=== PATIENT | female | born 1975 | race Caucasian/White ===

== ENCOUNTER → 2019-08-21 | Outpatient (REF) | payer BC ==
[~2019-08-21] MED LIST: ALLE180T33 PO; AMBI10TA OR; DICL75TA PO; IMIT50TA PO; KLON1TAB OR; LASI40TA9 PO; LEXA1TAB OR; MULTIVIT OR; NABU750T OR; NORT10CA2 OR; PROZ40CA PO; SOMA350T OR; TOPI100T OR; VICO5TAB OR; VITA100054 PO; VITA100L PO; [UNRECOGNIZED DRUG - OTHER] OR
== END ==
LOC: M WHC 13:39
PROVIDERS: ATTEND Nurse Practitioner Family
DX: Z12.4 Encounter for screening for malignant neoplasm of cervix (principal); R87.612 Low grade squamous intraepithelial lesion on cytologic smear of cervix (LGSIL)
CPT/HCPCS: 87624; G0123

== ENCOUNTER → 2019-08-25 | Outpatient (REF) | payer BC ==
[2019-08-25 18:12] LABS: ALBUMIN 3.6 GM/DL (3.2-5.2); ALT/SGPT 37 U/L (12-78); BILIRUBIN,TOTAL 0.3 MG/DL (0.2-1.0); BLOOD UREA NITROGEN 9 MG/DL (7-18); CALCIUM LEVEL 8.8 MG/DL (8.5-10.1); CARBON DIOXIDE LEVEL 29 MEQ/L (21-32); CHLORIDE LEVEL 104 MEQ/L (98-107); CHOLESTEROL LEVEL 211 MG/DL (<200); CREATININE FOR GFR 0.55 MG/DL (0.55-1.30); FREE T4 1.18 NG/DL (0.76-1.46); GLOMERULAR FILTRATION RATE > 60.0 (>58); GLUCOSE, FASTING 91 MG/DL (70-100); HDL CHOLESTEROL 89 MG/DL (>40); LDL CHOLESTEROL 101 MG/DL (<100); NON-HDL-C 122 MG/DL; POTASSIUM SERUM 3.7 MEQ/L (3.5-5.1); SODIUM LEVEL 139 MEQ/L (136-145); THYROID STIMULATING HORMONE 0.703 uIU/ML (0.358-3.740); TOTAL PROTEIN 7.4 GM/DL (6.4-8.2); TRIGLYCERIDES LEVEL 104 MG/DL (<150)
[2019-08-25 18:34] LABS: BASO # 0.1 10^3/uL (0.0-0.2); BASO % 0.9 % (0.0-1.0); EOS # 0.1 10^3/uL (0.0-0.5); EOS % 1.4 % (0.0-3.0); HEMATOCRIT 40.6 % (36.0-47.0); HEMOGLOBIN 12.8 g/dl (12.0-15.5); LYMPH # 2.1 10^3/uL (1.5-5.0); MEAN CORPUSCULAR HEMOGLOBIN 28.4 pg (27.0-33.0); MEAN CORPUSCULAR HGB CONC 31.5 g/dl (32.0-36.5); MEAN CORPUSCULAR VOLUME 90.2 fl (80.0-96.0); MONO # 0.6 10^3/uL (0.0-0.8); MONO % 6.4 % (0.0-5.0); NEUTROPHILS # 5.8 10^3/uL (1.5-8.5); PLATELET COUNT, AUTOMATED 386 10^3/uL (150-450); WHITE BLOOD COUNT 8.6 10^3/uL (4.0-10.0)
[2019-08-25 20:29] LABS: HEMOGLOBIN A1c 4.6 %
[2019-08-26 11:56] LABS: PTH INTACT 109.8 PG/ML (18.5-88.0)
[2019-08-26 12:09] LABS: VITAMIN B12 LEVEL 1019 PG/ML (247-911)
== END ==
LOC: M SFHCPLAZ 15:07
PROVIDERS: ATTEND Family Medicine
DX: E55.9 Vitamin D deficiency, unspecified (principal); M50.30 Other cervical disc degeneration, unspecified cervical region; D50.9 Iron deficiency anemia, unspecified; E53.8 Deficiency of other specified B group vitamins; E66.9 Obesity, unspecified; D86.9 Sarcoidosis, unspecified

== ENCOUNTER → 2019-09-07 | Outpatient (CLI) | payer BC ==
[~2019-09-07] MED LIST changes: +ISOVUE-370 76% 100ML VIAL (Q9967) As Ordered ONE
--- NOTE | 2019-09-07 17:02 | REP ---
CT abdomen and pelvis with IV but without oral contrast: History: Splenic artery aneurysm. Comparison CT study January 10, 2016 and March 25, 2015. CT contrast dose: 100 mL of intravenous Isovue [address] findings: Preliminary digital heater furnace radiograph shows clips in right upper quadrant. Bowel gas pattern is normal. The lung bases are essentially clear. Pleural angles are sharp. The gallbladder is surgically absent. The liver and the spleen are normal in size and homogeneous in texture. There is a small accessory splenule. There is a stable 1.5 cm splenic artery aneurysm near the hilus of the spleen. This is located superior to the splenule. It is felt to be unchanged from March 25, 2015. The two other branch aneurysms are less well seen but appear to be unchanged from the comparison CT angiography from March 25, 2015. The splenic vasculature is otherwise unremarkable. No pancreatic abnormality is seen. No adrenal lesion is observed on either side. No retroperitoneal mass or adenopathy is seen. Small and large intestinal bowel loops are normal in the abdomen and pelvis. A normal appendix is seen in the right lower quadrant. There is a simple appearing cystic area in the left adnexa, 6.5 x 5.2 x 6.1 cm in diameter. Small and large bowel loops are unremarkable in the abdomen and pelvis. No abdominal wall defect is seen. Impression: Post cholecystectomy. Stable 1.5 cm splenic artery aneurysms with the two previously noted smaller aneurysms appearing stable but less well seen. There is a 6 cm cystic lesion in the left ovary. Comparison pelvic sonography may be useful. Otherwise negative. Electronically Signed by Juice Pérez MD 09/07/2019 06:20 P
== END ==
LOC: M RAD 12:45
PROVIDERS: ATTEND Family Medicine
DX: I72.8 Aneurysm of other specified arteries (principal)
CPT/HCPCS: 74177; Q9967

== ENCOUNTER → 2019-09-10 | Outpatient (CLI) | payer BC ==
[~2019-09-10] MED LIST changes: -ISOVUE-370 76% 100ML VIAL (Q9967) As Ordered ONE
--- NOTE | 2019-09-10 11:48 | REP ---
PELVIC ULTRASOUND: Real-time sonographic evaluation of pelvis performed utilizing transabdominal and endovaginal technique. Bladder measures 8.7 x 7.5 x 2.0 cm. The uterus measures 8.1 x 4.2 x 5.1 cm. Endometrial thickness is 7 mm. There is no endometrial fluid collection. Right ovary measures 4.4 x 2.6 x 3.2 cm. Hypoechoic structure in the right ovary may represent a complex hemorrhagic dominant follicle or small cyst, 3.4 x 1.9 x 2.3 cm. Left ovary measures 4.5 x 2.3 x 3.9 cm. There is a left ovarian cyst with a thin internal septation measuring 6.1 x 6.1 x 4.2 cm. No torsion is seen of either ovary with duplex Doppler evaluation. No free fluid is seen. IMPRESSION: Hypoechoic structure right ovary may represent a hemorrhagic cyst or dominant follicle 3.4 x 1.9 x 2.3 cm. Anechoic cyst left ovary with a thin septation measures 6.1 x 6.1 x 4.2 cm. Recommend followup ultrasound in 2 months. Electronically Signed by Jerad Arreaga MD 09/10/2019 02:43 P
== END ==
LOC: M RAD 09:04
PROVIDERS: ATTEND Family Medicine
DX: N83.202 Unspecified ovarian cyst, left side (principal)

== ENCOUNTER → 2019-09-11 | Outpatient (CLI) | payer BC ==
--- NOTE | 2019-09-15 15:27 | SLEEPHOME ---
DATE OF STUDY: 09/11/2019 ORDERED BY: Dr. Reynolds Diagnostic home sleep testing was performed due to concern for the obstructive sleep apnea syndrome. For testing a nocturnal T3 respiratory monitoring device was used. Continuous record was made of pulse, oxygen saturation, airflow, chest and abdominal strain and body position. 9 hours and 59 minutes of data were reviewed. There were 6 hours and 30 minutes marked as time in bed. During the interval marked time in bed, there were 42 respiratory events identified of 10 seconds in duration or greater for a respiratory event index of 6.5. The events were primarily obstructive. Baseline pulse rate 70. Pulse rate ranged 59-87. Baseline saturation 92%. Saturations fell to 86%. Testing was performed in both the supine and nonsupine positions. IMPRESSION: Abnormal home sleep testing with repetitive respiratory events and oxygen desaturations to 86% with a respiratory event index of 6.5 is consistent with the obstructive sleep apnea syndrome. RECOMMENDATIONS: The patient should be encouraged to undergo formal sleep evaluation.
== END ==
LOC: M SLEEP HO 09-07 09:57
PROVIDERS: ATTEND Family Medicine
DX: G47.33 Obstructive sleep apnea (adult) (pediatric) (principal)

== ENCOUNTER → 2019-09-21 | Outpatient (REF) | payer BC | LOC: M SFHCWAGY 17:09 | PROVIDERS: ATTEND Nurse Practitioner Women's Health | DX: R87.612 Low grade squamous intraepithelial lesion on cytologic smear of cervix (LGSIL) (principal) ==

== ENCOUNTER → 2020-01-22 | Outpatient (CLI) | payer BC ==
--- NOTE | 2020-01-23 14:29 | REP ---
Followup ovarian cyst. Prior exam, 09/10/2019, showed an ovarian cyst on the right, which was septated measuring 6 cm, and a small suspected hemorrhagic cyst in the right ovary measuring between 3 and 4 cm. Transvesical and transvaginal imaging was obtained. Uterus measures 7.7 x 4.3 x 5.1 cm. The parenchymal echo pattern is unchanged and again seen to be within normal limits. The endometrial echocomplex is again seen to be within normal limits measuring 7 mm in thickness. Right ovary measures 4 x 3.3 x 2.9 cm. Within the right ovary, there is an anechoic structure which measures 3 cm. This exhibits posterior wall enhancement and increased through transmission and is without papillary projections or internal septations. Left ovary measures 3.6 x 1.4 x 2.8 cm. There is a normal follicle in the left ovary. There is no free fluid. IMPRESSION: 1. Resolution of the left ovarian cyst. 2. Small right ovarian cyst.
== END ==
LOC: M WHC 14:44
PROVIDERS: ATTEND Family Medicine
DX: N83.201 Unspecified ovarian cyst, right side (principal)

== ENCOUNTER → 2020-04-13 | Outpatient (CLI) | payer BC ==
[2020-04-13 13:01] LABS: ALBUMIN 2.9 GM/DL (3.2-5.2); ALT/SGPT 29 U/L (12-78); BILIRUBIN,TOTAL 0.2 MG/DL (0.2-1.0); BLOOD UREA NITROGEN 14 MG/DL (7-18); CALCIUM LEVEL 8.8 MG/DL (8.5-10.1); CARBON DIOXIDE LEVEL 25 MEQ/L (21-32); CHLORIDE LEVEL 112 MEQ/L (98-107); CREATININE FOR GFR 0.62 MG/DL (0.55-1.30); GLOMERULAR FILTRATION RATE > 60.0 (>58); GLUCOSE, FASTING 87 MG/DL (70-100); POTASSIUM SERUM 3.8 MEQ/L (3.5-5.1); SODIUM LEVEL 143 MEQ/L (136-145); TOTAL PROTEIN 6.3 GM/DL (6.4-8.2)
[2020-04-13 13:09] LABS: TOTAL 25(OH) VITAMIN D 68.9 NG/ML (30.0-100.0)
[2020-04-13 13:10] LABS: PTH INTACT 67.8 PG/ML (18.5-88.0)
[2020-04-13 13:16] LABS: HEMOGLOBIN A1c 4.7 %
== END ==
LOC: M WUC 09:34
PROVIDERS: ATTEND Family Medicine
DX: R73.01 Impaired fasting glucose (principal); E55.9 Vitamin D deficiency, unspecified; M50.30 Other cervical disc degeneration, unspecified cervical region

== ENCOUNTER → 2020-06-21 | Outpatient (CLI) | payer SELFPAY | LOC: M LABSMTC 08:19 | PROVIDERS: ATTEND Pediatrics | DX: Z11.59 Encounter for screening for other viral diseases (principal) ==

== ENCOUNTER → 2020-06-21 | Outpatient (CLI) | payer SELFPAY | LOC: M LABSMTC 09:45 | PROVIDERS: ATTEND Pediatrics | DX: Z11.59 Encounter for screening for other viral diseases (principal) ==

== ENCOUNTER → 2020-06-28 | Outpatient (CLI) | payer BC ==
--- NOTE | 2020-06-28 10:27 | REPMRS ---
Patient History No known family history of cancer. pt denied . 30 lb intentional weight loss. Digital Woman Screen Mammo: June 28, 2020 - Exam #: [id number] Bilateral CC and MLO view(s) were taken. Technologist: RT Riaz Prior study comparison: January 09, 2017, bilateral digital mammo screening bilat, performed at [facility]. June 08, 2015, bilateral digital mammo screening bilat, performed at [facility]. April 02, 2014, bilateral digital mammo screening bilat, performed at [facility]. FINDINGS: The breast tissue is almost entirely fat. The Volpara volumetric breast density category is: A. There has been no change in the appearance of the mammogram from the prior studies. There is no interval development of dominant mass, architectural distortion, or grouped microcalcification typical of malignancy. 3-D tomosynthesis shows no additional findings. Assessment: BI-RADS/ACR category 1 mammogram. Negative Mammogram. Recommendation Routine screening mammogram of both breasts in 1 year (for women over age 40). This patient's [facility] Lifetime Breast Cancer RIsk is estimated at 12.6 %. This mammogram was interpreted with the aid of an FDA-approved computer-aided dectection system. Electronically Signed By: Ruben Pérez MD 06/28/20 [id number]
== END ==
LOC: M WHC 09:22
PROVIDERS: ATTEND Family Medicine
DX: Z12.31 Encounter for screening mammogram for malignant neoplasm of breast (principal)

== ENCOUNTER → 2020-08-01 | Outpatient (CLI) | payer BC ==
[2020-08-01 12:24] LABS: ALBUMIN 3.2 GM/DL (3.2-5.2); ALT/SGPT 39 U/L (12-78); BILIRUBIN,TOTAL 0.4 MG/DL (0.2-1.0); BLOOD UREA NITROGEN 8 MG/DL (7-18); CALCIUM LEVEL 8.7 MG/DL (8.5-10.1); CARBON DIOXIDE LEVEL 24 MEQ/L (21-32); CHLORIDE LEVEL 107 MEQ/L (98-107); GLOMERULAR FILTRATION RATE > 60.0 (>58); GLUCOSE, FASTING 81 MG/DL (70-100); NT-PRO BNP 102 PG/ML (<125); POTASSIUM SERUM 3.5 MEQ/L (3.5-5.1); SODIUM LEVEL 138 MEQ/L (136-145); TOTAL 25(OH) VITAMIN D 82.3 NG/ML (30.0-100.0); TOTAL PROTEIN 6.8 GM/DL (6.4-8.2)
[2020-08-01 13:49] LABS: HEMOGLOBIN A1c 4.9 %
== END ==
LOC: M LAB 10:26
PROVIDERS: ATTEND Family Medicine
DX: R73.01 Impaired fasting glucose (principal)

== ENCOUNTER → 2020-08-04 | Outpatient (REF) | payer SELFPAY | LOC: M LABSMTC 09:50 → EDSTATUS 11:25 → M LABSMTC 14:22 | PROVIDERS: ATTEND Pediatrics | DX: Z20.822 Contact with and (suspected) exposure to COVID-19 (principal) ==

== ENCOUNTER → 2020-08-12 | Outpatient (CLI) | payer BC ==
[~2020-08-12] MED LIST changes: +ISOVUE-370 76% 100ML VIAL As Ordered ONE
--- NOTE | 2020-08-13 05:11 | REP ---
INDICATION: SPIENIC ARTERY ANEURYSM COMPARISON: None TECHNIQUE: Axial contrast-enhanced images from the lung bases through the aortic bifurcation to iliac arteries using angiographic technique. 100 cc Isovue 370 intravenous contrast material administered without complication. Coronal and sagittal reformations obtained along with multiplanar MIP reformations and volume rendered CT aortic angiogram created at the workstation. This CT examination was performed using the following dose reduction techniques: Automated exposure control, adjustment of mA and/or kv according to the patient's size, and use of iterative reconstruction technique. FINDINGS: Angiographic evaluation demonstrates normal appearance to the abdominal aorta, celiac axis, superior mesenteric artery, bilateral solitary renal arteries, inferior mesenteric artery and bifurcation to common iliac arteries. There is no evidence for aortic aneurysm or dissection. Of note, the distal splenic artery is tortuous and again demonstrates a stable 1.5 cm splenic artery aneurysm approaching the splenic hilum. The smaller splenic artery aneurysms reported on prior studies are not definitively identified. Lung bases are clear. Visualized heart and pericardium normal. Liver, spleen, pancreas, bilateral adrenal glands and kidneys are normal. Evidence for prior cholecystectomy noted. The visualized portions of the small and large bowel are unremarkable. No ascites. No free air. No adenopathy. No focal inflammatory stranding. Musculoskeletal structures are intact and without acute osseous abnormality. IMPRESSION: 1. Stable 1.5 cm splenic artery aneurysm. 2. Otherwise normal CT aortogram. 3. No acute abdominopelvic pathology appreciated. <Electronically signed by Micheal Resendez > 08/13/20 [id number]
== END ==
LOC: M RAD 13:43
PROVIDERS: ATTEND Family Medicine
DX: I72.8 Aneurysm of other specified arteries (principal)
CPT/HCPCS: 74175; Q9967

== ENCOUNTER 2020-09-13 13:40 | Emergency (ER) | payer BC ==
[~2020-09-13] VITALS: Ht 177.8 cm; Wt 122.2 kg
[~2020-09-13 13:40] MED LIST changes: -ISOVUE-370 76% 100ML VIAL As Ordered ONE
[2020-09-13] MEDS ORDERED: ONDA4TAB6 (13:53)
[2020-09-13] MEDS ORDERED: OXYC1TAB15 (13:53)
[2020-09-13] MEDS ORDERED: TOPI50TA9 (13:53)
[2020-09-13] MEDS ORDERED: PANT40TA29 (13:53)
[2020-09-13] MEDS ORDERED: VITA50005 (13:53)
[2020-09-13] MEDS ORDERED: ZOLP5TAB (13:54)
[2020-09-13] MEDS ORDERED: QUET50TA3 (13:54)
[2020-09-13] MEDS ORDERED: FURO40TA2 (13:54)
[2020-09-13] MEDS ORDERED: FLUO40CA (13:54)
[2020-09-13] MEDS ORDERED: RIZA10TA2 (13:54)
[2020-09-13] MEDS ORDERED: MORPHINE 4 MG/ML 1ML VIAL/SYRINGE (J2270) IV ONE (14:05)
[2020-09-13] MEDS ORDERED: ONDANSETRON 4MG/2ML VIAL IV ONE (14:05)
[2020-09-13 14:32] LABS: BASO % 0.4 % (0.0-1.0); EOS # 0.1 10^3/uL (0.0-0.5); EOS % 0.6 % (0.0-3.0); HEMATOCRIT 33.4 % (36.0-47.0); HEMOGLOBIN 10.7 g/dl (12.0-15.5); LYMPH # 1.6 10^3/uL (1.5-5.0); LYMPH % 16.4 % (24.0-44.0); MEAN CORPUSCULAR HEMOGLOBIN 28.8 pg (27.0-33.0); MEAN CORPUSCULAR VOLUME 89.8 fl (80.0-96.0); MONO # 0.5 10^3/uL (0.0-0.8); MONO % 4.8 % (2.0-8.0); NEUTROPHILS # 7.7 10^3/uL (1.5-8.5); NEUTROPHILS % 77.3 % (36.0-66.0); PLATELET COUNT, AUTOMATED 315 10^3/uL (150-450); RED BLOOD COUNT 3.72 10^6/uL (4.00-5.40)
[2020-09-13] MEDS: GASTROGRAFIN SOLUTION 30ML PO SCH ×2 (14:43→15:18)
[2020-09-13 15:02] LABS: ALT/SGPT 28 U/L (12-78); BILIRUBIN,DIRECT 0.2 MG/DL (0.0-0.2); BILIRUBIN,TOTAL 0.4 MG/DL (0.2-1.0); BLOOD UREA NITROGEN 14 MG/DL (7-18); CALCIUM LEVEL 8.5 MG/DL (8.5-10.1); CARBON DIOXIDE LEVEL 27 MEQ/L (21-32); CHLORIDE LEVEL 109 MEQ/L (98-107); CREATININE FOR GFR 0.58 MG/DL (0.55-1.30); GLOMERULAR FILTRATION RATE > 60.0 (>58); GLUCOSE, FASTING 80 MG/DL (70-100); LIPASE 41 U/L (73-393); POTASSIUM SERUM 3.6 MEQ/L (3.5-5.1); SODIUM LEVEL 139 MEQ/L (136-145); TOTAL PROTEIN 6.5 GM/DL (6.4-8.2)
[2020-09-13 15:05] LABS: HCG, SERUM QUALITATIVE NEGATIVE (NEGATIVE)
[2020-09-13] MEDS ORDERED: ISOVUE-370 76% 100ML VIAL As Ordered ONE (16:23)
--- NOTE | 2020-09-13 16:51 | REP ---
INDICATION: LLQ pain. COMPARISON: None TECHNIQUE: Axial contrast-enhanced images from the lung bases to the pubic symphysis using oral and 100 cc Isovue 370 intravenous contrast material. . This CT examination was performed using the following dose reduction techniques: Automated exposure control, adjustment of mA and/or kv according to the patient's size, and the use of iterative reconstruction technique. FINDINGS: Lung bases are clear. Visualized heart and pericardium normal. Liver, spleen, pancreas, bilateral adrenal glands and kidneys are normal. Evidence for prior cholecystectomy noted. Stable incidental chronic calcified splenic artery aneurysm again identified and unchanged. The enteric system including stomach, small, and large bowel appears normal. No evidence for obstruction or acute inflammatory process. Normal terminal ileum and appendix are identified in the right lower quadrant. Pelvis demonstrates normal bladder and age-appropriate uterus with presumed physiologic cystic changes to the ovaries. No ascites. No free air. No intraperitoneal or retroperitoneal adenopathy. Abdominal aorta and vasculature appear normal. Musculoskeletal structures are intact and without acute osseous abnormality. IMPRESSION: No acute abdominopelvic pathology appreciated. As above. <Electronically signed by Micheal Resendez > 09/13/20 [id number]
[2020-09-13 17:35] VITALS: BP 119/71
== END 2020-09-13 17:53 | disposition home or self-care (01) ==
LOC: M ED 13:40
DX: R10.30 Lower abdominal pain, unspecified (principal); I10 Essential (primary) hypertension; K58.9 Irritable bowel syndrome, unspecified; K21.9 Gastro-esophageal reflux disease without esophagitis; J45.909 Unspecified asthma, uncomplicated; E66.9 Obesity, unspecified; M47.9 Spondylosis, unspecified; G56.00 Carpal tunnel syndrome, unspecified upper limb; I72.8 Aneurysm of other specified arteries; R73.01 Impaired fasting glucose; F33.9 Major depressive disorder, recurrent, unspecified; F41.9 Anxiety disorder, unspecified; F42.9 Obsessive-compulsive disorder, unspecified; Z87.891 Personal history of nicotine dependence; Z88.1 Allergy status to other antibiotic agents; Z88.8 Allergy status to other drugs, medicaments and biological substances; Z91.048 Other nonmedicinal substance allergy status; Z79.899 Other long term (current) drug therapy
CPT/HCPCS: 36415; 74177; 80048; 80076; 81001; 83690; 84703; 85025; 87086; 96374; 96375; 99284; J2270; J2405; Q9963; Q9967

== ENCOUNTER → 2020-10-27 | Outpatient (REF) | payer BC ==
[~2020-10-27] MED LIST changes: +FLUO40CA; +FURO40TA2; +ONDA4TAB6; +OXYC1TAB15; +PANT40TA29; +QUET50TA3; +RIZA10TA2; +TOPI50TA9; +VITA50005; +ZOLP5TAB
[2020-10-27 17:05] LABS: CHLAMYDIA DNA AMPLIFICATION NEGATIVE (NEGATIVE); GC DNA AMPLIFICATION NEGATIVE (NEGATIVE)
== END ==
LOC: M SFHCWAGY 14:59
PROVIDERS: ATTEND Specialist
DX: N89.8 Other specified noninflammatory disorders of vagina (principal); R87.610 Atypical squamous cells of undetermined significance on cytologic smear of cervix (ASC-US)
CPT/HCPCS: 87491; 87591; 87624; G0123

== ENCOUNTER → 2021-01-03 | Outpatient (REF) | payer BC ==
[~2021-01-03] MED LIST changes: +ERGO500029; -OXYC1TAB15; +OXYC7.5T3; -VITA50005
[2021-01-03 13:37] LABS: BASO # 0.1 10^3/uL (0.0-0.2); BASO % 0.8 % (0.0-1.0); EOS # 0.1 10^3/uL (0.0-0.5); EOS % 1.3 % (0.0-3.0); HEMATOCRIT 35.1 % (36.0-47.0); HEMOGLOBIN 11.4 g/dl (12.0-15.5); LYMPH # 1.9 10^3/uL (1.5-5.0); LYMPH % 23.4 % (24.0-44.0); MEAN CORPUSCULAR HEMOGLOBIN 28.8 pg (27.0-33.0); MEAN CORPUSCULAR HGB CONC 32.5 g/dl (32.0-36.5); MEAN CORPUSCULAR VOLUME 88.6 fl (80.0-96.0); MONO # 0.4 10^3/uL (0.0-0.8); MONO % 5.1 % (2.0-8.0); NEUTROPHILS # 5.5 10^3/uL (1.5-8.5); NEUTROPHILS % 69.1 % (36.0-66.0); PLATELET COUNT, AUTOMATED 273 10^3/uL (150-450); RED BLOOD COUNT 3.96 10^6/uL (4.00-5.40); WHITE BLOOD COUNT 7.9 10^3/uL (4.0-10.0)
[2021-01-03 14:10] LABS: ALBUMIN 3.5 GM/DL (3.2-5.2); ALT/SGPT 34 U/L (12-78); BILIRUBIN,TOTAL 0.4 MG/DL (0.2-1.0); BLOOD UREA NITROGEN 8 MG/DL (7-18); C REACTIVE PROTEIN QUANTITATIV 2.09 MG/DL (0.00-0.30); CALCIUM LEVEL 9.1 MG/DL (8.5-10.1); CARBON DIOXIDE LEVEL 21 MEQ/L (21-32); CHLORIDE LEVEL 111 MEQ/L (98-107); CHOLESTEROL LEVEL 219 MG/DL (<200); CHOLESTEROL RISK RATIO 2.959 (<5); CREATININE FOR GFR 0.48 MG/DL (0.55-1.30); FERRITIN 66 NG/ML (8-252); GLOMERULAR FILTRATION RATE > 60.0 (>58); GLUCOSE, FASTING 94 MG/DL (70-100); HDL CHOLESTEROL 74 MG/DL (>40); LDL CHOLESTEROL 121 MG/DL (<100); NON-HDL-C 145 MG/DL; POTASSIUM SERUM 3.8 MEQ/L (3.5-5.1); SODIUM LEVEL 140 MEQ/L (136-145); TOTAL PROTEIN 6.7 GM/DL (6.4-8.2); TRIGLYCERIDES LEVEL 118 MG/DL (<150)
[2021-01-03 14:11] LABS: H PYLORI QUALITATIVE IgG NEGATIVE (NEGATIVE)
[2021-01-03 14:14] LABS: VITAMIN B12 LEVEL 701 PG/ML (247-911)
== END ==
LOC: M LAB REF 12:35
PROVIDERS: ATTEND Family Medicine
DX: D50.9 Iron deficiency anemia, unspecified (principal); E78.2 Mixed hyperlipidemia; E53.8 Deficiency of other specified B group vitamins; M50.30 Other cervical disc degeneration, unspecified cervical region
CPT/HCPCS: 80053; 80061; 80307; 82607; 82728; 85025; 86140; 86677; G0480

== ENCOUNTER → 2021-01-18 | Outpatient (REF) | payer BC | LOC: M SFHCWAGY 10:01 | PROVIDERS: ATTEND Specialist | DX: R87.612 Low grade squamous intraepithelial lesion on cytologic smear of cervix (LGSIL) (principal) ==

== ENCOUNTER → 2021-04-18 | Outpatient (REF) ==
[~2021-04-18] MED LIST changes: -QUET50TA3; +QUET50TA4
== END ==
LOC: M EMP 11:02
PROVIDERS: ATTEND Family Medicine
DX: Z20.828 Contact with and (suspected) exposure to other viral communicable diseases (principal); Z11.52 Encounter for screening for COVID-19

== ENCOUNTER → 2021-04-26 | Outpatient (REF) ==
[2021-04-26 14:06] LABS: RSV AMPLIFICATION NEGATIVE (NEGATIVE)
== END ==
LOC: M EMP 11:40
PROVIDERS: ATTEND Family Medicine
DX: Z20.822 Contact with and (suspected) exposure to COVID-19 (principal)

== ENCOUNTER 2021-04-30 03:09 | Emergency (ER) | payer BC ==
[~2021-04-30] VITALS: Ht 175.3 cm; Wt 116.3 kg
--- OUTSIDE RECORDS SUMMARY | 2021-04-30 03:19 | CCD ---
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
--- OUTSIDE RECORDS SUMMARY | 2021-04-30 03:19 | CCD ---
Author Author [facility] Organization [facility] Address Unknown Phone Unavailable Care Team Providers Care Art Specialist Name Role Phone Magdaleno Reynolds Unavailable PROBLEMS Type Condition ICD9-CM Code GVV08-KC Code Onset Dates Condition S tatus W/U Status Risk SNOMED Code Notes Problem Cervical dysplasia N87.9 Active confirmed 7 4183640 Problem Splenic artery aneurysm I72.8 Active confirmed 96160245 Problem Common migraine G43.009 Active confirmed 560 61606 Problem Fe deficiency anemia D50.9 Active confirmed 29752926 Problem DJD (degenerative joint disease), cervical M50.30 Active confirmed 08988129 Problem CHRIS (obstructive sleep apnea) G47.33 Active confirm ed 01061455 Problem Irritable bowel syndrome with diarrhea K58.0 A ctive confirmed 659522000 Problem Sarcoidosis D86.9 Active confirmed 06665512 Problem CTS (carpal tunnel syndrome) G56.00 Active confirme d 38806524 Problem Allergic rhinitis J30.9 Active confirmed 61 862027 Problem Insomnia G47.00 Active confirmed 390587991 Problem Generalized anxiety disorder F41.1 Active confirme d 85297089 Problem Obesity E66.9 Active confirmed 711650423 Problem Gastroesophageal reflux disease, esophagitis pre sence not specified K21.9 Active confirmed 232973555 Problem ADD (attention deficit disorder) F90.0 Active conf irmed 103677528 Problem Tinnitus of right ear H93.11 Active confirmed 53693005 Problem Mild persistent asthma without complication J45.30 Active confirmed 602735220 Problem Ovarian cyst N83.209 Active confirmed 163350 01 Problem Peripheral edema R60.9 Active confirmed 271 706577 Problem Vitamin D deficiency E55.9 Active confirmed 64264439 Problem Venous insufficiency of both lower extremities I87 .2 Active confirmed 754409134 Problem Vitamin B12 deficiency E53.8 Active confirmed 540999240 Problem Breast cancer screening Z12.39 Active confirmed 123133165 Problem IFG (impaired fasting glucose) R73.01 Active confir med 712192695 Problem Mixed hyperlipidemia E78.2 Active confirmed 214844189 Problem Post-traumatic stress disorder, unspecified F43.10 Active confirmed 29649652 Problem Major depressive disorder, recurrent, moderate F33 .1 Active confirmed 245293106 ALLERGIES Allergen (clinical drug ingredient) Drug/Non Drug Allergy do cumented on EMR Reaction Allergy Type Onset Date Status bandaids excoriation Non Drug Allergy Active cetirizine Cetirizine HCl([facility] Code:[address]-39) Hives Drug All ergy Active citalopram Celexa(ND Code:[address]-55) severe drowsiness Drug Tommy rgy Active clindamycin Clindamycin HCl([facility] Code:[address]-35) Vomiting Drug A llergy Active povidone-iodine Betadine(ND Code:[address]-95) Rash Drug Tommy rgy Active ENCOUNTERS from 1975 to 2021-02-11 Encounter Location Date Provider Diagnosis [address] [phone] [place] [address] Jan, Magdaleno Reynolds Venous insufficiency of both lower extremities I87.2 IMMUNIZATIONS Vaccine Route Administration Date Status Influenza Pharmacy Given Unknown Mar 24, 2020 Adminis tered Influenza Pharmacy Given IM Intramuscular May 26, 2019 Admini stered Influenza 6mo & up Fluzone Unknown Apr 14, 2015 Admin istered Influenza 6mo & up Fluzone IM Intramuscular Aug 05, 2012 Admi nistered SOCIAL HISTORY Tobacco Use: Social History Observation Description Date Details (start date - stop date) Former Smoker Sex Assigned At : Social History Observation Description Sex Assigned At Unknown Education: Question Answer Notes Level of Education: College Language: Question Answer Notes Languages spoken: Mosotho Cheondoism: Question Answer Notes Cheondoism 33 None Alcohol Screening: Question Answer Notes Did you have a drink containing alcohol in the past year? No Points 0 Interpretation Negative BMI Care Goal Follow-Up Question Answer Notes Above Normal BMI Follow-Up Giving encouragement to exercise Tobacco Use: Question Answer Notes Are you a: former smoker smoked 2 PPD for 15 years REASON FOR REFERRAL No Information VITAL SIGNS No information MEDICATIONS Medication SIG (Take, Route, Frequency, Duration) Notes Start Da te End Date Status QUEtiapine Fumarate 50 MG 1 tab Orally at bedtime for 30 day(s) Active Diclofenac Sodium 75 MG 1 tablet Orally twice a day for 90 day(s) Active Tums Ultra 1000 1000 MG 1 tablet Orally at bedtime for 90 day(s) Active Soma 350 MG 1 tablet as needed Orally twice a day MDD: 2 for 30 Days Active FLUoxetine HCl 40 MG 2 capsules Orally every morning for 90 day(s) Active Nikki Allergy 180 MG TAKE ONE TABLET BY MOUTH EVERY DAY Active Xopenex HFA 45 MCG/ACT 1 puff as needed Inhalation every 4 hrs for 30 Days Active Lotronex 0.5 MG 1 tablet Orally Daily for 30 day(s) November Active Clobetasol Propionate 0.05 % 1 application to affected area Externally arms Twice a day for 90 day(s) Active Pantoprazole Sodium 40 MG 1 tablet Orally every morning for 90 day(s) Active Cyanocobalamin 500 MCG 1 tablet Orally Once a day for 90 day(s) Active Ergocalciferol 1.25 MG (18340 UT) 1 capsule Orally every 7 days for 90 day(s) Active clonazePAM 1 MG 1 tablet Orally bid, CODE A for 30 Days Active Hibiclens 4 % as directed Externally Daily for 90 day(s) Active Osteo Bi-Flex Adv Joint Shield - as directed Orally Active Hair Skin and Nails Formula - as directed Orally Active Rizatriptan Benzoate 10 MG 1 tablet Orally qd prn migr november repeat x 1 in 2H for 30 Days Active Mupirocin 2 % 1 application Externally Three times a day Active Percocet 7.5-325 MG 1 tablet as needed Orally TID prn, MDD 3 for 30 Days Jan, Active Lasix 40 mg 1 tablet Orally daily prn BLE swelling Active Topiramate 50 MG 1.5 tablet orally bid for 90 day(s) Active Ondansetron HCl 4 MG 1 tablet Orally Once a day for 90 day(s) Jun, Active Ambien 5 MG 1 tablet at bedtime Orally at bedtime MDD:1 for 30 day(s) Active Vitamin C 500 MG as directed Orally Active Carpal Tunnel Wrist Stabilizer _ as directed _ _ for 99 months Active Sudafed 30 MG 2 tablets as needed Orally every 6 hrs Active Benadryl Allergy 25 MG 1 tablet at bedtime as neede d Orally Once a day for 30 day(s) Active Nystatin 385946 UNIT/GM 1 application Externally to groin area Twice a day for 90 day(s) Dec, Active COMPRESSION STOCKINGS 20-30 mmHg as directed _ B belwo knee for 30 Days November, Active PROCEDURES No Information RESULTS No Results REASON FOR VISIT Compression socks MEDICAL (GENERAL) HISTORY Type Description Date Medical History cervical/thoracic spondylosi s-C3-7 HNP s compression-06/21/14 MRI Medical History lumbar spondylosis-10/19/09 normal LS MRI Medical History hypertension-03/2014 normal T TE, 03/2014 EST low risk-6 minutes, 30 seconds on Roldan-Sanchez Medical History mild left and very mild righ t carpal tunnel syndrome/mild left ulnar neuropathy cubui-KIF-Bllux Medical History chronic MDD/AUDI/OCD/insomnia Medical History obesity, morbid Medical History impaired fasting glucose Medical History history of nicotine addictio n-smoked 1 07/16 x 14 years, quit 02/2010 Medical History asthma, mild intermittent Medical History NEQG-ryz-fgqyxmc gastritis, non-bleeding erosive gastropathy, -GEJ/-H pylori-11/27/18 EGD-Dr. Parks, [place], [place] Medical History palpitations-03/2014 Holter-s ymptoms correlated to ST to 100 bpm, HR 51-126 bpm Medical History CHRIS-01/2013 NPSG c RDI 10-09/11/19 [facility] JOURDAN 7, SaO2 to 86% Medical History R trochanteric bursitis-04/2013 R hip xr ay c mild DJD Medical History s/p LEEP 11/2013-Dr. Jerry cardenas mild squam ous dysplasia Medical History splenic artery aneurysm-1.7 cm by 09/2014 CT A/P Medical History sarcoidosis-10/2005 granuloma tous inflammation by biopsy of peritracheal and mediastinal LN-[facility] Medical History IBS, mixed type-02/12/14 hyper plastic p, WNL random colon bx- R//moderate colonic spasm, WNL random colonic bx-colon-Dr. Parks [place], [place]-11/27/18 Medical History 2 tiny T2WHI 1 in each frontal lobe by MRI/ MRA brain Medical History thoracic sgiosdjscnf-U2-8 sm all HNP, T10-L1 bulges s compression by 03/29/12 MRI Surgical History colposcopy, 2006-miguel angel 1---2011 no dysplas ia 2013 MIGUEL ANGEL 1 on ECC 2005,2006,2011 Surgical History cryo Surgical History bronch. scope x 2 Surgical History hysterosalpingography x [address] Dr.Dacos becerra 2008, 2009 Surgical History LEEP, FVAVJ-Awtvhnb-Btshmn 04/2015, 12/01 14 Surgical History lap otis--pathology cw acal culous chronic rptsiwhnvqeoz-[facility] 04/29/19 Surgical History Colposcopy 09/21/2019 Hospitalization History No Hospitalization history informati on Goals Section No Information Health Concerns No Information MEDICAL EQUIPMENT No Information MENTAL STATUS No Information FUNCTIONAL STATUS No Information ASSESSMENTS Encounter Date Diagnosis Assessment Notes Treatment Notes Treatm ent Clinical Notes Jan, Venous insufficiency of both lower extremities ( ICD-10 - I87.2) PLAN OF TREATMENT Medication Medication Name Sig Start Date Stop Date Nystatin 342484 UNIT/GM 1 application Externally to groin area Twice a day for 90 day(s) Dec, COMPRESSION STOCKINGS 20-30 mmHg as directed _ B belwo knee for 30 Days November, Percocet 7.5-325 MG 1 tablet as needed Orally TID prn, MDD 3 for 30 Days Jan, clonazePAM 1 MG 1 tablet Orally bid, CODE A for 30 Days Clobetasol Propionate 0.05 % 1 application to affected area Externally arms Twice a day for 90 day(s) Xopenex HFA 45 MCG/ACT 1 puff as needed Inhalation every 4 hrs f or 30 Days Next Appt Details Provider Name:Magdaleno Reynolds, 2021-06-15 0 3:00:00 PM, [address] [facility], , [place], [address], Insurance Providers Payer Name Payer Address Payer Phone Insured Name Patient Relati onship to Insured Coverage Start Date Coverage End Date BCBS OF [facility] [id number] [employer] [facility] [id number] [place] self
--- OUTSIDE RECORDS SUMMARY | 2021-04-30 03:19 | CCD ---
Author Author [facility] Organization [facility] Address Unknown Phone Unavailable Care Team Providers Care Rn Hematology Name Role Phone Magdaleno Reynolds Unavailable PROBLEMS Type Condition ICD9-CM Code IQH00-BC Code Onset Dates Condition S tatus W/U Status Risk SNOMED Code Notes Problem Cervical dysplasia N87.9 Active confirmed 7 0286701 Problem Splenic artery aneurysm I72.8 Active confirmed 62947441 Problem Common migraine G43.009 Active confirmed 560 15381 Problem Fe deficiency anemia D50.9 Active confirmed 37383792 Problem DJD (degenerative joint disease), cervical M50.30 Active confirmed 43276373 Problem CHRIS (obstructive sleep apnea) G47.33 Active confirm ed 69247049 Problem Irritable bowel syndrome with diarrhea K58.0 A ctive confirmed 866098024 Problem Sarcoidosis D86.9 Active confirmed 21678059 Problem CTS (carpal tunnel syndrome) G56.00 Active confirme d 95009740 Problem Allergic rhinitis J30.9 Active confirmed 61 331037 Problem Insomnia G47.00 Active confirmed 123717624 Problem Generalized anxiety disorder F41.1 Active confirme d 49773818 Problem Obesity E66.9 Active confirmed 363499604 Problem Gastroesophageal reflux disease, esophagitis pre sence not specified K21.9 Active confirmed 941808666 Problem ADD (attention deficit disorder) F90.0 Active conf irmed 410195418 Problem Tinnitus of right ear H93.11 Active confirmed 88124718 Problem Mild persistent asthma without complication J45.30 Active confirmed 240756292 Problem Ovarian cyst N83.209 Active confirmed 388027 01 Problem Peripheral edema R60.9 Active confirmed 271 739175 Problem Vitamin D deficiency E55.9 Active confirmed 25176063 Problem Venous insufficiency of both lower extremities I87 .2 Active confirmed 157646260 Problem Vitamin B12 deficiency E53.8 Active confirmed 557397767 Problem Breast cancer screening Z12.39 Active confirmed 550901204 Problem IFG (impaired fasting glucose) R73.01 Active confir med 473444166 Problem Mixed hyperlipidemia E78.2 Active confirmed 866547774 Problem Post-traumatic stress disorder, unspecified F43.10 Active confirmed 23871952 Problem Major depressive disorder, recurrent, moderate F33 .1 Active confirmed 289466496 ALLERGIES Allergen (clinical drug ingredient) Drug/Non Drug Allergy do cumented on EMR Reaction Allergy Type Onset Date Status bandaids excoriation Non Drug Allergy Active cetirizine Cetirizine HCl([facility] Code:[address]-11) Hives Drug All ergy Active citalopram Celexa(ND Code:[address]-26) severe drowsiness Drug Tommy rgy Active clindamycin Clindamycin HCl(ND Code:[address]-58) Vomiting Drug A llergy Active povidone-iodine Betadine(ND Code:[address]-90) Rash Drug Tommy rgy Active ENCOUNTERS from 1974 to 2021-01-30 Encounter Location Date Provider Diagnosis [address] [phone] [place] [address] Jan, Magdaleno Reynolds IMMUNIZATIONS Vaccine Route Administration Date Status Influenza [...] College Language: Question Answer Notes Languages spoken: Polish Jehovah'S Witness: Question Answer Notes Jehovah'S Witness 32 None Alcohol Screening: Question Answer Notes [...] Notes Start Da te End Date Status Pantoprazole Sodium 40 MG 1 tablet Orally every morning for 90 day(s) Active Lotronex 0.5 MG 1 tablet Orally Daily for 30 day(s) November Active FLUoxetine HCl 40 MG 2 capsules Orally every morning for 90 day(s) Active Diclofenac Sodium 75 MG 1 tablet Orally twice a day for 90 day(s) Active clonazePAM 1 MG 1 tablet Orally bid, CODE A for 30 Days Active COMPRESSION STOCKINGS 20-30 mmHg as directed _ B belwo knee for 30 Days November, Active Lasix 40 mg 1 tablet Orally daily prn BLE swelling Active Nikki Allergy 180 MG TAKE ONE TABLET BY MOUTH EVERY DAY Active Ergocalciferol 1.25 MG (88036 UT) 1 capsule Orally every 7 days for 90 day(s) Active Rizatriptan Benzoate 10 MG 1 tablet Orally qd prn migr november repeat x 1 in 2H for 30 Days Active Cyanocobalamin 500 MCG 1 tablet Orally Once a day for 90 day(s) Active Nystatin 068355 UNIT/GM 1 application Externally to groin area Twice a day for 90 day(s) Dec, Active Ambien 5 MG 1 tablet at bedtime Orally at bedtime MDD:1 for 30 day(s) Active Hair Skin and Nails Formula - as directed Orally Active Mupirocin 2 % 1 application Externally Three times a day Active QUEtiapine Fumarate 50 MG 1 tab Orally at bedtime for 30 day(s) Active Topiramate 50 MG 1.5 tablet orally bid for 90 day(s) Active Hibiclens 4 % as directed Externally Daily for 90 day(s) Active Tums Ultra 1000 1000 MG 1 tablet Orally at bedtime for 90 day(s) Active Percocet 7.5-325 MG 1 tablet as needed Orally TID prn, MDD 3 for 30 Days Dec, Active Soma 350 MG 1 tablet as needed Orally twice a day MDD: 2 for 30 Days Active Vitamin C 500 MG as directed Orally Active Xopenex HFA 45 MCG/ACT 1 puff as needed Inhalation every 4 hrs for 30 Days Active Clobetasol Propionate 0.05 % 1 application to affected area Externally arms Twice a day for 90 day(s) Active Ondansetron HCl 4 MG 1 tablet Orally Once a day for 90 day(s) Jun, Active Carpal Tunnel Wrist Stabilizer _ as directed _ _ for 99 months Active Osteo Bi-Flex Adv Joint Shield - as directed Orally Active Benadryl Allergy 25 MG 1 tablet at bedtime as neede d Orally Once a day for 30 day(s) Active Sudafed 30 MG 2 tablets as needed Orally every 6 hrs Active PROCEDURES No Information RESULTS No Results REASON FOR VISIT New Refill Request MEDICAL (GENERAL) HISTORY Type Description Date Medical History cervical/thoracic spondylosi s-C3-7 HNP s compression-06/21/14 MRI Medical History lumbar spondylosis-10/19/09 normal LS MRI Medical History hypertension-03/2014 normal T TE, 03/2014 EST low risk-6 minutes, 30 seconds on Roldan-Sanchez Medical History mild left and very mild righ t carpal tunnel syndrome/mild left ulnar neuropathy veomp-UVJ-Rmqpy Medical History chronic MDD/AUDI/OCD/insomnia Medical History obesity, morbid Medical History impaired fasting glucose Medical History history of nicotine addictio n-smoked 1 07/16 x 14 years, quit 02/2010 Medical History asthma, mild intermittent Medical History CESC-bun-frinhmt gastritis, non-bleeding erosive gastropathy, -GEJ/-H pylori-11/27/18 EGD[place], [place] Medical History palpitations-03/2014 Holter-s ymptoms correlated [...] colonic spasm, WNL random colonic bx-colon-Dr. Parks [place], [place]-11/27/18 Medical History 2 tiny T2WHI 1 in each frontal lobe by 5 /20/15 MRI/ MRA brain Medical History thoracic mfpyqpqsdlg-V0-4 sm all HNP, T10-L1 bulges s compression by 03/29/12 MRI Surgical History colposcopy, 2006-miguel angel 1---2011 no dysplas ia 2013 MIGUEL ANGEL 1 on ECC 2004,2006,2011 Surgical History cryo Surgical History bronch. scope x 2 Surgical History hysterosalpingography x 2 Dr.Dacos becerra 2008, 2009 Surgical History LEEP, ALULH-Zcozliy-Zsngdp 04/2015, 12/01 14 Surgical History lap otis--pathology cw acal culous chronic zikhxmxfmzuqr-XFQ-[place], [place] 04/29/19 Surgical History Colposcopy 09/21/2019 Hospitalization History No Hospitalization history informati on Goals Section No Information Health Concerns No Information MEDICAL EQUIPMENT No Information MENTAL STATUS No Information FUNCTIONAL STATUS No Information ASSESSMENTS No Information PLAN OF TREATMENT Medication Medication Name Sig Start Date Stop Date Nystatin 565843 UNIT/GM 1 application Externally to groin area Twice a day for 90 day(s) Dec, Xopenex HFA 45 MCG/ACT 1 puff as needed Inhalation every 4 hrs f or 30 Days Insurance Providers Payer Name Payer Address Payer Phone Insured Name Patient Relati onship to Insured Coverage Start Date Coverage End Date [employer] [place] [id number] [employer] [facility] [id number] UZA[place] MARTINO self
--- OUTSIDE RECORDS SUMMARY | 2021-04-30 03:19 | CCD ---
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 Name Role Phone Magdaleno Reynolds Unavailable PROBLEMS Type Condition ICD9-CM Code LTU13-OM Code Onset Dates Condition S tatus W/U Status Risk SNOMED Code Notes Problem Cervical dysplasia N87.9 Active confirmed 7 9600765 Problem Splenic artery aneurysm I72.8 Active confirmed 18406676 Problem Common migraine G43.009 Active confirmed 560 04022 Problem Fe deficiency anemia D50.9 Active confirmed 20160462 Problem DJD (degenerative joint disease), cervical M50.30 Active confirmed 20659849 Problem CHRIS (obstructive sleep apnea) G47.33 Active confirm ed 70958702 Problem Irritable bowel syndrome with diarrhea K58.0 A ctive confirmed 449540037 Problem Sarcoidosis D86.9 Active confirmed 32494007 Problem CTS (carpal tunnel syndrome) G56.00 Active confirme d 23690707 Problem Allergic rhinitis J30.9 Active confirmed 61 970881 Problem Insomnia G47.00 Active confirmed 063335237 Problem Generalized anxiety disorder F41.1 Active confirme d 39604425 Problem Obesity E66.9 Active confirmed 553549637 Problem Gastroesophageal reflux disease, esophagitis pre sence not specified K21.9 Active confirmed 923931815 Problem ADD (attention deficit disorder) F90.0 Active conf irmed 934806235 Problem Tinnitus of right ear H93.11 Active confirmed 69030552 Problem Mild persistent asthma without complication J45.30 Active confirmed 487225030 Problem Ovarian cyst N83.209 Active confirmed 885546 01 Problem Peripheral edema R60.9 Active confirmed 271 300538 Problem Vitamin D deficiency E55.9 Active confirmed 48422194 Problem Venous insufficiency of both lower extremities I87 .2 Active confirmed 140326261 Problem Vitamin B12 deficiency E53.8 Active confirmed 125162301 Problem Breast cancer screening Z12.39 Active confirmed 286084644 Problem IFG (impaired fasting glucose) R73.01 Active confir med 753572690 Problem Mixed hyperlipidemia E78.2 Active confirmed 323866964 Problem Post-traumatic stress disorder, unspecified F43.10 Active confirmed 45955275 Problem Major depressive disorder, recurrent, moderate F33 .1 Active confirmed 960458551 ALLERGIES Allergen (clinical drug ingredient) Drug/Non Drug Allergy do cumented on EMR Reaction Allergy Type Onset Date Status bandaids excoriation Non Drug Allergy Active cetirizine Cetirizine HCl(ND Code:[address]-38) Hives Drug All ergy Active citalopram Celexa(ND Code:[address]-49) severe drowsiness Drug Tommy rgy Active clindamycin Clindamycin HCl(ND Code:[address]-71) Vomiting Drug A llergy Active povidone-iodine Betadine(ND Code:[address]-36) Rash Drug Tommy rgy Active ENCOUNTERS from 1974 to 2021-02-01 Encounter Location Date Provider Diagnosis [address] [phone] [place] [address] Jan, Magdaleno Reynolds Common migraine G43.009 ; OS A (obstructive sleep apnea) G47.33 ; Ovarian cyst N83.209 ; Major depressive disorder, recurrent, moderate F33.1 ; DJD (degenerative joint disease), cervical M50.30 ; IFG (impaired fasting glucose) R73.01 ; Mixed hyperlipidemia E78.2 ; Cervical dysplasia N87.9 ; Irritable bowel syndrome with diarrhea K58.0 ; Gastroesophageal reflux disease, esophagitis presence not specified K21.9 ; Tinnitus of right ear H93.11 ; Mild persistent asthma without complication J45.30 ; Insomnia G47.00 ; Sarcoidosis D86.9 ; Generalized anxiety disorder F41.1 ; ADD (attention deficit disorder) F90.0 ; CTS (carpal tunnel syndrome) G56.00 ; Vitamin D deficiency E55.9 ; Fe deficiency anemia D50.9 ; Splenic artery aneurysm I72.8 ; Vitamin B12 deficiency E53.8 ; Breast cancer screening Z12.39 ; Obesity E66.9 and Allergic rhinitis J30.9 IMMUNIZATIONS Vaccine Route Administration Date Status Influenza [...] College Language: Question Answer Notes Languages spoken: Dominican Hoahaoism: Question Answer Notes Hoahaoism 33 None Alcohol Screening: Question Answer Notes Did you have a drink containing alcohol in the past year? No Points 0 Interpretation Negative BMI Care Goal Follow-Up Question Answer Notes Above Normal BMI Follow-Up Giving encouragement to exercise Tobacco Use: Question Answer Notes Are you a: former smoker smoked 2 PPD for 15 years REASON FOR REFERRAL No Information VITAL SIGNS Weight 283.2 lbs Jan, Height 68 in Jan, BMI 43.06 kg/m2 Jan, Heart Rate 112 /min Jan, Respiratory Rate 18 /min Jan, Temperature 96.8 degrees Fahrenheit Jan, Oximetry 98% Jan, Blood pressure systolic 122 mm Hg Jan, Blood pressure diastolic 82 mm Hg Jan, MEDICATIONS Medication SIG (Take, Route, Frequency, Duration) [...] MOUTH EVERY DAY Active Ergocalciferol 1.25 MG (11238 UT) 1 capsule Orally every 7 days for 90 day(s) Active Rizatriptan Benzoate 10 MG 1 tablet Orally qd prn migr hanna, november repeat x 1 in 2H for 30 Days Active Cyanocobalamin 500 MCG 1 tablet Orally Once a day for 90 day(s) Active Nystatin 601726 UNIT/GM 1 application Externally to groin area [...] 6 hrs Active PROCEDURES No Information RESULTS Component Value Reference Range [facility] Julien Screening Bilateral (Ultrasoun d if Indicated) (3D Mammo) Reviewed date:01/31/2021 17:41:17 Interpretation: Performing Lab:Replaced By [facility] [place], [place] [address] PLZ PELVIC NON OB COMPLETE Reviewed date:01/31/2021 17:41:24 Interpretation: Performing Lab:Replaced By [facility] [place], [place] [address] REASON FOR VISIT 3 month follow up MEDICAL (GENERAL) HISTORY Type Description Date Medical History cervical/thoracic spondylosi s-C3-7 HNP s compression-06/21/14 MRI Medical History lumbar spondylosis-10/19/09 normal LS MRI Medical History hypertension-03/2014 normal T TE, 03/2014 EST low risk-6 minutes, 30 seconds on Roldan-Sanchez Medical History mild left and very mild righ t carpal tunnel syndrome/mild left ulnar neuropathy lcjnn-XLD-Kvlal Medical History chronic MDD/AUDI/OCD/insomnia Medical History obesity, morbid Medical History impaired fasting glucose Medical History history of nicotine addictio n-smoked 1 07/16 x 14 years, quit 02/2010 Medical History asthma, mild intermittent Medical History HWGP-jtc-ggbsdep gastritis, non-bleeding erosive gastropathy, -GEJ/-H pylori-11/27/18 [place] Medical History palpitations-03/2014 Holter-s ymptoms correlated [...] colonic spasm, WNL random colonic bx-colon-Dr. Parks [place], [place]-11/27/18 Medical History 2 tiny T2WHI 1 in each frontal lobe by MRI/ MRA brain Medical History thoracic jhokrsezkpl-Q2-4 sm all HNP, T10-L1 bulges s compression by 03/29/12 MRI Surgical History colposcopy, 2006-britton 1---2012 no dysplas ia 2013 BRITTON 1 on ECC 2004,2006,2011 Surgical History cryo Surgical History bronch. scope x 2 Surgical History hysterosalpingography x [address] Dr.Dacos becerra 2008, 2009 Surgical History LEEP, MCIWO-Jjyjfhr-Ixugza 04/2015, 12/01 14 Surgical History lap otis--pathology cw acal culous chronic tyvqhiqscfrxh-[place], [place] 04/29/19 Surgical History Colposcopy 09/21/2019 Hospitalization History No Hospitalization history informati on Goals Section No Information Health Concerns No Information MEDICAL EQUIPMENT No Information MENTAL STATUS No Information FUNCTIONAL STATUS No Information ASSESSMENTS Encounter Date Diagnosis Assessment Notes Treatment Notes Treatm ent Clinical Notes Jan, Common migraine (ICD-10 - G43.009) on topir 75 BID for px, riza 10 abortive 01/14/20 given increased severity/frequency (currently classic migraine for 3D s benefit c shaunna 100 TDD); increased topir 50 BID to 75 BID and shaunna 50 to riza 10 MDD 20 Jan, CHRIS (obstructive sleep apnea) (ICD-10 - G47.33) Encouraged compliance APAP 11/11/[address] Rico who ordered APAP 08/25/19 repeat HST cw mild CHRIS as per ; therefore, referred to PA for NPSG 2018 HST in [place] dx c CHRIS, but could not tolerate nasal mask; therefore, returned Jan, Ovarian cyst (ICD-10 - N83.209) 11/09/19 repeat US scheduled , but px CX; therefore, 01/14/20 RS 09/10/19 incidental detection fo R 34// hypoechoic, L 61/61/42 anechoic c thin septation by pelvic US Jan, Major depressive disorder, recurrent, moderate ( ICD-10 - F33.1) on fluox 80, clon 1 BID follows with ABRAM Montes Contingency: aripip (traz 100 QHS helped c sleep but caused daytime sedation) 10/30/19 given increased generalized anxiety (COVID, neighbors keeping px up every night); increased clonaz 0.5 Qd back to previous 1 BID and planned writing letter to [employer] to address noise which is greatly impacting pxs metnal and physical health an referred to Amrik Saez to attempt CBT for anxiety reduction 08/25/19 changed fluvox 100 qAM to traz 100 QHS given sleep onset i, increased generalized anxiety (but c daytime sedation/metal fogginess) 02/2019 luvoxamine 100 was added to fluox 80 given easy irritability/decreased mood (c improved mood, but "no filter" to emotions, increased anxiety) 06/08/14 added Abilify 5 qAM, but only took 1D because improved mood c quitting [facility] day later 03/05/2014 increased Prozac 40 to 80 2 increased anxiety/fatigue but c increased irritability and mild improvement of fatigue, but has helped with mood Celexa caused fatigue, Lexapro 20 not beneficial, Paxil caused overstimulation, Zoloft 200 no benefit, Effexor made patient angry Jan, DJD (degenerative joint disease), cervical (ICD- 10 - M50.30) Stable on diclo 75 BID, caris 350 BID, oxy/APAP 7.5/325 MDD 3 catuion on chronic NSAID given 11/27/18 EGD c erosive gastropathy 08/25/19 appropriate + SDS for oxy diclofenac Na=Voltaren (MDD 150) 07/2015 HC 7.5/325 TID changed OXY 7.5/325 TID and PT Innovative (CANI PT caused "more" pain) 10/27/14 Dr. Joiner recommended PT 3x qW in [place] (patient unable to get to) and offered repeat trigger/facet injection and recommended Pain Psychologist 09/[address] Pat Joiner for 2 opinion 08/30/14 visit c Rosita White only offered repeat trigger injection and did not schedule f/u 06/08/14 since RTW 03/2014 recurrent occipital daily headache p ~45 minutes work, therefore repeated cervical MRI and then referred to Lana t/c facet vs epidural injections 02/22/14 s/p trigger point injections B paracervical/thoracic/trapezius c lidocaine/ketorolac with ~5D improved symptoms but increased pain day p 08/2014 - H pylori Jan, IFG (impaired fasting glucose) (ICD-10 - R73.01) Continue ADA diet 08/25/19 A1C 4.6, BUT JEANETTE-IR 2.4 (91, 11) Jan, Mixed hyperlipidemia (ICD-10 - E78.2) Continue dietary treatment 08/25/19 101/89/104 08/25/19 TSH/FT4 0.7/1.2 Jan, Cervical dysplasia (ICD-10 - N87.9) follows with W/W 09/23/19 -colpo; but scheduled for 11/21/19 LEEP c Jerry; but, now prefers 08/21/19 LGSIL/+HPV s/p LEEP 11/2013-Dr. Jerry cardenas mild squamous dysplasia Jan, Irritable bowel syndrome with diarrhea (ICD-10 - K58.0) Stable on chronic MDD regimen c dicyclo 20 TID prn moderate colonic spasm, WNL random colonic bx-colon-Dr. Parks [place], [place]-11/27/18 Jan, Gastroesophageal reflux dise ase, esophagitis presence not specified (ICD-10 - K21.9) Stable on panto 40 qAM non-erosive gastritis, non-bleeding erosive gastropathy, -GEJ/-H pylori-11/27/18 [place] Jan, Tinnitus of right ear (ICD-10 - H93.11) 08/25/19 new onset OD t c subjective decreased hearing; therefore, audiogram Jan, Mild persistent asthma without complication (ICD -10 - J45.30) Stable on BE 100, Xopenex prn 08/2018 started emperically in [place]-no meth challenge Jan, Insomnia (ICD-10 - G47.00) Stable on chronic zol 5 qhs since 11/2012-using ~2x qW and regimen as per chronic MDD Jan, Sarcoidosis (ICD-10 - D86.9) Stable on regimen as per asthma 08/25/19 STEVE level 43 Jan, Generalized anxiety disorder (ICD-10 - F41.1) rx as per MDD Stable on rare ~q2W lorazepam Jan, ADD (attention deficit disorder) (ICD-10 - F90.0 ) rx as per MDDD 03/2016 started bupropion XL 150 qAM, advised to c/b if any palpitations or SS symptoms Contingency: atomoxifine 02/2014 Concerta 18 qAM caused palpitations Jan, CTS (carpal tunnel syndrome) (ICD-10 - G56.00) Stable on CTS prn 12/2015 given 3M progressive L sx; started L CTS qhs c improvement Jan, Vitamin D deficiency (ICD-10 - E55.9) Patient with 2 serving dietary calcium daily 08/25/19 67, 8.8, 110; therefore, + Tums 1000 QHS to D2 50 K q7D 08/2015 baseline BMD 0.6/0.6/2.1-recheck 08/2019Jan, Fe deficiency anemia (ICD-10 - D50.9) favor 2 menses-intermittently heavy 08/25/19 12.8, 90 r34/1.8 s supplement 11/2015 11.8, 10%, 49 baseline hgb 12s Jan, Splenic artery aneurysm (ICD-10 - I72.8) Patient remains asx 09/07/19 CT AP: stable 15 VICK near splenic hilum and stable 2 smaller branch a Contingency: endovascular coiling if >20 mm-mean growth 0.2 mm/Y 12/2015 CT AP stable VICK at 15 mm 05/12/15 established c Andre who felt she did not meet criteria c f/u in 6M 03/2015 repeat CTA A now c 3 VICK: 15, 10, 5 mm, therefore referred to Andre t/c coiling 09/2014 CT A/P-17 mm-incidentally detected 03/2015 - MRA brain Jan, Vitamin B12 deficiency (ICD-10 - E53.8) hgb as per Fe 08/25/19 B12 1019 on 500 Jan, Breast cancer screening (ICD-10 - Z12.39) 05/2015 B C1 mammogram 08/2019, 10/2019 gave order to repeat mammo Jan, Obesity (ICD-10 - E66.9) Encouraged weight loss Jan, Allergic rhinitis (ICD-10 - J30.9) Stable on fenofex 180 PLAN OF TREATMENT Medication Medication Name Sig Start Date Stop Date Nystatin 384011 UNIT/GM 1 application Externally to groin area Twice a day for 90 day(s) Dec, Xopenex HFA 45 MCG/ACT 1 puff as needed Inhalation every 4 hrs f or 30 Days Treatment Notes Assessment Notes Clinical Notes Sarcoidosis Stable on regimen as per asthma08/25/19 STEVE level 43 Common migraine on topir 75 BID for px, riza 10 abortive01/14/20 given increased severity/frequency (currently classic migraine for 3D s benefit c shaunna 100 TDD); increased topir 50 BID to 75 BID and shaunna 50 to riza 10 MDD 20 Insomnia Stable on chronic zo l 5 qhs since 11/2012-using ~2x qW and regimen as per chronic MDD Allergic rhinitis Stable on fenofex 18 0 CHRIS (obstructive sleep apnea) Encouraged compliance APAP11/11/[address] Rico who ordered APAP08/25/19 repeat HST cw mild CHRIS as per ; therefore, referred to PA for [id number] HST in [place] dx c CHRIS, but could not tolerate nasal mask; therefore, returned ADD (attention deficit disorder) rx as p er MDDD03/2016 started bupropion XL 150 qAM, advised to c/b if any palpitations or SS symptomsContingency: atomoxifine02/2014 Concerta 18 qAM caused palpitations Ovarian cyst 11/09/19 repeat US sc heduled , but px CX; therefore, 01/14/20 RS09/10/19 incidental detection fo R hypoechoic, L 61/61/42 anechoic c thin septation by pelvic US Generalized anxiety disorder rx as per DDStable on rare ~q2W lorazepam Major depressive disorder, recurrent, moderate on fluox 80, clon 1 BIDfollows with Amrik Saez, LSWContingency: aripip (traz 100 QHS helped c sleep but caused daytime sedation)10/30/19 given increased generalized anxiety (COVID, neighbors keeping px up every night); increased clonaz 0.5 Qd back to previous 1 BID and planned writing letter to [facility] landlord to address noise which is greatly impacting [facility] metnal and physical health an referred to Amrik Saez to attempt CBT for anxiety reduction08/25/19 changed fluvox 100 qAM to traz 100 QHS given sleep onset i, increased generalized anxiety (but c daytime sedation/metal fogginess)02/2019 luvoxamine 100 was added to fluox 80 given easy irritability/decreased mood (c improved mood, but "no filter" to emotions, increased anxiety)06/08/14 added Abilify 5 qAM, but only took 1D because improved mood c quitting [facility] day later03/05/2014 increased Prozac 40 to 80 2 increased anxiety/fatigue but c increased irritability and mild improvement of fatigue, but has helped with moodCelexa caused fatigue, Lexapro 20 not beneficial, Paxil caused overstimulation, Zoloft 200 no benefit, Effexor made patient angry Vitamin D deficiency Patient with 2 serv ing dietary calcium daily08/25/19 67, 8.8, 110; therefore, + Tums 1000 QHS to D2 50 K q7 baseline BMD 0.6/0.6/2.1-recheck 08/2019 DJD (degenerative joint disease), cervical Stable on diclo 75 BID, caris 350 BID, oxy/APAP 7.5/325 MDD 3catuion on chronic NSAID given 11/27/18 EGD c erosive gastropath08/25/19 appropriate + SDS for oxydiclofenac Na=Voltaren (MDD 150)07/2015 HC 7.5/325 TID changed OXY 7.5/325 TID and PT [facility] (CANI PT caused "more" pain)10/27/14 Dr. Joiner recommended PT 3x qW in [place] (patient unable to get to) and offered repeat trigger/facet injection and recommended Pain Psychologist09/[address] Pat Joiner for 2 opinion08/30/14 visit c Rosita White only offered repeat trigger injection and did not schedule f/u108/08/13 since RTW 03/2014 recurrent occipital daily headache p ~45 minutes work, therefore repeated cervical MRI and then referred to Lana t/c facet vs epidural injections02/22/14 s/p trigger point injections B paracervical/ thoracic/trapezius c lidocaine/ketorolac with ~5D improved symptoms but increased pain day - H pylori CTS (carpal tunnel syndrome) Stable on C TS prn12/2015 given 3M progressive L sx; started L CTS qhs c improvement IFG (impaired fasting glucose) Continue ADA diet08/25/19 A1C 4.6, BUT JEANETTE-IR 2.4 (91, 11) Splenic artery aneurysm Patient remains as09/07/19 CT AP: stable 15 VICK near splenic hilum and stable 2 smaller branch aContingency: endovascular coiling if >20 mm-mean growth 0.2 mm/Y12/2015 CT AP stable VICK at 15 mm05/12/15 established ronald Powell who felt she did not meet criteria c f/u in repeat CTA A now c 3 VICK: 15, 10, 5 mm, therefore referred to Andre t/c coiling09/2014 CT A/P-17 mm-incidentally detected03/2015 - MRA brain Mixed hyperlipidemia Continue dietary tr eatment08/25/19 101/ TSH/FT4 0.7/1.2 Fe deficiency anemia favor 2 menses-inte rmittently heavy08/25/19 12.8, 90 r34/1.8 s supplement11/2015 11.8, 10%, 49baseline hgb 12s Vitamin B12 deficiency hgb as per Fe2 B12 1019 on 500 Mild persistent asthma without complication Stable on BE 100, Xopenex pr started emperically in [place]-no meth challenge Obesity Encouraged weight lo ss Tinnitus of right ear 08/25/19 new onset OD t c subjective decreased hearing; therefore, audiogram Breast cancer screening 05/2015 B C1 [place] mogram08/2019, 10/2019 gave order to repeat mammo Cervical dysplasia follows with W/W09/22 -colpo; but scheduled for 11/21/19 LEEP ronald Edwards; but, now prefers 08/21/19 LGSIL/+HPVs/p LEEP 11/2013-Dr. Jerry cardenas mild squamous dysplasia Irritable bowel syndrome with diarrhea S table on chronic MDD regimen c dicyclo 20 TID prnmoderate colonic spasm, WNL random colonic bx-colon-Dr. Parks [place], [place]-11/27/18 Gastroesophageal reflux disease, esophagitis presence not sp ecified Stable on panto 40 qAMnon-erosive gastritis, non-bleeding erosive gastropathy, -GEJ/-H pylori-11/27/18 EGD-Dr. Parks [place], [place] Next Appt Details 30 minutes 4M-BRITTANY REYNOLDS NOW Reason: Insurance Providers Payer Name Payer Address Payer Phone Insured Name Patient Relati onship to Insured Coverage Start Date Coverage End Date BCBS OF [facility] [phone] [employer] [facility] [id number] [place] self
--- OUTSIDE RECORDS SUMMARY | 2021-04-30 03:19 | CCD ---
Author Author [facility] Organization [facility] Address Unknown Phone Unavailable Care Team Providers Care Negative Turner Apprentice Name Role Phone Magdaleno Reynolds Unavailable PROBLEMS Type Condition ICD9-CM Code MWS85-TY Code Onset Dates Condition S tatus W/U Status Risk SNOMED Code Notes Problem Cervical dysplasia N87.9 Active confirmed 7 1669856 Problem Splenic artery aneurysm I72.8 Active confirmed 27693936 Problem Common migraine G43.009 Active confirmed 560 05249 Problem Fe deficiency anemia D50.9 Active confirmed 79784747 Problem DJD (degenerative joint disease), cervical M50.30 Active confirmed 12094390 Problem CHRIS (obstructive sleep apnea) G47.33 Active confirm ed 69045126 Problem Irritable bowel syndrome with diarrhea K58.0 A ctive confirmed 252524019 Problem Sarcoidosis D86.9 Active confirmed 61656404 Problem CTS (carpal tunnel syndrome) G56.00 Active confirme d 49442608 Problem Allergic rhinitis J30.9 Active confirmed 61 246652 Problem Insomnia G47.00 Active confirmed 578071705 Problem Generalized anxiety disorder F41.1 Active confirme d 65448057 Problem Obesity E66.9 Active confirmed 604514960 Problem Gastroesophageal reflux disease, esophagitis pre sence not specified K21.9 Active confirmed 233895615 Problem ADD (attention deficit disorder) F90.0 Active conf irmed 006374932 Problem Tinnitus of right ear H93.11 Active confirmed 08206893 Problem Mild persistent asthma without complication J45.30 Active confirmed 670051047 Problem Ovarian cyst N83.209 Active confirmed 102843 01 Problem Peripheral edema R60.9 Active confirmed 271 153224 Problem Vitamin D deficiency E55.9 Active confirmed 63618320 Problem Venous insufficiency of both lower extremities I87 .2 Active confirmed 988253960 Problem Vitamin B12 deficiency E53.8 Active confirmed 703677010 Problem Breast cancer screening Z12.39 Active confirmed 428239856 Problem IFG (impaired fasting glucose) R73.01 Active confir med 204928151 Problem Mixed hyperlipidemia E78.2 Active confirmed 129679405 Problem Post-traumatic stress disorder, unspecified F43.10 Active confirmed 57997490 Problem Major depressive disorder, recurrent, moderate F33 .1 Active confirmed 694425408 ALLERGIES Allergen (clinical drug ingredient) Drug/Non Drug Allergy do cumented on EMR Reaction Allergy Type Onset Date Status bandaids excoriation Non Drug Allergy Active cetirizine Cetirizine HCl([facility] Code:[address]-36) Hives Drug All ergy Active citalopram Celexa(ND Code:[address]-29) severe drowsiness Drug Tommy rgy Active clindamycin Clindamycin HCl([facility] Code:[address]-04) Vomiting Drug A llergy Active povidone-iodine Betadine(ND Code:[address]-70) Rash Drug Tommy rgy Active ENCOUNTERS from 1974 to 2021-04-28 Encounter Location Date Provider Diagnosis [address] [phone] [place] [address] Apr, Magdaleno Reynolds IMMUNIZATIONS Vaccine Route Administration Date [...] College Language: Question Answer Notes Languages spoken: British Sabianist: Question Answer Notes Sabianist 33 None Alcohol Screening: Question Answer Notes [...] Notes Start Da te End Date Status Hair Skin and Nails Formula - as directed Orally Active Diclofenac Sodium 75 MG 1 tablet Orally twice a day for 90 day(s) Active Ambien 5 MG 1 tablet at bedtime Orally at bedtime MDD:1 for 30 day(s) Feb, Active Topiramate 50 MG 1.5 tablet orally bid for 90 day(s) Active QUEtiapine Fumarate 50 MG 1 tab Orally at bedtime for 30 day(s) Active Nikki Allergy 180 MG TAKE ONE TABLET BY MOUTH EVERY DAY Active Tums Ultra 1000 1000 MG 1 tablet Orally at bedtime for 90 day(s) Active Lotronex 0.5 MG 1 tablet Orally Daily for 30 day(s) November Active Clobetasol Propionate 0.05 % 1 application to affected area Externally arms Twice a day for 90 day(s) Active Xopenex HFA 45 MCG/ACT 1 puff as needed Inhalation every 4 hrs for 30 Days Active Cyanocobalamin 500 MCG 1 tablet Orally Once a day for 90 day(s) Active Ergocalciferol 1.25 MG (42349 UT) 1 capsule Orally every 7 days for 90 day(s) Active Soma 350 MG 1 tablet as needed Orally twice a day MDD: 2 for 30 Days Apr, Active Vitamin C 500 MG as directed Orally Active Carpal Tunnel Wrist Stabilizer _ as directed _ _ for 99 months Active clonazePAM 1 MG 1 tablet Orally bid, CODE A for 30 Days Mar, Active Pantoprazole Sodium 40 MG 1 tablet Orally every morning for 90 day(s) Active Ondansetron HCl 4 MG 1 tablet Orally Once a day for 90 day(s) Jun, Active Hibiclens 4 % as directed Externally Daily for 90 day(s) Active FLUoxetine HCl 40 MG 2 capsules Orally every morning for 90 day(s) Active Lasix 40 mg 1 tablet Orally daily prn BLE swelling Active Osteo Bi-Flex Adv Joint Shield - as directed Orally Active Percocet 7.5-325 MG 1 tablet as needed Orally TID prn, MDD 3 for 30 Days Mar, Active Mupirocin 2 % 1 application Externally Three times a day Active Benadryl Allergy 25 MG 1 tablet at bedtime as neede d Orally Once a day for 30 day(s) Active Nystatin 023194 UNIT/GM 1 application Externally to groin area Twice a day for 90 day(s) Dec, Active Sudafed 30 MG 2 tablets as needed Orally every 6 hrs Active COMPRESSION STOCKINGS 20-30 mmHg as directed _ B belwo knee for 30 Days November, Active Rizatriptan Benzoate 10 MG 1 tablet Orally qd prn migr hanna, november repeat x 1 in 2H for 30 Days Active PROCEDURES No Information RESULTS No Results REASON FOR VISIT congestion, headache MEDICAL (GENERAL) HISTORY Type Description Date Medical History cervical/thoracic spondylosi s-C3-7 HNP s compression-06/21/14 MRI Medical History lumbar spondylosis-10/19/09 normal LS MRI Medical History hypertension-03/2014 normal T TE, 03/2014 EST low risk-6 minutes, 30 seconds on Roldan-Sanchez Medical History mild left and very mild righ t carpal tunnel syndrome/mild left ulnar neuropathy ssxfw-ZVY-Mzpfw Medical History chronic MDD/AUDI/OCD/insomnia Medical History obesity, morbid Medical History impaired fasting glucose Medical History history of nicotine addictio n-smoked 1 07/16 x 14 years, quit 02/2010 Medical History asthma, mild intermittent Medical History DJHX-pfr-rfqrymo gastritis, non-bleeding erosive gastropathy, -GEJ/-H pylori[place]11[place]27[place] Medical History palpitations-03/2014 Holter-s ymptoms correlated [...] colonic spasm, WNL random colonic bx-colon-Dr. Parks [place], [place]-11/27/18 Medical History 2 tiny T2WHI 1 in each frontal lobe by MRI/ MRA brain Medical History thoracic rghwbhymipd-R6-9 sm all HNP, T10-L1 bulges s compression by 03/29/12 MRI Surgical History colposcopy, 2006-miguel angel 1---2011 no dysplas ia 2013 MIGUEL ANGEL 1 on ECC 2004,2006,2011 Surgical History cryo Surgical History bronch. scope x 2 Surgical History hysterosalpingography x [address] Dr[address]Dacos becerra 2008, 2009 Surgical History LEEP, CUKCA-Zgfigad-Ostaux 04/2015, 12/01 14 Surgical History lap otis--pathology cw acal culous chronic tvofvhuvasarr-[place], [place] 04/29/19 Surgical History Colposcopy 09/21/2019 Hospitalization History No Hospitalization history informati on Goals Section No Information Health Concerns No Information MEDICAL EQUIPMENT No Information MENTAL STATUS No Information FUNCTIONAL STATUS No Information ASSESSMENTS No Information PLAN OF TREATMENT Medication Medication Name Sig Start Date Stop Date COMPRESSION STOCKINGS 20-30 mmHg as directed _ B belwo knee for 30 Days November, Rizatriptan Benzoate 10 MG 1 tablet Orally qd prn migr november repeat x 1 in 2H for 30 Days Soma 350 MG 1 tablet as needed Orally twice a day MD D: 2 for 30 Days Apr, Nystatin 179227 UNIT/GM 1 application Externally to groin area Twice a day for 90 day(s) Dec, Clobetasol Propionate 0.05 % 1 application to affected area Externally arms Twice a day for 90 day(s) Percocet 7.5-325 MG 1 tablet as needed Orally TID prn, MDD 3 for 30 Days Mar, clonazePAM 1 MG 1 tablet Orally bid, CODE A for 30 Days Mar, Xopenex HFA 45 MCG/ACT 1 puff as needed Inhalation every 4 hrs f or 30 Days Ambien 5 MG 1 tablet at bedtime Orally at bedtime MD D:1 for 30 day(s) Feb, Next Appt Details Provider Name:Magdaleno Reynolds, 2021-06-15 0 3:00:00 PM, [address] [facility], , [place], [address], Insurance Providers Payer Name Payer Address Payer Phone Insured Name Patient Relati onship to Insured Coverage Start Date Coverage End Date [facility] OF [place] [facility] [id number] ORDAZ [facility] [address] UZAIR MARTINO self
--- OUTSIDE RECORDS SUMMARY | 2021-04-30 03:19 | CCD ---
Author Author [facility] Organization [facility] Address Unknown Phone Unavailable Care Team Providers Care Heating Operators Engineer Name Role Phone Wan Edwards Unavailable PROBLEMS Type Condition ICD9-CM Code CFS97-HQ Code Onset Dates Condition S tatus W/U Status Risk SNOMED Code Notes Problem Cervical dysplasia N87.9 Active confirmed 7 9970254 Problem Splenic artery aneurysm I72.8 Active confirmed 84914920 Problem Common migraine G43.009 Active confirmed 560 75412 Problem Fe deficiency anemia D50.9 Active confirmed 35955197 Problem DJD (degenerative joint disease), cervical M50.30 Active confirmed 11757982 Problem CHRIS (obstructive sleep apnea) G47.33 Active confirm ed 20549552 Problem Irritable bowel syndrome with diarrhea K58.0 A ctive confirmed 333134403 Problem Sarcoidosis D86.9 Active confirmed 77366068 Problem CTS (carpal tunnel syndrome) G56.00 Active confirme d 86625000 Problem Allergic rhinitis J30.9 Active confirmed 61 107932 Problem Insomnia G47.00 Active confirmed 942199278 Problem Generalized anxiety disorder F41.1 Active confirme d 02975795 Problem Obesity E66.9 Active confirmed 489168294 Problem Gastroesophageal reflux disease, esophagitis pre sence not specified K21.9 Active confirmed 479917972 Problem ADD (attention deficit disorder) F90.0 Active conf irmed 473610448 Problem Tinnitus of right ear H93.11 Active confirmed 32611343 Problem Mild persistent asthma without complication J45.30 Active confirmed 044674229 Problem Ovarian cyst N83.209 Active confirmed 805764 01 Problem Peripheral edema R60.9 Active confirmed 271 704083 Problem Vitamin D deficiency E55.9 Active confirmed 20204259 Problem Venous insufficiency of both lower extremities I87 .2 Active confirmed 113294127 Problem Vitamin B12 deficiency E53.8 Active confirmed 952950019 Problem Breast cancer screening Z12.39 Active confirmed 657338560 Problem IFG (impaired fasting glucose) R73.01 Active confir med 912862823 Problem Mixed hyperlipidemia E78.2 Active confirmed 734871839 Problem Post-traumatic stress disorder, unspecified F43.10 Active confirmed 66823395 Problem Major depressive disorder, recurrent, moderate F33 .1 Active confirmed 529083662 ALLERGIES Allergen (clinical drug ingredient) Drug/Non Drug Allergy do cumented on EMR Reaction Allergy Type Onset Date Status bandaids excoriation Non Drug Allergy Active cetirizine Cetirizine HCl([facility] Code:[address]-76) Hives Drug All ergy Active citalopram Celexa(ND Code:[address]-22) severe drowsiness Drug Tommy rgy Active clindamycin Clindamycin HCl([facility] Code:[address]-41) Vomiting Drug A llergy Active povidone-iodine Betadine(ND Code:[address]-21) Rash Drug Tommy rgy Active ENCOUNTERS from 1974 to 2021-02-03 Encounter Location Date Provider Diagnosis [facility] [phone] [place] [address] Jan, Wan Edwards Pap smear abnormalit y of cervix with LGSIL R87.612 IMMUNIZATIONS Vaccine Route Administration Date Status Influenza [...] College Language: Question Answer Notes Languages spoken: Occitan Druze: Question Answer Notes Druze 33 None Alcohol Screening: Question Answer Notes Did you have a drink containing alcohol in the past year? No Points 0 Interpretation Negative BMI Care Goal Follow-Up Question Answer Notes Above Normal BMI Follow-Up Giving encouragement to exercise Tobacco Use: Question Answer Notes Are you a: former smoker smoked 2 PPD for 15 years REASON FOR REFERRAL No Information VITAL SIGNS Weight 268 lbs Jan, Weight-kg 121.56 kg Jan, Height 68 in Jan, BMI 40.74 kg/m2 Jan, Blood pressure systolic 110 mm Hg Jan, Blood pressure diastolic 80 mm Hg Jan, MEDICATIONS Medication SIG (Take, [...] MOUTH EVERY DAY Active Ergocalciferol 1.25 MG (84543 UT) 1 capsule Orally every 7 days for 90 day(s) Active Rizatriptan Benzoate 10 MG 1 tablet Orally qd prn migr november repeat x 1 in 2H for 30 Days Active Cyanocobalamin 500 MCG 1 tablet Orally Once a day for 90 day(s) Active Nystatin 231893 UNIT/GM 1 application Externally to groin area [...] needed Orally every 6 hrs Active PROCEDURES from 1974 to 2021-02-03 Procedure Date Ordered Result Body Site URINE TEST 2021 negative Colposcopy;BX/CURETT OF CERVIX W/SCOPE 2021 N/A RESULTS No Results REASON FOR VISIT Colposcopy MEDICAL (GENERAL) HISTORY Type Description Date Medical History cervical/thoracic spondylosi s-C3-7 HNP s compression-06/21/14 MRI Medical History lumbar spondylosis-10/19/09 normal LS MRI Medical History hypertension-03/2014 normal T TE, 03/2014 EST low risk-6 minutes, 30 seconds on Roldan-Sanchez Medical History mild left and very mild righ t carpal tunnel syndrome/mild left ulnar neuropathy jyaml-NIR-Asxxq Medical History chronic MDD/AUDI/OCD/insomnia Medical History obesity, morbid Medical History impaired fasting glucose Medical History history of nicotine addictio n-smoked 1 1/2 x 14 years, quit 02/2010 Medical History asthma, mild intermittent Medical History JBIZ-qbv-ucfrukt gastritis, non-bleeding erosive gastropathy, -GEJ/-H pylori-11/27/18 EGD-Dr. Parks, [place], [place] Medical History palpitations-03/2014 Holter-s ymptoms correlated to ST to 100 bpm, HR 51-126 bpm Medical History CHRIS-01/2013 NPSG c RDI 10-/09/11/19 HST JOURDAN 7, SaO2 to 86% Medical [...] R//moderate colonic spasm, WNL random colonic [place] Medical History 2 tiny T2WHI 1 in each frontal lobe by MRI/ MRA brain Medical History thoracic bnztccbjovz-M5-8 sm all HNP, T10-L1 bulges s compression by 03/29/12 MRI Surgical History colposcopy, 2006-miguel angel 1---2011 no dysplas ia 2013 MIGUEL ANGEL 1 on ECC 2004,2006,2011 Surgical History cryo Surgical History bronch. scope x 2 Surgical History hysterosalpingography x [address]Dacos becerra 2008, 2009 Surgical History LEEP, BCMQW-Lrambqt-Gbanzn 04/2015, 12/01 14 Surgical History lap otis--pathology cw acal culous chronic rynydwxmdvgts-PBP-[place], [place] 04/29/19 Surgical History Colposcopy 09/21/2019 Hospitalization History No Hospitalization history informati on Goals Section No Information Health Concerns No Information MEDICAL EQUIPMENT No Information MENTAL STATUS No Information FUNCTIONAL STATUS No Information ASSESSMENTS Encounter Date Diagnosis Assessment Notes Treatment Notes Treatm ent Clinical Notes Jan, Pap smear abnormality of cervix with LGSIL (ICD- 10 - R87.612) PLAN OF TREATMENT Medication Medication Name Sig Start Date Stop Date Nystatin 466607 UNIT/GM 1 application Externally to groin area Twice a day for 90 day(s) Dec, Xopenex HFA 45 MCG/ACT 1 puff as needed Inhalation every 4 hrs f or 30 Days Insurance Providers Payer Name Payer Address Payer Phone Insured Name Patient Relati onship to Insured Coverage Start Date Coverage End Date [employer] OF [place] [phone] [id number] [address] QXL [employer] [facility] [id number] UZAIR MARTINO self
--- OUTSIDE RECORDS SUMMARY | 2021-04-30 03:19 | CCD ---
Author Author [facility] Organization [facility] Address Unknown Phone Unavailable Care Team Providers Care Evp Operations Name Role Phone Magdaleno Reynolds Unavailable PROBLEMS Type Condition ICD9-CM Code RAY49-BC Code Onset Dates Condition S tatus W/U Status Risk SNOMED Code Notes Problem Cervical dysplasia N87.9 Active confirmed 7 9732603 Problem Splenic artery aneurysm I72.8 Active confirmed 32431271 Problem Common migraine G43.009 Active confirmed 560 41106 Problem Fe deficiency anemia D50.9 Active confirmed 84249858 Problem DJD (degenerative joint disease), cervical M50.30 Active confirmed 33206319 Problem CHRIS (obstructive sleep apnea) G47.33 Active confirm ed 95475133 Problem Irritable bowel syndrome with diarrhea K58.0 A ctive confirmed 534188453 Problem Sarcoidosis D86.9 Active confirmed 91529510 Problem CTS (carpal tunnel syndrome) G56.00 Active confirme d 50647578 Problem Allergic rhinitis J30.9 Active confirmed 61 099818 Problem Insomnia G47.00 Active confirmed 555337934 Problem Generalized anxiety disorder F41.1 Active confirme d 27916769 Problem Obesity E66.9 Active confirmed 938588930 Problem Gastroesophageal reflux disease, esophagitis pre sence not specified K21.9 Active confirmed 933191080 Problem ADD (attention deficit disorder) F90.0 Active conf irmed 020614479 Problem Tinnitus of right ear H93.11 Active confirmed 17586871 Problem Mild persistent asthma without complication J45.30 Active confirmed 689032250 Problem Ovarian cyst N83.209 Active confirmed 745577 01 Problem Peripheral edema R60.9 Active confirmed 271 323448 Problem Vitamin D deficiency E55.9 Active confirmed 97019110 Problem Venous insufficiency of both lower extremities I87 .2 Active confirmed 343611808 Problem Vitamin B12 deficiency E53.8 Active confirmed 024428361 Problem Breast cancer screening Z12.39 Active confirmed 628428043 Problem IFG (impaired fasting glucose) R73.01 Active confir med 600245351 Problem Mixed hyperlipidemia E78.2 Active confirmed 903073990 Problem Post-traumatic stress disorder, unspecified F43.10 Active confirmed 44097165 Problem Major depressive disorder, recurrent, moderate F33 .1 Active confirmed 400131679 ALLERGIES Allergen (clinical drug ingredient) Drug/Non Drug Allergy do cumented on EMR Reaction Allergy Type Onset Date Status bandaids excoriation Non Drug Allergy Active cetirizine Cetirizine HCl([facility] Code:[address]-50) Hives Drug All ergy Active citalopram Celexa(ND Code:[address]-83) severe drowsiness Drug Tommy rgy Active clindamycin Clindamycin HCl(ND Code:[address]-85) Vomiting Drug A llergy Active povidone-iodine Betadine(ND Code:[address]-53) Rash Drug Tommy rgy Active ENCOUNTERS from 1974 to 2021-03-09 Encounter Location Date Provider Diagnosis [address] [phone] [place] [address] Feb, Magdaleno Rodolfo Insomnia G47.00 ; DJD (degen erative joint disease), cervical M50.30 and Major depressive disorder, recurrent, moderate F33.1 IMMUNIZATIONS Vaccine Route Administration Date Status Influenza [...] College Language: Question Answer Notes Languages spoken: Romansh Mandaen: Question Answer Notes Mandaen 33 None Alcohol Screening: Question Answer Notes [...] for 90 day(s) Active Ergocalciferol 1.25 MG (38983 UT) 1 capsule Orally every 7 days for 90 day(s) Active clonazePAM 1 MG 1 tablet Orally bid, CODE A for 30 Days Feb, Active Hibiclens 4 % as directed Externally Daily for 90 day(s) Active Osteo Bi-Flex Adv Joint Shield - as directed Orally Active Percocet 7.5-325 MG 1 tablet as needed Orally TID prn, MDD 3 for 30 Days Feb, Active Rizatriptan Benzoate 10 MG 1 tablet Orally qd prn migr , november repeat x 1 in 2H for 30 Days Active Mupirocin 2 % 1 application Externally Three times a day Active Ambien 5 MG 1 tablet at bedtime Orally at bedtime MDD:1 for 30 day(s) Feb, Active Lasix 40 mg 1 tablet Orally daily prn BLE swelling Active Topiramate 50 MG 1.5 tablet orally bid for 90 day(s) Active Ondansetron HCl 4 MG 1 tablet Orally Once a day for 90 day(s) Jun, Active Hair Skin and Nails Formula - as directed Orally Active Vitamin C 500 MG as directed Orally Active Carpal Tunnel Wrist Stabilizer _ as directed _ _ for 99 months Active Sudafed 30 MG 2 tablets as needed Orally every 6 hrs Active Benadryl Allergy 25 MG 1 tablet at bedtime as neede d Orally Once a day for 30 day(s) Active Nystatin 472630 UNIT/GM 1 application Externally to groin area [...] t carpal tunnel syndrome/mild left ulnar neuropathy uuodu-RYZ-Kjnen Medical History chronic MDD/AUDI/OCD/insomnia Medical History obesity, morbid Medical History impaired fasting glucose Medical History history of nicotine addictio n-smoked 1 07/16 x 14 years, quit 02/2010 Medical History asthma, mild intermittent Medical History KSVG-lrw-fkhmvss gastritis, non-bleeding erosive gastropathy, -GEJ/-H pylori-11/27/18 EGD-Dr. Parks, [place], [place] Medical History palpitations-03/2014 Holter-s ymptoms correlated [...] colonic spasm, WNL random colonic bx-colon[place]. [place]11[place]27[place] Medical History 2 tiny T2WHI 1 in each frontal lobe by MRI/ MRA brain Medical History thoracic huuiuzxwuwq-E4-9 sm all HNP, T10-L1 bulges s compression by 03/29/12 MRI Surgical History colposcopy, 2006-miguel angel 1---2011 no dysplas ia 2013 MIGUEL ANGEL 1 on ECC 2004,2006,2011 Surgical History cryo Surgical History bronch. scope x 2 Surgical History hysterosalpingography x [address] Dr[address]Dacos becerra 2008, 2009 Surgical History LEEP, RCGBF-Iilpyxf-Sctpea 04/2015, 12/01 14 Surgical History lap otis--pathology cw acal culous chronic xscdmikykybah-YEM-Pbilxxdegn, [place] 04/29/19 Surgical History Colposcopy 09/21/2019 Hospitalization History No Hospitalization history informati on Goals Section No Information Health Concerns No Information MEDICAL EQUIPMENT No Information MENTAL STATUS No Information FUNCTIONAL STATUS No Information ASSESSMENTS Encounter Date Diagnosis Assessment Notes Treatment Notes Treatm ent Clinical Notes Feb, Insomnia (ICD-10 - G47.00) Feb, DJD (degenerative joint disease), cervical (ICD- 10 - M50.30) Feb, Major depressive disorder, recurrent, moderate ( ICD-10 - F33.1) PLAN OF TREATMENT Medication Medication Name Sig Start Date Stop Date Nystatin 304506 UNIT/GM 1 application Externally to groin area Twice a day for 90 day(s) Dec, COMPRESSION STOCKINGS 20-30 mmHg as directed _ B belwo knee for 30 Days November, Ambien 5 MG 1 tablet at bedtime Orally at bedtime D:1 for 30 day(s) Feb, clonazePAM 1 MG 1 tablet Orally bid, CODE A for 30 Days Feb, Xopenex HFA 45 MCG/ACT 1 puff as needed Inhalation every 4 hrs f or 30 Days Percocet 7.5-325 MG 1 tablet as needed Orally TID prn, MDD 3 for 30 Days Feb, Clobetasol Propionate 0.05 % 1 application to affected area Externally arms Twice a day for 90 day(s) Next Appt Details Provider Name:Magdaleno Reynolds, 2021-06-15 0 3:00:00 PM, [address] [facility], , [place], [address], Insurance Providers Payer Name Payer Address Payer Phone Insured Name Patient Relati onship to Insured Coverage Start Date Coverage End Date BCBS OF [facility] [phone] 12 [address] [facility] [id number] UZAIR MARTINO self
--- OUTSIDE RECORDS SUMMARY | 2021-04-30 03:19 | CCD ---
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 Role Phone Magdaleno Reynolds Unavailable PROBLEMS Type Condition ICD9-CM Code [id number] Code Onset Dates Condition S tatus W/U Status Risk SNOMED Code Notes Problem Cervical dysplasia N87.9 Active confirmed 7 0940560 Problem Splenic artery aneurysm I72.8 Active confirmed 19739356 Problem Common migraine G43.009 Active confirmed 560 92382 Problem Fe deficiency anemia D50.9 Active confirmed 56328623 Problem DJD (degenerative joint disease), cervical M50.30 Active confirmed 89210313 Problem CHRIS (obstructive sleep apnea) G47.33 Active confirm ed 03978107 Problem Irritable bowel syndrome with diarrhea K58.0 A ctive confirmed 816697462 Problem Sarcoidosis D86.9 Active confirmed 51674535 Problem CTS (carpal tunnel syndrome) G56.00 Active confirme d 57294692 Problem Allergic rhinitis J30.9 Active confirmed 61 687401 Problem Insomnia G47.00 Active confirmed 753454163 Problem Generalized anxiety disorder F41.1 Active confirme d 08317664 Problem Obesity E66.9 Active confirmed 467121969 Problem Gastroesophageal reflux disease, esophagitis pre sence not specified K21.9 Active confirmed 563441376 Problem ADD (attention deficit disorder) F90.0 Active conf irmed 936331500 Problem Tinnitus of right ear H93.11 Active confirmed 66433337 Problem Mild persistent asthma without complication J45.30 Active confirmed 586753630 Problem Ovarian cyst N83.209 Active confirmed 744399 01 Problem Peripheral edema R60.9 Active confirmed 271 491165 Problem Vitamin D deficiency E55.9 Active confirmed 60081534 Problem Venous insufficiency of both lower extremities I87 .2 Active confirmed 315417209 Problem Vitamin B12 deficiency E53.8 Active confirmed 559565101 Problem Breast cancer screening Z12.39 Active confirmed 938585701 Problem IFG (impaired fasting glucose) R73.01 Active confir med 428098390 Problem Mixed hyperlipidemia E78.2 Active confirmed 137084499 Problem Post-traumatic stress disorder, unspecified F43.10 Active confirmed 40096683 Problem Major depressive disorder, recurrent, moderate F33 .1 Active confirmed 020838981 ALLERGIES Allergen (clinical drug ingredient) Drug/Non Drug Allergy do cumented on EMR Reaction Allergy Type Onset Date Status bandaids excoriation Non Drug Allergy Active cetirizine Cetirizine HCl([facility] Code:[address]-63) Hives Drug All ergy Active citalopram Celexa(ND Code:[address]-48) severe drowsiness Drug Tommy rgy Active clindamycin Clindamycin HCl([facility] Code:[address]-34) Vomiting Drug A llergy Active povidone-iodine Betadine(ND Code:[address]-06) Rash Drug Tommy rgy Active ENCOUNTERS from 1974 to 2021-04-28 Encounter Location Date Provider Diagnosis [address] [phone] [place] [address] Apr, Magdaleno ORTIZ (degenerative joint dise ase), cervical M50.30 IMMUNIZATIONS Vaccine Route Administration Date Status Influenza [...] College Language: Question Answer Notes Languages spoken: German Taoism: Question Answer Notes Taoism 33 None Alcohol Screening: Question Answer Notes [...] for 90 day(s) Active Ergocalciferol 1.25 MG (68786 UT) 1 capsule Orally every 7 days [...] a day for 30 day(s) Active Nystatin 829115 UNIT/GM 1 application Externally to groin area Twice a day for 90 day(s) Dec, Active Sudafed 30 MG 2 tablets as needed Orally every 6 hrs Active COMPRESSION STOCKINGS 20-30 mmHg as directed _ B belwo knee for 30 Days November, Active Rizatriptan Benzoate 10 MG 1 tablet Orally qd prn migr hannanovember repeat x 1 in 2H for 30 [...] t carpal tunnel syndrome/mild left ulnar neuropathy hnpft-SOO-Rdtqf Medical History chronic MDD/AUDI/OCD/insomnia Medical History obesity, morbid Medical History impaired fasting glucose Medical History history of nicotine addictio n-smoked 07/16 x 14 years, quit 02/2010 Medical History asthma, mild intermittent Medical History ODQW-crr-cditimb gastritis, non-bleeding erosive gastropathy, -GEJ/-H pylori-11/27/18 EGD-Dr. Parks, [place], [place] Medical History palpitations-03/2014 Holter-s ymptoms correlated [...] colonic spasm, WNL random colonic bx-colon-Dr. Charly [place], [place]-11/27/18 Medical History 2 tiny T2WHI 1 in each frontal lobe by MRI/ MRA brain Medical History thoracic sslirzsrdtf-R7-7 sm all HNP, T10-L1 bulges s compression by 03/29/12 MRI Surgical History colposcopy, 2006-miguel angel 1---2011 no dysplas ia 2013 MIGUEL ANGEL 1 on ECC 2004,2006,2011 Surgical History cryo Surgical History bronch. scope x 2 Surgical History hysterosalpingography x 2 Dr.Dacos becerra 2008, 2009 Surgical History LEEP, JNZPX-Pgqxixr-Dirrep 04/2015, 12/01 13 Surgical History lap otis--pathology cw acal culous chronic zsgbtlnhbvkzv-HNX-[place]xqdmhwgrc, [place] 04/29/19 Surgical History Colposcopy 09/21/2019 Hospitalization History No Hospitalization history informati on Goals Section No Information Health Concerns No Information MEDICAL EQUIPMENT No Information MENTAL STATUS No Information FUNCTIONAL STATUS No Information ASSESSMENTS Encounter Date Diagnosis Assessment Notes Treatment Notes Treatm ent Clinical Notes Apr, DJD (degenerative joint disease), cervical (ICD- 10 - M50.30) PLAN OF TREATMENT Medication Medication Name Sig Start Date Stop Date COMPRESSION STOCKINGS 20-30 mmHg as directed _ B belwo knee for 30 Days November, Rizatriptan Benzoate 10 MG 1 tablet Orally qd prn migr november repeat x 1 in 2H for 30 Days Soma 350 MG 1 tablet as needed Orally twice a day MD D: 2 for 30 Days Apr, Nystatin 608445 UNIT/GM 1 application Externally to groin area [...] at bedtime D:1 for 30 day(s) Feb, Next Appt Details Provider Name:Magdaleno Reynolds, 2021-06-15 0 3:00:00 PM, [address] [facility], , [place], [address], Insurance Providers Payer Name Payer Address Payer Phone Insured Name Patient Relati onship to Insured Coverage Start Date Coverage End Date BCBS OF [facility] [phone] [facility] [id number] UZAIR MARTINO self
--- OUTSIDE RECORDS SUMMARY | 2021-04-30 03:19 | CCD ---
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 Name Role Phone Magdaleno Reynolds Unavailable PROBLEMS Type Condition ICD9-CM Code GJW28-QU Code Onset Dates Condition S tatus W/U Status Risk SNOMED Code Notes Problem Cervical dysplasia N87.9 Active confirmed 7 8194156 Problem Splenic artery aneurysm I72.8 Active confirmed 61260021 Problem Common migraine G43.009 Active confirmed 560 39697 Problem Fe deficiency anemia D50.9 Active confirmed 04912917 Problem DJD (degenerative joint disease), cervical M50.30 Active confirmed 00192780 Problem CHRIS (obstructive sleep apnea) G47.33 Active confirm ed 71961838 Problem Irritable bowel syndrome with diarrhea K58.0 A ctive confirmed 763632438 Problem Sarcoidosis D86.9 Active confirmed 01136574 Problem CTS (carpal tunnel syndrome) G56.00 Active confirme d 31257089 Problem Allergic rhinitis J30.9 Active confirmed 61 805382 Problem Insomnia G47.00 Active confirmed 648048479 Problem Generalized anxiety disorder F41.1 Active confirme d 73877959 Problem Obesity E66.9 Active confirmed 762593170 Problem Gastroesophageal reflux disease, esophagitis pre sence not specified K21.9 Active confirmed 892581449 Problem ADD (attention deficit disorder) F90.0 Active conf irmed 534137644 Problem Tinnitus of right ear H93.11 Active confirmed 88352372 Problem Mild persistent asthma without complication J45.30 Active confirmed 900752298 Problem Ovarian cyst N83.209 Active confirmed 018026 01 Problem Peripheral edema R60.9 Active confirmed 271 151356 Problem Vitamin D deficiency E55.9 Active confirmed 26872096 Problem Venous insufficiency of both lower extremities I87 .2 Active confirmed 920065763 Problem Vitamin B12 deficiency E53.8 Active confirmed 614085445 Problem Breast cancer screening Z12.39 Active confirmed 279725784 Problem IFG (impaired fasting glucose) R73.01 Active confir med 706543457 Problem Mixed hyperlipidemia E78.2 Active confirmed 863131001 Problem Post-traumatic stress disorder, unspecified F43.10 Active confirmed 93462926 Problem Major depressive disorder, recurrent, moderate F33 .1 Active confirmed 767651146 ALLERGIES Allergen (clinical drug ingredient) Drug/Non Drug Allergy do cumented on EMR Reaction Allergy Type Onset Date Status bandaids excoriation Non Drug Allergy Active cetirizine Cetirizine HCl([facility] Code:[address]-81) Hives Drug All ergy Active citalopram Celexa(ND Code:[address]-90) severe drowsiness Drug Tommy rgy Active clindamycin Clindamycin HCl([facility] Code:[address]-31) Vomiting Drug A llergy Active povidone-iodine Betadine(ND Code:[address]-68) Rash Drug Tommy rgy Active ENCOUNTERS from 1974 to 2021-04-11 Encounter Location Date Provider Diagnosis [address] [phone] [place] [address] Mar, Magdaleno Reynolds Major depressive disorder, r ecurrent, moderate F33.1 and DJD (degenerative joint disease), cervical M50.30 IMMUNIZATIONS Vaccine Route Administration Date [...] College Language: Question Answer Notes Languages spoken: Sinhala Yarsanism: Question Answer Notes Yarsanism 33 None Alcohol Screening: Question Answer Notes [...] for 90 day(s) Active Ergocalciferol 1.25 MG (44726 UT) 1 capsule Orally every 7 days for 90 day(s) Active clonazePAM 1 MG 1 tablet Orally bid, CODE A for 30 Days Mar, Active Hibiclens 4 % as directed Externally Daily for 90 day(s) Active Osteo Bi-Flex Adv Joint Shield - as directed Orally Active Ambien 5 MG 1 tablet at bedtime Orally at bedtime MDD:1 for 30 day(s) Feb, Active Rizatriptan Benzoate 10 MG 1 tablet Orally qd prn migr november repeat x 1 in 2H for 30 Days Active Mupirocin 2 % 1 application Externally Three times a day Active Percocet 7.5-325 MG 1 tablet as needed Orally TID prn, MDD 3 for 30 Days Mar, Active Lasix 40 mg 1 tablet Orally [...] a day for 30 day(s) Active Nystatin 644347 UNIT/GM 1 application Externally to groin area [...] t carpal tunnel syndrome/mild left ulnar neuropathy goblu-HXK-Zpmnr Medical History chronic MDD/AUDI/OCD/insomnia Medical History obesity, morbid Medical History impaired fasting glucose Medical History history of nicotine addictio n-smoked 1 07/16 x 14 years, quit 02/2010 Medical History asthma, mild intermittent Medical History IHIS-llc-hgvnxsj gastritis, non-bleeding erosive gastropathy, -GEJ/-H pylori-11/27/18 EGD-Dr. Parks, [place], [place] Medical History palpitations-03/2014 Holter-s ymptoms correlated [...] colonic spasm, WNL random colonic bx-colon-Dr. Charly [place], [place]-11/27/18 Medical History 2 tiny T2WHI 1 in each frontal lobe by MRI/ MRA brain Medical History thoracic ndovgrvlcrd-U4-8 sm all HNP, T10-L1 bulges s compression by 03/29/12 MRI Surgical History colposcopy, 2006-miguel angel 1---2011 no dysplas ia 2013 MIGUEL ANGEL 1 on ECC 2004,2006,2011 Surgical History cryo Surgical History bronch. scope x 2 Surgical History hysterosalpingography x [address] Dr[address]Dacos becerra 2008, 2009 Surgical History LEEP, FGSJM-Elnjhrn-Ogbmuk 04/2015, 12/01 13 Surgical History lap otis--pathology cw acal culous chronic gkxrvxpulrzyo-EZZ-Lcaxjzwcmk, [place] 04/29/19 Surgical History Colposcopy 09/21/2019 Hospitalization History No Hospitalization history informati on Goals Section No Information Health Concerns No Information MEDICAL EQUIPMENT No Information MENTAL STATUS No Information FUNCTIONAL STATUS No Information ASSESSMENTS Encounter Date Diagnosis Assessment Notes Treatment Notes Treatm ent Clinical Notes Mar, Major depressive disorder, recurrent, moderate ( ICD-10 - F33.1) Mar, DJD (degenerative joint disease), cervical (ICD- 10 - M50.30) PLAN OF TREATMENT Medication Medication Name Sig Start Date Stop Date Nystatin 695000 UNIT/GM 1 application Externally to groin area [...] at bedtime D:1 for 30 day(s) Feb, Clobetasol Propionate 0.05 % 1 application to affected area Externally arms Twice a day for 90 day(s) Next Appt Details Provider Name:Magdaleno Reynolds, 2021-06-15 0 3:00:00 PM, [address] [facility], , [place], [address], Insurance Providers Payer Name Payer Address Payer Phone Insured Name Patient Relati onship to Insured Coverage Start Date Coverage End Date BCBS OF [employer] [phone] [facility] [address] UZAIR MARTINO self
--- OUTSIDE RECORDS SUMMARY | 2021-04-30 03:20 | CCD ---
Author Author [facility] Organization [facility] Address Unknown Phone Unavailable Care Team Providers Care Crepe Maker Name Role Phone Brandon WOODY NP Unavailable Unavailable LAROCKBrandon NP Unavailable Unavailable LAROCKBrandon NP Unavailable Unavailable LAROCKBrandon NP Unavailable Unavailable LAROCKBranodn NP Unavailable Unavailable LAROCKBrandon NP Unavailable Unavailable LAROCKBrandon NP Unavailable Unavailable LAROCKBrandon NP Unavailable Unavailable LAROCKBrandon NP Unavailable Unavailable LAROCKBrandon NP Unavailable Unavailable LAROCKBrandon NP Unavailable Unavailable LAROCKBrandon NP Unavailable Unavailable SONOCKBrandon NP Unavailable Unavailable SONOCKBrandon NP Unavailable Unavailable SONOCKBrandon NP Unavailable Unavailable SONOCKBrandon NP Unavailable Unavailable SONOCKBrandon NP Unavailable Unavailable SONOCKBrandon NP Unavailable Unavailable LAROCK, J ISAI FUR CUTTING MACHINE OPERATOR Unavailable Unavailable LAROCK, Brandon ALEX FUR CUTTING MACHINE OPERATOR Unavailable Unavailable LAROCK, Brandon ALEX FUR CUTTING MACHINE OPERATOR Unavailable Unavailable LAROCK, Barndon ALEX FUR CUTTING MACHINE OPERATOR Unavailable Unavailable MORIN, Vamsi RIVERA MD Unavailable Unavailable MORIN, Vamsi RIVERA MD Unavailable Unavailable MORIN, Vamsi RIVERA MD Unavailable Unavailable MORIN, Vamsi RIVERA MD Unavailable Unavailable MORIN, Vamsi RIVERA MD Unavailable Unavailable MORIN, Vamsi RIVERA MD Unavailable Unavailable MORIN, Vamsi RIVERA MD Unavailable Unavailable MORIN, Vamsi RIVERA MD Unavailable Unavailable MORIN, Vamsi RIVERA MD Unavailable Unavailable MORIN, Vamsi RIVERA MD Unavailable Unavailable MORIN, Vamsi RIVERA MD Unavailable Unavailable MORIN, Vamsi RIVERA MD Unavailable Unavailable MORIN, Vamsi RIVERA MD Unavailable Unavailable MORIN, Vamsi RIVERA MD Unavailable Unavailable MORIN, Vamsi RIVERA MD Unavailable Unavailable MORIN, Vamsi RIVERA MD Unavailable Unavailable MORIN, Vamsi RIVERA MD Unavailable Unavailable MORIN, Vamsi RIVERA MD Unavailable Unavailable MORIN, Vamsi RIVERA MD Unavailable Unavailable MORIN, Vamsi RIVERA MD Unavailable Unavailable MORIN, Vamsi RIVERA MD Unavailable Unavailable MORIN, Vamsi RIVERA MD Unavailable Unavailable MORIN, Vamsi RIVERA MD Unavailable Unavailable MORIN, Vamsi RIVERA MD Unavailable Unavailable MORIN, Vamsi RIVERA MD Unavailable Unavailable MORIN, Vamsi RIVERA MD Unavailable Unavailable MORIN, Vamsi RIVERA MD Unavailable Unavailable MORIN, Vamsi RIVERA MD Unavailable Unavailable MORIN, Vamsi RIVERA MD Unavailable Unavailable MORIN, Vamsi RIVERA MD Unavailable Unavailable MORIN, Vamsi RIVERA MD Unavailable Unavailable MORIN, Vamsi RIVERA MD Unavailable Unavailable MORIN, Vamsi RIVERA MD Unavailable Unavailable MORIN, Vamsi RIVERA MD Unavailable Unavailable MORIN, Vamsi RIVERA MD Unavailable Unavailable MORIN, Vamsi RIVERA MD Unavailable Unavailable MORIN, Vamsi RIVERA MD Unavailable Unavailable MORIN, Vamsi RIVERA MD Unavailable Unavailable MORIN, Vamsi RIVERA MD Unavailable Unavailable MORIN, Vamsi RIVERA MD Unavailable Unavailable MORIN, Vamsi RIVERA MD Unavailable Unavailable MORIN, Vamsi RIVERA MD Unavailable Unavailable MORIN, Vamsi RIVERA MD Unavailable Unavailable MORIN, Vamsi RIVERA MD Unavailable Unavailable MORIN, Vamsi RIVERA MD Unavailable Unavailable MORIN, Vamsi RIVERA MD Unavailable Unavailable MORIN, Vamsi RIVERA MD Unavailable Unavailable MORIN, Vamsi RIVERA MD Unavailable Unavailable MORIN, Vamsi RIVERA MD Unavailable Unavailable MORIN, Vamsi RIVERA MD Unavailable Unavailable MORIN, Vamsi RIVERA MD Unavailable Unavailable MORIN, Vamsi RIVERA MD Unavailable Unavailable MORIN, Vamsi RIVERA MD Unavailable Unavailable MORIN, Vamsi RIVERA MD Unavailable Unavailable MORIN, Vamsi RIVERA MD Unavailable Unavailable MORIN, Vamsi RIVERA MD Unavailable Unavailable MORIN, Vamsi RIVERA MD Unavailable Unavailable MORIN, Vamsi RIVERA MD Unavailable Unavailable MORIN, Vamsi RIVERA MD Unavailable Unavailable MORIN, Vamsi RIVERA MD Unavailable Unavailable MORNI, Vamsi RIVERA MD Unavailable Unavailable MORIN, Vamsi RIVERA MD Unavailable Unavailable MORIN, Vamsi RIVERA MD Unavailable Unavailable MORIN, Vamsi RIVERA MD Unavailable Unavailable MORIN, Vamsi RIVERA MD Unavailable Unavailable MORIN, Vamsi RIVERA MD Unavailable Unavailable MORIN, Vamsi RIVERA MD Unavailable Unavailable MORIN, Vamsi RIVERA MD Unavailable Unavailable MORIN, Vamsi RIVERA MD Unavailable Unavailable MORIN, Vamsi RIVERA MD Unavailable Unavailable MORIN, Vamsi RIVERA MD Unavailable Unavailable MORIN, Vamsi RIVERA MD Unavailable Unavailable MORIN, Vamsi RIVERA MD Unavailable Unavailable MORIN, Vamsi RIVERA MD Unavailable Unavailable MORIN, Vamsi RIVERA MD Unavailable Unavailable MORIN, Vamsi RIVERA MD Unavailable Unavailable MORIN, Vamsi RIVERA MD Unavailable Unavailable MORIN, Vamsi RIVERA MD Unavailable Unavailable MORIN, Vamsi RIVERA MD Unavailable Unavailable MORIN, Vamsi RIVERA MD Unavailable Unavailable MORIN, Vamsi RIVERA MD Unavailable Unavailable MORIN, Vamsi RIVERA MD Unavailable Unavailable MORIN, Vamsi RIVERA MD Unavailable Unavailable MORIN, Vamsi RIVERA MD Unavailable Unavailable MORIN, Vamsi RIVERA MD Unavailable Unavailable MORIN, Vamsi RIVERA MD Unavailable Unavailable MORIN, Vamsi RIVERA MD Unavailable Unavailable MORIN, Vamsi RIVERA MD Unavailable Unavailable MORIN, Vamsi RIVERA MD Unavailable Unavailable MORIN, Vamsi RIVERA MD Unavailable Unavailable MORIN, Vamsi RIVERA MD Unavailable Unavailable MORIN, Vamsi RIVERA MD Unavailable Unavailable MORIN, Vamsi RIVERA MD Unavailable Unavailable MORIN, Vamsi RIVERA MD Unavailable Unavailable MORIN, Vamsi RIVERA MD Unavailable Unavailable MORIN, Vamsi RIVERA MD Unavailable Unavailable MORIN, Vamsi RIVERA MD Unavailable Unavailable MORIN, Vamsi RIVERA MD Unavailable Unavailable MORIN, Vamsi RIVERA MD Unavailable Unavailable MORIN, Vamsi RIVERA MD Unavailable Unavailable MORIN, Vamsi RIVERA MD Unavailable Unavailable MORIN, Vamsi RIVERA MD Unavailable Unavailable MORIN, Vamsi RIVERA MD Unavailable Unavailable MORIN, Vamsi RIVERA MD Unavailable Unavailable MORIN, Vamsi RIVERA MD Unavailable Unavailable MORIN, Vamsi RIVERA MD Unavailable Unavailable MORIN, Vamsi RIVERA MD Unavailable Unavailable MORIN, Vamsi RIVERA MD Unavailable Unavailable MORIN, Vamsi RIVERA MD Unavailable Unavailable MORIN, Vamsi RIVERA MD Unavailable Unavailable MORIN, Vamsi RIVERA MD Unavailable Unavailable MORIN, Vamsi RIVERA MD Unavailable Unavailable MORIN, Vamsi RIVERA MD Unavailable Unavailable MORIN, Vamsi RIVERA MD Unavailable Unavailable MORIN, Vamsi RIVERA MD Unavailable Unavailable MORIN, Vamsi RIVERA MD Unavailable Unavailable Scozzari, K Shara PA Unavailable Unavailable Scozzari, K Shara PA Unavailable Unavailable Scozzari, K Shara PA Unavailable Unavailable Scozzari, K Shara PA Unavailable Unavailable Scozzari, K Shara PA Unavailable Unavailable Scozzari, K Shara PA Unavailable Unavailable Scozzari, K Shara PA Unavailable Unavailable Scozzari, K Shara PA Unavailable Unavailable Scozzari, K Shara PA Unavailable Unavailable Scozzari, K Shara PA Unavailable Unavailable Scozzari, K Shara PA Unavailable Unavailable Scozzari, K Shara PA Unavailable Unavailable Scozzari, K Shara PA Unavailable Unavailable Scozzari, K Shara PA Unavailable Unavailable Scozzari, K Shara PA Unavailable Unavailable Scozzari, K Shara PA Unavailable Unavailable Scozzari, K Shara PA Unavailable Unavailable Scozzari, K Shara PA Unavailable Unavailable Scozzari, K Shara PA Unavailable Unavailable Scozzari, K Shara PA Unavailable Unavailable Scozzari, K Shara PA Unavailable Unavailable Scozzari, K Shara PA Unavailable Unavailable Scozzari, K Shara PA Unavailable Unavailable Scozzari, K Shara PA Unavailable Unavailable Scozzari, K Shara PA Unavailable Unavailable Scozzari, K Shara PA Unavailable Unavailable Scozzari, K Shara PA Unavailable Unavailable Scozzari, K Shaar PA Unavailable Unavailable Scozzari, K Shara PA Unavailable Unavailable Scozzari, K Shara PA Unavailable Unavailable Scozzari, K Shara PA Unavailable Unavailable Scozzari, K Shara PA Unavailable Unavailable Scozzari, K Shara PA Unavailable Unavailable Scozzari, K Shara PA Unavailable Unavailable Scozzari, K Shara PA Unavailable Unavailable Scozzari, K Shara PA Unavailable Unavailable Scozzari, K Shara PA Unavailable Unavailable Scozzari, K Shara PA Unavailable Unavailable Scozzari, K Shara PA Unavailable Unavailable Scozzari, K Shara PA Unavailable Unavailable Scozzari, K Shara PA Unavailable Unavailable Scozzari, K Shara PA Unavailable Unavailable Scozzari, K Shara PA Unavailable Unavailable Scozzari, K Shara PA Unavailable Unavailable Scozzari, K Shara PA Unavailable Unavailable Scozzari, K Shara PA Unavailable Unavailable Scozzari, K Shara PA Unavailable Unavailable Michelle Osborn MD Unavailable Unavailable Michelle Osborn MD Unavailable Unavailable Michelle Osborn MD Unavailable Unavailable Michelle Osborn MD Unavailable Unavailable Michelle Osborn MD Unavailable Unavailable Michelle Osborn MD Unavailable Unavailable Michelle Osborn MD Unavailable Unavailable Michelle Osborn MD Unavailable Unavailable Michelle Osborn MD Unavailable Unavailable Michelle Osborn MD Unavailable Unavailable Michelle Osborn MD Unavailable Unavailable Michelle Osborn MD Unavailable Unavailable Michelle Osborn MD Unavailable Unavailable Michelle Osborn MD Unavailable Unavailable Michelle Osborn MD Unavailable Unavailable Michelle Osborn MD Unavailable Unavailable Michelle Osborn MD Unavailable Unavailable Michelle Osborn MD Unavailable Unavailable Michelle Osborn MD Unavailable Unavailable Michelle Osborn MD Unavailable Unavailable Michelle Osborn MD Unavailable Unavailable Michelle Osborn MD Unavailable Unavailable Michelle Osborn MD Unavailable Unavailable Michelle Osborn MD Unavailable Unavailable Michelle Osborn MD Unavailable Unavailable Myesha Reynolds MD Unavailable Unavailable Myesha Reynolds MD Unavailable Unavailable Myesha Reynolds MD Unavailable Unavailable Myesha Reynolds MD Unavailable Unavailable Myesha Reynolds MD Unavailable Unavailable RodolfoMyesha granados MD Unavailable Unavailable RodolfoMyesha granados MD Unavailable Unavailable RodolfoMyesha granados MD Unavailable Unavailable Myesha Reynolds MD Unavailable Unavailable RodolfoMyesha granados MD Unavailable Unavailable RodolfoMyesha granados MD Unavailable Unavailable RodolfoMyesha granados MD Unavailable Unavailable RodolfoMyesha granados MD Unavailable Unavailable RodolfoMyesha granados MD Unavailable Unavailable RodolfoMyesha granados MD Unavailable Unavailable RodolfoMyesha granados MD Unavailable Unavailable RodolfoMyesha granados MD Unavailable Unavailable RodolfoMyesha granados MD Unavailable Unavailable RodolfoMyesha granados MD Unavailable Unavailable RodolfoMyesha granados MD Unavailable Unavailable RodolfoMyesha granados MD Unavailable Unavailable RodolfoMyesha granados MD Unavailable Unavailable RodolfoMyesha granados MD Unavailable Unavailable RodolfoMyesha granados MD Unavailable Unavailable RodolfoMyesha granados MD Unavailable Unavailable RodolfoMyesha granados MD Unavailable Unavailable RodolfoMyesha granados MD Unavailable Unavailable RodolfoMyesha granados MD Unavailable Unavailable RodolfoMyesha granados MD Unavailable Unavailable RodolfoMyesha granados MD Unavailable Unavailable RodolfoMyesha granados MD Unavailable Unavailable RodolfoMyesha granados MD Unavailable Unavailable Myesha Reynolds MD Unavailable Unavailable RodolfoMyesha granados MD Unavailable Unavailable RodolfoMyesha granados MD Unavailable Unavailable RodolfoMyesha granados MD Unavailable Unavailable RodolfoMyesha granados MD Unavailable Unavailable RodolfoMyesha granados MD Unavailable Unavailable RodolfoMyesha granados MD Unavailable Unavailable RodolfoMyesha granados MD Unavailable Unavailable RodolfoMyesha granados MD Unavailable Unavailable RodolfoMyesha granados MD Unavailable Unavailable RodolfoMyesha granados MD Unavailable Unavailable Rodolfo, E Magdaleno MD Unavailable Unavailable Rodolfo, E Magdaleno MD Unavailable Unavailable Rodolfo, E Magdaleno MD Unavailable Unavailable Rodolfo, E Magdaleno MD Unavailable Unavailable Rodolfo, E Magdaleno MD Unavailable Unavailable Rodolfo, E Magdaleno MD Unavailable Unavailable Rodolfo, E Magdaleno MD Unavailable Unavailable Rodolfo, E Magdaleno MD Unavailable Unavailable Rodolfo, E Magdaleno MD Unavailable Unavailable Rodolfo, E Magdaleno MD Unavailable Unavailable Rodolfo, E Magdaleno MD Unavailable Unavailable Rodolfo, E Magdaleno MD Unavailable Unavailable Rodolfo, E Magdaleno MD Unavailable Unavailable Rodolfo, E Magdaleno MD Unavailable Unavailable Rodolfo, E Magdaleno MD Unavailable Unavailable Rodolfo, E Magdaleno MD Unavailable Unavailable Re-disclosure Warning The records that you are about to access may contain information from federally-assisted alcohol or drug abuse programs. If such information is present, then the following federally mandated warning applies: This information has been disclosed to you from records protected by federal confidentiality rules (42 CFR part 2). The federal rules prohibit you from making any further disclosure of this information unless further disclosure is expressly permitted by the written consent of the person to whom it pertains or as otherwise permitted by 42 CFR part 2. A general authorization for the release of medical or other information is NOT sufficient for this purpose. The Federal rules restrict any use of the information to criminally investigate or prosecute any alcohol or drug abuse patient.The records that you are about to access may contain highly sensitive health information, the redisclosure of which is protected by Article 27-F of the [facility] Public Health law. If you continue you may have access to information: Regarding HIV / AIDS; Provided by facilities licensed or operated by the [facility] Office of Mental Health; or Provided by the [facility] Office for People With Developmental Disabilities. If such information is present, then the following [facility] mandated warning applies: This information has been disclosed to you from confidential records which are protected by state law. State law prohibits you from making any further disclosure of this information without the specific written consent of the person to whom it pertains, or as otherwise permitted by law. Any unauthorized further disclosure in violation of state law may result in a fine or longterm sentence or both. A general authorization for the release of medical or other information is NOT sufficient authorization for further disc losure. Family History Family Member Name Family Member Gender Family Member Status Date o f Status Description Data Source(s) Unknown Male Diagnosis 11/12/2016 12:00:00 AM EDT [facility] ([facility]) Encounters Encounter Providers Location Date Indications Data Source(s ) Unknown [address] [facility] [address] 04/28/2021 12:00:00 AM EDT [facility]CW1 ([facility]) Unknown [address] [facility] [place] [address] 04/28/2021 12:00:00 AM EDT [facility]CW1 ([facility]) Unknown [address] [facility] [address] 04/10/2021 12:00:00 AM EDT eCW1 ([facility]) Unknown [address] [facility] Y [address] 03/07/2021 12:00:00 AM EDT eCW1 ([facility]) Unknown [address] [facility] Y [address] 02/09/2021 12:00:00 AM EDT eCW1 ([facility]) Unknown [address] [facility] [place] [address] 02/09/2021 12:00:00 AM EDT eCW1 ([facility]) Unknown [address] [facility] Y [address] 01/28/2021 12:00:00 AM EDT eCW1 ([facility]) Unknown [address] [facility] Y [address] 01/27/2021 12:00:00 AM EDT eCW1 ([facility]) (WC PROC) [facility] Procedure [address] [place] [address] 2021 12:00:00 AM EDT [facility]1 ([facility]) Unknown [address] [facility] Y [address] 01/17/2021 12:00:00 AM EDT eCW1 ([facility]) Unknown [address] [facility] Y [address] 01/10/2021 12:00:00 AM EDT eCW1 ([facility]) Outpatient Attender: Shara Bustos: Magdaleno Lehman 12/28/2020 10:02:11 AM EDT [facility] Unknown [address] [facility] [address] 12/21/2020 12:00:00 AM EDT [facility]CW1 ([facility]) Recurring Patient Attender: NICOLE Toro: Magdaleno coley MD 12/19/2020 03:30:21 PM EDT [facility] [address] [facility] Y [address] 12/09/2020 12:00:00 AM EDT eCW1 ([facility]) Unknown [address] [facility] Y [address] 12/02/2020 12:00:00 AM EDT eCW1 ([facility]) Outpatient [address] [facility], [place] [address] 12/02/2020 12:00:00 AM EDT eCW1 ([facility]) Unknown [address] [facility] Y [address] 11/23/2020 12:00:00 AM EDT eCW1 ([facility]) Unknown [address] [facility] [place] [address] 11/22/2020 12:00:00 AM EDT eCW1 ([facility]) Unknown [address] [facility] [place] [address] 11/18/2020 12:00:00 AM EDT eCW1 ([facility]) Outpatient Attender: Key Osborn MD 0 11/08/2020 04:52:01 PM EDT - 11/08/2020 06:03:55 PM EDT [facility] ([facility]) Unknown [address] [facility], [place] [address] 11/03/2020 12:00:00 AM EDT [facility]CW[facility] Unknown [address] [facility] [place] [address] 11/03/2020 12:00:00 AM EDT eCW1 ([facility]) Outpatient [address] [facility] [address] 10/27/2020 12:00:00 AM EDT eCW1 ([facility]) Unknown [address] [facility] [address] 10/21/2020 12:00:00 AM EDT eCW1 ([facility]) Unknown [address] [facility] [place] [address] 10/20/2020 12:00:00 AM EDT eCW1 ([facility]) Unknown [address] [facility] [address] 10/20/2020 12:00:00 AM EDT eCW1 ([facility]) Unknown [address] [facility] [address] 10/20/2020 12:00:00 AM EDT eCW1 ([facility]) Unknown [address] [facility] [address] 09/21/2020 12:00:00 AM EST eCW1 ([facility]) Unknown [address] [facility] [address] 09/16/2020 12:00:00 AM EST eCW1 ([facility]) [facility] [address] [place] [address] 09/16/2020 12:00:00 AM EST eCW1 ([facility]) Unknown [address] [facility] [address] 09/14/2020 12:00:00 AM EST eCW1 ([facility]) Unknown [address] [facility] [place] [address] 08/23/2020 12:00:00 AM EST eCW1 ([facility]) Unknown [address] [facility] [place] [address] 08/19/2020 12:00:00 AM EST eCW1 ([facility]) Outpatient Attender: ISAI WOODY NP 10/2020 07:08:14 PM EST - 08/18/2020 07:54:21 PM EST [facility] ([facility] ) Unknown [address] [facility] [address] 08/18/2020 12:00:00 AM EST eCW1 ([facility]) Unknown [address] [facility] [place] [address] 08/18/2020 12:00:00 AM EST eCW1 ([facility]) Unknown [address] [facility] [place] [address] 08/11/2020 12:00:00 AM EST eCW1 ([facility]) Outpatient [address] [facility] [place] [address] 07/27/2020 12:00:00 AM EST eCW1 ([facility]) Unknown [address] [facility] [place] [address] 07/19/2020 12:00:00 AM EST eCW1 ([facility]) Unknown [address] [facility] [place] [address] 07/18/2020 12:00:00 AM EST eCW1 ([facility]) Unknown [address] [facility] [place] [address] 07/18/2020 12:00:00 AM EST eCW1 ([facility]) Unknown [address] [facility] [place] [address] 07/18/2020 12:00:00 AM EST eCW1 ([facility]) Unknown [address] [facility] [place] [address] 07/17/2020 12:00:00 AM EST eCW1 ([facility]) Unknown [address] [facility] [place] [address] 07/12/2020 12:00:00 AM EST eCW1 ([facility]) Outpatient Attender: Shara Bustos: Magdaleno Lehman 07/11/2020 08:58:48 AM EST [facility] Unknown [address] [facility] [place] [address] 07/11/2020 12:00:00 AM EST [facility]CW1 ([facility]) Unknown [address] [facility] Y [address] 07/11/2020 12:00:00 AM EST eCW1 ([facility]) Unknown [address] [facility] Y [address] 07/11/2020 12:00:00 AM EST [facility] Unknown [address] [facility] Y [address] 07/11/2020 12:00:00 AM EST [facility]CW1 [facility]) Recurring Patient Attender: NICOLE ABARCAeferrer: Magdaleno coley MD 07/05/2020 03:12:03 PM EST [facility] [address] [facility] Y [address] 06/27/2020 12:00:00 AM EST eCW1 ([facility]) Unknown [address] [facility], [place] [address] 06/27/2020 12:00:00 AM EST eCW1 ([facility]) Unknown [address] [facility] Y [address] 06/19/2020 12:00:00 AM EST eCW1 ([facility]) Recurring Patient Attender: NICOLE Allenerrer: Magdaleno coley MD 06/15/2020 08:42:08 AM EST [facility] [address] [facility] Y [address] 06/14/2020 12:00:00 AM EST eCW1 ([facility]) Unknown [address] [facility] [place] [address] 06/14/2020 12:00:00 AM EST [facility]CW1 ([facility]) Unknown [address] [facility] [place] [address] 06/04/2020 12:00:00 AM EST eCW1 ([facility]) Unknown [address] [facility] [place] [address] 05/24/2020 12:00:00 AM EST eCW1 ([facility]) Unknown [address] [facility] [place] [address] 05/11/2020 12:00:00 AM EDT eCW1 ([facility]) Unknown [address] [facility] [place] [address] 05/11/2020 12:00:00 AM EDT eCW1 ([facility]) Unknown [address] [facility] [place] [address] 05/10/2020 12:00:00 AM EDT eCW1 ([facility]) Unknown [address] [facility] [place] [address] 05/06/2020 12:00:00 AM EDT eCW1 ([facility]) Unknown [address] [facility] [place] [address] 05/06/2020 12:00:00 AM EDT eCW1 ([facility]) Unknown [address] [facility] [place] [address] 05/03/2020 12:00:00 AM EDT eCW1 ([facility]) Unknown [address] [facility] [place] [address] 05/02/2020 12:00:00 AM EDT eCW1 ([facility]) Unknown [address] [facility] [place] [address] 05/02/2020 12:00:00 AM EDT eCW1 ([facility]) Unknown [address] [facility] [place] [address] 04/05/2020 12:00:00 AM EDT eCW1 ([facility]) Unknown [address] [facility] [place] [address] 04/05/2020 12:00:00 AM EDT eCW1 ([facility]) Unknown [address] [facility] [place] [address] 04/05/2020 12:00:00 AM EDT eCW1 ([facility]) Unknown [address] [facility] [place] [address] 04/05/2020 12:00:00 AM EDT eCW1 ([facility]) Unknown [address] [facility] [place] [address] 04/05/2020 12:00:00 AM EDT eCW1 ([facility]) Immunizations Vaccine Date Status Description Data Source(s) COVID-19 VACCINE Pfizer 08/08/2020 12:00:00 AM EST completed [facility] Vaccine Series Complete: YESThis Data wa s Submitted to [facility]. COVID-19 VACCINE Pfizer 07/18/2020 12:00:00 AM EST completed [facility] Vaccine Series Complete: NOThis Data was Submitted to [facility]. IIV3. This is one of two codes replacing CVX 15, which is being retired. 03/24/2020 02:40:00 PM EDT completed eCW1 ([facility]) IIV3. This is one of two codes replacing CVX 15, which is being retired. 03/24/2020 02:40:00 PM EDT completed eCW1 ([facility]) IIV3. This is one of two codes replacing CVX 15, which is being retired. 03/24/2020 02:40:00 PM EDT completed eCW1 ([facility]) IIV3. This is one of two codes replacing CVX 15, which is being retired. 03/24/2020 02:40:00 PM EDT completed eCW1 ([facility]) IIV3. This is one of two codes replacing CVX 15, which is being retired. 03/24/2020 02:40:00 PM EDT completed eCW1 ([facility]) IIV3. This is one of two codes replacing CVX 15, which is being retired. 03/24/2020 02:40:00 PM EDT completed eCW1 ([facility]) IIV3. This is one of two codes replacing CVX 15, which is being retired. 03/24/2020 02:40:00 PM EDT completed eCW1 ([facility]) IIV3. This is one of two codes replacing CVX 15, which is being retired. 03/24/2020 02:40:00 PM EDT completed eCW1 ([facility]) IIV3. This is one of two codes replacing CVX 15, which is being retired. 03/24/2020 02:40:00 PM EDT completed eCW1 ([facility]) IIV3. This is one of two codes replacing CVX 15, which is being retired. 03/24/2020 02:40:00 PM EDT completed eCW1 ([facility]) IIV3. This is one of two codes replacing CVX 15, which is being retired. 03/24/2020 02:40:00 PM EDT completed eCW1 ([facility]) IIV3. This is one of two codes replacing CVX 15, which is being retired. 03/24/2020 02:40:00 PM EDT completed eCW1 ([facility]) IIV3. This is one of two codes replacing CVX 15, which is being retired. 03/24/2020 02:40:00 PM EDT completed eCW1 ([facility]) IIV3. This is one of two codes replacing CVX 15, which is being retired. 03/24/2020 02:40:00 PM EDT completed eCW1 ([facility]) IIV3. This is one of two codes replacing CVX 15, which is being retired. 03/24/2020 02:40:00 PM EDT completed eCW1 ([facility]) IIV3. This is one of two codes replacing CVX 15, which is being retired. 03/24/2020 02:40:00 PM EDT completed eCW1 ([facility]) IIV3. This is one of two codes replacing CVX 15, which is being retired. 03/24/2020 02:40:00 PM EDT completed eCW1 ([facility]) IIV3. This is one of two codes replacing CVX 15, which is being retired. 03/24/2020 02:40:00 PM EDT completed eCW1 ([facility]) IIV3. This is one of two codes replacing CVX 15, which is being retired. 03/24/2020 02:40:00 PM EDT completed eCW1 ([facility]) IIV3. This is one of two codes replacing CVX 15, which is being retired. 03/24/2020 02:40:00 PM EDT completed eCW1 ([facility]) IIV3. This is one of two codes replacing CVX 15, which is being retired. 03/24/2020 02:40:00 PM EDT completed eCW1 ([facility]) IIV3. This is one of two codes replacing CVX 15, which is being retired. 03/24/2020 02:40:00 PM EDT completed eCW1 ([facility]) IIV3. This is one of two codes replacing CVX 15, which is being retired. 03/24/2020 02:40:00 PM EDT completed eCW1 ([facility]) IIV3. This is one of two codes replacing CVX 15, which is being retired. 03/24/2020 02:40:00 PM EDT completed eCW1 ([facility]) IIV3. This is one of two codes replacing CVX 15, which is being retired. 03/24/2020 02:40:00 PM EDT completed eCW1 ([facility]) IIV3. This is one of two codes replacing CVX 15, which is being retired. 03/24/2020 02:40:00 PM EDT completed eCW1 ([facility]) IIV3. This is one of two codes replacing CVX 15, which is being retired. 03/24/2020 02:40:00 PM EDT completed eCW1 ([facility]) IIV3. This is one of two codes replacing CVX 15, which is being retired. 03/24/2020 02:40:00 PM EDT completed eCW1 ([facility]) IIV3. This is one of two codes replacing CVX 15, which is being retired. 03/24/2020 02:40:00 PM EDT completed eCW1 ([facility]) IIV3. This is one of two codes replacing CVX 15, which is being retired. 03/24/2020 02:40:00 PM EDT completed eCW1 ([facility]) IIV3. This is one of two codes replacing CVX 15, which is being retired. 03/24/2020 02:40:00 PM EDT completed eCW1 ([facility]) IIV3. This is one of two codes replacing CVX 15, which is being retired. 03/24/2020 02:40:00 PM EDT completed eCW1 ([facility]) IIV3. This is one of two codes replacing CVX 15, which is being retired. 03/24/2020 02:40:00 PM EDT completed eCW1 ([facility]) IIV3. This is one of two codes replacing CVX 15, which is being retired. 03/24/2020 02:40:00 PM EDT completed eCW1 ([facility]) IIV3. This is one of two codes replacing CVX 15, which is being retired. 03/24/2020 02:40:00 PM EDT completed eCW1 ([facility]) IIV3. This is one of two codes replacing CVX 15, which is being retired. 03/24/2020 02:40:00 PM EDT completed eCW1 ([facility]) IIV3. This is one of two codes replacing CVX 15, which is being retired. 03/24/2020 02:40:00 PM EDT completed eCW1 ([facility]) IIV3. This is one of two codes replacing CVX 15, which is being retired. 03/24/2020 02:40:00 PM EDT completed eCW1 ([facility]) IIV3. This is one of two codes replacing CVX 15, which is being retired. 03/24/2020 02:40:00 PM EDT completed eCW1 ([facility]) IIV3. This is one of two codes replacing CVX 15, which is being retired. 03/24/2020 02:40:00 PM EDT completed eCW1 ([facility]) IIV3. This is one of two codes replacing CVX 15, which is being retired. 03/24/2020 02:40:00 PM EDT completed eCW1 ([facility]) IIV3. This is one of two codes replacing CVX 15, which is being retired. 03/24/2020 02:40:00 PM EDT completed eCW1 ([facility]) IIV3. This is one of two codes replacing CVX 15, which is being retired. 03/24/2020 02:40:00 PM EDT completed eCW1 ([facility]) IIV3. This is one of two codes replacing CVX 15, which is being retired. 03/24/2020 02:40:00 PM EDT completed eCW1 ([facility]) IIV3. This is one of two codes replacing CVX 15, which is being retired. 03/24/2020 02:40:00 PM EDT completed eCW1 ([facility]) IIV3. This is one of two codes replacing CVX 15, which is being retired. 03/24/2020 02:40:00 PM EDT completed eCW1 ([facility]) IIV3. This is one of two codes replacing CVX 15, which is being retired. 03/24/2020 02:40:00 PM EDT completed eCW1 ([facility]) IIV3. This is one of two codes replacing CVX 15, which is being retired. 03/24/2020 02:40:00 PM EDT completed eCW1 ([facility]) IIV3. This is one of two codes replacing CVX 15, which is being retired. 03/24/2020 02:40:00 PM EDT completed eCW1 ([facility]) IIV3. This is one of two codes replacing CVX 15, which is being retired. 03/24/2020 02:40:00 PM EDT completed eCW1 ([facility]) IIV3. This is one of two codes replacing CVX 15, which is being retired. 03/24/2020 02:40:00 PM EDT completed eCW1 ([facility]) IIV3. This is one of two codes replacing CVX 15, which is being retired. 03/24/2020 02:40:00 PM EDT completed eCW1 ([facility]) IIV3. This is one of two codes replacing CVX 15, which is being retired. 03/24/2020 02:40:00 PM EDT completed eCW1 ([facility]) IIV3. This is one of two codes replacing CVX 15, which is being retired. 03/24/2020 02:40:00 PM EDT completed eCW1 ([facility]) IIV3. This is one of two codes replacing CVX 15, which is being retired. 03/24/2020 02:40:00 PM EDT completed eCW1 ([facility]) IIV3. This is one of two codes replacing CVX 15, which is being retired. 03/24/2020 02:40:00 PM EDT completed eCW1 ([facility]) Medications Medication Brand Name Start Date Product Form Dose Route Admi nistrative Instructions Pharmacy Instructions Status Indications Reaction Description Data Source(s) Carisoprodol 350 MG Oral Tablet [Soma] Soma 350 MG Soma 350 MG 04/28/2021 12:00:00 AM EDT 1.0 {tablet_as_needed} active Soma 350 MG eCW1 ([facility]) Carisoprodol 350 MG Oral Tablet [Soma] Soma 350 MG Soma 350 MG 04/28/2021 12:00:00 AM EDT 1.0 {tablet_as_needed} active Soma 350 MG eCW1 ([facility]) 1 mg 04/14/2021 12:00:00 AM EDT tablet 60 TAKE ONE TABLET BY MOUTH TWICE A DAY MAXIMUM DAILY DOSE = 2 TABLETS TAKE ONE TABLET BY MOUTH TWICE A DAY MAX IMUM DAILY DOSE = 2 TABLETS SOLD: 04/14/2021 [facility] 10 mg 04/14/2021 12:00:00 AM EDT tablet 15 TAKE ONE TABLET BY MOUTH EVERY DAY NEEDED FOR MIGRAINE MAY REPEAT ONCE IN 2 HOURS TAKE ONE TABLET BY MOUTH EVERY DAY NEEDED FOR MIGRAINE MAY REPEAT ONCE IN 2 HOURS SOLD: 04/14/2021 [facility] Acetaminophen 325 MG / Oxycodone Hydroch loride 7.5 MG Oral Tablet [Percocet] Percocet 7.5-325 MG Percocet 7.5-325 MG 04/11/2021 12:00:00 AM EDT 1.0 {tablet_as_needed} active Percocet 7.5- 325 MG eCW1 ([facility]) Acetaminophen 325 MG / Oxycodone Hydroch loride 7.5 MG Oral Tablet [Percocet] Percocet 7.5-325 MG Percocet 7.5-325 MG 04/11/2021 12:00:00 AM EDT 1.0 {tablet_as_needed} active Percocet 7.5- 325 MG eCW1 ([facility]) Clonazepam 1 MG Oral Tablet clonazePAM 1 MG clonazePAM 1 MG 04/11/2021 12:00:00 AM EDT 1.0 {tablet} active clonazePAM 1 MG eCW1 ([facility]) Clonazepam 1 MG Oral Tablet clonazePAM 1 MG clonazePAM 1 MG 04/11/2021 12:00:00 AM EDT 1.0 {tablet} active clonazePAM 1 MG eCW1 ([facility]) Acetaminophen 325 MG / Oxycodone Hydroch loride 7.5 MG Oral Tablet [Percocet] Percocet 7.5-325 MG Percocet 7.5-325 MG 04/11/2021 12:00:00 AM EDT 1.0 {tablet_as_needed} active Percocet 7.5- 325 MG eCW1 ([facility]) Clonazepam 1 MG Oral Tablet clonazePAM 1 MG clonazePAM 1 MG 04/11/2021 12:00:00 AM EDT 1.0 {tablet} active clonazePAM 1 MG eCW1 ([facility]) 7.5-325 mg 04/11/2021 12:00:00 AM EDT tablet 90 TAKE ONE TABLET BY MOUTH THREE TIMES A DAY NEEDED FOR PAIN MAXIMUM DAILY DOSE = 3 TABLETS TAKE ONE TABLET BY MOUTH THREE TIMES A DAY NEEDED FOR PAIN MAXIMUM DAILY DOSE = 3 TABLETS SOLD: 04/11/2021 [facility] 1 mg 03/13/2021 12:00:00 AM EDT tablet 60 TAKE ONE TABLET BY MOUTH TWICE A DAY MAXIMUM DAILY DOSE = 2 TAKE ONE TABLET BY MOUTH TWICE A DAY MAX IMUM DAILY DOSE = 2 SOLD: 03/17/2021 [facility] 7.5-325 mg 03/11/2021 12:00:00 AM EDT tablet 90 TAKE ONE TABLET BY MOUTH THREE TIMES A DAY NEEDED MAXIMUM DAILY DOSE = 3 TABLETS TAKE ONE TABLET BY MOUTH THREE TIMES A DAY NEEDED MAXIMUM DAILY DOSE = 3 TABLETS SOLD: 03/11/2021 [facility] 5 mg 03/10/2021 12:00:00 AM EDT tablet 30 TAKE ONE TABLET BY MOUTH AT BEDTIME MAXIMUM DAILY DOSE = 1 TAKE ONE TABLET BY MOUTH AT BEDTIME MAXI MUM DAILY DOSE = 1 SOLD: 03/11/2021 [facility] Zolpidem tartrate 5 MG Oral Tablet [Ambien] Ambien 5 MG Ambi en 5 MG 03/09/2021 12:00:00 AM EDT 1.0 {tablet_at_bedtime} active Ambien 5 MG eCW1 ([facility]) Zolpidem tartrate 5 MG Oral Tablet [Ambien] Ambien 5 MG Ambi en 5 MG 03/09/2021 12:00:00 AM EDT 1.0 {tablet_at_bedtime} active Ambien 5 MG eCW1 ([facility]) Zolpidem tartrate 5 MG Oral Tablet [Ambien] Ambien 5 MG Ambi en 5 MG 03/09/2021 12:00:00 AM EDT 1.0 {tablet_at_bedtime} active Ambien 5 MG eCW1 ([facility]) Acetaminophen 325 MG / Oxycodone Hydroch loride 7.5 MG Oral Tablet [Percocet] Percocet 7.5-325 MG Percocet 7.5-325 MG 03/09/2021 12:00:00 AM EDT 1.0 {tablet_as_needed} active Percocet 7.5- 325 MG eCW1 ([facility]) Clonazepam 1 MG Oral Tablet clonazePAM 1 MG clonazePAM 1 MG 03/09/2021 12:00:00 AM EDT 1.0 {tablet} active clonazePAM 1 MG eCW1 ([facility]) Zolpidem tartrate 5 MG Oral Tablet [Ambien] Ambien 5 MG Ambi en 5 MG 03/09/2021 12:00:00 AM EDT 1.0 {tablet_at_bedtime} active Ambien 5 MG eCW1 ([facility]) 100,000 unit/gram 02/21/2021 12:00:00 AM EDT powder 90 USE 1 APPLICATION TWO TIMES A DAY EXTERNALLY TO GROIN AREA USE 1 APPLICATION TWO TIMES A DAY EXTERNALLY TO GROIN AREA SOLD: 02/22/2021 [facility] 1 mg 02/11/2021 12:00:00 AM EDT tablet 60 TAKE ONE TABLET BY MOUTH TWICE A DAY MAXIMUM DAILY DOSE = 2 TAKE ONE TABLET BY MOUTH TWICE A DAY MAX IMUM DAILY DOSE = 2 SOLD: 02/13/2021 [facility] Acetaminophen 325 MG / Oxycodone Hydroch loride 7.5 MG Oral Tablet [Percocet] Percocet 7.5-325 MG Percocet 7.5-325 MG 02/09/2021 12:00:00 AM EDT 1.0 {tablet_as_needed} active Percocet 7.5- 325 MG eCW1 ([facility]) Clobetasol Propionate 0.5 MG/ML Topical Cream 0.05 % CLOBETA MERCEDES PROPIONATE 02/09/2021 12:00:00 AM EDT cream 180 USE 1 APPLICATION TO AFFECTED AREA TWO TIMES A DAY EXTERNALLY TO ARMS USE 1 APPLICATION TO AFFECTED AREA TWO T IMES A DAY EXTERNALLY TO ARMS SOLD: 02/10/2021 [facility] Acetaminophen 325 MG / Oxycodone Hydroch loride 7.5 MG Oral Tablet [Percocet] Percocet 7.5-325 MG Percocet 7.5-325 MG 02/09/2021 12:00:00 AM EDT 1.0 {tablet_as_needed} active eCW1 ([facility]) 7.5-325 mg 02/09/2021 12:00:00 AM EDT tablet 90 TAKE ONE TABLET BY MOUTH THREE TIMES A DAY NEEDED MAXIMUM DAILY DOSE = 3 TAKE ONE TABLET BY MOUTH THREE TIMES A DAY NEEDED MAXIMUM DAILY DOSE = 3 SOLD: 02/10/2021 [facility] Nystatin 100 UNT/MG Topical Powder 100,000 unit/gram [facility] N 01/30/2021 12:00:00 AM EDT powder 45 APPLY TO GROIN AREA TWICE A DAY APPLY TO GROIN AREA TWICE A DAY SOLD: 02/10/2021 [facility] 1 mg 01/11/2021 12:00:00 AM EDT tablet 60 TAKE ONE TABLET BY MOUTH TWICE A DAY MAXIMUM DAILY DOSE = 2 TAKE ONE TABLET BY MOUTH TWICE A DAY MAX IMUM DAILY DOSE = 2 SOLD: 01/14/2021 [facility] Acetaminophen 325 MG / Oxycodone Hydroch loride 7.5 MG Oral Tablet [Percocet] Percocet 7.5-325 MG Percocet 7.5-325 MG 01/10/2021 12:00:00 AM EDT 1.0 {tablet_as_needed} active Percocet 7.5- 325 MG eCW1 ([facility]) Acetaminophen 325 MG / Oxycodone Hydroch loride 7.5 MG Oral Tablet [Percocet] Percocet 7.5-325 MG Percocet 7.5-325 MG 01/10/2021 12:00:00 AM EDT 1.0 {tablet_as_needed} active Percocet 7.5- 325 MG eCW1 ([facility]) Acetaminophen 325 MG / Oxycodone Hydroch loride 7.5 MG Oral Tablet [Percocet] Percocet 7.5-325 MG Percocet 7.5-325 MG 01/10/2021 12:00:00 AM EDT 1.0 {tablet_as_needed} active Percocet 7.5- 325 MG eCW1 ([facility]) Acetaminophen 325 MG / Oxycodone Hydroch loride 7.5 MG Oral Tablet [Percocet] Percocet 7.5-325 MG Percocet 7.5-325 MG 01/10/2021 12:00:00 AM EDT 1.0 {tablet_as_needed} active Percocet 7.5- 325 MG eCW1 ([facility]) Acetaminophen 325 MG / Oxycodone Hydroch loride 7.5 MG Oral Tablet [Percocet] Percocet 7.5-325 MG Percocet 7.5-325 MG 01/10/2021 12:00:00 AM EDT 1.0 {tablet_as_needed} active Percocet 7.5- 325 MG eCW1 ([facility]) 7.5-325 mg 01/10/2021 12:00:00 AM EDT tablet 90 TAKE ONE TABLET BY MOUTH THREE TIMES A DAY NEEDED MAXIMUM DAILY DOSE = 3 TAKE ONE TABLET BY MOUTH THREE TIMES A DAY NEEDED MAXIMUM DAILY DOSE = 3 SOLD: 01/10/2021 [facility] Acetaminophen 325 MG / Oxycodone Hydroch loride 7.5 MG Oral Tablet [Percocet] Percocet 7.5-325 MG Percocet 7.5-325 MG 01/10/2021 12:00:00 AM EDT 1.0 {tablet_as_needed} active Percocet 7.5- 325 MG eCW1 ([facility]) 350 mg 12/22/2020 12:00:00 AM EDT tablet 60 TAKE ONE TABLET BY MOUTH TWICE A DAY NEEDED MAXIMUM DAILY DOSE = 2 TAKE ONE TABLET BY MOUTH TWICE A DAY NEEDED MAXIMUM DAILY DOSE = 2 SOLD: 12/22/2020 [facility] 350 mg 12/22/2020 12:00:00 AM EDT tablet 60 TAKE ONE TABLET BY MOUTH TWICE A DAY NEEDED MAXIMUM DAILY DOSE = 2 TAKE ONE TABLET BY MOUTH TWICE A DAY NEEDED MAXIMUM DAILY DOSE = 2 SOLD: 01/22/2021 [facility] 350 mg 12/22/2020 12:00:00 AM EDT tablet 60 TAKE ONE TABLET BY MOUTH TWICE A DAY NEEDED MAXIMUM DAILY DOSE = 2 TAKE ONE TABLET BY MOUTH TWICE A DAY NEEDED MAXIMUM DAILY DOSE = 2 SOLD: 02/22/2021 [facility] 350 mg 12/22/2020 12:00:00 AM EDT tablet 60 TAKE ONE TABLET BY MOUTH TWICE A DAY NEEDED MAXIMUM DAILY DOSE = 2 TAKE ONE TABLET BY MOUTH TWICE A DAY NEEDED MAXIMUM DAILY DOSE = 2 SOLD: 03/28/2021 [facility] 1,250 mcg (50,000 unit) 12/16/2020 12:00:00 AM EDT capsule 12 TAKE 1 CAPSULE BY MOUTH ONCE A WEEK TAKE 1 CAPSULE BY MOUTH ONCE A WEEK SOLD: 12/16/2020 [facility] pantoprazole 40 MG Delayed Release Oral Tablet PANTOPRAZOLE SODIUM 12/14/2020 12:00:00 AM EDT tablet,delayed release (DR/EC) 90 T CHARMAINE ONE TABLET BY MOUTH EVERY MORNING TAKE ONE TABLET BY MOUTH EVERY MORNING SOLD: 12/16/2020 [facility] 40 mg 12/14/2020 12:00:00 AM EDT capsule 180 TAKE TWO CAPSULES BY MOUTH EVERY MORNING TAKE TWO CAPSULES BY MOUTH EVERY MORNING SOLD: 12/16/2020 [facility] Acetaminophen 325 MG / Oxycodone Hydroch loride 7.5 MG Oral Tablet [Percocet] Percocet 7.5-325 MG Percocet 7.5-325 MG 12/13/2020 12:00:00 AM EDT 1.0 {tablet_as_needed} active Percocet 7.5- 325 MG eCW1 ([facility]) 7.5-325 mg 12/13/2020 12:00:00 AM EDT tablet 90 TAKE ONE TABLET BY MOUTH THREE TIMES A DAY NEEDED MAXIMUM DAILY DOSE = 3 TABLETS TAKE ONE TABLET BY MOUTH THREE TIMES A DAY NEEDED MAXIMUM DAILY DOSE = 3 TABLETS SOLD: 12/13/2020 [facility] Acetaminophen 325 MG / Oxycodone Hydroch loride 7.5 MG Oral Tablet [Percocet] Percocet 7.5-325 MG Percocet 7.5-325 MG 12/13/2020 12:00:00 AM EDT 1.0 {tablet_as_needed} active Percocet 7.5- 325 MG eCW1 ([facility]) 0.5 mg 12/10/2020 12:00:00 AM EDT tablet 30 TAKE ONE TABLET BY MOUTH EVERY DAY TAKE ONE TABLET BY MOUTH EVERY DAY SOLD: 12/13/2020 [facility] 0.5 mg 12/10/2020 12:00:00 AM EDT tablet 30 TAKE ONE TABLET BY MOUTH EVERY DAY TAKE ONE TABLET BY MOUTH EVERY DAY SOLD: 01/16/2021 [facility] alosetron 0.5 MG Oral Tablet [Lotronex] Lotronex 0.5 MG Lotr onex 0.5 MG 12/05/2020 12:00:00 AM EDT 1.0 {tablet} active Lotronex 0.5 MG eCW1 ([facility]) alosetron 0.5 MG Oral Tablet [Lotronex] Lotronex 0.5 MG Lotr onex 0.5 MG 12/05/2020 12:00:00 AM EDT 1.0 {tablet} active Lotronex 0.5 MG eCW1 ([facility]) alosetron 0.5 MG Oral Tablet [Lotronex] Lotronex 0.5 MG Lotr onex 0.5 MG 12/05/2020 12:00:00 AM EDT 1.0 {tablet} active Lotronex 0.5 MG eCW1 ([facility]) alosetron 0.5 MG Oral Tablet [Lotronex] Lotronex 0.5 MG Lotr onex 0.5 MG 12/05/2020 12:00:00 AM EDT 1.0 {tablet} active Lotronex 0.5 MG eCW1 ([facility]) alosetron 0.5 MG Oral Tablet [Lotronex] Lotronex 0.5 MG Lotr onex 0.5 MG 12/05/2020 12:00:00 AM EDT 1.0 {tablet} active Lotronex 0.5 MG eCW1 ([facility]) alosetron 0.5 MG Oral Tablet [Lotronex] Lotronex 0.5 MG Lotr onex 0.5 MG 12/05/2020 12:00:00 AM EDT 1.0 {tablet} active Lotronex 0.5 MG eCW1 ([facility]) alosetron 0.5 MG Oral Tablet [Lotronex] Lotronex 0.5 MG Lotr onex 0.5 MG 12/05/2020 12:00:00 AM EDT 1.0 {tablet} active Lotronex 0.5 MG eCW1 ([facility]) alosetron 0.5 MG Oral Tablet [Lotronex] Lotronex 0.5 MG Lotr onex 0.5 MG 12/05/2020 12:00:00 AM EDT 1.0 {tablet} active Lotronex 0.5 MG eCW1 ([facility]) alosetron 0.5 MG Oral Tablet [Lotronex] Lotronex 0.5 MG Lotr onex 0.5 MG 12/05/2020 12:00:00 AM EDT 1.0 {tablet} active Lotronex 0.5 MG eCW1 ([facility]) alosetron 0.5 MG Oral Tablet [Lotronex] Lotronex 0.5 MG Lotr onex 0.5 MG 12/05/2020 12:00:00 AM EDT 1.0 {tablet} active Lotronex 0.5 MG eCW1 ([facility]) alosetron 0.5 MG Oral Tablet [Lotronex] Lotronex 0.5 MG Lotr onex 0.5 MG 12/05/2020 12:00:00 AM EDT 1.0 {tablet} active Lotronex 0.5 MG eCW1 ([facility]) alosetron 0.5 MG Oral Tablet [Lotronex] Lotronex 0.5 MG Lotr onex 0.5 MG 12/05/2020 12:00:00 AM EDT 1.0 {tablet} active eCW1 ([facility]) alosetron 0.5 MG Oral Tablet [Lotronex] Lotronex 0.5 MG Lotr onex 0.5 MG 12/05/2020 12:00:00 AM EDT 1.0 {tablet} active eCW1 ([facility]) alosetron 0.5 MG Oral Tablet [Lotronex] Lotronex 0.5 MG Lotr onex 0.5 MG 12/05/2020 12:00:00 AM EDT 1.0 {tablet} active Lotronex 0.5 MG eCW1 ([facility]) alosetron 0.5 MG Oral Tablet [Lotronex] Lotronex 0.5 MG Lotr onex 0.5 MG 12/05/2020 12:00:00 AM EDT 1.0 {tablet} active Lotronex 0.5 MG eCW1 ([facility]) alosetron 0.5 MG Oral Tablet [Lotronex] Lotronex 0.5 MG Lotr onex 0.5 MG 12/05/2020 12:00:00 AM EDT 1.0 {tablet} active Lotronex 0.5 MG eCW1 ([facility]) 10 mg 12/03/2020 12:00:00 AM EDT tablet 15 TAKE ONE TABLET BY MOUTH EVERY DAY NEEDED FOR MIGRAINES. MAY REPEAT FOR ONE DOSE IN TWO HOURS TAKE ONE TABLET BY MOUTH EVERY DAY NEEDED FOR MIGRAINES. MAY REPEAT FOR ONE DOSE IN TWO HOURS SOLD: 12/06/2020 [facility] 10 mg 12/03/2020 12:00:00 AM EDT tablet 15 TAKE ONE TABLET BY MOUTH EVERY DAY NEEDED FOR MIGRAINES. MAY REPEAT FOR ONE DOSE IN TWO HOURS TAKE ONE TABLET BY MOUTH EVERY DAY NEEDED FOR MIGRAINES. MAY REPEAT FOR ONE DOSE IN TWO HOURS SOLD: 02/22/2021 [facility] 0.125 mg 12/03/2020 12:00:00 AM EDT tablet 300 TAKE 1-2 TABLETS BY MOUTH EVERY 4 HOURS NEEDED FOR DIARRHEA MAXIMUM DAILY DOSE = 12 TAKE 1-2 TABLETS BY MOUTH EVERY 4 HOURS NEEDED FOR DIARRHEA MAXIMUM DAILY DOSE = 12 SOLD: 12/06/2020 [facility] 50 mg 12/03/2020 12:00:00 AM EDT tablet 270 TAKE 1 AND 1/2 TABLET BY MOUTH TWICE A DAY TAKE 1 AND 1/2 TABLET BY MOUTH TWICE A DAY SOLD: 12/06/2020 [facility] COMPRESSION STOCKINGS 20-30 mmHg UNK 12/02/2020 12:00:00 AM EDT active COMPRESSION STOCKINGS 20-30 mmHg eCW1 ([facility]) COMPRESSION STOCKINGS 20-30 mmHg UNK 12/02/2020 12:00:00 AM EDT active COMPRESSION STOCKINGS 20-30 mmHg eCW1 ([facility]) COMPRESSION STOCKINGS 20-30 mmHg UNK 12/02/2020 12:00:00 AM EDT active COMPRESSION STOCKINGS 20-30 mmHg eCW1 ([facility]) COMPRESSION STOCKINGS 20-30 mmHg UNK 12/02/2020 12:00:00 AM EDT active COMPRESSION STOCKINGS 20-30 mmHg eCW1 ([facility]) COMPRESSION STOCKINGS 20-30 mmHg UNK 12/02/2020 12:00:00 AM EDT active eCW1 ([facility]) COMPRESSION STOCKINGS 20-30 mmHg UNK 12/02/2020 12:00:00 AM EDT active COMPRESSION STOCKINGS 20-30 mmHg eCW1 ([facility]) COMPRESSION STOCKINGS 20-30 mmHg UNK 12/02/2020 12:00:00 AM EDT active COMPRESSION STOCKINGS 20-30 mmHg eCW1 ([facility]) COMPRESSION STOCKINGS 20-30 mmHg UNK 12/02/2020 12:00:00 AM EDT active COMPRESSION STOCKINGS 20-30 mmHg eCW1 ([facility]) COMPRESSION STOCKINGS 20-30 mmHg UNK 12/02/2020 12:00:00 AM EDT active COMPRESSION STOCKINGS 20-30 mmHg eCW1 ([facility]) COMPRESSION STOCKINGS 20-30 mmHg UNK 12/02/2020 12:00:00 AM EDT active COMPRESSION STOCKINGS 20-30 mmHg eCW1 ([facility]) COMPRESSION STOCKINGS 20-30 mmHg UNK 12/02/2020 12:00:00 AM EDT active COMPRESSION STOCKINGS 20-30 mmHg eCW1 ([facility]) COMPRESSION STOCKINGS 20-30 mmHg UNK 12/02/2020 12:00:00 AM EDT active eCW1 ([facility]) COMPRESSION STOCKINGS 20-30 mmHg UNK 12/02/2020 12:00:00 AM EDT active COMPRESSION STOCKINGS 20-30 mmHg eCW1 ([facility]) COMPRESSION STOCKINGS 20-30 mmHg UNK 12/02/2020 12:00:00 AM EDT active COMPRESSION STOCKINGS 20-30 mmHg eCW1 ([facility]) COMPRESSION STOCKINGS 20-30 mmHg UNK 12/02/2020 12:00:00 AM EDT active COMPRESSION STOCKINGS 20-30 mmHg eCW1 ([facility]) COMPRESSION STOCKINGS 20-30 mmHg UNK 12/02/2020 12:00:00 AM EDT active COMPRESSION STOCKINGS 20-30 mmHg eCW1 ([facility]) 1 mg 11/23/2020 12:00:00 AM EDT tablet 60 TAKE ONE TABLET BY MOUTH TWICE A DAY MAXIMUM DAILY DOSE = 2 TAKE ONE TABLET BY MOUTH TWICE A DAY MAX IMUM DAILY DOSE = 2 SOLD: 11/24/2020 [facility] 350 mg 11/23/2020 12:00:00 AM EDT tablet 60 TAKE ONE TABLET BY MOUTH TWICE A DAY NEEDED MAXIMUM DAILY DOSE = 2 TAKE ONE TABLET BY MOUTH TWICE A DAY NEEDED MAXIMUM DAILY DOSE = 2 SOLD: 11/24/2020 [facility] 45 mcg/actuation 11/23/2020 12:00:00 AM EDT HFA aerosol inha ler 15 INHALE ONE PUFF BY MOUTH EVERY 4 HOURS NEEDED INHALE ONE PUFF BY MOUTH EVERY 4 HOURS NEEDED SOLD: 11/24/2020 [facility] 7.5-325 mg 11/22/2020 12:00:00 AM EDT tablet 45 TAKE ONE TABLET BY MOUTH THREE TIMES A DAY NEEDED MAXIMUM DAILY DOSE = 3 TAKE ONE TABLET BY MOUTH THREE TIMES A DAY NEEDED MAXIMUM DAILY DOSE = 3 SOLD: 11/22/2020 [facility] Acetaminophen 325 MG / Oxycodone Hydroch loride 7.5 MG Oral Tablet [Percocet] Percocet 7.5-325 MG Percocet 7.5-325 MG 11/22/2020 12:00:00 AM EDT 1.0 {tablet_as_needed} active Percocet 7.5- 325 MG eCW1 ([facility]) Acetaminophen 325 MG / Oxycodone Hydroch loride 7.5 MG Oral Tablet [Percocet] Percocet 7.5-325 MG Percocet 7.5-325 MG 11/22/2020 12:00:00 AM EDT 1.0 {tablet_as_needed} active Percocet 7.5- 325 MG eCW1 ([facility]) Acetaminophen 325 MG / Oxycodone Hydroch loride 7.5 MG Oral Tablet [Percocet] Percocet 7.5-325 MG Percocet 7.5-325 MG 11/22/2020 12:00:00 AM EDT 1.0 {tablet_as_needed} active Percocet 7.5- 325 MG eCW1 ([facility]) quetiapine 50 MG Oral Tablet QUETIAPINE FUMARATE 11/05/2020 12:0 0:00 AM EDT tablet 90 TAKE ONE TABLET BY MOUTH AT BEDT ROSITA TAKE ONE TABLET BY MOUTH AT BEDTIME SOLD: 11/06/2020 [facility] quetiapine 50 MG Oral Tablet QUETIAPINE FUMARATE 11/05/2020 12:0 0:00 AM EDT tablet 90 TAKE ONE TABLET BY MOUTH AT BEDT ROSITA TAKE ONE TABLET BY MOUTH AT BEDTIME SOLD: 01/16/2021 [facility] Metronidazole 500 MG Oral Tablet Metronidazole 500 MG 2020 12:00:00 AM EDT 1.0 {tablet} active Metronidazo le 500 MG eCW1 ([facility]) Metronidazole 500 MG Oral Tablet Metronidazole 500 MG 2020 12:00:00 AM EDT 1.0 {tablet} active Metronidazo le 500 MG eCW1 ([facility]) Metronidazole 500 MG Oral Tablet Metronidazole 500 MG 2020 12:00:00 AM EDT 1.0 {tablet} active Metronidazo le 500 MG eCW1 ([facility]) Metronidazole 500 MG Oral Tablet Metronidazole 500 MG 2020 12:00:00 AM EDT 1.0 {tablet} active Metronidazo le 500 MG eCW1 ([facility]) Metronidazole 500 MG Oral Tablet Metronidazole 500 MG 2020 12:00:00 AM EDT 1.0 {tablet} active Metronidazo le 500 MG eCW1 ([facility]) Metronidazole 500 MG Oral Tablet Metronidazole 500 MG 2020 12:00:00 AM EDT 1.0 {tablet} active Metronidazo le 500 MG eCW1 ([facility]) 1 mg 10/21/2020 12:00:00 AM EDT tablet 60 TAKE ONE TABLET BY MOUTH TWICE A DAY MAXIMUM DAILY DOSE = TWO TABLETS TAKE ONE TABLET BY MOUTH TWICE A DAY MAXIMUM DAILY DOSE = TWO TABLETS SOLD: 10/22/2020 [facility] 5 mg 10/21/2020 12:00:00 AM EDT tablet 30 TAKE ONE TABLET BY MOUTH AT BEDTIME MAXIMUM DAILY DOSE = ONE TABLET TAKE ONE TABLET BY MOUTH AT BEDTIME MAXIMUM DAILY DOSE = ONE TABLET SOLD: 10/22/2020 [facility] Acetaminophen 325 MG / Oxycodone Hydroch loride 7.5 MG Oral Tablet [Percocet] Percocet 7.5-325 MG Percocet 7.5-325 MG 10/21/2020 12:00:00 AM EDT 1.0 {tablet_as_needed} active Percocet 7.5- 325 MG eCW1 ([facility]) Acetaminophen 325 MG / Oxycodone Hydroch loride 7.5 MG Oral Tablet [Percocet] Percocet 7.5-325 MG Percocet 7.5-325 MG 10/21/2020 12:00:00 AM EDT 1.0 {tablet_as_needed} active Percocet 7.5- 325 MG eCW1 ([facility]) 350 mg 10/21/2020 12:00:00 AM EDT tablet 60 TAKE ONE TABLET BY MOUTH TWICE A DAY MAXIMUM DAILY DOSE = TWO TABLETS TAKE ONE TABLET BY MOUTH TWICE A DAY MAXIMUM DAILY DOSE = TWO TABLETS SOLD: 10/22/2020 [facility] 5 mg 10/21/2020 12:00:00 AM EDT tablet 30 TAKE ONE TABLET BY MOUTH AT BEDTIME MAXIMUM DAILY DOSE = ONE TABLET TAKE ONE TABLET BY MOUTH AT BEDTIME MAXIMUM DAILY DOSE = ONE TABLET SOLD: 01/16/2021 [facility] Acetaminophen 325 MG / Oxycodone Hydroch loride 7.5 MG Oral Tablet [Percocet] Percocet 7.5-325 MG Percocet 7.5-325 MG 10/21/2020 12:00:00 AM EDT 1.0 {tablet_as_needed} active Percocet 7.5- 325 MG eCW1 ([facility]) Acetaminophen 325 MG / Oxycodone Hydroch loride 7.5 MG Oral Tablet [Percocet] Percocet 7.5-325 MG Percocet 7.5-325 MG 10/21/2020 12:00:00 AM EDT 1.0 {tablet_as_needed} active Percocet 7.5- 325 MG eCW1 ([facility]) Acetaminophen 325 MG / Oxycodone Hydroch loride 7.5 MG Oral Tablet [Percocet] Percocet 7.5-325 MG Percocet 7.5-325 MG 10/21/2020 12:00:00 AM EDT 1.0 {tablet_as_needed} active Percocet 7.5- 325 MG eCW1 ([facility]) 7.5-325 mg 10/21/2020 12:00:00 AM EDT tablet 90 TAKE ONE TABLET BY MOUTH THREE TIMES A DAY NEEDED MAXIMUM DAILY DOSE = THREE TABLETS TAKE ONE TABLET BY MOUTH THREE TIMES A DAY NEEDED MAXIMUM DAILY DOSE = THREE TABLETS SOLD: 10/22/2020 [facility] Acetaminophen 325 MG / Oxycodone Hydroch loride 7.5 MG Oral Tablet [Percocet] Percocet 7.5-325 MG Percocet 7.5-325 MG 10/21/2020 12:00:00 AM EDT 1.0 {tablet_as_needed} active Percocet 7.5- 325 MG eCW1 ([facility]) Acetaminophen 325 MG / Oxycodone Hydroch loride 7.5 MG Oral Tablet [Percocet] Percocet 7.5-325 MG Percocet 7.5-325 MG 10/21/2020 12:00:00 AM EDT 1.0 {tablet_as_needed} active Percocet 7.5- 325 MG eCW1 ([facility]) Acetaminophen 325 MG / Oxycodone Hydroch loride 7.5 MG Oral Tablet [Percocet] Percocet 7.5-325 MG Percocet 7.5-325 MG 09/22/2020 12:00:00 AM EST 1.0 {tablet_as_needed} active Percocet 7.5- 325 MG eCW1 ([facility]) 7.5-325 mg 09/22/2020 12:00:00 AM EST tablet 90 TAKE ONE TABLET BY MOUTH THREE TIMES A DAY NEEDED MAXIMUM DAILY DOSE = THREE TABLETS TAKE ONE TABLET BY MOUTH THREE TIMES A DAY NEEDED MAXIMUM DAILY DOSE = THREE TABLETS SOLD: 09/22/2020 [facility] 350 mg 09/20/2020 12:00:00 AM EST tablet 60 TAKE ONE TABLET BY MOUTH TWO TIMES A DAY NEEDED. MAX DAILY DOSE= TWO TABLETS TAKE ONE TABLET BY MOUTH TWO TIMES A DAY NEEDED. MAX DAILY DOSE= TWO TABLETS SOLD: 09/20/2020 [facility] 5 mg 09/20/2020 12:00:00 AM EST tablet 30 TAKE ONE TABLET BY MOUTH AT BEDTIME. MAX DAILY DOSE= ONE TABLET TAKE ONE TABLET BY MOUTH AT BEDTIME. MAX DAILY DOSE= ONE TABLET SOLD: 09/20/2020 [facility] 40 mg 09/20/2020 12:00:00 AM EST tablet 30 TAKE ONE TABLET BY MOUTH EVERY DAY NEEDED FOR SWELLING TAKE ONE TABLET BY MOUTH EVERY DAY NE EDED FOR SWELLING SOLD: 09/20/2020 [facility] 45 mcg/actuation 09/20/2020 12:00:00 AM EST HFA aerosol inha ler 15 INHALE ONE PUFF BY MOUTH EVERY FOUR HOURS NEEDED INHALE ONE PUFF BY MOUTH EVERY FOUR HOURS NEEDED SOLD: 09/20/2020 [facility] 1 mg 09/20/2020 12:00:00 AM EST tablet 60 TAKE ONE TABLET BY MOUTH TWICE A DAY MAXIMUM DAILY DOSE = 2 TABLETS TAKE ONE TABLET BY MOUTH TWICE A DAY MAX IMUM DAILY DOSE = 2 TABLETS SOLD: 09/20/2020 [facility] 1 mg 08/19/2020 12:00:00 AM EST tablet 60 TAKE ONE TABLET BY MOUTH TWICE A DAY MAXIMUM DAILY DOSE = 2 TABLETS TAKE ONE TABLET BY MOUTH TWICE A DAY MAX IMUM DAILY DOSE = 2 TABLETS SOLD: 08/21/2020 [facility] 2 % 08/19/2020 12:00:00 AM EST ointment 22 APPLY TO AFFECTED AREA(S) THREE TIMES A DAY FOR 5 DAYS APPLY TO AFFECTED AREA(S) THREE TIMES A DAY FOR 5 DAYS SOLD: 08/21/2020 [facility] 5 mg 08/19/2020 12:00:00 AM EST tablet 30 TAKE ONE TABLET BY MOUTH AT BEDTIME MAXIMUM DAILY DOSE = 1 TABLET TAKE ONE TABLET BY MOUTH AT BEDTIME MAXIMUM DAILY DOSE = 1 TABLET SOLD: 08/21/2020 [facility] 350 mg 08/19/2020 12:00:00 AM EST tablet 60 TAKE ONE TABLET BY MOUTH TWICE A DAY NEEDED MAXIMUM DAILY DOSE = 2 TABLETS TAKE ONE TABLET BY MOUTH TWICE A DAY NEEDED MAXIMUM DAILY DOSE = 2 TABLETS SOLD: 08/21/2020 [facility] Acetaminophen 325 MG / Oxycodone Hydroch loride 7.5 MG Oral Tablet [Percocet] Percocet 7.5-325 MG Percocet 7.5-325 MG 08/18/2020 12:00:00 AM EST 1.0 {tablet_as_needed} active Percocet 7.5- 325 MG eCW1 ([facility]) Acetaminophen 325 MG / Oxycodone Hydroch loride 7.5 MG Oral Tablet [Percocet] Percocet 7.5-325 MG Percocet 7.5-325 MG 08/18/2020 12:00:00 AM EST 1.0 {tablet_as_needed} active Percocet 7.5- 325 MG eCW1 ([facility]) Acetaminophen 325 MG / Oxycodone Hydroch loride 7.5 MG Oral Tablet [Percocet] Percocet 7.5-325 MG Percocet 7.5-325 MG 08/18/2020 12:00:00 AM EST 1.0 {tablet_as_needed} active Percocet 7.5- 325 MG eCW1 ([facility]) Acetaminophen 325 MG / Oxycodone Hydroch loride 7.5 MG Oral Tablet [Percocet] Percocet 7.5-325 MG Percocet 7.5-325 MG 08/18/2020 12:00:00 AM EST 1.0 {tablet_as_needed} active Percocet 7.5- 325 MG eCW1 ([facility]) Acetaminophen 325 MG / Oxycodone Hydroch loride 7.5 MG Oral Tablet [Percocet] Percocet 7.5-325 MG Percocet 7.5-325 MG 08/18/2020 12:00:00 AM EST 1.0 {tablet_as_needed} active Percocet 7.5- 325 MG eCW1 ([facility]) 7.5-325 mg 08/18/2020 12:00:00 AM EST tablet 90 TAKE ONE TABLET BY MOUTH THREE TIMES A DAY NEEDED MAXIMUM DAILY DOSE = 3 TABLETS TAKE ONE TABLET BY MOUTH THREE TIMES A DAY NEEDED MAXIMUM DAILY DOSE = 3 TABLETS SOLD: 08/18/2020 [facility] Acetaminophen 325 MG / Oxycodone Hydroch loride 7.5 MG Oral Tablet [Percocet] Percocet 7.5-325 MG Percocet 7.5-325 MG 08/18/2020 12:00:00 AM EST 1.0 {tablet_as_needed} active Percocet 7.5- 325 MG eCW1 ([facility]) Acetaminophen 325 MG / Oxycodone Hydroch loride 7.5 MG Oral Tablet [Percocet] Percocet 7.5-325 MG Percocet 7.5-325 MG 08/18/2020 12:00:00 AM EST 1.0 {tablet_as_needed} active Percocet 7.5- 325 MG eCW1 ([facility]) 4 mg 08/17/2020 12:00:00 AM EST tablet,disintegrating 9 0 DISSOLVE ONE TABLET ON TONGUE EVERY DAY DISSOLVE ONE TABLET ON TONGUE EVERY DAY SOLD: 08/18/2020 [facility] pantoprazole 40 MG Delayed Release Oral Tablet PANTOPRAZOLE SODIUM 08/13/2020 12:00:00 AM EST tablet,delayed release (DR/EC) 30 T CHARMAINE ONE TABLET BY MOUTH EVERY MORNING TAKE ONE TABLET BY MOUTH EVERY MORNING SOLD: 11/22/2020 [facility] 40 mg 08/13/2020 12:00:00 AM EST capsule 180 TAKE TWO CAPSULES BY MOUTH EVERY MORNING TAKE TWO CAPSULES BY MOUTH EVERY MORNING SOLD: 08/14/2020 [facility] pantoprazole 40 MG Delayed Release Oral Tablet PANTOPRAZOLE SODIUM 08/13/2020 12:00:00 AM EST tablet,delayed release (DR/EC) 90 T CHARMAINE ONE TABLET BY MOUTH EVERY MORNING TAKE ONE TABLET BY MOUTH EVERY MORNING SOLD: 08/14/2020 [facility] 40 mg 08/13/2020 12:00:00 AM EST capsule 60 TAKE TWO CAPSULES BY MOUTH EVERY MORNING TAKE TWO CAPSULES BY MOUTH EVERY MORNING SOLD: 11/22/2020 [facility] 10 mg 08/13/2020 12:00:00 AM EST tablet 15 TAKE ONE TABLET BY MOUTH EVERY DAY NEEDED FOR MIGRAINE MAY REPEAT FOR 1 DOSE IN 2 HOURS TAKE ONE TABLET BY MOUTH EVERY DAY NEEDED FOR MIGRAINE MAY REPEAT FOR 1 DOSE IN 2 HOURS SOLD: 08/14/2020 [facility] Diclofenac Sodium 75 MG Delayed Release Oral Tablet DICLOFEN AC SODIUM 08/13/2020 12:00:00 AM EST tablet,delayed release (DR/EC) 180 TAKE ONE TABLET BY MOUTH TWICE A DAY TAKE ONE TABLET BY MOUTH TWICE A DAY SOLD: 08/14/2020 [facility] quetiapine 50 MG Oral Tablet Quetiapine Fumarate 50 MG Quetiapine Fumarate 50 MG 07/27/2020 12:00:00 AM EST active Quetiapine Fumarate 50 MG eCW1 ([facility]) Hyoscyamine Sulfate 0.125 MG Oral Tablet Hyoscyamine Sulfate 0.125 MG 07/27/2020 12:00:00 AM EST active Hyoscya mine Sulfate 0.125 MG eCW1 ([facility]) quetiapine 50 MG Oral Tablet Quetiapine Fumarate 50 MG Quetiapine Fumarate 50 MG 07/27/2020 12:00:00 AM EST active Quetiapine Fumarate 50 MG eCW1 ([facility]) quetiapine 50 MG Oral Tablet Quetiapine Fumarate 50 MG Quetiapine Fumarate 50 MG 07/27/2020 12:00:00 AM EST active Quetiapine Fumarate 50 MG eCW1 ([facility]) Hyoscyamine Sulfate 0.125 MG Oral Tablet Hyoscyamine Sulfate 0.125 MG 07/27/2020 12:00:00 AM EST active Hyoscya mine Sulfate 0.125 MG eCW1 ([facility]) quetiapine 50 MG Oral Tablet Quetiapine Fumarate 50 MG Quetiapine Fumarate 50 MG 07/27/2020 12:00:00 AM EST active Quetiapine Fumarate 50 MG eCW1 ([facility]) 1,250 mcg (50,000 unit) 07/27/2020 12:00:00 AM EST capsule 12 TAKE ONE CAPSULE BY MOUTH EVERY 7 DAYS TAKE ONE CAPSULE BY MOUTH EVERY 7 DAYS SOLD: 07/27/2020 [facility] quetiapine 50 MG Oral Tablet Quetiapine Fumarate 50 MG Quetiapine Fumarate 50 MG 07/27/2020 12:00:00 AM EST active Quetiapine Fumarate 50 MG eCW1 ([facility]) Hyoscyamine Sulfate 0.125 MG Oral Tablet Hyoscyamine Sulfate 0.125 MG 07/27/2020 12:00:00 AM EST active Hyoscya mine Sulfate 0.125 MG eCW1 ([facility]) quetiapine 50 MG Oral Tablet Quetiapine Fumarate 50 MG Quetiapine Fumarate 50 MG 07/27/2020 12:00:00 AM EST active Quetiapine Fumarate 50 MG eCW1 ([facility]) Hyoscyamine Sulfate 0.125 MG Oral Tablet Hyoscyamine Sulfate 0.125 MG 07/27/2020 12:00:00 AM EST active Hyoscya mine Sulfate 0.125 MG eCW1 ([facility]) quetiapine 50 MG Oral Tablet Quetiapine Fumarate 50 MG Quetiapine Fumarate 50 MG 07/27/2020 12:00:00 AM EST active Quetiapine Fumarate 50 MG eCW1 ([facility]) quetiapine 50 MG Oral Tablet QUETIAPINE FUMARATE 07/27/2020 12:0 0:00 AM EST tablet 30 TAKE ONE TABLET BY MOUTH AT BEDT ROSITA TAKE ONE TABLET BY MOUTH AT BEDTIME SOLD: 07/27/2020 [facility] 50 mg 07/27/2020 12:00:00 AM EST tablet 270 TAKE 1 & 1/2 TABLET BY MOUTH TWO TIMES A DAY TAKE 1 & 1/2 TABLET BY MOUTH TWO TIMES A DAY SOLD: 08/18/2020 [facility] Hyoscyamine Sulfate 0.125 MG Oral Tablet Hyoscyamine Sulfate 0.125 MG 07/27/2020 12:00:00 AM EST active Hyoscya mine Sulfate 0.125 MG eCW1 ([facility]) quetiapine 50 MG Oral Tablet Quetiapine Fumarate 50 MG Quetiapine Fumarate 50 MG 07/27/2020 12:00:00 AM EST active Quetiapine Fumarate 50 MG eCW1 ([facility]) quetiapine 50 MG Oral Tablet Quetiapine Fumarate 50 MG Quetiapine Fumarate 50 MG 07/27/2020 12:00:00 AM EST active Quetiapine Fumarate 50 MG eCW1 ([facility]) Hyoscyamine Sulfate 0.125 MG Oral Tablet Hyoscyamine Sulfate 0.125 MG 07/27/2020 12:00:00 AM EST active Hyoscya mine Sulfate 0.125 MG eCW1 ([facility]) Hyoscyamine Sulfate 0.125 MG Oral Tablet Hyoscyamine Sulfate 0.125 MG 07/27/2020 12:00:00 AM EST active Hyoscya mine Sulfate 0.125 MG eCW1 ([facility]) quetiapine 50 MG Oral Tablet Quetiapine Fumarate 50 MG Quetiapine Fumarate 50 MG 07/27/2020 12:00:00 AM EST active Quetiapine Fumarate 50 MG eCW1 ([facility]) quetiapine 50 MG Oral Tablet Quetiapine Fumarate 50 MG Quetiapine Fumarate 50 MG 07/27/2020 12:00:00 AM EST active Quetiapine Fumarate 50 MG eCW1 ([facility]) quetiapine 50 MG Oral Tablet Quetiapine Fumarate 50 MG Quetiapine Fumarate 50 MG 07/27/2020 12:00:00 AM EST active Quetiapine Fumarate 50 MG eCW1 ([facility]) 0.125 mg 07/27/2020 12:00:00 AM EST tablet 290 TAKE 1-2 TABLETS BY MOUTH NEEDED EVERY 4 HOURS NEEDED FOR DIARRHEA MAXIMUM DAILY DOSE = 12 TABLETS TAKE 1-2 TABLETS BY MOUTH NEEDED EVERY 4 HOURS NEEDED FOR DIARRHEA MAXIMUM DAILY DOSE = 12 TABLETS SOLD: 08/14/2020 [facility] quetiapine 50 MG Oral Tablet Quetiapine Fumarate 50 MG Quetiapine Fumarate 50 MG 07/27/2020 12:00:00 AM EST active Quetiapine Fumarate 50 MG eCW1 ([facility]) quetiapine 50 MG Oral Tablet Quetiapine Fumarate 50 MG Quetiapine Fumarate 50 MG 07/27/2020 12:00:00 AM EST active Quetiapine Fumarate 50 MG eCW1 ([facility]) Hyoscyamine Sulfate 0.125 MG Oral Tablet Hyoscyamine Sulfate 0.125 MG 07/27/2020 12:00:00 AM EST active Hyoscya mine Sulfate 0.125 MG eCW1 ([facility]) quetiapine 50 MG Oral Tablet QUETIAPINE FUMARATE 07/27/2020 12:0 0:00 AM EST tablet 30 TAKE ONE TABLET BY MOUTH AT BEDT ROSITA TAKE ONE TABLET BY MOUTH AT BEDTIME SOLD: 08/28/2020 [facility] Hyoscyamine Sulfate 0.125 MG Oral Tablet Hyoscyamine Sulfate 0.125 MG 07/27/2020 12:00:00 AM EST active Hyoscya mine Sulfate 0.125 MG eCW1 ([facility]) Hyoscyamine Sulfate 0.125 MG Oral Tablet Hyoscyamine Sulfate 0.125 MG 07/27/2020 12:00:00 AM EST active Hyoscya mine Sulfate 0.125 MG eCW1 ([facility]) quetiapine 50 MG Oral Tablet Quetiapine Fumarate 50 MG Quetiapine Fumarate 50 MG 07/27/2020 12:00:00 AM EST active Quetiapine Fumarate 50 MG eCW1 ([facility]) Hyoscyamine Sulfate 0.125 MG Oral Tablet Hyoscyamine Sulfate 0.125 MG 07/27/2020 12:00:00 AM EST active Hyoscya mine Sulfate 0.125 MG eCW1 ([facility]) Hyoscyamine Sulfate 0.125 MG Oral Tablet Hyoscyamine Sulfate 0.125 MG 07/27/2020 12:00:00 AM EST active Hyoscya mine Sulfate 0.125 MG eCW1 ([facility]) quetiapine 50 MG Oral Tablet Quetiapine Fumarate 50 MG Quetiapine Fumarate 50 MG 07/27/2020 12:00:00 AM EST active Quetiapine Fumarate 50 MG eCW1 ([facility]) quetiapine 50 MG Oral Tablet Quetiapine Fumarate 50 MG Quetiapine Fumarate 50 MG 07/27/2020 12:00:00 AM EST active Quetiapine Fumarate 50 MG eCW1 ([facility]) Hyoscyamine Sulfate 0.125 MG Oral Tablet Hyoscyamine Sulfate 0.125 MG 07/27/2020 12:00:00 AM EST active Hyoscya mine Sulfate 0.125 MG eCW1 ([facility]) Hyoscyamine Sulfate 0.125 MG Oral Tablet Hyoscyamine Sulfate 0.125 MG 07/27/2020 12:00:00 AM EST active Hyoscya mine Sulfate 0.125 MG eCW1 ([facility]) quetiapine 50 MG Oral Tablet Quetiapine Fumarate 50 MG Quetiapine Fumarate 50 MG 07/27/2020 12:00:00 AM EST active Quetiapine Fumarate 50 MG eCW1 ([facility]) Hyoscyamine Sulfate 0.125 MG Oral Tablet Hyoscyamine Sulfate 0.125 MG 07/27/2020 12:00:00 AM EST active Hyoscya mine Sulfate 0.125 MG eCW1 ([facility]) quetiapine 50 MG Oral Tablet Quetiapine Fumarate 50 MG Quetiapine Fumarate 50 MG 07/27/2020 12:00:00 AM EST active Quetiapine Fumarate 50 MG eCW1 ([facility]) Hyoscyamine Sulfate 0.125 MG Oral Tablet Hyoscyamine Sulfate 0.125 MG 07/27/2020 12:00:00 AM EST active Hyoscya mine Sulfate 0.125 MG eCW1 ([facility]) quetiapine 50 MG Oral Tablet Quetiapine Fumarate 50 MG Quetiapine Fumarate 50 MG 07/27/2020 12:00:00 AM EST active Quetiapine Fumarate 50 MG eCW1 ([facility]) quetiapine 50 MG Oral Tablet Quetiapine Fumarate 50 MG Quetiapine Fumarate 50 MG 07/27/2020 12:00:00 AM EST active Quetiapine Fumarate 50 MG eCW1 ([facility]) Hyoscyamine Sulfate 0.125 MG Oral Tablet Hyoscyamine Sulfate 0.125 MG 07/27/2020 12:00:00 AM EST active Hyoscya mine Sulfate 0.125 MG eCW1 ([facility]) Hyoscyamine Sulfate 0.125 MG Oral Tablet Hyoscyamine Sulfate 0.125 MG 07/27/2020 12:00:00 AM EST active Hyoscya mine Sulfate 0.125 MG eCW1 ([facility]) Hyoscyamine Sulfate 0.125 MG Oral Tablet Hyoscyamine Sulfate 0.125 MG 07/27/2020 12:00:00 AM EST active Hyoscya mine Sulfate 0.125 MG eCW1 ([facility]) Hyoscyamine Sulfate 0.125 MG Oral Tablet Hyoscyamine Sulfate 0.125 MG 07/27/2020 12:00:00 AM EST active Hyoscya mine Sulfate 0.125 MG eCW1 ([facility]) Hyoscyamine Sulfate 0.125 MG Oral Tablet Hyoscyamine Sulfate 0.125 MG 07/27/2020 12:00:00 AM EST active Hyoscya mine Sulfate 0.125 MG eCW1 ([facility]) 40 mg 07/22/2020 12:00:00 AM EST tablet 30 TAKE ONE TABLET BY MOUTH EVERY DAY NEEDED TAKE ONE TABLET BY MOUTH EVERY DAY NEEDED SOLD: 07/22/2020 [facility] 40 mg 07/22/2020 12:00:00 AM EST capsule 60 TAKE TWO CAPSULES BY MOUTH EVERY MORNING TAKE TWO CAPSULES BY MOUTH EVERY MORNING SOLD: 07/22/2020 [facility] Diclofenac Sodium 75 MG Delayed Release Oral Tablet DICLOFEN AC SODIUM 07/22/2020 12:00:00 AM EST tablet,delayed release (DR/EC) 60 TAKE ONE TABLET BY MOUTH TWICE A DAY TAKE ONE TABLET BY MOUTH TWICE A DAY SOLD: 07/22/2020 [facility] pantoprazole 40 MG Delayed Release Oral Tablet PANTOPRAZOLE SODIUM 07/22/2020 12:00:00 AM EST tablet,delayed release (DR/EC) 30 T CHARMAINE ONE TABLET BY MOUTH EVERY MORNING TAKE ONE TABLET BY MOUTH EVERY MORNING SOLD: 07/22/2020 [facility] 10 mg 07/22/2020 12:00:00 AM EST tablet 15 TAKE ONE TABLET BY MOUTH EVERY DAY NEEDED FOR MIGRAINE, MAY REPEAT FOR ONE DOSE IN 2 HOURS TAKE ONE TABLET BY MOUTH EVERY DAY NEEDED FOR MIGRAINE, MAY REPEAT FOR ONE DOSE IN 2 HOURS SOLD: 07/22/2020 [facility] 7.5-325 mg 07/18/2020 12:00:00 AM EST tablet 90 TAKE ONE TABLET BY MOUTH THREE TIMES A DAY NEEDED MAXIMUM DAILY DOSE = 3 TABLETS TAKE ONE TABLET BY MOUTH THREE TIMES A DAY NEEDED MAXIMUM DAILY DOSE = 3 TABLETS SOLD: 07/22/2020 [facility] 1 mg 07/18/2020 12:00:00 AM EST tablet 60 TAKE ONE TABLET BY MOUTH TWICE A DAY MAXIMUM DAILY DOSE = 2 TABLETS TAKE ONE TABLET BY MOUTH TWICE A DAY MAX IMUM DAILY DOSE = 2 TABLETS SOLD: 07/22/2020 [facility] 350 mg 07/18/2020 12:00:00 AM EST tablet 60 TAKE ONE TABLET BY MOUTH TWICE A DAY MAXIMUM DAILY DOSE = 2 TABLETS TAKE ONE TABLET BY MOUTH TWICE A DAY MAX IMUM DAILY DOSE = 2 TABLETS SOLD: 07/22/2020 [facility] 7.5-325 mg 06/22/2020 12:00:00 AM EST tablet 90 TAKE ONE TABLET BY MOUTH THREE TIMES A DAY NEEDED MAXIMUM DAILY DOSE = 3 TABLETS TAKE ONE TABLET BY MOUTH THREE TIMES A DAY NEEDED MAXIMUM DAILY DOSE = 3 TABLETS SOLD: 06/28/2020 [facility] Acetaminophen 325 MG / Oxycodone Hydroch loride 7.5 MG Oral Tablet [Percocet] Percocet 7.5-325 MG Percocet 7.5-325 MG 06/20/2020 12:00:00 AM EST 1.0 {tablet_as_needed} active Percocet 7.5- 325 MG eCW1 ([facility]) Acetaminophen 325 MG / Oxycodone Hydroch loride 7.5 MG Oral Tablet [Percocet] Percocet 7.5-325 MG Percocet 7.5-325 MG 06/20/2020 12:00:00 AM EST 1.0 {tablet_as_needed} active Percocet 7.5- 325 MG eCW1 ([facility]) Acetaminophen 325 MG / Oxycodone Hydroch loride 7.5 MG Oral Tablet [Percocet] Percocet 7.5-325 MG Percocet 7.5-325 MG 06/20/2020 12:00:00 AM EST 1.0 {tablet_as_needed} active Percocet 7.5- 325 MG eCW1 ([facility]) Acetaminophen 325 MG / Oxycodone Hydroch loride 7.5 MG Oral Tablet [Percocet] Percocet 7.5-325 MG Percocet 7.5-325 MG 06/20/2020 12:00:00 AM EST 1.0 {tablet_as_needed} active Percocet 7.5- 325 MG eCW1 ([facility]) Acetaminophen 325 MG / Oxycodone Hydroch loride 7.5 MG Oral Tablet [Percocet] Percocet 7.5-325 MG Percocet 7.5-325 MG 06/20/2020 12:00:00 AM EST 1.0 {tablet_as_needed} active Percocet 7.5- 325 MG eCW1 ([facility]) Acetaminophen 325 MG / Oxycodone Hydroch loride 7.5 MG Oral Tablet [Percocet] Percocet 7.5-325 MG Percocet 7.5-325 MG 06/20/2020 12:00:00 AM EST 1.0 {tablet_as_needed} active Percocet 7.5- 325 MG eCW1 ([facility]) Acetaminophen 325 MG / Oxycodone Hydroch loride 7.5 MG Oral Tablet [Percocet] Percocet 7.5-325 MG Percocet 7.5-325 MG 06/20/2020 12:00:00 AM EST 1.0 {tablet_as_needed} active Percocet 7.5- 325 MG eCW1 ([facility]) Acetaminophen 325 MG / Oxycodone Hydroch loride 7.5 MG Oral Tablet [Percocet] Percocet 7.5-325 MG Percocet 7.5-325 MG 06/20/2020 12:00:00 AM EST 1.0 {tablet_as_needed} active Percocet 7.5- 325 MG eCW1 ([facility]) Acetaminophen 325 MG / Oxycodone Hydroch loride 7.5 MG Oral Tablet [Percocet] Percocet 7.5-325 MG Percocet 7.5-325 MG 06/20/2020 12:00:00 AM EST 1.0 {tablet_as_needed} active Percocet 7.5- 325 MG eCW1 ([facility]) Acetaminophen 325 MG / Oxycodone Hydroch loride 7.5 MG Oral Tablet [Percocet] Percocet 7.5-325 MG Percocet 7.5-325 MG 06/20/2020 12:00:00 AM EST 1.0 {tablet_as_needed} active Percocet 7.5- 325 MG eCW1 ([facility]) Acetaminophen 325 MG / Oxycodone Hydroch loride 7.5 MG Oral Tablet [Percocet] Percocet 7.5-325 MG Percocet 7.5-325 MG 06/20/2020 12:00:00 AM EST 1.0 {tablet_as_needed} active Percocet 7.5- 325 MG eCW1 ([facility]) 350 mg 06/20/2020 12:00:00 AM EST tablet 60 TAKE ONE TABLET BY MOUTH TWICE A DAY MAXIMUM DAILY DOSE = 2 TABLETS TAKE ONE TABLET BY MOUTH TWICE A DAY MAX IMUM DAILY DOSE = 2 TABLETS SOLD: 06/20/2020 [facility] Acetaminophen 325 MG / Oxycodone Hydroch loride 7.5 MG Oral Tablet [Percocet] Percocet 7.5-325 MG Percocet 7.5-325 MG 06/20/2020 12:00:00 AM EST 1.0 {tablet_as_needed} active Percocet 7.5- 325 MG eCW1 ([facility]) Acetaminophen 325 MG / Oxycodone Hydroch loride 7.5 MG Oral Tablet [Percocet] Percocet 7.5-325 MG Percocet 7.5-325 MG 06/20/2020 12:00:00 AM EST 1.0 {tablet_as_needed} active Percocet 7.5- 325 MG eCW1 ([facility]) Ondansetron HCl 4 MG UNK 06/17/2020 12:00:00 AM EST 1.0 {tablet } active Ondansetron HCl 4 MG eCW1 ([facility]) Ondansetron HCl 4 MG UNK 06/17/2020 12:00:00 AM EST 1.0 {tablet } active Ondansetron HCl 4 MG eCW1 ([facility]) Ondansetron HCl 4 MG UNK 06/17/2020 12:00:00 AM EST 1.0 {tablet } active Ondansetron HCl 4 MG eCW1 ([facility]) Ondansetron HCl 4 MG UNK 06/17/2020 12:00:00 AM EST 1.0 {tablet } active Ondansetron HCl 4 MG eCW1 ([facility]) Ondansetron HCl 4 MG UNK 06/17/2020 12:00:00 AM EST 1.0 {tablet } active Ondansetron HCl 4 MG eCW1 ([facility]) Ondansetron HCl 4 MG UNK 06/17/2020 12:00:00 AM EST 1.0 {tablet } active Ondansetron HCl 4 MG eCW1 ([facility]) Ondansetron HCl 4 MG UNK 06/17/2020 12:00:00 AM EST 1.0 {tablet } active Ondansetron HCl 4 MG eCW1 ([facility]) Ondansetron HCl 4 MG UNK 06/17/2020 12:00:00 AM EST 1.0 {tablet } active Ondansetron HCl 4 MG eCW1 ([facility]) Ondansetron HCl 4 MG UNK 06/17/2020 12:00:00 AM EST 1.0 {tablet } active eCW1 ([facility]) Ondansetron HCl 4 MG UNK 06/17/2020 12:00:00 AM EST 1.0 {tablet } active Ondansetron HCl 4 MG eCW1 ([facility]) Ondansetron HCl 4 MG UNK 06/17/2020 12:00:00 AM EST 1.0 {tablet } active Ondansetron HCl 4 MG eCW1 ([facility]) Ondansetron HCl 4 MG UNK 06/17/2020 12:00:00 AM EST 1.0 {tablet } active Ondansetron HCl 4 MG eCW1 ([facility]) Ondansetron HCl 4 MG UNK 06/17/2020 12:00:00 AM EST 1.0 {tablet } active Ondansetron HCl 4 MG eCW1 ([facility]) Ondansetron HCl 4 MG UNK 06/17/2020 12:00:00 AM EST 1.0 {tablet } active Ondansetron HCl 4 MG eCW1 ([facility]) Ondansetron HCl 4 MG UNK 06/17/2020 12:00:00 AM EST 1.0 {tablet } active Ondansetron HCl 4 MG eCW1 ([facility]) Ondansetron HCl 4 MG UNK 06/17/2020 12:00:00 AM EST 1.0 {tablet } active Ondansetron HCl 4 MG eCW1 ([facility]) Ondansetron HCl 4 MG UNK 06/17/2020 12:00:00 AM EST 1.0 {tablet } active Ondansetron HCl 4 MG eCW1 ([facility]) Ondansetron HCl 4 MG UNK 06/17/2020 12:00:00 AM EST 1.0 {tablet } active Ondansetron HCl 4 MG eCW1 ([facility]) Ondansetron HCl 4 MG UNK 06/17/2020 12:00:00 AM EST 1.0 {tablet } active Ondansetron HCl 4 MG eCW1 ([facility]) Ondansetron HCl 4 MG UNK 06/17/2020 12:00:00 AM EST 1.0 {tablet } active Ondansetron HCl 4 MG eCW1 ([facility]) Ondansetron HCl 4 MG UNK 06/17/2020 12:00:00 AM EST 1.0 {tablet } active Ondansetron HCl 4 MG eCW1 ([facility]) 1 mg 06/17/2020 12:00:00 AM EST tablet 60 TAKE ONE TABLET BY MOUTH TWICE A DAY MAXIMUM DAILY DOSE = TWO TABLETS TAKE ONE TABLET BY MOUTH TWICE A DAY MAXIMUM DAILY DOSE = TWO TABLETS SOLD: 06/17/2020 [facility] Ondansetron HCl 4 MG UNK 06/17/2020 12:00:00 AM EST 1.0 {tablet } active Ondansetron HCl 4 MG eCW1 ([facility]) Ondansetron HCl 4 MG UNK 06/17/2020 12:00:00 AM EST 1.0 {tablet } active Ondansetron HCl 4 MG eCW1 ([facility]) Ondansetron HCl 4 MG UNK 06/17/2020 12:00:00 AM EST 1.0 {tablet } active Ondansetron HCl 4 MG eCW1 ([facility]) Ondansetron HCl 4 MG UNK 06/17/2020 12:00:00 AM EST 1.0 {tablet } active Ondansetron HCl 4 MG eCW1 ([facility]) Ondansetron HCl 4 MG UNK 06/17/2020 12:00:00 AM EST 1.0 {tablet } active Ondansetron HCl 4 MG eCW1 ([facility]) Ondansetron HCl 4 MG UNK 06/17/2020 12:00:00 AM EST 1.0 {tablet } active Ondansetron HCl 4 MG eCW1 ([facility]) Ondansetron HCl 4 MG UNK 06/17/2020 12:00:00 AM EST 1.0 {tablet } active Ondansetron HCl 4 MG eCW1 ([facility]) Ondansetron HCl 4 MG UNK 06/17/2020 12:00:00 AM EST 1.0 {tablet } active Ondansetron HCl 4 MG eCW1 ([facility]) Ondansetron HCl 4 MG UNK 06/17/2020 12:00:00 AM EST 1.0 {tablet } active Ondansetron HCl 4 MG eCW1 ([facility]) Ondansetron HCl 4 MG UNK 06/17/2020 12:00:00 AM EST 1.0 {tablet } active Ondansetron HCl 4 MG eCW1 ([facility]) Ondansetron HCl 4 MG UNK 06/17/2020 12:00:00 AM EST 1.0 {tablet } active Ondansetron HCl 4 MG eCW1 ([facility]) Ondansetron HCl 4 MG UNK 06/17/2020 12:00:00 AM EST 1.0 {tablet } active Ondansetron HCl 4 MG eCW1 ([facility]) Ondansetron HCl 4 MG UNK 06/17/2020 12:00:00 AM EST 1.0 {tablet } active Ondansetron HCl 4 MG eCW1 ([facility]) Ondansetron HCl 4 MG UNK 06/17/2020 12:00:00 AM EST 1.0 {tablet } active Ondansetron HCl 4 MG eCW1 ([facility]) Ondansetron HCl 4 MG UNK 06/17/2020 12:00:00 AM EST 1.0 {tablet } active Ondansetron HCl 4 MG eCW1 ([facility]) Ondansetron HCl 4 MG UNK 06/17/2020 12:00:00 AM EST 1.0 {tablet } active Ondansetron HCl 4 MG eCW1 ([facility]) Ondansetron HCl 4 MG UNK 06/17/2020 12:00:00 AM EST 1.0 {tablet } active Ondansetron HCl 4 MG eCW1 ([facility]) Ondansetron HCl 4 MG UNK 06/17/2020 12:00:00 AM EST 1.0 {tablet } active Ondansetron HCl 4 MG eCW1 ([facility]) Ondansetron HCl 4 MG UNK 06/17/2020 12:00:00 AM EST 1.0 {tablet } active Ondansetron HCl 4 MG eCW1 ([facility]) Ondansetron HCl 4 MG UNK 06/17/2020 12:00:00 AM EST 1.0 {tablet } active Ondansetron HCl 4 MG eCW1 ([facility]) Ondansetron HCl 4 MG UNK 06/17/2020 12:00:00 AM EST 1.0 {tablet } active Ondansetron HCl 4 MG eCW1 ([facility]) Ondansetron HCl 4 MG UNK 06/17/2020 12:00:00 AM EST 1.0 {tablet } active Ondansetron HCl 4 MG eCW1 ([facility]) Ondansetron HCl 4 MG UNK 06/17/2020 12:00:00 AM EST 1.0 {tablet } active eCW1 ([facility]) Ondansetron HCl 4 MG UNK 06/17/2020 12:00:00 AM EST 1.0 {tablet } active Ondansetron HCl 4 MG eCW1 ([facility]) Ondansetron HCl 4 MG UNK 06/17/2020 12:00:00 AM EST 1.0 {tablet } active Ondansetron HCl 4 MG eCW1 ([facility]) Ondansetron HCl 4 MG UNK 06/17/2020 12:00:00 AM EST 1.0 {tablet } active Ondansetron HCl 4 MG eCW1 ([facility]) Ondansetron HCl 4 MG UNK 06/17/2020 12:00:00 AM EST 1.0 {tablet } active Ondansetron HCl 4 MG eCW1 ([facility]) Ondansetron HCl 4 MG UNK 06/17/2020 12:00:00 AM EST 1.0 {tablet } active Ondansetron HCl 4 MG eCW1 ([facility]) Ondansetron HCl 4 MG UNK 06/17/2020 12:00:00 AM EST 1.0 {tablet } active Ondansetron HCl 4 MG eCW1 ([facility]) Ondansetron HCl 4 MG UNK 06/17/2020 12:00:00 AM EST 1.0 {tablet } active Ondansetron HCl 4 MG eCW1 ([facility]) Ondansetron HCl 4 MG UNK 06/17/2020 12:00:00 AM EST 1.0 {tablet } active Ondansetron HCl 4 MG eCW1 ([facility]) Acetaminophen 325 MG / Oxycodone Hydroch loride 7.5 MG Oral Tablet [Percocet] Percocet 7.5-325 MG Percocet 7.5-325 MG 05/24/2020 12:00:00 AM EST 1.0 {tablet_as_needed} active Percocet 7.5- 325 MG eCW1 ([facility]) Acetaminophen 325 MG / Oxycodone Hydroch loride 7.5 MG Oral Tablet [Percocet] Percocet 7.5-325 MG Percocet 7.5-325 MG 05/24/2020 12:00:00 AM EST 1.0 {tablet_as_needed} active Percocet 7.5- 325 MG eCW1 ([facility]) Acetaminophen 325 MG / Oxycodone Hydroch loride 7.5 MG Oral Tablet [Percocet] Percocet 7.5-325 MG Percocet 7.5-325 MG 05/24/2020 12:00:00 AM EST 1.0 {tablet_as_needed} active Percocet 7.5- 325 MG eCW1 ([facility]) Acetaminophen 325 MG / Oxycodone Hydroch loride 7.5 MG Oral Tablet [Percocet] Percocet 7.5-325 MG Percocet 7.5-325 MG 05/24/2020 12:00:00 AM EST 1.0 {tablet_as_needed} active Percocet 7.5- 325 MG eCW1 ([facility]) 350 mg 05/20/2020 12:00:00 AM EST tablet 60 TAKE ONE TABLET BY MOUTH TWICE A DAY NEEDED MAXIMUM DAILY DOSE = 2 TABLETS TAKE ONE TABLET BY MOUTH TWICE A DAY NEEDED MAXIMUM DAILY DOSE = 2 TABLETS SOLD: 05/20/2020 [facility] 1 mg 05/12/2020 12:00:00 AM EDT tablet 60 TAKE ONE TABLET BY MOUTH TWICE A DAY MAXIMUM DAILY DOSE = 2 TABLETS TAKE ONE TABLET BY MOUTH TWICE A DAY MAX IMUM DAILY DOSE = 2 TABLETS SOLD: 05/12/2020 [facility] 7.5-325 mg 05/12/2020 12:00:00 AM EDT tablet 21 TAKE ONE TABLET BY MOUTH THREE TIMES A DAY NEEDED MAXIMUM DAILY DOSE = 3 TABLETS TAKE ONE TABLET BY MOUTH THREE TIMES A DAY NEEDED MAXIMUM DAILY DOSE = 3 TABLETS SOLD: 05/12/2020 [facility] Acetaminophen 325 MG / Oxycodone Hydroch loride 7.5 MG Oral Tablet [Percocet] Percocet 7.5-325 MG Percocet 7.5-325 MG 05/10/2020 12:00:00 AM EDT 1.0 {tablet_as_needed} active Percocet 7.5- 325 MG eCW1 ([facility]) Acetaminophen 325 MG / Oxycodone Hydroch loride 7.5 MG Oral Tablet [Percocet] Percocet 7.5-325 MG Percocet 7.5-325 MG 05/10/2020 12:00:00 AM EDT 1.0 {tablet_as_needed} active Percocet 7.5- 325 MG eCW1 ([facility]) Acetaminophen 325 MG / Oxycodone Hydroch loride 7.5 MG Oral Tablet [Percocet] Percocet 7.5-325 MG Percocet 7.5-325 MG 05/10/2020 12:00:00 AM EDT 1.0 {tablet_as_needed} active Percocet 7.5- 325 MG eCW1 ([facility]) Acetaminophen 325 MG / Oxycodone Hydroch loride 7.5 MG Oral Tablet [Percocet] Percocet 7.5-325 MG Percocet 7.5-325 MG 05/10/2020 12:00:00 AM EDT 1.0 {tablet_as_needed} active Percocet 7.5- 325 MG eCW1 ([facility]) 100,000 unit/gram 05/06/2020 12:00:00 AM EDT powder 60 APPLY TO AFFECTED AREA(S) IN GROIN AREA TWO TIMES A DAY APPLY TO AFFECTED AREA(S) IN GROIN AREA TWO TIMES A DAY SOLD: 05/09/2020 [facility] 5 mg 04/06/2020 12:00:00 AM EDT tablet 30 TAKE ONE TABLET BY MOUTH AT BEDTIME MAXIMUM DAILY DOSE = 1 TABLET TAKE ONE TABLET BY MOUTH AT BEDTIME MAXIMUM DAILY DOSE = 1 TABLET SOLD: 07/22/2020 [facility] 5 mg 04/06/2020 12:00:00 AM EDT tablet 30 TAKE ONE TABLET BY MOUTH AT BEDTIME MAXIMUM DAILY DOSE = 1 TABLET TAKE ONE TABLET BY MOUTH AT BEDTIME MAXIMUM DAILY DOSE = 1 TABLET SOLD: 04/06/2020 [facility] 1 mg 04/06/2020 12:00:00 AM EDT tablet 30 TAKE ONE TABLET BY MOUTH EVERY DAY MAXIMUM DAILY DOSE = 1 TABLET TAKE ONE TABLET BY MOUTH EVERY DAY MAXIM UM DAILY DOSE = 1 TABLET SOLD: 04/06/2020 [facility] 5 mg 04/06/2020 12:00:00 AM EDT tablet 30 TAKE ONE TABLET BY MOUTH AT BEDTIME MAXIMUM DAILY DOSE = 1 TABLET TAKE ONE TABLET BY MOUTH AT BEDTIME MAXIMUM DAILY DOSE = 1 TABLET SOLD: 06/14/2020 [facility] 7.5-325 mg 04/06/2020 12:00:00 AM EDT tablet 90 TAKE ONE TABLET BY MOUTH THREE TIMES A DAY MAXIMUM DAILY DOSE = 3 TABLETS TAKE ONE TABLET BY MOUTH THREE TIMES A DAY MAXIMUM DAILY DOSE = 3 TABLETS SOLD: 04/06/2020 [facility] 5 mg 04/06/2020 12:00:00 AM EDT tablet 30 TAKE ONE TABLET BY MOUTH AT BEDTIME MAXIMUM DAILY DOSE = 1 TABLET TAKE ONE TABLET BY MOUTH AT BEDTIME MAXIMUM DAILY DOSE = 1 TABLET SOLD: 05/10/2020 [facility] 50 mg 03/12/2020 12:00:00 AM EDT tablet 270 TAKE ONE AND ONE-HALF TABLETS BY MOUTH TWICE A DAY TAKE ONE AND ONE-HALF TABLETS BY MOUTH TWICE A DAY [facility] 7.5-325 mg 03/04/2020 12:00:00 AM EDT tablet 90 TAKE ONE TABLET BY MOUTH THREE TIMES A DAY NEEDED FOR PAIN MAXIMUM DAILY DOSE = 3 TAKE ONE TABLET BY MOUTH THREE TIMES A DAY NEEDED FOR PAIN MAXIMUM DAILY DOSE = 3 SOLD: 03/04/2020 [facility] 1 mg 03/04/2020 12:00:00 AM EDT tablet 60 TAKE ONE TABLET BY MOUTH TWICE A DAY NEEDED MAXIMUM DAILY DOSE = 2 TAKE ONE TABLET BY MOUTH TWICE A DAY NEEDED MAXIMUM DAILY DOSE = 2 SOLD: 03/04/2020 [facility] 2 % 03/04/2020 12:00:00 AM EDT ointment 22 APPLY DIRECTED TO ABRASIONS THREE TIMES A DAY APPLY DIRECTED TO ABRASIONS THREE TIMES A DAY SOLD: 03/04/2020 [facility] 10 mg 01/14/2020 12:00:00 AM EDT tablet 15 ONE TABLET BY MOUTH ONCE DAILY NEEDED FOR MIGRAINE, MAY REPEAT FOR ONE DOSE IN 2 HOUR IF NEEDED ONE TABLET BY MOUTH ONCE DAILY NEEDED FOR MIGRAINE, MAY REPEAT FOR ONE DOSE IN 2 HOUR IF NEEDED SOLD: 03/12/2020 [facility] 350 mg 12/31/2019 12:00:00 AM EDT tablet 60 TAKE ONE TABLET BY MOUTH TWICE A DAY NEEDED MAXIMUM DAILY DOSE = 2 TAKE ONE TABLET BY MOUTH TWICE A DAY NEEDED MAXIMUM DAILY DOSE = 2 SOLD: 03/24/2020 [facility] 350 mg 12/31/2019 12:00:00 AM EDT tablet 60 TAKE ONE TABLET BY MOUTH TWICE A DAY NEEDED MAXIMUM DAILY DOSE = 2 TAKE ONE TABLET BY MOUTH TWICE A DAY NEEDED MAXIMUM DAILY DOSE = 2 SOLD: 04/21/2020 [facility] Insurance Providers Payer name Policy type / Coverage type Policy ID Covered libertarian ID Covered libertarian's relationship to [place] Policy [place] Plan Information [facility] Commercial [id number] Self [id number] BLUE CROSS O [id number] S [id number] [facility] H [id number] Self [id number] [place]/806 [id number] SP [id number] [place]/806 [id number] SP [id number] [place] 306/806 [id number] SP [id number] [place]/806 [id number] SP [id number] [place] Commercial [id number] Self [id number] [place] [id number] Self [id number] [place] [id number] Self [id number] [place] [id number] Self [id number] [place] [id number] Self [id number] [place] [id number] Self [id number] Blue Cross Blue Shield P [id number] SELF [id number] Blue Cross Blue Shield P [id number] SELF [id number] [place] BCBS [id number] [place] VYS [id number] Blue Cross Blue Shield P [id number] SELF [id number] Blue Cross Blue Shield P [id number] SELF [id number] Medicaid Medicaid [id number] Self [id number] [place] Blue Cross and Blue Shield - [place] Blue Cross/B lue Shield [id number] Self [id number] [place] Of [place] Commercial [id number] Self [employer] BCBS B [id number] S VYS [id number] BS/W/Id#Prefix/W ALL #'S Medigap Part B [id number] Self BS/W/Id#Prefix/W ALL #'S Commercial [id number] Self [facility] PHY [id number] SP [id number] MVP HE[employer] CARE P [id number] S [id number] PMA INSURANCE [id number] SP [id number] OTHER WORKERS COMPENSATI P [id number] S [id number] P UNAVAILABLE UNAVAILA BLE OTHER WORKERS COMPENSATION [id number] SP [id number] [facility] PHY [id number] SP [id number] [facility] PHY [id number] SP [id number] [place] 306/806 [id number] SP [id number] [place]BS [place] PPO 302/307 [id number] SP [id number] [employer] BCBS B [id number] S VYS [id number] SELF PAY ONLY [id number] SP [id number] [place] 306/806 [id number] SP [id number] [employer] BCBS B [id number] S [id number] [id number] [place] 306/806 [id number] SP [id number] [place] PPO 302/307 [id number] SP [id number] SELF PAY ONLY [id number] SP [id number] [employer] [id number] self [id number] [employer] [id number] Self [id number] [facility] [id number] Self [id number] BCBS [employer] U/[place] Commercial [id number] Self [id number] BCBS [place] Commercial [id number] Self [id number] CD PHP PI PI CD PHP [id number] Marci [id number] [employer] BCBS B [id number] S VYS [id number] BCBS/[place] Medigap Part B [id number] Self BCBS/[place] Commercial [id number] Self BCBS [place] PPO 302/307 [id number] SP [id number] Problems, Conditions, and Diagnoses Code Display Name Description Problem Type Effective Dates Data Source(s) I87.2 [id number] Venous insufficiency of both lower extrem ities Problem 12/02/2020 12:00:00 AM EDT eCW1 ([facility]) R60.9 [id number] Peripheral edema Problem 07/27/2020 12:00:00 AM EST eCW1 ([facility]) Surgeries/Procedures Procedure Description Date Indications Data Source(s) COLPOSCOPY CERVIX BX CERVIX&ENDOCRV CURTG 2021 1 2:00:00 AM EDT eCW1 ([facility]) URINE TEST 2021 12:00:00 AM EDT eCW1 ([facility]) Results ID Date Data Source [id number] 04/18/2021 11:02:00 AM EDT [facility] Name Value Range Interpretation Code Description Data Iris rce(s) Supporting Document(s) SARS coronavirus 2 RNA [Presence] in Res piratory specimen by DEZ with probe detection NEGATIVE [facility] This lab was ordered by [facility] a nd reported by [facility]. ID Date Data Source [id number] 12/28/2020 10:02:11 AM EDT [facility], PCName: Gloria AshrafchuyDOAbhijit: 1975Provider: Omar Spicer: 12/26/2020 Reason For VisitGloria Guerra is here today for her rose. knees. Gloria had her second Covid vaccine on 08/2020. Gloria Guerra is an established patient here for follow up. ([employer]). Patient is working at this time at regular duty. History of Present IllnessPatient follows up today for both knees, she has known chronic degenerative changes. I gave her cortisone injections into the knees back in June which gave her about 3 to 4 months relief. No new injuries that she can recall. She states that her left knee is worse than her right. She gets Percocet from an outside provider. Results/DataXRays [facility] taken [facility] were reviewed today. Side: Bilateral Site: Knee Views: 3 Views, Standing AP, Lateral and Merchant's Findings: Medial degenerative change of a mild degree. Moderate patellofemoral arthritis on the left and severe on the right. AssessmentPatient with bilateral knee primary osteoarthritis PlanPatient continues to get good relief from the cortisone injections. I injected both knees today which he tolerated well. Postinjection instructions were discussed. She is aware that she can have these every 3 months as needed. She also wants me to set her up with one of our spine docs as she has had chronic issues with her lumbar spine. She is to see somebody up in the [place] area but has not seen anybody recently. Work / School NoteThe percentage of temporary impairment is 0%. The patient is working at this time. This document was dictated and electronically signed using [employer] Speaking software. A reasonable attempt at proof reading has been made to minimize errors. Please call with any questions. Signatures Electronically signed by : Shara Spicer PA-C; Dec 26 2020 8:44AM EST (Author) Electronically signed by : Nicole Morin M.D.; Dec 28 2020 10:02AM EST (Author) Name Value Range Interpretation Code Description Data Iris rce(s) Supporting Document(s) ID Date Data Source [id number] 11/10/2020 12:34:00 PM EDT [facility] Name Value Range Interpretation Code Description Data Iris rce(s) Supporting Document(s) COVID-19 RT-PCR NASAL SWAB Not Detected Not Detected [facility] A not detected (negative) test result fo r this test means that SARS-CoV-2 RNA was not present in the specimen above the limit ofdetection. Laboratory test results should always be considered in thecontext of clinical observations and epidemiological data in making afinal diagnosis and patient management decisions. Results will bereported to government agencies as required.This test has received Emergency Use Authorization (EUA). We will continue to follow federal and state requirements for COVID-19 reporting. This test has been authorized only for the detection of RNAfrom SARS-CoV-2 virus and diagnosis of SARS-CoV-2 virus infection, notfor any other viruses or pathogens. This test is only authorized for the duration of the declaration that circumstances exist justifying the authorization of the emergency use of in vitro diagnostic tests for detection of SARS-CoV-2 virus and/or diagnosis of SARS-CoV-2 virusinfection under section 564(b)(1) of the Act, 21 U.S.C. section 360bbb-3(b)(1), unless the authorization is terminated or revoked sooner. We will continue to follow federal and state requirements for both notification of results and any confirmatory testing that is required by another agency. This test was developed and its performance characteristics determined by [facility] and verified at [facility]. It has not been cleared or approved by the U.S. Food and Drug Administration for diagnostic use. This test has been authorized by FDA under an EUA for use by authorized laboratories. Results should be used in conjunction with clinical findings, and should not form the sole basis for a diagnosis or treatment decision. Methods: SARS-CoV-2 Multiplex RT-PCR Assay ID Date Data Source [id number] 11/08/2020 05:15:00 PM EDT [facility] Name Value Range Interpretation Code Description Data Iris rce(s) Supporting Document(s) SARS-CoV-2 (COVID-19) N gene [Presence] in Respiratory specimen by DEZ with probe detection NEGATIVE [facility] This lab was ordered by [facility] and reported by [facility]. ID Date Data Source CHLAMYDIA & GC DNA AMPLIFICAT 10/27/2020 12:00:00 AM EDT eCW 1 ([facility]) Name Value Range Interpretation Code Description Data Iris rce(s) Supporting Document(s) Chlamydia trachomatis rRNA [Presence] in Unspecified specimen by Probe and target amplification method NEGATIVE NEGATIVE CHLAMYDIA DNA AMPLIFICATION eCW1 ([facility]) ID Date Data Source [id number] 08/18/2020 12:00:00 AM EST [facility] Name Value Range Interpretation Code Description Data Iris rce(s) Supporting Document(s) Carestart Rapid COVID Antigen Test Positive [facility] This lab was reported by [facility]. ID Date Data Source CT Scan : Angiogram 08/11/2020 12:00:00 AM EST eCW1 ([facility]) Name Value Range Interpretation Code Description Data Iris rce(s) Supporting Document(s) CT Scan : Angiogram eCW1 ([facility]) ID Date Data Source [id number] 08/04/2020 11:45:00 AM EST [facility] Name Value Range Interpretation Code Description Data Iris rce(s) Supporting Document(s) SARS coronavirus 2 RNA Not Detected [facility] This lab was ordered by [facility] and reported by [facility]. ID Date Data Source DRUG EVAL SCREEN BLOOD 7 DRUGS 08/01/2020 12:00:00 AM EST eC W1 ([facility]) Name Value Range Interpretation Code Description Data Iris rce(s) Supporting Document(s) Negative Cutoff:50 AMPHETAMINES SCREEN, BLOO D eCW1 ([facility]) Negative Cutoff:0.1 BARBITURATES SCREEN, BLOO D eCW1 ([facility]) Negative Cutoff:20 BENZODIAZEPINES SCREEN, B LOOD eCW1 ([facility]) Negative Cutoff:5 CANNABINOID SCREEN, BLOOD eCW1 ([facility]) Negative Cutoff:25 COCAINE + METAB. SCREEN, BLOOD eCW1 ([facility]) Negative Cutoff:8 PHENCYCLIDINE SCREEN, BLO OD eCW1 ([facility]) Negative Cutoff:5 OPIATES SCREEN, BLOOD eCW 1 ([facility]) ID Date Data Source NT-PRO BNP 08/01/2020 12:00:00 AM EST eCW1 ([facility]) Name Value Range Interpretation Code Description Data Iris rce(s) Supporting Document(s) 102 <125 NT-PRO BNP eCW1 ([facility]) ID Date Data Source Comprehensive Metabolic Profile (CMP) 08/01/2020 12:00:00 AM EST eCW1 ([facility]) Name Value Range Interpretation Code Description Data Iris rce(s) Supporting Document(s) 8 7-18 BLOOD UREA NITROGEN eCW1 ([facility]) 81 70-100 GLUCOSE, FASTING eCW1 ([facility]) 0.60 0.55-1.30 CREATININE FOR GFR eCW1 ([facility]) > 60.0 >58 GLOMERULAR FILTRATION RATE eCW 1 ([facility]) 138 136-145 SODIUM LEVEL eCW1 ([facility]) 3.5 3.5-5.1 POTASSIUM SERUM eCW1 ([facility]) 24 21-32 CARBON DIOXIDE LEVEL eCW1 ([facility]) 107 98-107 CHLORIDE LEVEL eCW1 ([facility]) 8.7 8.5-10.1 CALCIUM LEVEL eCW1 ([facility]) 19 7-37 AST/SGOT eCW1 ([facility]) 39 12-78 ALT/SGPT eCW1 ([facility]) 97 45-117 ALKALINE PHOSPHATASE eCW1 ([facility]) 0.4 0.2-1.0 BILIRUBIN,TOTAL eCW1 ([facility]) 6.8 6.4-8.2 TOTAL PROTEIN eCW1 ([facility]) 3.2 3.2-5.2 ALBUMIN eCW1 ([facility]) 0.9 1.2-2.2 ALBUMIN/GLOBULIN RATIO eCW1 ([facility]) ID Date Data Source [id number] 08/01/2020 12:00:00 AM EST eCW1 ([facility]) Name Value Range Interpretation Code Description Data Iris rce(s) Supporting Document(s) Hemoglobin A1c/Hemoglobin.total in Blood 4.9 HEMOGLOBIN A1c eCW1 ([facility]) ID Date Data Source PTH INTACT 08/01/2020 12:00:00 AM EST eCW1 ([facility]) Name Value Range Interpretation Code Description Data Iris rce(s) Supporting Document(s) 73.0 18.5-88.0 PTH INTACT eCW1 ([facility]) ID Date Data Source VITAMIN D 25-HYDROXY 08/01/2020 12:00:00 AM EST eCW1 ([facility]) Name Value Range Interpretation Code Description Data Iris rce(s) Supporting Document(s) 82.3 30.0-100.0 TOTAL 25(OH) VITAMIN D eC W1 ([facility]) ID Date Data Source INSULIN LEVEL 08/01/2020 12:00:00 AM EST eCW1 ([facility]) Name Value Range Interpretation Code Description Data Iris rce(s) Supporting Document(s) 5.4 2.6-24.9 INSULIN LEVEL eCW1 ([facility]) ID Date Data Source [id number] 07/11/2020 08:58:48 AM EST [facility], PCName: Gloria AshrafchuyDOB: 1975Provider: Omar Spicer: 07/05/2020 Reason For VisitGloria Guerra is here today for Bilateral Knees. 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 History of Present IllnessPatient follows up today for both knees. I gave her a cortisone injection back in the summertime which helped her up until a month or so ago. She states that her pain is progressively getting worse. She is having left knee pain but is not as severe as her right knee. Has been sometime since we injected that knee. No new injuries that she can recall. She is on Percocet for her neck. She has pain when she does a lot of sitting to standing. Results/DataXRays were ordered, obtained and interpreted today in the office. Indication: pain/dysfunction. Side: Left Site: Knee Views: 3 Views, Standing AP, Lateral and Merchant's Findings: Medial degenerative change of a mild degree. Findings: Lateral degenerative change of a mild degree. Findings: patello- femoral degenerative change of a moderate degree. XRays were ordered, obtained and interpreted today in the office. Indication: pain/dysfunction. Side: Right Site: Knee Views: 3 Views, Standing AP, Lateral and Merchant's Findings: Lateral degenerative change of a mild degree. Findings: patello-femoral degenerative change of a severe degree. Assessment Primary localized osteoarthritis of both knees (715.16) (M17.0) Patient with bilateral knee primary osteoarthritis Plan X-Ray I Knee - 3 views (XRays were ordered, obtained and interpreted today in theoffice. Indication: pain/dysfunction.); Status:Complete; Done: [id number] Perform:SOS14 (General); Due:[id number]; Last Updated By:Lisbeth Camacho; 07/05/2020 3:25:18 PM;Ordered; For:Primary localized osteoarthritis of both knees; Ordered By:Shara Spicer;Weight Bearing Status : Weight bearingLaterality: : Bilateral Patient is looking for cortisone injections into both knees which I gave her today she tolerated well. Postinjection instructions were discussed. She is hoping to keep these going for as long as possible. She really does not want to proceed with a knee replacement at this time. She is advised she can have these every 3 months as needed. She will let me know if she wants the injections repeated. Or if the injections are not helpful. Work / School NoteThe percentage of temporary impairment is 0%. The patient is working at this time. This document was dictated and electronically signed using Sponto software. A reasonable attempt at proof reading has been made to minimize errors. Please call with any questions. Signatures Electronically signed by : Shara Spicer PA-C; Jul 05 2020 3:55PM EST (Author) Electronically signed by : Nicole Morin M.D.; Jul 11 2020 8:58AM EST (Author) Name Value Range Interpretation Code Description Data Iris rce(s) Supporting Document(s) ID Date Data Source [id number] 06/21/2020 09:00:00 AM EST [facility] Name Value Range Interpretation Code Description Data Iris rce(s) Supporting Document(s) SARS coronavirus 2 RNA [facility] This lab was ordered by [facility] and reported by [facility]. ID Date Data Source [id number] 05/21/2020 12:00:00 AM EST [facility] Name Value Range Interpretation Code Description Data Iris rce(s) Supporting Document(s) SARS-CoV2 Rapid Antigen [facility] and reported by [facility]. ID Date Data Source [id number] 05/06/2020 12:00:00 AM EDT [facility] Name Value Range Interpretation Code Description Data Iris rce(s) Supporting Document(s) SARS coronavirus 2 RNA [Presence] in Res piratory specimen by DEZ with probe detection [facility] This lab was ordered by [facility] and reported by [facility] [facility]. Procedure Social History Code Duration Value Status Description Data Source(s ) Smoking 12/15/2020 12:00:00 AM EDT Former Smoker completed Former Smoker eCW1 ([facility]) Smoking 12/15/2020 12:00:00 AM EDT Former Smoker completed Former Smoker eCW1 ([facility]) Smoking 12/15/2020 12:00:00 AM EDT Former Smoker completed Former Smoker eCW1 ([facility]) Smoking 12/15/2020 12:00:00 AM EDT Former Smoker completed Former Smoker eCW1 ([facility]) Smoking 12/15/2020 12:00:00 AM EDT Former Smoker completed Former Smoker eCW1 ([facility]) Smoking 12/15/2020 12:00:00 AM EDT Former Smoker completed Former Smoker eCW1 ([facility]) Smoking 12/15/2020 12:00:00 AM EDT Former Smoker completed Former Smoker eCW1 ([facility]) Smoking 12/15/2020 12:00:00 AM EDT Former Smoker completed Former Smoker eCW1 ([facility]) Smoking 12/15/2020 12:00:00 AM EDT Former Smoker completed Former Smoker eCW1 ([facility]) Smoking 12/15/2020 12:00:00 AM EDT Former Smoker completed Former Smoker eCW1 ([facility]) Smoking 12/15/2020 12:00:00 AM EDT Former Smoker completed Former Smoker eCW1 ([facility]) Smoking 12/15/2020 12:00:00 AM EDT Former Smoker completed Former Smoker eCW1 ([facility]) Smoking 12/15/2020 12:00:00 AM EDT Former Smoker completed Former Smoker eCW1 ([facility]) Smoking 12/02/2020 12:00:00 AM EDT Former Smoker completed Former Smoker eCW1 ([facility]) Smoking 12/02/2020 12:00:00 AM EDT Former Smoker completed Former Smoker eCW1 ([facility]) Smoking 12/02/2020 12:00:00 AM EDT Former Smoker completed Former Smoker eCW1 ([facility]) Smoking 10/27/2020 12:00:00 AM EDT Former Smoker completed Former Smoker eCW1 ([facility]) Smoking 10/27/2020 12:00:00 AM EDT Former Smoker completed Former Smoker eCW1 ([facility]) Smoking 10/27/2020 12:00:00 AM EDT Former Smoker completed Former Smoker eCW1 ([facility]) Smoking 10/27/2020 12:00:00 AM EDT Former Smoker completed Former Smoker eCW1 ([facility]) Smoking 10/27/2020 12:00:00 AM EDT Former Smoker completed Former Smoker eCW1 ([facility]) Smoking 10/27/2020 12:00:00 AM EDT Former Smoker completed Former Smoker eCW1 ([facility]) Smoking 10/21/2020 12:00:00 AM EDT Former Smoker completed Former Smoker eCW1 ([facility]) Smoking 10/21/2020 12:00:00 AM EDT Former Smoker completed Former Smoker eCW1 ([facility]) Smoking 10/21/2020 12:00:00 AM EDT Former Smoker completed Former Smoker eCW1 ([facility]) Smoking 10/21/2020 12:00:00 AM EDT Former Smoker completed Former Smoker eCW1 ([facility]) Smoking 09/16/2020 12:00:00 AM EST Former Smoker completed Former Smoker eCW1 ([facility]) Smoking 09/16/2020 12:00:00 AM EST Former Smoker completed Former Smoker eCW1 ([facility]) Smoking 09/16/2020 12:00:00 AM EST Former Smoker completed Former Smoker eCW1 ([facility]) Smoking 07/27/2020 12:00:00 AM EST Former Smoker completed Former Smoker eCW1 ([facility]) Smoking 07/27/2020 12:00:00 AM EST Former Smoker completed Former Smoker eCW1 ([facility]) Smoking 07/27/2020 12:00:00 AM EST Former Smoker completed Former Smoker eCW1 ([facility]) Smoking 07/27/2020 12:00:00 AM EST Former Smoker completed Former Smoker eCW1 ([facility]) Smoking 07/27/2020 12:00:00 AM EST Former Smoker completed Former Smoker eCW1 ([facility]) Smoking 07/27/2020 12:00:00 AM EST Former Smoker completed Former Smoker eCW1 ([facility]) Smoking 07/27/2020 12:00:00 AM EST Former Smoker completed Former Smoker eCW1 ([facility]) Smoking 07/27/2020 12:00:00 AM EST Former Smoker completed Former Smoker eCW1 ([facility]) Vital Signs ID Date Data Source UNK Name Value Range Interpretation Code Description Data Source(s) Body weight 268 [lb_av] 268 [lb_av] eCW1 ([facility]) Body weight 121.56 kg 121.56 kg W1 ([facility]) Body height 68 [in_i] 68 [in_i] W1 ([facility]) Body mass index (BMI) [Ratio] 40.74 kg/m2 40.74 kg/m2 W1 ([facility]) Systolic blood pressure 110 mm[Hg] 110 mm[Hg] e CW1 ([facility]) Diastolic blood pressure 80 mm[Hg] 80 mm[Hg] eCW1 ([facility]) Body weight 269.4 [lb_av] 269.4 [lb_av] [facility] Body temperature 97.6 [degF] 97.6 [degF] W1 ( [facility]) Systolic blood pressure 120 mm[Hg] 120 mm[Hg] e CW1 ([facility]) Diastolic blood pressure 78 mm[Hg] 78 mm[Hg] eCW1 ([facility]) Body height 68 [in_i] 68 [in_i] eCW1 ([facility]) Body mass index (BMI) [Ratio] 40.96 kg/m2 40.96 kg/m2 eCW1 ([facility]) Heart rate 96 /min 96 /min eCW1 ([facility]) Respiratory rate 20 /min 20 /min eCW1 ([facility]) Body weight 266.2 [lb_av] 266.2 [lb_av] [facility] Body height 68 [in_i] 68 [in_i] eCW1 ([facility]) Body mass index (BMI) [Ratio] 40.47 kg/m2 40.47 kg/m2 eCW1 ([facility]) Systolic blood pressure 118 mm[Hg] 118 mm[Hg] e CW1 ([facility]) Diastolic blood pressure 72 mm[Hg] 72 mm[Hg] eCW1 ([facility]) Body weight 266.2 [lb_av] 266.2 [lb_av] [facility] Body height 68 [in_i] 68 [in_i] eCW1 ([facility]) Body mass index (BMI) [Ratio] 40.47 kg/m2 40.47 kg/m2 W1 ([facility]) Heart rate 102 /min 102 /min eCW1 ([facility]) Respiratory rate 18 /min 18 /min eCW1 ([facility]) Body temperature 97 [degF] 97 [degF] eCW1 ([facility]) Systolic blood pressure 116 mm[Hg] 116 mm[Hg] e CW1 ([facility]) Diastolic blood pressure 74 mm[Hg] 74 mm[Hg] eCW1 ([facility]) Body weight 266.2 [lb_av] 266.2 [lb_av] [facility]CW[facility] Body height 68 [in_i] 68 [in_i] eCW1 ([facility]) Body mass index (BMI) [Ratio] 40.47 kg/m2 40.47 kg/m2 eCW1 ([facility]) Heart rate 102 /min 102 /min eCW1 ([facility]) Respiratory rate 18 /min 18 /min eCW1 ([facility]) Body temperature 97 [degF] 97 [degF] eCW1 ([facility]) Systolic blood pressure 116 mm[Hg] 116 mm[Hg] e CW1 ([facility]) Diastolic blood pressure 74 mm[Hg] 74 mm[Hg] eCW1 ([facility]) Body weight 266.2 [lb_av] 266.2 [lb_av] [facility] Body height 68 [in_i] 68 [in_i] eCW1 ([facility]) Body mass index (BMI) [Ratio] 40.47 kg/m2 40.47 kg/m2 eCW1 ([facility]) Heart rate 102 /min 102 /min eCW1 ([facility]) Respiratory rate 18 /min 18 /min eCW1 ([facility]) Body temperature 97 [degF] 97 [degF] eCW1 ([facility]) Systolic blood pressure 116 mm[Hg] 116 mm[Hg] e CW1 ([facility]) Diastolic blood pressure 74 mm[Hg] 74 mm[Hg] eCW1 ([facility]) Patient Treatment Plan of Care Planned Activity Planned Date Details Description Data Source (s) Carisoprodol 350 MG Oral Tablet [Soma] 04/28/2021 12:00:00 AM EDT eCW1 ([facility]) Carisoprodol 350 MG Oral Tablet [Soma] 04/28/2021 12:00:00 AM EDT eCW1 ([facility]) Acetaminophen 325 MG / Oxycodone Hydrochloride 7.5 MG Oral Tablet [Percocet] 04/11/2021 12:00:00 AM EDT eCW1 ([facility]) Clonazepam 1 MG Oral Tablet 04/11/2021 12:00:00 AM EDT eCW1 ([facility]) Acetaminophen 325 MG / Oxycodone Hydrochloride 7.5 MG Oral Tablet [Percocet] 04/11/2021 12:00:00 AM EDT eCW1 ([facility]) Clonazepam 1 MG Oral Tablet 04/11/2021 12:00:00 AM EDT eCW1 ([facility]) Acetaminophen 325 MG / Oxycodone Hydrochloride 7.5 MG Oral Tablet [Percocet] 04/11/2021 12:00:00 AM EDT eCW1 ([facility]) Clonazepam 1 MG Oral Tablet 04/11/2021 12:00:00 AM EDT eCW1 ([facility]) Zolpidem tartrate 5 MG Oral Tablet [Ambien] 03/09/2021 12:00:00 AM EDT eCW1 ([facility]) Zolpidem tartrate 5 MG Oral Tablet [Ambien] 03/09/2021 12:00:00 AM EDT eCW1 ([facility]) Zolpidem tartrate 5 MG Oral Tablet [Ambien] 03/09/2021 12:00:00 AM EDT eCW1 ([facility]) Zolpidem tartrate 5 MG Oral Tablet [Ambien] 03/09/2021 12:00:00 AM EDT eCW1 ([facility]) Acetaminophen 325 MG / Oxycodone Hydrochloride 7.5 MG Oral Tablet [Percocet] 03/09/2021 12:00:00 AM EDT eCW1 ([facility]) Clonazepam 1 MG Oral Tablet 03/09/2021 12:00:00 AM EDT eCW1 ([facility]) Acetaminophen 325 MG / Oxycodone Hydrochloride 7.5 MG Oral Tablet [Percocet] 02/09/2021 12:00:00 AM EDT eCW1 ([facility]) Acetaminophen 325 MG / Oxycodone Hydrochloride 7.5 MG Oral Tablet [Percocet] 02/09/2021 12:00:00 AM EDT eCW1 ([facility]) Acetaminophen 325 MG / Oxycodone Hydrochloride 7.5 MG Oral Tablet [Percocet] 01/10/2021 12:00:00 AM EDT eCW1 ([facility]) Acetaminophen 325 MG / Oxycodone Hydrochloride 7.5 MG Oral Tablet [Percocet] 12/13/2020 12:00:00 AM EDT eCW1 ([facility]) Acetaminophen 325 MG / Oxycodone Hydrochloride 7.5 MG Oral Tablet [Percocet] 12/13/2020 12:00:00 AM EDT eCW1 ([facility]) alosetron 0.5 MG Oral Tablet [Lotronex] 12/05/2020 12:00:00 AM EDT eCW1 ([facility]) alosetron 0.5 MG Oral Tablet [Lotronex] 12/05/2020 12:00:00 AM EDT eCW1 ([facility]) alosetron 0.5 MG Oral Tablet [Lotronex] 12/05/2020 12:00:00 AM EDT eCW1 ([facility]) alosetron 0.5 MG Oral Tablet [Lotronex] 12/05/2020 12:00:00 AM EDT eCW1 ([facility]) alosetron 0.5 MG Oral Tablet [Lotronex] 12/05/2020 12:00:00 AM EDT eCW1 ([facility]) COMPRESSION STOCKINGS 20-30 mmHg 12/02/2020 12:00:00 AM EDT eCW1 ([facility]) COMPRESSION STOCKINGS 20-30 mmHg 12/02/2020 12:00:00 AM EDT eCW1 ([facility]) COMPRESSION STOCKINGS 20-30 mmHg 12/02/2020 12:00:00 AM EDT eCW1 ([facility]) COMPRESSION STOCKINGS 20-30 mmHg 12/02/2020 12:00:00 AM EDT eCW1 ([facility]) COMPRESSION STOCKINGS 20-30 mmHg 12/02/2020 12:00:00 AM EDT eCW1 ([facility]) COMPRESSION STOCKINGS 20-30 mmHg 12/02/2020 12:00:00 AM EDT eCW1 ([facility]) COMPRESSION STOCKINGS 20-30 mmHg 12/02/2020 12:00:00 AM EDT eCW1 ([facility]) COMPRESSION STOCKINGS 20-30 mmHg 12/02/2020 12:00:00 AM EDT eCW1 ([facility]) COMPRESSION STOCKINGS 20-30 mmHg 12/02/2020 12:00:00 AM EDT eCW1 ([facility]) COMPRESSION STOCKINGS 20-30 mmHg 12/02/2020 12:00:00 AM EDT eCW1 ([facility]) Acetaminophen 325 MG / Oxycodone Hydrochloride 7.5 MG Oral Tablet [Percocet] 11/22/2020 12:00:00 AM EDT eCW1 ([facility]) Acetaminophen 325 MG / Oxycodone Hydrochloride 7.5 MG Oral Tablet [Percocet] 11/22/2020 12:00:00 AM EDT eCW1 ([facility]) Acetaminophen 325 MG / Oxycodone Hydrochloride 7.5 MG Oral Tablet [Percocet] 11/22/2020 12:00:00 AM EDT eCW1 ([facility]) Metronidazole 500 MG Oral Tablet 10/27/2020 12:00:00 AM EDT eCW1 ([facility]) Metronidazole 500 MG Oral Tablet 10/27/2020 12:00:00 AM EDT eCW1 ([facility]) Metronidazole 500 MG Oral Tablet 10/27/2020 12:00:00 AM EDT eCW1 ([facility]) Acetaminophen 325 MG / Oxycodone Hydrochloride 7.5 MG Oral Tablet [Percocet] 10/21/2020 12:00:00 AM EDT eCW1 ([facility]) Acetaminophen 325 MG / Oxycodone Hydrochloride 7.5 MG Oral Tablet [Percocet] 10/21/2020 12:00:00 AM EDT eCW1 ([facility]) Acetaminophen 325 MG / Oxycodone Hydrochloride 7.5 MG Oral Tablet [Percocet] 10/21/2020 12:00:00 AM EDT eCW1 ([facility]) Acetaminophen 325 MG / Oxycodone Hydrochloride 7.5 MG Oral Tablet [Percocet] 10/21/2020 12:00:00 AM EDT eCW1 ([facility]) Acetaminophen 325 MG / Oxycodone Hydrochloride 7.5 MG Oral Tablet [Percocet] 09/22/2020 12:00:00 AM EST eCW1 ([facility]) Acetaminophen 325 MG / Oxycodone Hydrochloride 7.5 MG Oral Tablet [Percocet] 08/18/2020 12:00:00 AM EST eCW1 ([facility]) Acetaminophen 325 MG / Oxycodone Hydrochloride 7.5 MG Oral Tablet [Percocet] 08/18/2020 12:00:00 AM EST eCW1 ([facility]) Acetaminophen 325 MG / Oxycodone Hydrochloride 7.5 MG Oral Tablet [Percocet] 08/18/2020 12:00:00 AM EST eCW1 ([facility]) Acetaminophen 325 MG / Oxycodone Hydrochloride 7.5 MG Oral Tablet [Percocet] 08/18/2020 12:00:00 AM EST eCW1 ([facility]) Acetaminophen 325 MG / Oxycodone Hydrochloride 7.5 MG Oral Tablet [Percocet] 08/18/2020 12:00:00 AM EST eCW1 ([facility]) Acetaminophen 325 MG / Oxycodone Hydrochloride 7.5 MG Oral Tablet [Percocet] 08/18/2020 12:00:00 AM EST eCW1 ([facility]) quetiapine 50 MG Oral Tablet 07/27/2020 12:00:00 AM EST eCW1 ([facility]) Hyoscyamine Sulfate 0.125 MG Oral Tablet 07/27/2020 12:00:00 AM EST eCW1 ([facility]) quetiapine 50 MG Oral Tablet 07/27/2020 12:00:00 AM EST eCW1 ([facility]) Hyoscyamine Sulfate 0.125 MG Oral Tablet 07/27/2020 12:00:00 AM EST eCW1 ([facility]) quetiapine 50 MG Oral Tablet 07/27/2020 12:00:00 AM EST eCW1 ([facility]) Hyoscyamine Sulfate 0.125 MG Oral Tablet 07/27/2020 12:00:00 AM EST eCW1 ([facility]) quetiapine 50 MG Oral Tablet 07/27/2020 12:00:00 AM EST eCW1 ([facility]) Hyoscyamine Sulfate 0.125 MG Oral Tablet 07/27/2020 12:00:00 AM EST eCW1 ([facility]) quetiapine 50 MG Oral Tablet 07/27/2020 12:00:00 AM EST eCW1 ([facility]) Hyoscyamine Sulfate 0.125 MG Oral Tablet 07/27/2020 12:00:00 AM EST eCW1 ([facility]) quetiapine 50 MG Oral Tablet 07/27/2020 12:00:00 AM EST eCW1 ([facility]) quetiapine 50 MG Oral Tablet 07/27/2020 12:00:00 AM EST eCW1 ([facility]) quetiapine 50 MG Oral Tablet 07/27/2020 12:00:00 AM EST eCW1 ([facility]) Hyoscyamine Sulfate 0.125 MG Oral Tablet 07/27/2020 12:00:00 AM EST eCW1 ([facility]) quetiapine 50 MG Oral Tablet 07/27/2020 12:00:00 AM EST eCW1 ([facility]) Hyoscyamine Sulfate 0.125 MG Oral Tablet 07/27/2020 12:00:00 AM EST eCW1 ([facility]) quetiapine 50 MG Oral Tablet 07/27/2020 12:00:00 AM EST eCW1 ([facility]) Hyoscyamine Sulfate 0.125 MG Oral Tablet 07/27/2020 12:00:00 AM EST eCW1 ([facility]) quetiapine 50 MG Oral Tablet 07/27/2020 12:00:00 AM EST eCW1 ([facility]) Acetaminophen 325 MG / Oxycodone Hydrochloride 7.5 MG Oral Tablet [Percocet] 06/20/2020 12:00:00 AM EST eCW1 ([facility]) Acetaminophen 325 MG / Oxycodone Hydrochloride 7.5 MG Oral Tablet [Percocet] 06/20/2020 12:00:00 AM EST eCW1 ([facility]) Acetaminophen 325 MG / Oxycodone Hydrochloride 7.5 MG Oral Tablet [Percocet] 06/20/2020 12:00:00 AM EST eCW1 ([facility]) Ondansetron HCl 4 MG 06/17/2020 12:00:00 AM EST eCW1 ([facility]) Ondansetron HCl 4 MG 06/17/2020 12:00:00 AM EST eCW1 ([facility]) Ondansetron HCl 4 MG 06/17/2020 12:00:00 AM EST eCW1 ([facility]) Ondansetron HCl 4 MG 06/17/2020 12:00:00 AM EST eCW1 ([facility]) Ondansetron HCl 4 MG 06/17/2020 12:00:00 AM EST eCW1 ([facility]) Ondansetron HCl 4 MG 06/17/2020 12:00:00 AM EST eCW1 ([facility]) Ondansetron HCl 4 MG 06/17/2020 12:00:00 AM EST eCW1 ([facility]) Ondansetron HCl 4 MG 06/17/2020 12:00:00 AM EST eCW1 ([facility]) Ondansetron HCl 4 MG 06/17/2020 12:00:00 AM EST eCW1 ([facility]) Acetaminophen 325 MG / Oxycodone Hydrochloride 7.5 MG Oral Tablet [Percocet] 05/24/2020 12:00:00 AM EST eCW1 ([facility]) Acetaminophen 325 MG / Oxycodone Hydrochloride 7.5 MG Oral Tablet [Percocet] 05/24/2020 12:00:00 AM EST eCW1 ([facility]) Acetaminophen 325 MG / Oxycodone Hydrochloride 7.5 MG Oral Tablet [Percocet] 05/24/2020 12:00:00 AM EST eCW1 ([facility]) Acetaminophen 325 MG / Oxycodone Hydrochloride 7.5 MG Oral Tablet [Percocet] 05/24/2020 12:00:00 AM EST eCW1 ([facility]) Acetaminophen 325 MG / Oxycodone Hydrochloride 7.5 MG Oral Tablet [Percocet] 05/10/2020 12:00:00 AM EDT eCW1 ([facility]) Acetaminophen 325 MG / Oxycodone Hydrochloride 7.5 MG Oral Tablet [Percocet] 05/10/2020 12:00:00 AM EDT eCW1 ([facility]) Acetaminophen 325 MG / Oxycodone Hydrochloride 7.5 MG Oral Tablet [Percocet] 05/10/2020 12:00:00 AM EDT eCW1 ([facility]) Acetaminophen 325 MG / Oxycodone Hydrochloride 7.5 MG Oral Tablet [Percocet] 05/10/2020 12:00:00 AM EDT eCW1 ([facility])
[2021-04-30] MEDS ORDERED: AUGM875T28 PO (06:48)
[2021-04-30] MEDS ORDERED: MUCI600T31 PO (06:52)
[2021-04-30] MEDS ORDERED: NS 1,000 ML IV ONE (06:55)
[2021-04-30] MEDS ORDERED: KETOROLAC 30 MG/ML 1ML VIAL IV ONE (07:03)
--- OUTSIDE RECORDS SUMMARY | 2021-04-30 07:05 | CCD ---
Author Author [facility] Organization [facility] Address Unknown Phone Unavailable Care Team Providers Care Meteorology Professor Name Role Phone Brandon WOODY NP Unavailable [...] SONOCKBrandon NP Unavailable Unavailable LAROCK, J ISAI CARDIAC RN Unavailable Unavailable LAROCK, Brandon ALEX CARDIAC RN Unavailable Unavailable LAROCK, Brandon ALEX CARDIAC RN Unavailable Unavailable LAROCK, Brandon ALEX CARDIAC RN Unavailable Unavailable MORIN, Vamsi RIVERA MD Unavailable Unavailable MORIN, Vamsi IRVERA MD Unavailable Unavailable MORIN, Vamsi RIVERA MD [...] E Magdaleno MD Unavailable Unavailable Rodolfo, E Amgdaleno MD Unavailable Unavailable Rodolfo, E Magdaleno MD Unavailable Unavailable Rodolfo, E Magdaleno MD Unavailable Unavailable Rodolfo, E Magdaleno MD Unavailable Unavailable Rodolfo, E Magdaleno MD Unavailable Unavailable Rodolfo, E Magdaleno MD Unavailable Unavailable Rodolfo, E Magdaleno MD Unavailable Unavailable Rodolfo, E Magdaleno MD Unavailable Unavailable Rdoolfo, E Magdaleno MD Unavailable Unavailable Rodolfo, E [...] is protected by Article 27-F of the [facility] Public Health law. If you continue you may have access to information: Regarding HIV / AIDS; Provided by facilities licensed or operated by the [facility] Office of Mental Health; or Provided by the [facility] Office for People With Developmental Disabilities. If such information is present, then the following [facility] mandated warning applies: This information has [...] law may result in a fine or care home sentence or both. A general authorization for the release of medical or other information is NOT sufficient authorization for further disc losure. Family History Family Member Name Family Member Gender Family Member Status Date o f Status Description Data Source(s) Unknown Male Diagnosis 11/12/2016 12:00:00 AM EDT [facility] ([facility]) Encounters Encounter Providers Location Date Indications Data Source(s ) [place] [address] [facility] [address] 04/28/2021 12:00:00 AM EDT eCW1 ([facility]) Unknown [address] [facility] [place] [address] 04/28/2021 12:00:00 AM EDT eCW1 ([facility]) [place] [address] [facility] [address] 04/10/2021 12:00:00 AM EDT eCW1 ([facility]) Unknown [address] [facility] [place] [address] 03/07/2021 12:00:00 AM EDT eCW1 ([facility]) Unknown [address] [facility] [place] [address] 02/09/2021 12:00:00 AM EDT eCW1 ([facility]) [place] [address] [facility] [place] [address] 02/09/2021 12:00:00 AM EDT eCW1 ([facility]) Unknown [address] [facility] [place] [address] 01/28/2021 12:00:00 AM EDT eCW1 ([facility]) Unknown [address] [facility] [place] [address] 01/27/2021 12:00:00 AM EDT eCW1 ([facility]) (WC PROC) [facility] Procedure [address] [place] [address] 2021 12:00:00 AM EDT eCW1 ([facility] Unknown [address] [facility] [place] [address] 01/17/2021 12:00:00 AM EDT eCW1 ([facility]) Unknown [address] [facility] [place] [address] 01/10/2021 12:00:00 AM EDT eCW1 ([facility]) Outpatient Attender: Shara Bustos: Magdaleno Lehman 12/28/2020 10:02:11 AM EDT [facility] [place] [address] [facility] [address] 12/21/2020 12:00:00 AM EDT [facility] Recurring Patient Attender: NICOLE Toro: Magdaleno coley MD 12/19/2020 03:30:21 PM EDT [facility] [address] [facility] [place] [address] 12/09/2020 12:00:00 AM EDT [facility]CW1 [facility] [address] [facility] [place] [address] 12/02/2020 12:00:00 AM EDT eCW1 [facility]) Outpatient [address] [facility] [address] 12/02/2020 12:00:00 AM EDT [facility]CW1 [facility] Unknown [address] [facility] [place] [address] 11/23/2020 12:00:00 AM EDT eCW1 [facility]) [facility] [address] [facility] [place] [address] 11/22/2020 12:00:00 AM EDT [facility]CW1 [facility] [place] [address] [facility] [place] [address] 11/18/2020 12:00:00 AM EDT eCW1 [facility]) Outpatient Attender: Key Osborn MD 0 11/08/2020 04:52:01 PM EDT - 11/08/2020 06:03:55 PM EDT [facility] ([facility]) Unknown [address] [facility] [address] 11/03/2020 12:00:00 AM EDT [facility] [address] [facility] [address] 11/03/2020 12:00:00 AM EDT eCW1 ([facility]) Outpatient [address] [facility] [address] 10/27/2020 12:00:00 AM EDT eCW1 ([facility]) Unknown [address] [facility] [address] 10/21/2020 12:00:00 AM EDT eCW1 ([facility]) Unknown [address] [facility] [address] 10/20/2020 12:00:00 AM EDT eCW1 ([facility]) Unknown [address] [facility] [address] 10/20/2020 12:00:00 AM EDT eCW1 ([facility]) Unknown [address] [facility] [address] 10/20/2020 12:00:00 AM EDT eCW1 ([facility]) Unknown [address] [facility] [address] 09/21/2020 12:00:00 AM EST eCW1 ([facility]) Unknown [address] [facility] [address] 09/16/2020 12:00:00 AM EST eCW1 ([facility]) [facility] [address] [place] [address] 09/16/2020 12:00:00 AM EST eCW1 ([facility]) Unknown [address] [facility] [address] 09/14/2020 12:00:00 AM EST eCW1 ([facility]) Unknown [address] [facility] [address] 08/23/2020 12:00:00 AM EST eCW1 ([facility]) Unknown [address] [facility] [address] 08/19/2020 12:00:00 AM EST eCW1 ([facility]) Outpatient Attender: ISAI WOODY NP 10/2020 07:08:14 PM EST - 08/18/2020 07:54:21 PM EST [facility] ([facility] ) Unknown [address] [facility] [address] 08/18/2020 12:00:00 AM EST eCW1 ([facility]) Unknown [address] [facility] [address] 08/18/2020 12:00:00 AM EST eCW1 ([facility]) Unknown [address] [facility] [address] 08/11/2020 12:00:00 AM EST eCW1 ([facility]) Outpatient [address] [facility] [address] 07/27/2020 12:00:00 AM EST eCW1 ([facility]) Unknown [address] [facility] [address] 07/19/2020 12:00:00 AM EST eCW1 ([facility]) Unknown [address] [facility] [address] 07/18/2020 12:00:00 AM EST eCW1 ([facility]) Unknown [address] [facility] [place] [address] 07/18/2020 12:00:00 AM EST eCW1 ([facility]) Unknown [address] [facility] [address] 07/18/2020 12:00:00 AM EST eCW1 ([facility]) Unknown [address] [facility] [place] [address] 07/17/2020 12:00:00 AM EST eCW1 ([facility]) Unknown [address] [facility] [place] [address] 07/12/2020 12:00:00 AM EST eCW1 ([facility]) Outpatient Attender: Shara Bustos: Magdaleno Lehman 07/11/2020 08:58:48 AM EST [facility] Unknown [address] [facility] [address] 07/11/2020 12:00:00 AM EST [facility]CW1 [facility] Unknown [address] [facility] [place] [address] 07/11/2020 12:00:00 AM EST eCW1 [facility]) Unknown [address] [facility] [place] [address] 07/11/2020 12:00:00 AM EST [facility] Unknown [address] [facility] [place] [address] 07/11/2020 12:00:00 AM EST [facility]CW[facility]) Recurring Patient Attender: NICOLE ABARCAeferrer: Magdaleno coley MD 07/05/2020 03:12:03 PM EST [facility] [address] [facility] [place] [address] 06/27/2020 12:00:00 AM EST eCW1 [facility] Unknown [address] [facility] [address] 06/27/2020 12:00:00 AM EST [facility]CW1 [facility] Unknown [address] [facility] [place] [address] 06/19/2020 12:00:00 AM EST eCW1 [facility]) Recurring Patient Attender: NICOLE Allenerrer: Magdaleno coley MD 06/15/2020 08:42:08 AM EST [facility] Unknown [address] [facility] [place] [address] 06/14/2020 12:00:00 AM EST eCW1 [facility] Unknown [address] [facility] [place] [address] 06/14/2020 12:00:00 AM EST [facility]CW1 [facility]) Unknown [address] [facility] [address] 06/04/2020 12:00:00 AM EST eCW1 ([facility]) Unknown [address] [facility] [address] 05/24/2020 12:00:00 AM EST eCW1 ([facility]) Unknown [address] [facility] [address] 05/11/2020 12:00:00 AM EDT eCW1 ([facility]) Unknown [address] [facility] [place] [address] 05/11/2020 12:00:00 AM EDT eCW1 ([facility]) Unknown [address] [facility] [place] [address] 05/10/2020 12:00:00 AM EDT eCW1 ([facility]) Unknown [address] [facility] [address] 05/06/2020 12:00:00 AM EDT eCW1 ([facility]) Unknown [address] [facility] [place] [address] 05/06/2020 12:00:00 AM EDT eCW1 ([facility]) Unknown [address] [facility] [place] [address] 05/03/2020 12:00:00 AM EDT eCW1 ([facility]) Unknown [address] [facility] [address] 05/02/2020 12:00:00 AM EDT eCW1 ([facility]) Unknown [address] [facility] [place] [address] 05/02/2020 12:00:00 AM EDT eCW1 ([facility]) Unknown [address] [facility] [address] 04/05/2020 12:00:00 AM EDT eCW1 ([facility]) Unknown [address] [facility] [place] [address] 04/05/2020 12:00:00 AM EDT eCW1 ([facility]) Unknown [address] [facility] [place] [address] 04/05/2020 12:00:00 AM EDT eCW1 ([facility]) Unknown [address] [facility] [address] 04/05/2020 12:00:00 AM EDT eCW1 ([facility]) Unknown [address] [facility] [address] 04/05/2020 12:00:00 AM EDT eCW1 ([facility]) Immunizations Vaccine Date Status Description Data Source(s) COVID-19 VACCINE Pfizer 08/08/2020 12:00:00 AM EST completed [facility] Vaccine Series Complete: YESThis Data wa s Submitted to [facility] Via [email or web address]. COVID-19 VACCINE Pfizer 07/18/2020 12:00:00 AM EST completed [facility] Vaccine Series Complete: NOThis Data was Submitted to [facility] Via [email or web address]. IIV3. This is one of two codes replacing CVX 15, which is being retired. 03/24/2020 02:40:00 PM EDT completed eCW1 ([facility]) IIV3. This is one of two codes replacing CVX 15, which is being retired. 03/24/2020 02:40:00 PM EDT completed eCW1 ([facility]) IIV3. This is one of two codes replacing CVX 15, which is being retired. 03/24/2020 02:40:00 PM EDT completed eCW1 ([facility]) IIV3. This is one of two codes replacing CVX 15, which is being retired. 03/24/2020 02:40:00 PM EDT completed eCW1 ([facility]) IIV3. This is one of two codes replacing CVX 15, which is being retired. 03/24/2020 02:40:00 PM EDT completed eCW1 ([facility]) IIV3. This is one of two codes replacing CVX 15, which is being retired. 03/24/2020 02:40:00 PM EDT completed eCW1 ([facility]) IIV3. This is one of two codes replacing CVX 15, which is being retired. 03/24/2020 02:40:00 PM EDT completed eCW1 ([facility]) IIV3. This is one of two codes replacing CVX 15, which is being retired. 03/24/2020 02:40:00 PM EDT completed eCW1 ([facility]) IIV3. This is one of two codes replacing CVX 15, which is being retired. 03/24/2020 02:40:00 PM EDT completed eCW1 ([facility]) IIV3. This is one of two codes replacing CVX 15, which is being retired. 03/24/2020 02:40:00 PM EDT completed eCW1 ([facility]) IIV3. This is one of two codes replacing CVX 15, which is being retired. 03/24/2020 02:40:00 PM EDT completed eCW1 ([facility]) IIV3. This is one of two codes replacing CVX 15, which is being retired. 03/24/2020 02:40:00 PM EDT completed eCW1 ([facility]) IIV3. This is one of two codes replacing CVX 15, which is being retired. 03/24/2020 02:40:00 PM EDT completed eCW1 ([facility]) IIV3. This is one of two codes replacing CVX 15, which is being retired. 03/24/2020 02:40:00 PM EDT completed eCW1 ([facility]) IIV3. This is one of two codes replacing CVX 15, which is being retired. 03/24/2020 02:40:00 PM EDT completed eCW1 ([facility]) IIV3. This is one of two codes replacing CVX 15, which is being retired. 03/24/2020 02:40:00 PM EDT completed eCW1 ([facility]) IIV3. This is one of two codes replacing CVX 15, which is being retired. 03/24/2020 02:40:00 PM EDT completed eCW1 ([facility]) IIV3. This is one of two codes replacing CVX 15, which is being retired. 03/24/2020 02:40:00 PM EDT completed eCW1 ([facility]) IIV3. This is one of two codes replacing CVX 15, which is being retired. 03/24/2020 02:40:00 PM EDT completed eCW1 ([facility]) IIV3. This is one of two codes replacing CVX 15, which is being retired. 03/24/2020 02:40:00 PM EDT completed eCW1 ([facility]) IIV3. This is one of two codes replacing CVX 15, which is being retired. 03/24/2020 02:40:00 PM EDT completed eCW1 ([facility]) IIV3. This is one of two codes replacing CVX 15, which is being retired. 03/24/2020 02:40:00 PM EDT completed eCW1 ([facility]) IIV3. This is one of two codes replacing CVX 15, which is being retired. 03/24/2020 02:40:00 PM EDT completed eCW1 ([facility]) IIV3. This is one of two codes replacing CVX 15, which is being retired. 03/24/2020 02:40:00 PM EDT completed eCW1 ([facility]) IIV3. This is one of two codes replacing CVX 15, which is being retired. 03/24/2020 02:40:00 PM EDT completed eCW1 ([facility]) IIV3. This is one of two codes replacing CVX 15, which is being retired. 03/24/2020 02:40:00 PM EDT completed eCW1 ([facility]) IIV3. This is one of two codes replacing CVX 15, which is being retired. 03/24/2020 02:40:00 PM EDT completed eCW1 ([facility]) IIV3. This is one of two codes replacing CVX 15, which is being retired. 03/24/2020 02:40:00 PM EDT completed eCW1 ([facility]) IIV3. This is one of two codes replacing CVX 15, which is being retired. 03/24/2020 02:40:00 PM EDT completed eCW1 ([facility]) IIV3. This is one of two codes replacing CVX 15, which is being retired. 03/24/2020 02:40:00 PM EDT completed eCW1 ([facility]) IIV3. This is one of two codes replacing CVX 15, which is being retired. 03/24/2020 02:40:00 PM EDT completed eCW1 ([facility]) IIV3. This is one of two codes replacing CVX 15, which is being retired. 03/24/2020 02:40:00 PM EDT completed eCW1 ([facility]) IIV3. This is one of two codes replacing CVX 15, which is being retired. 03/24/2020 02:40:00 PM EDT completed eCW1 ([facility]) IIV3. This is one of two codes replacing CVX 15, which is being retired. 03/24/2020 02:40:00 PM EDT completed eCW1 ([facility]) IIV3. This is one of two codes replacing CVX 15, which is being retired. 03/24/2020 02:40:00 PM EDT completed eCW1 ([facility]) IIV3. This is one of two codes replacing CVX 15, which is being retired. 03/24/2020 02:40:00 PM EDT completed eCW1 ([facility]) IIV3. This is one of two codes replacing CVX 15, which is being retired. 03/24/2020 02:40:00 PM EDT completed eCW1 ([facility]) IIV3. This is one of two codes replacing CVX 15, which is being retired. 03/24/2020 02:40:00 PM EDT completed eCW1 ([facility]) IIV3. This is one of two codes replacing CVX 15, which is being retired. 03/24/2020 02:40:00 PM EDT completed eCW1 ([facility]) IIV3. This is one of two codes replacing CVX 15, which is being retired. 03/24/2020 02:40:00 PM EDT completed eCW1 ([facility]) IIV3. This is one of two codes replacing CVX 15, which is being retired. 03/24/2020 02:40:00 PM EDT completed eCW1 ([facility]) IIV3. This is one of two codes replacing CVX 15, which is being retired. 03/24/2020 02:40:00 PM EDT completed eCW1 ([facility]) IIV3. This is one of two codes replacing CVX 15, which is being retired. 03/24/2020 02:40:00 PM EDT completed eCW1 ([facility]) IIV3. This is one of two codes replacing CVX 15, which is being retired. 03/24/2020 02:40:00 PM EDT completed eCW1 ([facility]) IIV3. This is one of two codes replacing CVX 15, which is being retired. 03/24/2020 02:40:00 PM EDT completed eCW1 ([facility]) IIV3. This is one of two codes replacing CVX 15, which is being retired. 03/24/2020 02:40:00 PM EDT completed eCW1 ([facility]) IIV3. This is one of two codes replacing CVX 15, which is being retired. 03/24/2020 02:40:00 PM EDT completed eCW1 ([facility]) IIV3. This is one of two codes replacing CVX 15, which is being retired. 03/24/2020 02:40:00 PM EDT completed eCW1 ([facility]) IIV3. This is one of two codes replacing CVX 15, which is being retired. 03/24/2020 02:40:00 PM EDT completed eCW1 ([facility]) IIV3. This is one of two codes replacing CVX 15, which is being retired. 03/24/2020 02:40:00 PM EDT completed eCW1 ([facility]) IIV3. This is one of two codes replacing CVX 15, which is being retired. 03/24/2020 02:40:00 PM EDT completed eCW1 ([facility]) IIV3. This is one of two codes replacing CVX 15, which is being retired. 03/24/2020 02:40:00 PM EDT completed eCW1 ([facility]) IIV3. This is one of two codes replacing CVX 15, which is being retired. 03/24/2020 02:40:00 PM EDT completed eCW1 ([facility]) IIV3. This is one of two codes replacing CVX 15, which is being retired. 03/24/2020 02:40:00 PM EDT completed eCW1 ([facility]) IIV3. This is one of two codes replacing CVX 15, which is being retired. 03/24/2020 02:40:00 PM EDT completed eCW1 ([facility]) IIV3. This is one of two codes replacing CVX 15, which is being retired. 03/24/2020 02:40:00 PM EDT completed eCW1 ([facility]) Medications Medication Brand Name Start Date Product Form Dose Route Admi nistrative Instructions Pharmacy Instructions Status Indications Reaction Description Data Source(s) Carisoprodol 350 MG Oral Tablet [Soma] Soma 350 MG Soma 350 MG 04/28/2021 12:00:00 AM EDT 1.0 {tablet_as_needed} active Soma 350 MG eCW1 ([facility]) Carisoprodol 350 MG Oral Tablet [Soma] Soma 350 MG Soma 350 MG 04/28/2021 12:00:00 AM EDT 1.0 {tablet_as_needed} active Soma 350 MG eCW1 ([facility]) 1 mg 04/14/2021 12:00:00 AM EDT tablet [...] {tablet_as_needed} active Percocet 7.5- 325 MG eCW1 ([facility]) Acetaminophen 325 MG / Oxycodone Hydroch loride 7.5 MG Oral Tablet [Percocet] Percocet 7.5-325 MG Percocet 7.5-325 MG 04/11/2021 12:00:00 AM EDT 1.0 {tablet_as_needed} active Percocet 7.5- 325 MG eCW1 ([facility]) Clonazepam 1 MG Oral Tablet clonazePAM 1 MG clonazePAM 1 MG 04/11/2021 12:00:00 AM EDT 1.0 {tablet} active clonazePAM 1 MG eCW1 ([facility]) Clonazepam 1 MG Oral Tablet clonazePAM 1 MG clonazePAM 1 MG 04/11/2021 12:00:00 AM EDT 1.0 {tablet} active clonazePAM 1 MG eCW1 ([facility]) Acetaminophen 325 MG / Oxycodone Hydroch loride 7.5 MG Oral Tablet [Percocet] Percocet 7.5-325 MG Percocet 7.5-325 MG 04/11/2021 12:00:00 AM EDT 1.0 {tablet_as_needed} active Percocet 7.5- 325 MG eCW1 ([facility]) Clonazepam 1 MG Oral Tablet clonazePAM 1 MG clonazePAM 1 MG 04/11/2021 12:00:00 AM EDT 1.0 {tablet} active clonazePAM 1 MG eCW1 ([facility]) 7.5-325 mg 04/11/2021 12:00:00 AM EDT tablet [...] 1.0 {tablet_at_bedtime} active Ambien 5 MG eCW1 ([facility]) Zolpidem tartrate 5 MG Oral Tablet [Ambien] Ambien 5 MG Ambi en 5 MG 03/09/2021 12:00:00 AM EDT 1.0 {tablet_at_bedtime} active Ambien 5 MG eCW1 ([facility]) Zolpidem tartrate 5 MG Oral Tablet [Ambien] Ambien 5 MG Ambi en 5 MG 03/09/2021 12:00:00 AM EDT 1.0 {tablet_at_bedtime} active Ambien 5 MG eCW1 ([facility]) Acetaminophen 325 MG / Oxycodone Hydroch loride 7.5 MG Oral Tablet [Percocet] Percocet 7.5-325 MG Percocet 7.5-325 MG 03/09/2021 12:00:00 AM EDT 1.0 {tablet_as_needed} active Percocet 7.5- 325 MG eCW1 ([facility]) Clonazepam 1 MG Oral Tablet clonazePAM 1 MG clonazePAM 1 MG 03/09/2021 12:00:00 AM EDT 1.0 {tablet} active clonazePAM 1 MG eCW1 ([facility]) Zolpidem tartrate 5 MG Oral Tablet [Ambien] Ambien 5 MG Ambi en 5 MG 03/09/2021 12:00:00 AM EDT 1.0 {tablet_at_bedtime} active Ambien 5 MG eCW1 ([facility]) 100,000 unit/gram 02/21/2021 12:00:00 AM EDT powder [...] {tablet_as_needed} active Percocet 7.5- 325 MG eCW1 ([facility]) Clobetasol Propionate 0.5 MG/ML Topical Cream 0.05 [...] 12:00:00 AM EDT 1.0 {tablet_as_needed} active eCW1 ([facility]) 7.5-325 mg 02/09/2021 12:00:00 AM EDT tablet [...] {tablet_as_needed} active Percocet 7.5- 325 MG eCW1 ([facility]) Acetaminophen 325 MG / Oxycodone Hydroch loride 7.5 MG Oral Tablet [Percocet] Percocet 7.5-325 MG Percocet 7.5-325 MG 01/10/2021 12:00:00 AM EDT 1.0 {tablet_as_needed} active Percocet 7.5- 325 MG eCW1 ([facility]) Acetaminophen 325 MG / Oxycodone Hydroch loride 7.5 MG Oral Tablet [Percocet] Percocet 7.5-325 MG Percocet 7.5-325 MG 01/10/2021 12:00:00 AM EDT 1.0 {tablet_as_needed} active Percocet 7.5- 325 MG eCW1 ([facility]) Acetaminophen 325 MG / Oxycodone Hydroch loride 7.5 MG Oral Tablet [Percocet] Percocet 7.5-325 MG Percocet 7.5-325 MG 01/10/2021 12:00:00 AM EDT 1.0 {tablet_as_needed} active Percocet 7.5- 325 MG eCW1 ([facility]) Acetaminophen 325 MG / Oxycodone Hydroch loride 7.5 MG Oral Tablet [Percocet] Percocet 7.5-325 MG Percocet 7.5-325 MG 01/10/2021 12:00:00 AM EDT 1.0 {tablet_as_needed} active Percocet 7.5- 325 MG eCW1 ([facility]) 7.5-325 mg 01/10/2021 12:00:00 AM EDT tablet 90 TAKE ONE TABLET BY MOUTH THREE TIMES A DAY NEEDED MAXIMUM DAILY DOSE = 3 TAKE ONE TABLET BY MOUTH THREE TIMES A DAY NEEDED MAXIMUM DAILY DOSE = 3 SOLD: 01/10/2021 [facility] Acetaminophen 325 MG / Oxycodone Hydroch loride 7.5 MG Oral Tablet [Percocet] Percocet 7.5-325 MG Percocet 7.5-325 MG 01/10/2021 12:00:00 AM EDT 1.0 {tablet_as_needed} active Percocet 7.5- 325 MG eCW1 ([facility]) 350 mg 12/22/2020 12:00:00 AM EDT tablet [...] {tablet_as_needed} active Percocet 7.5- 325 MG eCW1 ([facility]) 7.5-325 mg 12/13/2020 12:00:00 AM EDT tablet [...] {tablet_as_needed} active Percocet 7.5- 325 MG eCW1 ([facility]) 0.5 mg 12/10/2020 12:00:00 AM EDT tablet [...] 1.0 {tablet} active Lotronex 0.5 MG eCW1 ([facility]) alosetron 0.5 MG Oral Tablet [Lotronex] Lotronex 0.5 MG Lotr onex 0.5 MG 12/05/2020 12:00:00 AM EDT 1.0 {tablet} active Lotronex 0.5 MG eCW1 ([facility]) alosetron 0.5 MG Oral Tablet [Lotronex] Lotronex 0.5 MG Lotr onex 0.5 MG 12/05/2020 12:00:00 AM EDT 1.0 {tablet} active Lotronex 0.5 MG eCW1 ([facility]) alosetron 0.5 MG Oral Tablet [Lotronex] Lotronex 0.5 MG Lotr onex 0.5 MG 12/05/2020 12:00:00 AM EDT 1.0 {tablet} active Lotronex 0.5 MG eCW1 ([facility]) alosetron 0.5 MG Oral Tablet [Lotronex] Lotronex 0.5 MG Lotr onex 0.5 MG 12/05/2020 12:00:00 AM EDT 1.0 {tablet} active Lotronex 0.5 MG eCW1 ([facility]) alosetron 0.5 MG Oral Tablet [Lotronex] Lotronex 0.5 MG Lotr onex 0.5 MG 12/05/2020 12:00:00 AM EDT 1.0 {tablet} active Lotronex 0.5 MG eCW1 ([facility]) alosetron 0.5 MG Oral Tablet [Lotronex] Lotronex 0.5 MG Lotr onex 0.5 MG 12/05/2020 12:00:00 AM EDT 1.0 {tablet} active Lotronex 0.5 MG eCW1 ([facility]) alosetron 0.5 MG Oral Tablet [Lotronex] Lotronex 0.5 MG Lotr onex 0.5 MG 12/05/2020 12:00:00 AM EDT 1.0 {tablet} active Lotronex 0.5 MG eCW1 ([facility]) alosetron 0.5 MG Oral Tablet [Lotronex] Lotronex 0.5 MG Lotr onex 0.5 MG 12/05/2020 12:00:00 AM EDT 1.0 {tablet} active Lotronex 0.5 MG eCW1 ([facility]) alosetron 0.5 MG Oral Tablet [Lotronex] Lotronex 0.5 MG Lotr onex 0.5 MG 12/05/2020 12:00:00 AM EDT 1.0 {tablet} active Lotronex 0.5 MG eCW1 ([facility]) alosetron 0.5 MG Oral Tablet [Lotronex] Lotronex 0.5 MG Lotr onex 0.5 MG 12/05/2020 12:00:00 AM EDT 1.0 {tablet} active Lotronex 0.5 MG eCW1 ([facility]) alosetron 0.5 MG Oral Tablet [Lotronex] Lotronex 0.5 MG Lotr onex 0.5 MG 12/05/2020 12:00:00 AM EDT 1.0 {tablet} active eCW1 ([facility]) alosetron 0.5 MG Oral Tablet [Lotronex] Lotronex 0.5 MG Lotr onex 0.5 MG 12/05/2020 12:00:00 AM EDT 1.0 {tablet} active eCW1 ([facility]) alosetron 0.5 MG Oral Tablet [Lotronex] Lotronex 0.5 MG Lotr onex 0.5 MG 12/05/2020 12:00:00 AM EDT 1.0 {tablet} active Lotronex 0.5 MG eCW1 ([facility]) alosetron 0.5 MG Oral Tablet [Lotronex] Lotronex 0.5 MG Lotr onex 0.5 MG 12/05/2020 12:00:00 AM EDT 1.0 {tablet} active Lotronex 0.5 MG eCW1 ([facility]) alosetron 0.5 MG Oral Tablet [Lotronex] Lotronex 0.5 MG Lotr onex 0.5 MG 12/05/2020 12:00:00 AM EDT 1.0 {tablet} active Lotronex 0.5 MG eCW1 ([facility]) 10 mg 12/03/2020 12:00:00 AM EDT tablet [...] EDT active COMPRESSION STOCKINGS 20-30 mmHg eCW1 ([facility]) COMPRESSION STOCKINGS 20-30 mmHg UNK 12/02/2020 12:00:00 AM EDT active COMPRESSION STOCKINGS 20-30 mmHg eCW1 ([facility]) COMPRESSION STOCKINGS 20-30 mmHg UNK 12/02/2020 12:00:00 AM EDT active COMPRESSION STOCKINGS 20-30 mmHg eCW1 ([facility]) COMPRESSION STOCKINGS 20-30 mmHg UNK 12/02/2020 12:00:00 AM EDT active COMPRESSION STOCKINGS 20-30 mmHg eCW1 ([facility]) COMPRESSION STOCKINGS 20-30 mmHg UNK 12/02/2020 12:00:00 AM EDT active eCW1 ([facility]) COMPRESSION STOCKINGS 20-30 mmHg UNK 12/02/2020 12:00:00 AM EDT active COMPRESSION STOCKINGS 20-30 mmHg eCW1 ([facility]) COMPRESSION STOCKINGS 20-30 mmHg UNK 12/02/2020 12:00:00 AM EDT active COMPRESSION STOCKINGS 20-30 mmHg eCW1 ([facility]) COMPRESSION STOCKINGS 20-30 mmHg UNK 12/02/2020 12:00:00 AM EDT active COMPRESSION STOCKINGS 20-30 mmHg eCW1 ([facility]) COMPRESSION STOCKINGS 20-30 mmHg UNK 12/02/2020 12:00:00 AM EDT active COMPRESSION STOCKINGS 20-30 mmHg eCW1 ([facility]) COMPRESSION STOCKINGS 20-30 mmHg UNK 12/02/2020 12:00:00 AM EDT active COMPRESSION STOCKINGS 20-30 mmHg eCW1 ([facility]) COMPRESSION STOCKINGS 20-30 mmHg UNK 12/02/2020 12:00:00 AM EDT active COMPRESSION STOCKINGS 20-30 mmHg eCW1 ([facility]) COMPRESSION STOCKINGS 20-30 mmHg UNK 12/02/2020 12:00:00 AM EDT active eCW1 ([facility]) COMPRESSION STOCKINGS 20-30 mmHg UNK 12/02/2020 12:00:00 AM EDT active COMPRESSION STOCKINGS 20-30 mmHg eCW1 ([facility]) COMPRESSION STOCKINGS 20-30 mmHg UNK 12/02/2020 12:00:00 AM EDT active COMPRESSION STOCKINGS 20-30 mmHg eCW1 ([facility]) COMPRESSION STOCKINGS 20-30 mmHg UNK 12/02/2020 12:00:00 AM EDT active COMPRESSION STOCKINGS 20-30 mmHg eCW1 ([facility]) COMPRESSION STOCKINGS 20-30 mmHg UNK 12/02/2020 12:00:00 AM EDT active COMPRESSION STOCKINGS 20-30 mmHg eCW1 ([facility]) 1 mg 11/23/2020 12:00:00 AM EDT tablet [...] {tablet_as_needed} active Percocet 7.5- 325 MG eCW1 ([facility]) Acetaminophen 325 MG / Oxycodone Hydroch loride 7.5 MG Oral Tablet [Percocet] Percocet 7.5-325 MG Percocet 7.5-325 MG 11/22/2020 12:00:00 AM EDT 1.0 {tablet_as_needed} active Percocet 7.5- 325 MG eCW1 ([facility]) Acetaminophen 325 MG / Oxycodone Hydroch loride 7.5 MG Oral Tablet [Percocet] Percocet 7.5-325 MG Percocet 7.5-325 MG 11/22/2020 12:00:00 AM EDT 1.0 {tablet_as_needed} active Percocet 7.5- 325 MG eCW1 ([facility]) quetiapine 50 MG Oral Tablet QUETIAPINE FUMARATE [...] {tablet} active Metronidazo le 500 MG eCW1 ([facility]) Metronidazole 500 MG Oral Tablet Metronidazole 500 MG 2020 12:00:00 AM EDT 1.0 {tablet} active Metronidazo le 500 MG eCW1 ([facility]) Metronidazole 500 MG Oral Tablet Metronidazole 500 MG 2020 12:00:00 AM EDT 1.0 {tablet} active Metronidazo le 500 MG eCW1 ([facility]) Metronidazole 500 MG Oral Tablet Metronidazole 500 MG 2020 12:00:00 AM EDT 1.0 {tablet} active Metronidazo le 500 MG eCW1 ([facility]) Metronidazole 500 MG Oral Tablet Metronidazole 500 MG 2020 12:00:00 AM EDT 1.0 {tablet} active Metronidazo le 500 MG eCW1 ([facility]) Metronidazole 500 MG Oral Tablet Metronidazole 500 MG 2020 12:00:00 AM EDT 1.0 {tablet} active Metronidazo le 500 MG eCW1 ([facility]) 1 mg 10/21/2020 12:00:00 AM EDT tablet [...] {tablet_as_needed} active Percocet 7.5- 325 MG eCW1 ([facility]) Acetaminophen 325 MG / Oxycodone Hydroch loride 7.5 MG Oral Tablet [Percocet] Percocet 7.5-325 MG Percocet 7.5-325 MG 10/21/2020 12:00:00 AM EDT 1.0 {tablet_as_needed} active Percocet 7.5- 325 MG eCW1 ([facility]) 350 mg 10/21/2020 12:00:00 AM EDT tablet [...] {tablet_as_needed} active Percocet 7.5- 325 MG eCW1 ([facility]) Acetaminophen 325 MG / Oxycodone Hydroch loride 7.5 MG Oral Tablet [Percocet] Percocet 7.5-325 MG Percocet 7.5-325 MG 10/21/2020 12:00:00 AM EDT 1.0 {tablet_as_needed} active Percocet 7.5- 325 MG eCW1 ([facility]) Acetaminophen 325 MG / Oxycodone Hydroch loride 7.5 MG Oral Tablet [Percocet] Percocet 7.5-325 MG Percocet 7.5-325 MG 10/21/2020 12:00:00 AM EDT 1.0 {tablet_as_needed} active Percocet 7.5- 325 MG eCW1 ([facility]) 7.5-325 mg 10/21/2020 12:00:00 AM EDT tablet [...] {tablet_as_needed} active Percocet 7.5- 325 MG eCW1 ([facility]) Acetaminophen 325 MG / Oxycodone Hydroch loride 7.5 MG Oral Tablet [Percocet] Percocet 7.5-325 MG Percocet 7.5-325 MG 10/21/2020 12:00:00 AM EDT 1.0 {tablet_as_needed} active Percocet 7.5- 325 MG eCW1 ([facility]) Acetaminophen 325 MG / Oxycodone Hydroch loride 7.5 MG Oral Tablet [Percocet] Percocet 7.5-325 MG Percocet 7.5-325 MG 09/22/2020 12:00:00 AM EST 1.0 {tablet_as_needed} active Percocet 7.5- 325 MG eCW1 ([facility]) 7.5-325 mg 09/22/2020 12:00:00 AM EST tablet [...] {tablet_as_needed} active Percocet 7.5- 325 MG eCW1 ([facility]) Acetaminophen 325 MG / Oxycodone Hydroch loride 7.5 MG Oral Tablet [Percocet] Percocet 7.5-325 MG Percocet 7.5-325 MG 08/18/2020 12:00:00 AM EST 1.0 {tablet_as_needed} active Percocet 7.5- 325 MG eCW1 ([facility]) Acetaminophen 325 MG / Oxycodone Hydroch loride 7.5 MG Oral Tablet [Percocet] Percocet 7.5-325 MG Percocet 7.5-325 MG 08/18/2020 12:00:00 AM EST 1.0 {tablet_as_needed} active Percocet 7.5- 325 MG eCW1 ([facility]) Acetaminophen 325 MG / Oxycodone Hydroch loride 7.5 MG Oral Tablet [Percocet] Percocet 7.5-325 MG Percocet 7.5-325 MG 08/18/2020 12:00:00 AM EST 1.0 {tablet_as_needed} active Percocet 7.5- 325 MG eCW1 ([facility]) Acetaminophen 325 MG / Oxycodone Hydroch loride 7.5 MG Oral Tablet [Percocet] Percocet 7.5-325 MG Percocet 7.5-325 MG 08/18/2020 12:00:00 AM EST 1.0 {tablet_as_needed} active Percocet 7.5- 325 MG eCW1 ([facility]) 7.5-325 mg 08/18/2020 12:00:00 AM EST tablet [...] {tablet_as_needed} active Percocet 7.5- 325 MG eCW1 ([facility]) Acetaminophen 325 MG / Oxycodone Hydroch loride 7.5 MG Oral Tablet [Percocet] Percocet 7.5-325 MG Percocet 7.5-325 MG 08/18/2020 12:00:00 AM EST 1.0 {tablet_as_needed} active Percocet 7.5- 325 MG eCW1 ([facility]) 4 mg 08/17/2020 12:00:00 AM EST tablet,disintegrating 9 0 DISSOLVE ONE TABLET ON TONGUE EVERY DAY DISSOLVE ONE TABLET ON TONGUE EVERY DAY SOLD: 08/18/2020 [facility] pantoprazole 40 MG Delayed Release Oral Tablet [...] 1 DOSE IN 2 HOURS SOLD: 08/14/2020 [facility] Diclofenac Sodium 75 MG Delayed Release Oral Tablet DICLOFEN AC SODIUM 08/13/2020 12:00:00 AM EST tablet,delayed release (DR/EC) 180 TAKE ONE TABLET BY MOUTH TWICE A DAY TAKE ONE TABLET BY MOUTH TWICE A DAY SOLD: 08/14/2020 [facility] quetiapine 50 MG Oral Tablet Quetiapine Fumarate 50 MG Quetiapine Fumarate 50 MG 07/27/2020 12:00:00 AM EST active Quetiapine Fumarate 50 MG eCW1 ([facility]) Hyoscyamine Sulfate 0.125 MG Oral Tablet Hyoscyamine Sulfate 0.125 MG 07/27/2020 12:00:00 AM EST active Hyoscya mine Sulfate 0.125 MG eCW1 ([facility]) quetiapine 50 MG Oral Tablet Quetiapine Fumarate 50 MG Quetiapine Fumarate 50 MG 07/27/2020 12:00:00 AM EST active Quetiapine Fumarate 50 MG eCW1 ([facility]) quetiapine 50 MG Oral Tablet Quetiapine Fumarate 50 MG Quetiapine Fumarate 50 MG 07/27/2020 12:00:00 AM EST active Quetiapine Fumarate 50 MG eCW1 ([facility]) Hyoscyamine Sulfate 0.125 MG Oral Tablet Hyoscyamine Sulfate 0.125 MG 07/27/2020 12:00:00 AM EST active Hyoscya mine Sulfate 0.125 MG eCW1 ([facility]) quetiapine 50 MG Oral Tablet Quetiapine Fumarate 50 MG Quetiapine Fumarate 50 MG 07/27/2020 12:00:00 AM EST active Quetiapine Fumarate 50 MG eCW1 ([facility]) 1,250 mcg (50,000 unit) 07/27/2020 12:00:00 AM EST capsule 12 TAKE ONE CAPSULE BY MOUTH EVERY 7 DAYS TAKE ONE CAPSULE BY MOUTH EVERY 7 DAYS SOLD: 07/27/2020 [facility] quetiapine 50 MG Oral Tablet Quetiapine Fumarate 50 MG Quetiapine Fumarate 50 MG 07/27/2020 12:00:00 AM EST active Quetiapine Fumarate 50 MG eCW1 ([facility]) Hyoscyamine Sulfate 0.125 MG Oral Tablet Hyoscyamine Sulfate 0.125 MG 07/27/2020 12:00:00 AM EST active Hyoscya mine Sulfate 0.125 MG eCW1 ([facility]) quetiapine 50 MG Oral Tablet Quetiapine Fumarate 50 MG Quetiapine Fumarate 50 MG 07/27/2020 12:00:00 AM EST active Quetiapine Fumarate 50 MG eCW1 ([facility]) Hyoscyamine Sulfate 0.125 MG Oral Tablet Hyoscyamine Sulfate 0.125 MG 07/27/2020 12:00:00 AM EST active Hyoscya mine Sulfate 0.125 MG eCW1 ([facility]) quetiapine 50 MG Oral Tablet Quetiapine Fumarate 50 MG Quetiapine Fumarate 50 MG 07/27/2020 12:00:00 AM EST active Quetiapine Fumarate 50 MG eCW1 ([facility]) quetiapine 50 MG Oral Tablet QUETIAPINE FUMARATE [...] active Hyoscya mine Sulfate 0.125 MG eCW1 ([facility]) quetiapine 50 MG Oral Tablet Quetiapine Fumarate 50 MG Quetiapine Fumarate 50 MG 07/27/2020 12:00:00 AM EST active Quetiapine Fumarate 50 MG eCW1 ([facility]) quetiapine 50 MG Oral Tablet Quetiapine Fumarate 50 MG Quetiapine Fumarate 50 MG 07/27/2020 12:00:00 AM EST active Quetiapine Fumarate 50 MG eCW1 ([facility]) Hyoscyamine Sulfate 0.125 MG Oral Tablet Hyoscyamine Sulfate 0.125 MG 07/27/2020 12:00:00 AM EST active Hyoscya mine Sulfate 0.125 MG eCW1 ([facility]) Hyoscyamine Sulfate 0.125 MG Oral Tablet Hyoscyamine Sulfate 0.125 MG 07/27/2020 12:00:00 AM EST active Hyoscya mine Sulfate 0.125 MG eCW1 ([facility]) quetiapine 50 MG Oral Tablet Quetiapine Fumarate 50 MG Quetiapine Fumarate 50 MG 07/27/2020 12:00:00 AM EST active Quetiapine Fumarate 50 MG eCW1 ([facility]) quetiapine 50 MG Oral Tablet Quetiapine Fumarate 50 MG Quetiapine Fumarate 50 MG 07/27/2020 12:00:00 AM EST active Quetiapine Fumarate 50 MG eCW1 ([facility]) quetiapine 50 MG Oral Tablet Quetiapine Fumarate 50 MG Quetiapine Fumarate 50 MG 07/27/2020 12:00:00 AM EST active Quetiapine Fumarate 50 MG eCW1 ([facility]) 0.125 mg 07/27/2020 12:00:00 AM EST tablet 290 TAKE 1-2 TABLETS BY MOUTH NEEDED EVERY 4 HOURS NEEDED FOR DIARRHEA MAXIMUM DAILY DOSE = 12 TABLETS TAKE 1-2 TABLETS BY MOUTH NEEDED EVERY 4 HOURS NEEDED FOR DIARRHEA MAXIMUM DAILY DOSE = 12 TABLETS SOLD: 08/14/2020 [facility] quetiapine 50 MG Oral Tablet Quetiapine Fumarate 50 MG Quetiapine Fumarate 50 MG 07/27/2020 12:00:00 AM EST active Quetiapine Fumarate 50 MG eCW1 ([facility]) quetiapine 50 MG Oral Tablet Quetiapine Fumarate 50 MG Quetiapine Fumarate 50 MG 07/27/2020 12:00:00 AM EST active Quetiapine Fumarate 50 MG eCW1 ([facility]) Hyoscyamine Sulfate 0.125 MG Oral Tablet Hyoscyamine Sulfate 0.125 MG 07/27/2020 12:00:00 AM EST active Hyoscya mine Sulfate 0.125 MG eCW1 ([facility]) quetiapine 50 MG Oral Tablet QUETIAPINE FUMARATE 07/27/2020 12:0 0:00 AM EST tablet 30 TAKE ONE TABLET BY MOUTH AT BEDT ROSITA TAKE ONE TABLET BY MOUTH AT BEDTIME SOLD: 08/28/2020 [facility] Hyoscyamine Sulfate 0.125 MG Oral Tablet Hyoscyamine Sulfate 0.125 MG 07/27/2020 12:00:00 AM EST active Hyoscya mine Sulfate 0.125 MG eCW1 ([facility]) Hyoscyamine Sulfate 0.125 MG Oral Tablet Hyoscyamine Sulfate 0.125 MG 07/27/2020 12:00:00 AM EST active Hyoscya mine Sulfate 0.125 MG eCW1 ([facility]) quetiapine 50 MG Oral Tablet Quetiapine Fumarate 50 MG Quetiapine Fumarate 50 MG 07/27/2020 12:00:00 AM EST active Quetiapine Fumarate 50 MG eCW1 ([facility]) Hyoscyamine Sulfate 0.125 MG Oral Tablet Hyoscyamine Sulfate 0.125 MG 07/27/2020 12:00:00 AM EST active Hyoscya mine Sulfate 0.125 MG eCW1 ([facility]) Hyoscyamine Sulfate 0.125 MG Oral Tablet Hyoscyamine Sulfate 0.125 MG 07/27/2020 12:00:00 AM EST active Hyoscya mine Sulfate 0.125 MG eCW1 ([facility]) quetiapine 50 MG Oral Tablet Quetiapine Fumarate 50 MG Quetiapine Fumarate 50 MG 07/27/2020 12:00:00 AM EST active Quetiapine Fumarate 50 MG eCW1 ([facility]) quetiapine 50 MG Oral Tablet Quetiapine Fumarate 50 MG Quetiapine Fumarate 50 MG 07/27/2020 12:00:00 AM EST active Quetiapine Fumarate 50 MG eCW1 ([facility]) Hyoscyamine Sulfate 0.125 MG Oral Tablet Hyoscyamine Sulfate 0.125 MG 07/27/2020 12:00:00 AM EST active Hyoscya mine Sulfate 0.125 MG eCW1 ([facility]) Hyoscyamine Sulfate 0.125 MG Oral Tablet Hyoscyamine Sulfate 0.125 MG 07/27/2020 12:00:00 AM EST active Hyoscya mine Sulfate 0.125 MG eCW1 ([facility]) quetiapine 50 MG Oral Tablet Quetiapine Fumarate 50 MG Quetiapine Fumarate 50 MG 07/27/2020 12:00:00 AM EST active Quetiapine Fumarate 50 MG eCW1 ([facility]) Hyoscyamine Sulfate 0.125 MG Oral Tablet Hyoscyamine Sulfate 0.125 MG 07/27/2020 12:00:00 AM EST active Hyoscya mine Sulfate 0.125 MG eCW1 ([facility]) quetiapine 50 MG Oral Tablet Quetiapine Fumarate 50 MG Quetiapine Fumarate 50 MG 07/27/2020 12:00:00 AM EST active Quetiapine Fumarate 50 MG eCW1 ([facility]) Hyoscyamine Sulfate 0.125 MG Oral Tablet Hyoscyamine Sulfate 0.125 MG 07/27/2020 12:00:00 AM EST active Hyoscya mine Sulfate 0.125 MG eCW1 ([facility]) quetiapine 50 MG Oral Tablet Quetiapine Fumarate 50 MG Quetiapine Fumarate 50 MG 07/27/2020 12:00:00 AM EST active Quetiapine Fumarate 50 MG eCW1 ([facility]) quetiapine 50 MG Oral Tablet Quetiapine Fumarate 50 MG Quetiapine Fumarate 50 MG 07/27/2020 12:00:00 AM EST active Quetiapine Fumarate 50 MG eCW1 ([facility]) Hyoscyamine Sulfate 0.125 MG Oral Tablet Hyoscyamine Sulfate 0.125 MG 07/27/2020 12:00:00 AM EST active Hyoscya mine Sulfate 0.125 MG eCW1 ([facility]) Hyoscyamine Sulfate 0.125 MG Oral Tablet Hyoscyamine Sulfate 0.125 MG 07/27/2020 12:00:00 AM EST active Hyoscya mine Sulfate 0.125 MG eCW1 ([facility]) Hyoscyamine Sulfate 0.125 MG Oral Tablet Hyoscyamine Sulfate 0.125 MG 07/27/2020 12:00:00 AM EST active Hyoscya mine Sulfate 0.125 MG eCW1 ([facility]) Hyoscyamine Sulfate 0.125 MG Oral Tablet Hyoscyamine Sulfate 0.125 MG 07/27/2020 12:00:00 AM EST active Hyoscya mine Sulfate 0.125 MG eCW1 ([facility]) Hyoscyamine Sulfate 0.125 MG Oral Tablet Hyoscyamine Sulfate 0.125 MG 07/27/2020 12:00:00 AM EST active Hyoscya mine Sulfate 0.125 MG eCW1 ([facility]) 40 mg 07/22/2020 12:00:00 AM EST tablet [...] MOUTH TWICE A DAY SOLD: 07/22/2020 [facility] pantoprazole 40 MG Delayed Release Oral Tablet [...] {tablet_as_needed} active Percocet 7.5- 325 MG eCW1 ([facility]) Acetaminophen 325 MG / Oxycodone Hydroch loride 7.5 MG Oral Tablet [Percocet] Percocet 7.5-325 MG Percocet 7.5-325 MG 06/20/2020 12:00:00 AM EST 1.0 {tablet_as_needed} active Percocet 7.5- 325 MG eCW1 ([facility]) Acetaminophen 325 MG / Oxycodone Hydroch loride 7.5 MG Oral Tablet [Percocet] Percocet 7.5-325 MG Percocet 7.5-325 MG 06/20/2020 12:00:00 AM EST 1.0 {tablet_as_needed} active Percocet 7.5- 325 MG eCW1 ([facility]) Acetaminophen 325 MG / Oxycodone Hydroch loride 7.5 MG Oral Tablet [Percocet] Percocet 7.5-325 MG Percocet 7.5-325 MG 06/20/2020 12:00:00 AM EST 1.0 {tablet_as_needed} active Percocet 7.5- 325 MG eCW1 ([facility]) Acetaminophen 325 MG / Oxycodone Hydroch loride 7.5 MG Oral Tablet [Percocet] Percocet 7.5-325 MG Percocet 7.5-325 MG 06/20/2020 12:00:00 AM EST 1.0 {tablet_as_needed} active Percocet 7.5- 325 MG eCW1 ([facility]) Acetaminophen 325 MG / Oxycodone Hydroch loride 7.5 MG Oral Tablet [Percocet] Percocet 7.5-325 MG Percocet 7.5-325 MG 06/20/2020 12:00:00 AM EST 1.0 {tablet_as_needed} active Percocet 7.5- 325 MG eCW1 ([facility]) Acetaminophen 325 MG / Oxycodone Hydroch loride 7.5 MG Oral Tablet [Percocet] Percocet 7.5-325 MG Percocet 7.5-325 MG 06/20/2020 12:00:00 AM EST 1.0 {tablet_as_needed} active Percocet 7.5- 325 MG eCW1 ([facility]) Acetaminophen 325 MG / Oxycodone Hydroch loride 7.5 MG Oral Tablet [Percocet] Percocet 7.5-325 MG Percocet 7.5-325 MG 06/20/2020 12:00:00 AM EST 1.0 {tablet_as_needed} active Percocet 7.5- 325 MG eCW1 ([facility]) Acetaminophen 325 MG / Oxycodone Hydroch loride 7.5 MG Oral Tablet [Percocet] Percocet 7.5-325 MG Percocet 7.5-325 MG 06/20/2020 12:00:00 AM EST 1.0 {tablet_as_needed} active Percocet 7.5- 325 MG eCW1 ([facility]) Acetaminophen 325 MG / Oxycodone Hydroch loride 7.5 MG Oral Tablet [Percocet] Percocet 7.5-325 MG Percocet 7.5-325 MG 06/20/2020 12:00:00 AM EST 1.0 {tablet_as_needed} active Percocet 7.5- 325 MG eCW1 ([facility]) Acetaminophen 325 MG / Oxycodone Hydroch loride 7.5 MG Oral Tablet [Percocet] Percocet 7.5-325 MG Percocet 7.5-325 MG 06/20/2020 12:00:00 AM EST 1.0 {tablet_as_needed} active Percocet 7.5- 325 MG eCW1 ([facility]) 350 mg 06/20/2020 12:00:00 AM EST tablet [...] {tablet_as_needed} active Percocet 7.5- 325 MG eCW1 ([facility]) Acetaminophen 325 MG / Oxycodone Hydroch loride 7.5 MG Oral Tablet [Percocet] Percocet 7.5-325 MG Percocet 7.5-325 MG 06/20/2020 12:00:00 AM EST 1.0 {tablet_as_needed} active Percocet 7.5- 325 MG eCW1 ([facility]) Ondansetron HCl 4 MG UNK 06/17/2020 12:00:00 AM EST 1.0 {tablet } active Ondansetron HCl 4 MG eCW1 ([facility]) Ondansetron HCl 4 MG UNK 06/17/2020 12:00:00 AM EST 1.0 {tablet } active Ondansetron HCl 4 MG eCW1 ([facility]) Ondansetron HCl 4 MG UNK 06/17/2020 12:00:00 AM EST 1.0 {tablet } active Ondansetron HCl 4 MG eCW1 ([facility]) Ondansetron HCl 4 MG UNK 06/17/2020 12:00:00 AM EST 1.0 {tablet } active Ondansetron HCl 4 MG eCW1 ([facility]) Ondansetron HCl 4 MG UNK 06/17/2020 12:00:00 AM EST 1.0 {tablet } active Ondansetron HCl 4 MG eCW1 ([facility]) Ondansetron HCl 4 MG UNK 06/17/2020 12:00:00 AM EST 1.0 {tablet } active Ondansetron HCl 4 MG eCW1 ([facility]) Ondansetron HCl 4 MG UNK 06/17/2020 12:00:00 AM EST 1.0 {tablet } active Ondansetron HCl 4 MG eCW1 ([facility]) Ondansetron HCl 4 MG UNK 06/17/2020 12:00:00 AM EST 1.0 {tablet } active Ondansetron HCl 4 MG eCW1 ([facility]) Ondansetron HCl 4 MG UNK 06/17/2020 12:00:00 AM EST 1.0 {tablet } active eCW1 ([facility]) Ondansetron HCl 4 MG UNK 06/17/2020 12:00:00 AM EST 1.0 {tablet } active Ondansetron HCl 4 MG eCW1 ([facility]) Ondansetron HCl 4 MG UNK 06/17/2020 12:00:00 AM EST 1.0 {tablet } active Ondansetron HCl 4 MG eCW1 ([facility]) Ondansetron HCl 4 MG UNK 06/17/2020 12:00:00 AM EST 1.0 {tablet } active Ondansetron HCl 4 MG eCW1 ([facility]) Ondansetron HCl 4 MG UNK 06/17/2020 12:00:00 AM EST 1.0 {tablet } active Ondansetron HCl 4 MG eCW1 ([facility]) Ondansetron HCl 4 MG UNK 06/17/2020 12:00:00 AM EST 1.0 {tablet } active Ondansetron HCl 4 MG eCW1 ([facility]) Ondansetron HCl 4 MG UNK 06/17/2020 12:00:00 AM EST 1.0 {tablet } active Ondansetron HCl 4 MG eCW1 ([facility]) Ondansetron HCl 4 MG UNK 06/17/2020 12:00:00 AM EST 1.0 {tablet } active Ondansetron HCl 4 MG eCW1 ([facility]) Ondansetron HCl 4 MG UNK 06/17/2020 12:00:00 AM EST 1.0 {tablet } active Ondansetron HCl 4 MG eCW1 ([facility]) Ondansetron HCl 4 MG UNK 06/17/2020 12:00:00 AM EST 1.0 {tablet } active Ondansetron HCl 4 MG eCW1 ([facility]) Ondansetron HCl 4 MG UNK 06/17/2020 12:00:00 AM EST 1.0 {tablet } active Ondansetron HCl 4 MG eCW1 ([facility]) Ondansetron HCl 4 MG UNK 06/17/2020 12:00:00 AM EST 1.0 {tablet } active Ondansetron HCl 4 MG eCW1 ([facility]) Ondansetron HCl 4 MG UNK 06/17/2020 12:00:00 AM EST 1.0 {tablet } active Ondansetron HCl 4 MG eCW1 ([facility]) 1 mg 06/17/2020 12:00:00 AM EST tablet 60 TAKE ONE TABLET BY MOUTH TWICE A DAY MAXIMUM DAILY DOSE = TWO TABLETS TAKE ONE TABLET BY MOUTH TWICE A DAY MAXIMUM DAILY DOSE = TWO TABLETS SOLD: 06/17/2020 [facility] Ondansetron HCl 4 MG UNK 06/17/2020 12:00:00 AM EST 1.0 {tablet } active Ondansetron HCl 4 MG eCW1 ([facility]) Ondansetron HCl 4 MG UNK 06/17/2020 12:00:00 AM EST 1.0 {tablet } active Ondansetron HCl 4 MG eCW1 ([facility]) Ondansetron HCl 4 MG UNK 06/17/2020 12:00:00 AM EST 1.0 {tablet } active Ondansetron HCl 4 MG eCW1 ([facility]) Ondansetron HCl 4 MG UNK 06/17/2020 12:00:00 AM EST 1.0 {tablet } active Ondansetron HCl 4 MG eCW1 ([facility]) Ondansetron HCl 4 MG UNK 06/17/2020 12:00:00 AM EST 1.0 {tablet } active Ondansetron HCl 4 MG eCW1 ([facility]) Ondansetron HCl 4 MG UNK 06/17/2020 12:00:00 AM EST 1.0 {tablet } active Ondansetron HCl 4 MG eCW1 ([facility]) Ondansetron HCl 4 MG UNK 06/17/2020 12:00:00 AM EST 1.0 {tablet } active Ondansetron HCl 4 MG eCW1 ([facility]) Ondansetron HCl 4 MG UNK 06/17/2020 12:00:00 AM EST 1.0 {tablet } active Ondansetron HCl 4 MG eCW1 ([facility]) Ondansetron HCl 4 MG UNK 06/17/2020 12:00:00 AM EST 1.0 {tablet } active Ondansetron HCl 4 MG eCW1 ([facility]) Ondansetron HCl 4 MG UNK 06/17/2020 12:00:00 AM EST 1.0 {tablet } active Ondansetron HCl 4 MG eCW1 ([facility]) Ondansetron HCl 4 MG UNK 06/17/2020 12:00:00 AM EST 1.0 {tablet } active Ondansetron HCl 4 MG eCW1 ([facility]) Ondansetron HCl 4 MG UNK 06/17/2020 12:00:00 AM EST 1.0 {tablet } active Ondansetron HCl 4 MG eCW1 ([facility]) Ondansetron HCl 4 MG UNK 06/17/2020 12:00:00 AM EST 1.0 {tablet } active Ondansetron HCl 4 MG eCW1 ([facility]) Ondansetron HCl 4 MG UNK 06/17/2020 12:00:00 AM EST 1.0 {tablet } active Ondansetron HCl 4 MG eCW1 ([facility]) Ondansetron HCl 4 MG UNK 06/17/2020 12:00:00 AM EST 1.0 {tablet } active Ondansetron HCl 4 MG eCW1 ([facility]) Ondansetron HCl 4 MG UNK 06/17/2020 12:00:00 AM EST 1.0 {tablet } active Ondansetron HCl 4 MG eCW1 ([facility]) Ondansetron HCl 4 MG UNK 06/17/2020 12:00:00 AM EST 1.0 {tablet } active Ondansetron HCl 4 MG eCW1 ([facility]) Ondansetron HCl 4 MG UNK 06/17/2020 12:00:00 AM EST 1.0 {tablet } active Ondansetron HCl 4 MG eCW1 ([facility]) Ondansetron HCl 4 MG UNK 06/17/2020 12:00:00 AM EST 1.0 {tablet } active Ondansetron HCl 4 MG eCW1 ([facility]) Ondansetron HCl 4 MG UNK 06/17/2020 12:00:00 AM EST 1.0 {tablet } active Ondansetron HCl 4 MG eCW1 ([facility]) Ondansetron HCl 4 MG UNK 06/17/2020 12:00:00 AM EST 1.0 {tablet } active Ondansetron HCl 4 MG eCW1 ([facility]) Ondansetron HCl 4 MG UNK 06/17/2020 12:00:00 AM EST 1.0 {tablet } active Ondansetron HCl 4 MG eCW1 ([facility]) Ondansetron HCl 4 MG UNK 06/17/2020 12:00:00 AM EST 1.0 {tablet } active eCW1 ([facility]) Ondansetron HCl 4 MG UNK 06/17/2020 12:00:00 AM EST 1.0 {tablet } active Ondansetron HCl 4 MG eCW1 ([facility]) Ondansetron HCl 4 MG UNK 06/17/2020 12:00:00 AM EST 1.0 {tablet } active Ondansetron HCl 4 MG eCW1 ([facility]) Ondansetron HCl 4 MG UNK 06/17/2020 12:00:00 AM EST 1.0 {tablet } active Ondansetron HCl 4 MG eCW1 ([facility]) Ondansetron HCl 4 MG UNK 06/17/2020 12:00:00 AM EST 1.0 {tablet } active Ondansetron HCl 4 MG eCW1 ([facility]) Ondansetron HCl 4 MG UNK 06/17/2020 12:00:00 AM EST 1.0 {tablet } active Ondansetron HCl 4 MG eCW1 ([facility]) Ondansetron HCl 4 MG UNK 06/17/2020 12:00:00 AM EST 1.0 {tablet } active Ondansetron HCl 4 MG eCW1 ([facility]) Ondansetron HCl 4 MG UNK 06/17/2020 12:00:00 AM EST 1.0 {tablet } active Ondansetron HCl 4 MG eCW1 ([facility]) Ondansetron HCl 4 MG UNK 06/17/2020 12:00:00 AM EST 1.0 {tablet } active Ondansetron HCl 4 MG eCW1 ([facility]) Acetaminophen 325 MG / Oxycodone Hydroch loride 7.5 MG Oral Tablet [Percocet] Percocet 7.5-325 MG Percocet 7.5-325 MG 05/24/2020 12:00:00 AM EST 1.0 {tablet_as_needed} active Percocet 7.5- 325 MG eCW1 ([facility]) Acetaminophen 325 MG / Oxycodone Hydroch loride 7.5 MG Oral Tablet [Percocet] Percocet 7.5-325 MG Percocet 7.5-325 MG 05/24/2020 12:00:00 AM EST 1.0 {tablet_as_needed} active Percocet 7.5- 325 MG eCW1 ([facility]) Acetaminophen 325 MG / Oxycodone Hydroch loride 7.5 MG Oral Tablet [Percocet] Percocet 7.5-325 MG Percocet 7.5-325 MG 05/24/2020 12:00:00 AM EST 1.0 {tablet_as_needed} active Percocet 7.5- 325 MG eCW1 ([facility]) Acetaminophen 325 MG / Oxycodone Hydroch loride 7.5 MG Oral Tablet [Percocet] Percocet 7.5-325 MG Percocet 7.5-325 MG 05/24/2020 12:00:00 AM EST 1.0 {tablet_as_needed} active Percocet 7.5- 325 MG eCW1 ([facility]) 350 mg 05/20/2020 12:00:00 AM EST tablet [...] {tablet_as_needed} active Percocet 7.5- 325 MG eCW1 ([facility]) Acetaminophen 325 MG / Oxycodone Hydroch loride 7.5 MG Oral Tablet [Percocet] Percocet 7.5-325 MG Percocet 7.5-325 MG 05/10/2020 12:00:00 AM EDT 1.0 {tablet_as_needed} active Percocet 7.5- 325 MG eCW1 ([facility]) Acetaminophen 325 MG / Oxycodone Hydroch loride 7.5 MG Oral Tablet [Percocet] Percocet 7.5-325 MG Percocet 7.5-325 MG 05/10/2020 12:00:00 AM EDT 1.0 {tablet_as_needed} active Percocet 7.5- 325 MG eCW1 ([facility]) Acetaminophen 325 MG / Oxycodone Hydroch loride 7.5 MG Oral Tablet [Percocet] Percocet 7.5-325 MG Percocet 7.5-325 MG 05/10/2020 12:00:00 AM EDT 1.0 {tablet_as_needed} active Percocet 7.5- 325 MG eCW1 ([facility]) 100,000 unit/gram 05/06/2020 12:00:00 AM EDT powder [...] type / Coverage type Policy ID Covered green party ID Covered green party's relationship to [place] Policy [place] Plan Information [facility] Commercial [id number] Self [id number] BLUE CROSS O [id number] S [id number] [facility] H [id number] Self [id number] [employer] [place] 306/806 [id number] SP [id number] [place] 306/806 [id number] SP [id number] [place] 306/806 [id number] SP [id number] [place] 306/806 [id number] SP [id number] [facility] [place] Commercial [id number] Self [id number] [place] Commercial [id number] Self [id number] [place] [id number] Self [id number] [place] Commercial [id number] Self [id number] [place] Commercial [id number] Self [id number] [place] Commercial [id number] Self [id number] Blue Cross Blue Shield P [id number] SELF [id number] Blue Cross Blue Shield P [id number] SELF [id number] EXCELLUS BCBS [id number] Marci VYS [id number] Blue Cross Blue Shield P [id number] SELF [id number] Blue Cross Blue Shield P [id number] SELF [id number] Medicaid Medicaid [id number] Self [id number] [employer] Blue Cross and Blue Shield - [place] Blue Cross/B lue Shield [id number] Self [id number] [facility] [place] Commercial [id number] Self [employer] BCBS B [id number] S VYS [id number] BS/W/Id#Prefix/W ALL #'S Medigap Part B [id number] Self BS/W/Id#Prefix/W ALL #'S Commercial [id number] Self [facility] PHY [id number] SP [id number] [employer] [facility] P [id number] S [id number] PMA INSURANCE [id number] SP [id number] OTHER WORKERS COMPENSATI P [id number] S [id number] P UNAVAILABLE UNAVAILA BLE OTHER WORKERS COMPENSATION [id number] SP [id number] [facility] PHY [id number] SP [id number] [facility] PHY [id number] SP [id number] [place] 306/806 [id number] SP [id number] [place]BS [place] PPO 302/307 [id number] SP [id number] [employer] BCBS B [id number] S VYS [id number] SELF PAY ONLY [id number] SP [id number] [place] 306/806 [id number] SP [id number] [employer] BCBS B [id number] S [id number] [id number] [place] 306/806 [id number] SP [id number] [place]BS [place] PPO 302/307 [id number] SP [id number] SELF PAY ONLY [id number] SP [id number] [employer] [id number] self [id number] [employer] [id number] Self [id number] [facility] [id number] Self [id number] BCBS [employer] U/W Commercial [id number] Self [id number] BCBS [employer] U/[employer] Commercial [id number] Self [id number] CD PHP PI PI CD PHP [id number] Marci [id number] EXCELL[employer] BCBS B [id number] S VYS [id number] BCBS/[employer] Medigap Part B [id number] Self BCBS/[employer] Commercial [id number] Self [place] PPO 302/307 [id number] SP [id number] Problems, Conditions, and Diagnoses Code Display Name Description Problem Type Effective Dates Data Source(s) I87.2 [id number] Venous insufficiency of both lower extrem ities Problem 12/02/2020 12:00:00 AM EDT eCW1 ([facility]) R60.9 [id number] Peripheral edema Problem 07/27/2020 12:00:00 AM EST eCW1 ([facility]) Surgeries/Procedures Procedure Description Date Indications Data Source(s) COLPOSCOPY CERVIX BX CERVIX&ENDOCRV CURTG 2021 1 2:00:00 AM EDT eCW1 ([facility]) URINE TEST 2021 12:00:00 AM EDT eCW1 ([facility]) Results ID Date Data Source [id number] 04/18/2021 11:02:00 AM EDT [facility] Name Value Range Interpretation Code Description Data Iris rce(s) Supporting Document(s) SARS coronavirus 2 RNA [Presence] in Res piratory specimen by DEZ with probe detection NEGATIVE [facility] This lab was ordered by [facility] a nd reported by [facility]. ID Date Data Source [id number] 12/28/2020 10:02:11 AM EDT [facility] PC[facility]: Gloria AshrafchuyDOAbhijit: 1975Provider: Omar Spicer: 12/26/2020 Reason For VisitGloria Guerra is here today for her rose. knees. Gloria had her second Covid vaccine on 08/2020. Gloria Guerra is an established patient here for follow up. ([employer]). Patient is working at this time at [...] an outside provider. Results/DataXRays [facility] were reviewed today. Side: Bilateral Site: [...] is to see somebody up in the [place] area but has not seen anybody recently. Work / School NoteThe percentage of temporary impairment is 0%. The patient is working at this time. This document was dictated and electronically signed using [employer]Docket Speaking software. A reasonable attempt at proof reading has been made to minimize errors. Please call with any questions. Signatures Electronically signed by : Shara Spicer PA-C; Dec 26 2020 8:44AM EST (Author) Electronically signed by : Nicole Morin M.D.; Dec 28 2020 10:02AM EST (Author) Name Value Range Interpretation Code Description Data Iris rce(s) Supporting Document(s) ID Date Data Source [id number] 11/10/2020 12:34:00 PM EDT [facility] Name Value Range Interpretation Code Description Data Iris rce(s) Supporting Document(s) COVID-19 RT-PCR NASAL SWAB Not Detected Not Detected [facility] A not detected (negative) test result [...] developed and its performance characteristics determined by [facility] and verified at [facility]. It has not been cleared or approved by the U.S. Food and Drug Administration for diagnostic use. This test has been authorized by FDA under an EUA for use by authorized laboratories. Results should be used in conjunction with clinical findings, and should not form the sole basis for a diagnosis or treatment decision. Methods: SARS-CoV-2 Multiplex RT-PCR Assay ID Date Data Source [id number] 11/08/2020 05:15:00 PM EDT [facility] Name Value Range Interpretation Code Description Data Iris rce(s) Supporting Document(s) SARS-CoV-2 (COVID-19) N gene [Presence] in Respiratory specimen by DEZ with probe detection NEGATIVE [facility] This lab was ordered by [facility] and reported by [facility]. ID Date Data Source CHLAMYDIA & GC DNA AMPLIFICAT 10/27/2020 12:00:00 AM EDT eCW 1 ([facility]) Name Value Range Interpretation Code Description Data Iris rce(s) Supporting Document(s) Chlamydia trachomatis rRNA [Presence] in Unspecified specimen by Probe and target amplification method NEGATIVE NEGATIVE CHLAMYDIA DNA AMPLIFICATION eCW1 ([facility]) ID Date Data Source [id number] 08/18/2020 12:00:00 AM EST [facility] Name Value Range Interpretation Code Description Data Iris rce(s) Supporting Document(s) Carestart Rapid COVID Antigen Test Positive [facility] This lab was reported by [facility]. ID Date Data Source CT Scan : Angiogram 08/11/2020 12:00:00 AM EST eCW1 ([facility]) Name Value Range Interpretation Code Description Data Iris rce(s) Supporting Document(s) CT Scan : Angiogram eCW1 ([facility]) ID Date Data Source [id number] 08/04/2020 11:45:00 AM EST [facility] Name Value Range Interpretation Code Description Data Iris rce(s) Supporting Document(s) SARS coronavirus 2 RNA Not Detected [facility] This lab was ordered by [facility] and reported by [facility]. ID Date Data Source DRUG EVAL SCREEN BLOOD 7 [id number] 08/01/2020 12:00:00 AM EST eC W1 ([facility]) Name Value Range Interpretation Code Description Data Iris rce(s) Supporting Document(s) Negative Cutoff:50 AMPHETAMINES SCREEN, BLOO D eCW1 ([facility]) Negative Cutoff:0.1 BARBITURATES SCREEN, BLOO D eCW1 ([facility]) Negative Cutoff:20 BENZODIAZEPINES SCREEN, B LOOD eCW1 ([facility]) Negative Cutoff:5 CANNABINOID SCREEN, BLOOD eCW1 ([facility]) Negative Cutoff:25 COCAINE + METAB. SCREEN, BLOOD eCW1 ([facility]) Negative Cutoff:8 PHENCYCLIDINE SCREEN, BLO OD eCW1 ([facility]) Negative Cutoff:5 OPIATES SCREEN, BLOOD eCW 1 ([facility]) ID Date Data Source NT-PRO BNP 08/01/2020 12:00:00 AM EST eCW1 ([facility]) Name Value Range Interpretation Code Description Data Iris rce(s) Supporting Document(s) 102 <125 NT-PRO BNP eCW1 ([facility]) ID Date Data Source Comprehensive Metabolic Profile (CMP) 08/01/2020 12:00:00 AM EST eCW1 ([facility]) Name Value Range Interpretation Code Description Data Iris rce(s) Supporting Document(s) 8 7-18 BLOOD UREA NITROGEN eCW1 ([facility]) 81 70-100 GLUCOSE, FASTING eCW1 ([facility]) 0.60 0.55-1.30 CREATININE FOR GFR eCW1 ([facility]) > 60.0 >58 GLOMERULAR FILTRATION RATE eCW 1 ([facility]) 138 136-145 SODIUM LEVEL eCW1 (Count includes the [facility]) 3.5 3.5-5.1 POTASSIUM SERUM eCW1 ([facility]) 24 21-32 CARBON DIOXIDE LEVEL eCW1 ([facility]) 107 98-107 CHLORIDE LEVEL eCW1 ([facility]) 8.7 8.5-10.1 CALCIUM LEVEL eCW1 ([facility]) 19 7-37 AST/SGOT eCW1 ([facility]) 39 12-78 ALT/SGPT eCW1 ([facility]) 97 45-117 ALKALINE PHOSPHATASE eCW1 ([facility]) 0.4 0.2-1.0 BILIRUBIN,TOTAL eCW1 ([facility]) 6.8 6.4-8.2 TOTAL PROTEIN eCW1 ([facility]) 3.2 3.2-5.2 ALBUMIN eCW1 ([facility]) 0.9 1.2-2.2 ALBUMIN/GLOBULIN RATIO eCW1 ([facility]) ID Date Data Source [id number] 08/01/2020 12:00:00 AM EST eCW1 ([facility]) Name Value Range Interpretation Code Description Data Iris rce(s) Supporting Document(s) Hemoglobin A1c/Hemoglobin.total in Blood 4.9 HEMOGLOBIN A1c eCW1 ([facility]) ID Date Data Source PTH INTACT 08/01/2020 12:00:00 AM EST eCW1 ([facility]) Name Value Range Interpretation Code Description Data Iris rce(s) Supporting Document(s) 73.0 18.5-88.0 PTH INTACT eCW1 ([facility]) ID Date Data Source VITAMIN D [id number] 08/01/2020 12:00:00 AM EST eCW1 ([facility]) Name Value Range Interpretation Code Description Data Iris rce(s) Supporting Document(s) 82.3 30.0-100.0 TOTAL 25(OH) VITAMIN D eC W1 ([facility]) ID Date Data Source INSULIN LEVEL 08/01/2020 12:00:00 AM EST eCW1 ([facility]) Name Value Range Interpretation Code Description Data Iris rce(s) Supporting Document(s) 5.4 2.6-24.9 INSULIN LEVEL eCW1 ([facility]) ID Date Data Source [id number] 07/11/2020 08:58:48 AM EST [facility] PCName: Gloria AshrafchuyDOB: 1975Provider: Omar [...] today in theoffice. Indication: pain/dysfunction.); Status:Complete; Done: [id number] Perform:SOS14 (General); Due:[id number]; Last Updated By:Lisbeth Camacho; 07/05/2020 3:25:18 PM;Ordered; [...] document was dictated and electronically signed using [employer] software. A reasonable attempt at proof reading has been made to minimize errors. Please call with any questions. Signatures Electronically signed by : Shara Spicer PA-C; Jul 05 2020 3:55PM EST (Author) Electronically signed by : Nicole Morin M.D.; Jul 11 2020 8:58AM EST (Author) Name Value Range Interpretation Code Description Data Iris rce(s) Supporting Document(s) ID Date Data Source [id number] 06/21/2020 09:00:00 AM EST [facility] Name Value Range Interpretation Code Description Data Iris rce(s) Supporting Document(s) SARS coronavirus 2 RNA [facility] This lab was ordered by [facility] and reported by [facility]. ID Date Data Source [id number] 05/21/2020 12:00:00 AM EST [facility] Name Value Range Interpretation Code Description Data Iris rce(s) Supporting Document(s) SARS-CoV2 Rapid Antigen [facility] and reported by [facility]. ID Date Data Source [id number] 05/06/2020 12:00:00 AM EDT [facility] Name Value Range Interpretation Code Description Data Iris rce(s) Supporting Document(s) SARS coronavirus 2 RNA [Presence] in Res piratory specimen by DEZ with probe detection [facility] This lab was ordered by [facility] and reported by [facility]. Procedure Social History Code Duration Value Status Description Data Source(s ) Smoking 12/15/2020 12:00:00 AM EDT Former Smoker completed Former Smoker eCW1 ([facility]) Smoking 12/15/2020 12:00:00 AM EDT Former Smoker completed Former Smoker eCW1 ([facility]) Smoking 12/15/2020 12:00:00 AM EDT Former Smoker completed Former Smoker eCW1 ([facility]) Smoking 12/15/2020 12:00:00 AM EDT Former Smoker completed Former Smoker eCW1 ([facility]) Smoking 12/15/2020 12:00:00 AM EDT Former Smoker completed Former Smoker eCW1 ([facility]) Smoking 12/15/2020 12:00:00 AM EDT Former Smoker completed Former Smoker eCW1 ([facility]) Smoking 12/15/2020 12:00:00 AM EDT Former Smoker completed Former Smoker eCW1 ([facility]) Smoking 12/15/2020 12:00:00 AM EDT Former Smoker completed Former Smoker eCW1 ([facility]) Smoking 12/15/2020 12:00:00 AM EDT Former Smoker completed Former Smoker eCW1 ([facility]) Smoking 12/15/2020 12:00:00 AM EDT Former Smoker completed Former Smoker eCW1 ([facility]) Smoking 12/15/2020 12:00:00 AM EDT Former Smoker completed Former Smoker eCW1 ([facility]) Smoking 12/15/2020 12:00:00 AM EDT Former Smoker completed Former Smoker eCW1 ([facility]) Smoking 12/15/2020 12:00:00 AM EDT Former Smoker completed Former Smoker eCW1 ([facility]) Smoking 12/02/2020 12:00:00 AM EDT Former Smoker completed Former Smoker eCW1 ([facility]) Smoking 12/02/2020 12:00:00 AM EDT Former Smoker completed Former Smoker eCW1 ([facility]) Smoking 12/02/2020 12:00:00 AM EDT Former Smoker completed Former Smoker eCW1 ([facility]) Smoking 10/27/2020 12:00:00 AM EDT Former Smoker completed Former Smoker eCW1 ([facility]) Smoking 10/27/2020 12:00:00 AM EDT Former Smoker completed Former Smoker eCW1 ([facility]) Smoking 10/27/2020 12:00:00 AM EDT Former Smoker completed Former Smoker eCW1 ([facility]) Smoking 10/27/2020 12:00:00 AM EDT Former Smoker completed Former Smoker eCW1 ([facility]) Smoking 10/27/2020 12:00:00 AM EDT Former Smoker completed Former Smoker eCW1 ([facility]) Smoking 10/27/2020 12:00:00 AM EDT Former Smoker completed Former Smoker eCW1 ([facility]) Smoking 10/21/2020 12:00:00 AM EDT Former Smoker completed Former Smoker eCW1 ([facility]) Smoking 10/21/2020 12:00:00 AM EDT Former Smoker completed Former Smoker eCW1 ([facility]) Smoking 10/21/2020 12:00:00 AM EDT Former Smoker completed Former Smoker eCW1 ([facility]) Smoking 10/21/2020 12:00:00 AM EDT Former Smoker completed Former Smoker eCW1 ([facility]) Smoking 09/16/2020 12:00:00 AM EST Former Smoker completed Former Smoker eCW1 ([facility]) Smoking 09/16/2020 12:00:00 AM EST Former Smoker completed Former Smoker eCW1 ([facility]) Smoking 09/16/2020 12:00:00 AM EST Former Smoker completed Former Smoker eCW1 ([facility]) Smoking 07/27/2020 12:00:00 AM EST Former Smoker completed Former Smoker eCW1 ([facility]) Smoking 07/27/2020 12:00:00 AM EST Former Smoker completed Former Smoker eCW1 ([facility]) Smoking 07/27/2020 12:00:00 AM EST Former Smoker completed Former Smoker eCW1 ([facility]) Smoking 07/27/2020 12:00:00 AM EST Former Smoker completed Former Smoker eCW1 ([facility]) Smoking 07/27/2020 12:00:00 AM EST Former Smoker completed Former Smoker eCW1 ([facility]) Smoking 07/27/2020 12:00:00 AM EST Former Smoker completed Former Smoker eCW1 ([facility]) Smoking 07/27/2020 12:00:00 AM EST Former Smoker completed Former Smoker eCW1 ([facility]) Smoking 07/27/2020 12:00:00 AM EST Former Smoker completed Former Smoker eCW1 ([facility]) Vital Signs ID Date Data Source UNK Name Value Range Interpretation Code Description Data Source(s) Body weight 268 [lb_av] 268 [lb_av] eCW1 ([facility]) Body weight 121.56 kg 121.56 kg W1 ([facility]) Body height 68 [in_i] 68 [in_i] eCW1 ([facility]) Body mass index (BMI) [Ratio] 40.74 kg/m2 40.74 kg/m2 W1 ([facility]) Systolic blood pressure 110 mm[Hg] 110 mm[Hg] e CW1 ([facility]) Diastolic blood pressure 80 mm[Hg] 80 mm[Hg] eCW1 ([facility]) Body weight 269.4 [lb_av] 269.4 [lb_av] eCW1 ([facility]) Body height 68 [in_i] 68 [in_i] eCW1 ([facility]) Body mass index (BMI) [Ratio] 40.96 kg/m2 40.96 kg/m2 W1 ([facility]) Heart rate 96 /min 96 /min eCW1 ([facility]) Respiratory rate 20 /min 20 /min eCW1 ([facility]) Body temperature 97.6 [degF] 97.6 [degF] eCW1 ( [facility]) Systolic blood pressure 120 mm[Hg] 120 mm[Hg] e CW1 ([facility]) Diastolic blood pressure 78 mm[Hg] 78 mm[Hg] eCW1 ([facility]) Body weight 266.2 [lb_av] 266.2 [lb_av] eCW1 ([facility]) Body height 68 [in_i] 68 [in_i] eCW1 ([facility]) Body mass index (BMI) [Ratio] 40.47 kg/m2 40.47 kg/m2 eCW1 ([facility]) Systolic blood pressure 118 mm[Hg] 118 mm[Hg] e CW1 ([facility]) Diastolic blood pressure 72 mm[Hg] 72 mm[Hg] eCW1 ([facility]) Body weight 266.2 [lb_av] 266.2 [lb_av] eCW1 ([facility]) Body height 68 [in_i] 68 [in_i] eCW1 ([facility]) Body mass index (BMI) [Ratio] 40.47 kg/m2 40.47 kg/m2 W1 ([facility]) Heart rate 102 /min 102 /min eCW1 ([facility]) Respiratory rate 18 /min 18 /min eCW1 ([facility]) Body temperature 97 [degF] 97 [degF] eCW1 ([facility]) Systolic blood pressure 116 mm[Hg] 116 mm[Hg] e CW1 ([facility]) Diastolic blood pressure 74 mm[Hg] 74 mm[Hg] eCW1 ([facility]) Body weight 266.2 [lb_av] 266.2 [lb_av] eCW1 ([facility]) Body height 68 [in_i] 68 [in_i] eCW1 ([facility]) Body mass index (BMI) [Ratio] 40.47 kg/m2 40.47 kg/m2 eCW1 ([facility]) Body weight 266.2 [lb_av] 266.2 [lb_av] eCW1 ([facility]) Body height 68 [in_i] 68 [in_i] eCW1 ([facility]) Body mass index (BMI) [Ratio] 40.47 kg/m2 40.47 kg/m2 eCW1 ([facility]) Heart rate 102 /min 102 /min eCW1 ([facility]) Respiratory rate 18 /min 18 /min eCW1 ([facility]) Body temperature 97 [degF] 97 [degF] eCW1 ([facility]) Systolic blood pressure 116 mm[Hg] 116 mm[Hg] e CW1 ([facility]) Diastolic blood pressure 74 mm[Hg] 74 mm[Hg] eCW1 ([facility]) Heart rate 102 /min 102 /min eCW1 ([facility]) Respiratory rate 18 /min 18 /min eCW1 ([facility]) Body temperature 97 [degF] 97 [degF] eCW1 ([facility]) Systolic blood pressure 116 mm[Hg] 116 mm[Hg] e CW1 ([facility]) Diastolic blood pressure 74 mm[Hg] 74 mm[Hg] eCW1 ([facility]) Patient Treatment Plan of Care Planned Activity Planned Date Details Description Data Source (s) Carisoprodol 350 MG Oral Tablet [Soma] 04/28/2021 12:00:00 AM EDT eCW1 ([facility]) Carisoprodol 350 MG Oral Tablet [Soma] 04/28/2021 12:00:00 AM EDT eCW1 ([facility]) Acetaminophen 325 MG / Oxycodone Hydrochloride 7.5 MG Oral Tablet [Percocet] 04/11/2021 12:00:00 AM EDT eCW1 ([facility]) Clonazepam 1 MG Oral Tablet 04/11/2021 12:00:00 AM EDT eCW1 ([facility]) Acetaminophen 325 MG / Oxycodone Hydrochloride 7.5 MG Oral Tablet [Percocet] 04/11/2021 12:00:00 AM EDT eCW1 ([facility]) Clonazepam 1 MG Oral Tablet 04/11/2021 12:00:00 AM EDT eCW1 ([facility]) Acetaminophen 325 MG / Oxycodone Hydrochloride 7.5 MG Oral Tablet [Percocet] 04/11/2021 12:00:00 AM EDT eCW1 ([facility]) Clonazepam 1 MG Oral Tablet 04/11/2021 12:00:00 AM EDT eCW1 ([facility]) Zolpidem tartrate 5 MG Oral Tablet [Ambien] 03/09/2021 12:00:00 AM EDT eCW1 ([facility]) Zolpidem tartrate 5 MG Oral Tablet [Ambien] 03/09/2021 12:00:00 AM EDT eCW1 ([facility]) Zolpidem tartrate 5 MG Oral Tablet [Ambien] 03/09/2021 12:00:00 AM EDT eCW1 ([facility]) Zolpidem tartrate 5 MG Oral Tablet [Ambien] 03/09/2021 12:00:00 AM EDT eCW1 ([facility]) Acetaminophen 325 MG / Oxycodone Hydrochloride 7.5 MG Oral Tablet [Percocet] 03/09/2021 12:00:00 AM EDT eCW1 ([facility]) Clonazepam 1 MG Oral Tablet 03/09/2021 12:00:00 AM EDT eCW1 ([facility]) Acetaminophen 325 MG / Oxycodone Hydrochloride 7.5 MG Oral Tablet [Percocet] 02/09/2021 12:00:00 AM EDT eCW1 ([facility]) Acetaminophen 325 MG / Oxycodone Hydrochloride 7.5 MG Oral Tablet [Percocet] 02/09/2021 12:00:00 AM EDT eCW1 ([facility]) Acetaminophen 325 MG / Oxycodone Hydrochloride 7.5 MG Oral Tablet [Percocet] 01/10/2021 12:00:00 AM EDT eCW1 ([facility]) Acetaminophen 325 MG / Oxycodone Hydrochloride 7.5 MG Oral Tablet [Percocet] 12/13/2020 12:00:00 AM EDT eCW1 ([facility]) Acetaminophen 325 MG / Oxycodone Hydrochloride 7.5 MG Oral Tablet [Percocet] 12/13/2020 12:00:00 AM EDT eCW1 ([facility]) alosetron 0.5 MG Oral Tablet [Lotronex] 12/05/2020 12:00:00 AM EDT eCW1 ([facility]) alosetron 0.5 MG Oral Tablet [Lotronex] 12/05/2020 12:00:00 AM EDT eCW1 ([facility]) alosetron 0.5 MG Oral Tablet [Lotronex] 12/05/2020 12:00:00 AM EDT eCW1 ([facility]) alosetron 0.5 MG Oral Tablet [Lotronex] 12/05/2020 12:00:00 AM EDT eCW1 ([facility]) alosetron 0.5 MG Oral Tablet [Lotronex] 12/05/2020 12:00:00 AM EDT eCW1 ([facility]) COMPRESSION STOCKINGS 20-30 mmHg 12/02/2020 12:00:00 AM EDT eCW1 ([facility]) COMPRESSION STOCKINGS 20-30 mmHg 12/02/2020 12:00:00 AM EDT eCW1 ([facility]) COMPRESSION STOCKINGS 20-30 mmHg 12/02/2020 12:00:00 AM EDT eCW1 ([facility]) COMPRESSION STOCKINGS 20-30 mmHg 12/02/2020 12:00:00 AM EDT eCW1 ([facility]) COMPRESSION STOCKINGS 20-30 mmHg 12/02/2020 12:00:00 AM EDT eCW1 ([facility]) COMPRESSION STOCKINGS 20-30 mmHg 12/02/2020 12:00:00 AM EDT eCW1 ([facility]) COMPRESSION STOCKINGS 20-30 mmHg 12/02/2020 12:00:00 AM EDT eCW1 ([facility]) COMPRESSION STOCKINGS 20-30 mmHg 12/02/2020 12:00:00 AM EDT eCW1 ([facility]) COMPRESSION STOCKINGS 20-30 mmHg 12/02/2020 12:00:00 AM EDT eCW1 ([facility]) COMPRESSION STOCKINGS 20-30 mmHg 12/02/2020 12:00:00 AM EDT eCW1 ([facility]) Acetaminophen 325 MG / Oxycodone Hydrochloride 7.5 MG Oral Tablet [Percocet] 11/22/2020 12:00:00 AM EDT eCW1 ([facility]) Acetaminophen 325 MG / Oxycodone Hydrochloride 7.5 MG Oral Tablet [Percocet] 11/22/2020 12:00:00 AM EDT eCW1 ([facility]) Acetaminophen 325 MG / Oxycodone Hydrochloride 7.5 MG Oral Tablet [Percocet] 11/22/2020 12:00:00 AM EDT eCW1 ([facility]) Metronidazole 500 MG Oral Tablet 10/27/2020 12:00:00 AM EDT eCW1 ([facility]) Metronidazole 500 MG Oral Tablet 10/27/2020 12:00:00 AM EDT eCW1 ([facility]) Metronidazole 500 MG Oral Tablet 10/27/2020 12:00:00 AM EDT eCW1 ([facility]) Acetaminophen 325 MG / Oxycodone Hydrochloride 7.5 MG Oral Tablet [Percocet] 10/21/2020 12:00:00 AM EDT eCW1 ([facility]) Acetaminophen 325 MG / Oxycodone Hydrochloride 7.5 MG Oral Tablet [Percocet] 10/21/2020 12:00:00 AM EDT eCW1 ([facility]) Acetaminophen 325 MG / Oxycodone Hydrochloride 7.5 MG Oral Tablet [Percocet] 10/21/2020 12:00:00 AM EDT eCW1 ([facility]) Acetaminophen 325 MG / Oxycodone Hydrochloride 7.5 MG Oral Tablet [Percocet] 10/21/2020 12:00:00 AM EDT eCW1 ([facility]) Acetaminophen 325 MG / Oxycodone Hydrochloride 7.5 MG Oral Tablet [Percocet] 09/22/2020 12:00:00 AM EST eCW1 ([facility]) Acetaminophen 325 MG / Oxycodone Hydrochloride 7.5 MG Oral Tablet [Percocet] 08/18/2020 12:00:00 AM EST eCW1 ([facility]) Acetaminophen 325 MG / Oxycodone Hydrochloride 7.5 MG Oral Tablet [Percocet] 08/18/2020 12:00:00 AM EST eCW1 ([facility]) Acetaminophen 325 MG / Oxycodone Hydrochloride 7.5 MG Oral Tablet [Percocet] 08/18/2020 12:00:00 AM EST eCW1 ([facility]) Acetaminophen 325 MG / Oxycodone Hydrochloride 7.5 MG Oral Tablet [Percocet] 08/18/2020 12:00:00 AM EST eCW1 ([facility]) Acetaminophen 325 MG / Oxycodone Hydrochloride 7.5 MG Oral Tablet [Percocet] 08/18/2020 12:00:00 AM EST eCW1 ([facility]) Acetaminophen 325 MG / Oxycodone Hydrochloride 7.5 MG Oral Tablet [Percocet] 08/18/2020 12:00:00 AM EST eCW1 ([facility]) quetiapine 50 MG Oral Tablet 07/27/2020 12:00:00 AM EST eCW1 ([facility]) Hyoscyamine Sulfate 0.125 MG Oral Tablet 07/27/2020 12:00:00 AM EST eCW1 ([facility]) quetiapine 50 MG Oral Tablet 07/27/2020 12:00:00 AM EST eCW1 ([facility]) Hyoscyamine Sulfate 0.125 MG Oral Tablet 07/27/2020 12:00:00 AM EST eCW1 ([facility]) quetiapine 50 MG Oral Tablet 07/27/2020 12:00:00 AM EST eCW1 ([facility]) Hyoscyamine Sulfate 0.125 MG Oral Tablet 07/27/2020 12:00:00 AM EST eCW1 ([facility]) quetiapine 50 MG Oral Tablet 07/27/2020 12:00:00 AM EST eCW1 ([facility]) Hyoscyamine Sulfate 0.125 MG Oral Tablet 07/27/2020 12:00:00 AM EST eCW1 ([facility]) quetiapine 50 MG Oral Tablet 07/27/2020 12:00:00 AM EST eCW1 ([facility]) Hyoscyamine Sulfate 0.125 MG Oral Tablet 07/27/2020 12:00:00 AM EST eCW1 ([facility]) quetiapine 50 MG Oral Tablet 07/27/2020 12:00:00 AM EST eCW1 ([facility]) quetiapine 50 MG Oral Tablet 07/27/2020 12:00:00 AM EST eCW1 ([facility]) quetiapine 50 MG Oral Tablet 07/27/2020 12:00:00 AM EST eCW1 ([facility]) Hyoscyamine Sulfate 0.125 MG Oral Tablet 07/27/2020 12:00:00 AM EST eCW1 ([facility]) quetiapine 50 MG Oral Tablet 07/27/2020 12:00:00 AM EST eCW1 ([facility]) Hyoscyamine Sulfate 0.125 MG Oral Tablet 07/27/2020 12:00:00 AM EST eCW1 ([facility]) quetiapine 50 MG Oral Tablet 07/27/2020 12:00:00 AM EST eCW1 ([facility]) Hyoscyamine Sulfate 0.125 MG Oral Tablet 07/27/2020 12:00:00 AM EST eCW1 ([facility]) quetiapine 50 MG Oral Tablet 07/27/2020 12:00:00 AM EST eCW1 ([facility]) Acetaminophen 325 MG / Oxycodone Hydrochloride 7.5 MG Oral Tablet [Percocet] 06/20/2020 12:00:00 AM EST eCW1 ([facility]) Acetaminophen 325 MG / Oxycodone Hydrochloride 7.5 MG Oral Tablet [Percocet] 06/20/2020 12:00:00 AM EST eCW1 ([facility]) Acetaminophen 325 MG / Oxycodone Hydrochloride 7.5 MG Oral Tablet [Percocet] 06/20/2020 12:00:00 AM EST eCW1 ([facility]) Ondansetron HCl 4 MG 06/17/2020 12:00:00 AM EST eCW1 ([facility]) Ondansetron HCl 4 MG 06/17/2020 12:00:00 AM EST eCW1 ([facility]) Ondansetron HCl 4 MG 06/17/2020 12:00:00 AM EST eCW1 ([facility]) Ondansetron HCl 4 MG 06/17/2020 12:00:00 AM EST eCW1 ([facility]) Ondansetron HCl 4 MG 06/17/2020 12:00:00 AM EST eCW1 ([facility]) Ondansetron HCl 4 MG 06/17/2020 12:00:00 AM EST eCW1 ([facility]) Ondansetron HCl 4 MG 06/17/2020 12:00:00 AM EST eCW1 ([facility]) Ondansetron HCl 4 MG 06/17/2020 12:00:00 AM EST eCW1 ([facility]) Ondansetron HCl 4 MG 06/17/2020 12:00:00 AM EST eCW1 ([facility]) Acetaminophen 325 MG / Oxycodone Hydrochloride 7.5 MG Oral Tablet [Percocet] 05/24/2020 12:00:00 AM EST eCW1 ([facility]) Acetaminophen 325 MG / Oxycodone Hydrochloride 7.5 MG Oral Tablet [Percocet] 05/24/2020 12:00:00 AM EST eCW1 ([facility]) Acetaminophen 325 MG / Oxycodone Hydrochloride 7.5 MG Oral Tablet [Percocet] 05/24/2020 12:00:00 AM EST eCW1 ([facility]) Acetaminophen 325 MG / Oxycodone Hydrochloride 7.5 MG Oral Tablet [Percocet] 05/24/2020 12:00:00 AM EST eCW1 ([facility]) Acetaminophen 325 MG / Oxycodone Hydrochloride 7.5 MG Oral Tablet [Percocet] 05/10/2020 12:00:00 AM EDT eCW1 ([facility]) Acetaminophen 325 MG / Oxycodone Hydrochloride 7.5 MG Oral Tablet [Percocet] 05/10/2020 12:00:00 AM EDT eCW1 ([facility]) Acetaminophen 325 MG / Oxycodone Hydrochloride 7.5 MG Oral Tablet [Percocet] 05/10/2020 12:00:00 AM EDT eCW1 ([facility]) Acetaminophen 325 MG / Oxycodone Hydrochloride 7.5 MG Oral Tablet [Percocet] 05/10/2020 12:00:00 AM EDT eCW1 ([facility])
[2021-04-30 07:29] LABS: RSV AMPLIFICATION NEGATIVE (NEGATIVE)
[2021-04-30] MEDS ORDERED: ACETAMINOPHEN 325 MG TAB PO ONE (08:30)
[2021-04-30] MEDS ORDERED: AUGMENTIN 875 MG TAB PO ONE (08:35)
[2021-04-30] MEDS ORDERED: guaiFENesin ER 600 MG TAB PO SCH (09:00)
[2021-04-30 10:30] VITALS: BP 141/80
== END 2021-04-30 10:30 | disposition home or self-care (01) ==
LOC: M ED 03:09
DX: G43.909 Migraine, unspecified, not intractable, without status migrainosus (principal); E86.0 Dehydration; J01.90 Acute sinusitis, unspecified; R05.9 Cough, unspecified; F32.9 Major depressive disorder, single episode, unspecified; F41.9 Anxiety disorder, unspecified; I50.9 Heart failure, unspecified; K58.8 Other irritable bowel syndrome; G89.29 Other chronic pain; M54.50 Low back pain, unspecified; Z88.1 Allergy status to other antibiotic agents; Z88.8 Allergy status to other drugs, medicaments and biological substances; Z79.899 Other long term (current) drug therapy
CPT/HCPCS: 87631; 96361; 96374; 99284; J1885

== ENCOUNTER → 2021-05-09 | Outpatient (CLI) | payer BC ==
[~2021-05-09] MED LIST changes: +AUGM875T28 PO; +MUCI600T31 PO
--- NOTE | 2021-05-09 12:56 | REP ---
INDICATION: LOW BACK PAIN, UNSPECIFIED,PAIN IN THORACIC SPINE. COMPARISON: Lumbar spine series, 08/14/2013. TECHNIQUE: Four views of the lumbar spine were obtained. FINDINGS: There is minimal dextroscoliosis of the spine centered at the T11 level. There is mild levoscoliosis of the lumbar spine centered at the L2-3 level. There is degenerative disc disease, L1-2 through L5-S1 with narrowing of the intervertebral disc spaces and marginal osteophytes. There has been interval development of 5 mm of degenerative grade 1 anterolisthesis of L4 on L5 IMPRESSION: 1. Multilevel degenerative disc disease of the lumbar spine with associated scoliosis. 2. Spondylosis with degenerative grade 1 anterolisthesis, L4 on L5, not present previously. <Electronically signed by Pankaj Soliman > 05/09/21 [id number]
--- NOTE | 2021-05-09 12:58 | REP ---
INDICATION: LOW BACK PAIN, UNSPECIFIED,PAIN IN THORACIC SPINE. COMPARISON: Thoracic spine, 03/10/2007 TECHNIQUE: Frontal and lateral views of the thoracic spine were obtained. FINDINGS: There is mild multilevel degenerative disc disease of the mid and lower thoracic spine. There is mild dextroscoliosis of the thoracic spine. The perivertebral soft tissues are unremarkable. IMPRESSION: Progressive degenerative disc disease of the thoracic spine since the prior exam. There is mild dextroscoliosis not significantly changed. <Electronically signed by Pankaj Soliman > 05/09/21 [id number]
== END ==
LOC: M PLAIMG 09:46
PROVIDERS: ATTEND Nurse Practitioner Adult Health
DX: M51.34 Other intervertebral disc degeneration, thoracic region (principal); M51.36 Other intervertebral disc degeneration, lumbar region; M43.16 Spondylolisthesis, lumbar region; M54.50 Low back pain, unspecified

== ENCOUNTER → 2021-05-12 | Outpatient (REF) | LOC: M EMP 13:23 | PROVIDERS: ATTEND Family Medicine | DX: Z20.822 Contact with and (suspected) exposure to COVID-19 (principal) ==

== ENCOUNTER → 2021-05-16 | Outpatient (CLI) | payer BC ==
--- NOTE | 2021-05-16 16:47 | REP ---
INDICATION: COUGH. COMPARISON: None TECHNIQUE: Four views FINDINGS: Multiple views of the paranasal sinuses show no abnormal soft tissue densities within any of the visualized paranasal sinuses. There are no air fluid levels. There is no lysis or sclerosis of the bony architecture surrounding the paranasal sinuses. There is no significant nasal septal deviation. The adenoidal soft tissues are within normal limits. There is no evidence of airway compromise. IMPRESSION: Unremarkable paranasal sinuses. <Electronically signed by Dmitry Cortez > 05/16/21 [id number]
--- NOTE | 2021-05-16 20:27 | REP ---
INDICATION: COUGH. COMPARISON: 02/24/2014. TECHNIQUE: Two views FINDINGS: The lung garcia are well inflated. CP angles are sharply defined without pleural effusion. No lateral pleural thickening, apical scarring or pneumothorax I see no dense consolidation pulmonary nodule or parenchymal mass. The heart, mediastinal and hilar contours are normal. The aorta and airway are intact peer no widening of the mediastinum. There is no free air under the diaphragm. Bony thorax shows no acute finding. IMPRESSION: 1. No acute cardiopulmonary change. <Electronically signed by Kevin Barron > 05/16/212022
== END ==
LOC: M RAD 15:48
PROVIDERS: ATTEND Family Medicine
DX: R05.9 Cough, unspecified (principal)

== ENCOUNTER 2021-05-23 17:41 | Emergency (ER) | payer BC ==
[~2021-05-23] VITALS: Ht 177.8 cm; Wt 119.2 kg
[2021-05-23] MEDS ORDERED: LEVAINH (17:52)
--- OUTSIDE RECORDS SUMMARY | 2021-05-23 17:53 | CCD ---
Author Author [facility] Organization [facility] Address Unknown Phone Unavailable Care Team Providers Care Sales Project Engineer Name Role Phone Magdaleno Reynolds Unavailable PROBLEMS Type Condition ICD9-CM Code [id number] Code Onset Dates Condition S tatus W/U Status Risk SNOMED Code Notes Problem Common migraine G43.009 Active confirmed 560 72533 Problem Cervical dysplasia N87.9 Active confirmed 7 3115191 Problem DJD (degenerative joint disease), cervical M50.30 Active confirmed 17353581 Problem Splenic artery aneurysm I72.8 Active confirmed 81900931 Problem Vitamin B12 deficiency E53.8 Active confirmed 037016772 Problem Fe deficiency anemia D50.9 Active confirmed 41210853 Problem Tinnitus of right ear H93.11 Active confirmed 96595797 Problem CHRIS (obstructive sleep apnea) G47.33 Active confirm ed 40531455 Problem Sarcoidosis D86.9 Active confirmed 45444667 Problem Obesity E66.9 Active confirmed 405222127 Problem Insomnia G47.00 Active confirmed 739089868 Problem Generalized anxiety disorder F41.1 Active confirme d 63642676 Problem ADD (attention deficit disorder) F90.0 Active conf irmed 909641012 Problem Allergic rhinitis J30.9 Active confirmed 61 277928 Problem Irritable bowel syndrome with diarrhea K58.0 A ctive confirmed 798928116 Problem Gastroesophageal reflux disease, esophagitis pre sence not specified K21.9 Active confirmed 277870114 Problem Mild persistent asthma without complication J45.30 Active confirmed 431986038 Problem Ovarian cyst N83.209 Active confirmed 248874 01 Problem IFG (impaired fasting glucose) R73.01 Active confir med 763318185 Problem Venous insufficiency of both lower extremities I87 .2 Active confirmed 691456660 Problem Breast cancer screening Z12.39 Active confirmed 617356709 Problem Other chronic pain G89.29 Active confirmed 8 4922368 Problem Vitamin D deficiency E55.9 Active confirmed 88037772 Problem CTS (carpal tunnel syndrome) G56.00 Active confirme d 03647872 Problem Mixed hyperlipidemia E78.2 Active confirmed 251601708 Problem Post-traumatic stress disorder, unspecified F43.10 Active confirmed 28344725 Problem Major depressive disorder, recurrent, moderate F33 .1 Active confirmed 734512133 Problem Peripheral edema R60.9 Active confirmed 271 072976 ALLERGIES Allergen (clinical drug ingredient) Drug/Non Drug Allergy do cumented on EMR Reaction Allergy Type Onset Date Status bandaids excoriation Non Drug Allergy Active cetirizine Cetirizine HCl([facility] Code:[address]-69) Hives Drug All ergy Active citalopram Celexa([facility] Code:[address]-07) severe drowsiness Drug Tommy rgy Active clindamycin Clindamycin HCl([facility] Code:[address]-15) Vomiting Drug A llergy Active povidone-iodine Betadine([facility] Code:[address]-84) Rash Drug Tommy rgy Active ENCOUNTERS from 1974 to 2021-05-17 Encounter Location Date Provider Diagnosis [address] [phone] [place] [address] May, Magdaleno Phaner Cough R05.9 IMMUNIZATIONS Vaccine Route Administration Date Status Influenza [...] College Language: Question Answer Notes Languages spoken: Ivorian Cheondoism: Question Answer Notes Cheondoism 33 None [...] Notes Start Da te End Date Status clonazePAM 1 MG 1 tablet Orally bid, CODE A for 30 Days Mar, Active COMPRESSION STOCKINGS 20-30 mmHg as directed _ B belwo knee for 30 Days November, Active Ambien 5 MG 1 tablet at bedtime Orally at bedtime MDD:1 for 30 day(s) Feb, Active Clobetasol Propionate 0.05 % 1 application to affected area Externally arms Twice a day for 90 day(s) Active Percocet 7.5-325 MG 1 tablet as needed Orally TID prn, MDD 3 for 30 Days Mar, Active Tums Ultra 1000 1000 MG 1 tablet Orally at bedtime for 90 day(s) Active Diclofenac Sodium 75 MG 1 tablet Orally twice a day for 90 day(s) Active Hair Skin and Nails Formula - as directed Orally Active Lotronex 0.5 MG 1 tablet Orally Daily for 30 day(s) November Active Topiramate 50 MG 1.5 tablet orally bid for 90 day(s) Active Cyanocobalamin 500 MCG 1 tablet Orally Once a day for 90 day(s) Active Xopenex HFA 45 MCG/ACT 1 puff as needed Inhalation every 4 hrs for 30 Days Active Ergocalciferol 1.25 MG (19983 UT) 1 capsule Orally every 7 days for 90 day(s) Active Carpal Tunnel Wrist Stabilizer _ as directed _ _ for 99 months Active Mupirocin 2 % 1 application Externally Three times a day Active Lasix 40 mg 1 tablet Orally daily prn BLE swelling for 90 day(s) Active Nikki Allergy 180 MG TAKE ONE TABLET BY MOUTH EVERY DAY Active Pantoprazole Sodium 40 MG 1 tablet Orally every morning for 90 day(s) Active Benadryl Allergy 25 MG 1 tablet at bedtime as neede d Orally Once a day for 30 day(s) Active Rizatriptan Benzoate 10 MG 1 tablet Orally qd prn migr hanna, november repeat x 1 in 2H for 30 Days Active Nystatin 022772 UNIT/GM 1 application Externally to groin area Twice a day for 90 day(s) Dec, Active Ondansetron HCl 4 MG 1 tablet Orally Once a day for 90 day(s) Jun, Active Sudafed 30 MG 2 tablets as needed Orally every 6 hrs Active Soma 350 MG 1 tablet as needed Orally twice a day MDD: 2 for 30 Days Apr, Active Vitamin C 500 MG as directed Orally Active QUEtiapine Fumarate 50 MG 1 tab Orally at bedtime for 30 day(s) Active Hibiclens 4 % as directed Externally Daily for 90 day(s) Active FLUoxetine HCl 40 MG 2 capsules Orally every morning for 90 day(s) Active Osteo Bi-Flex Adv Joint Shield - as directed Orally Active PROCEDURES No Information RESULTS No Results REASON FOR VISIT Bronchitis MEDICAL (GENERAL) HISTORY Type Description Date Medical History cervical/thoracic spondylosi s-C3-7 HNP s compression-06/21/14 MRI Medical History lumbar spondylosis-10/19/09 normal LS MRI Medical History hypertension-03/2014 normal T TE, 03/2014 EST low risk-6 minutes, 30 seconds on Roldan-Sanchez Medical History mild left and very mild righ t carpal tunnel syndrome/mild left ulnar neuropathy govcs-BEU-Ljfgu Medical History chronic MDD/AUDI/OCD/insomnia Medical History obesity, morbid Medical History impaired fasting glucose Medical History history of nicotine addictio n-smoked 07/16 x 14 years, quit 02/2010 Medical History asthma, mild intermittent Medical History MRTH-qvb-iekhrdt gastritis, non-bleeding erosive gastropathy, -GEJ/-H pylori-11/27/18 EGD-Dr. Parks, [place], [place] Medical History palpitations-03/2014 Holter-s ymptoms correlated [...] colonic spasm, WNL random colonic bx-colon-Dr. Charly [place], [place]-11/27/18 Medical History 2 tiny T2WHI 1 in each frontal lobe by MRI/ MRA brain Medical History thoracic qoxewkodtgq-V5-9 sm all HNP, T10-L1 bulges s compression by 03/29/12 MRI Surgical History colposcopy, 2006-miguel angel 1---2011 no dysplas ia 2013 MIGUEL ANGEL 1 on ECC 2004,2006,2011 Surgical History cryo Surgical History bronch. scope x 2 Surgical History hysterosalpingography x [address] Dr.Dacos becerra 2008, 2009 Surgical History LEEP, JRXLQ-Xvnvffs-Mczlhe 04/2015, 12/01 13 Surgical History lap otis--pathology cw acal culous chronic g[place]xycagisesu[place] 04/29/19 Surgical History Colposcopy 09/21/2019 Hospitalization History No know Hospitalization history Goals Section No Information Health Concerns No Information MEDICAL EQUIPMENT No Information MENTAL STATUS No Information FUNCTIONAL STATUS No Information ASSESSMENTS Encounter Date Diagnosis Assessment Notes Treatment Notes Treatm ent Clinical Notes May, Cough (ICD-10 - R05.9) PLAN OF TREATMENT Next Appt Details Provider Name:Magdaleno Reynolds, 2021-06-15 0 3:00:00 PM, [address] [facility], , [place], [address], Insurance Providers Payer Name Payer Address Payer Phone Insured Name Patient Relati onship to Insured Coverage Start Date Coverage End Date BCBS OF [facility] [phone] [facility] [id number] [place] self
--- OUTSIDE RECORDS SUMMARY | 2021-05-23 17:53 | CCD ---
Author Author [facility] Organization [facility] Address Unknown Phone Unavailable Care Team Providers Care Art Conservator Name Role Phone Mi Dobbs Unavailable PROBLEMS Type Condition ICD9-CM Code [id number] Code Onset Dates Condition S tatus W/U Status Risk SNOMED Code Notes Problem Common migraine G43.009 Active confirmed 560 55329 Problem Cervical dysplasia N87.9 Active confirmed 7 1777700 Problem DJD (degenerative joint disease), cervical M50.30 Active confirmed 29653224 Problem Splenic artery aneurysm I72.8 Active confirmed 51301214 Problem Vitamin B12 deficiency E53.8 Active confirmed 256862440 Problem Fe deficiency anemia D50.9 Active confirmed 86981470 Problem Tinnitus of right ear H93.11 Active confirmed 41764752 Problem CHRIS (obstructive sleep apnea) G47.33 Active confirm ed 52312399 Problem Sarcoidosis D86.9 Active confirmed 01818396 Problem Obesity E66.9 Active confirmed 836890123 Problem Insomnia G47.00 Active confirmed 694649422 Problem Generalized anxiety disorder F41.1 Active confirme d 60205433 Problem ADD (attention deficit disorder) F90.0 Active conf irmed 545315475 Problem Allergic rhinitis J30.9 Active confirmed 61 613558 Problem Irritable bowel syndrome with diarrhea K58.0 A ctive confirmed 177695349 Problem Gastroesophageal reflux disease, esophagitis pre sence not specified K21.9 Active confirmed 039776129 Problem Mild persistent asthma without complication J45.30 Active confirmed 641145881 Problem Ovarian cyst N83.209 Active confirmed 500645 01 Problem IFG (impaired fasting glucose) R73.01 Active confir med 717539792 Problem Venous insufficiency of both lower extremities I87 .2 Active confirmed 473784798 Problem Breast cancer screening Z12.39 Active confirmed 597741254 Problem Other chronic pain G89.29 Active confirmed 8 0519445 Problem Vitamin D deficiency E55.9 Active confirmed 20600835 Problem CTS (carpal tunnel syndrome) G56.00 Active confirme d 27769790 Problem Mixed hyperlipidemia E78.2 Active confirmed 124783216 Problem Post-traumatic stress disorder, unspecified F43.10 Active confirmed 57329743 Problem Major depressive disorder, recurrent, moderate F33 .1 Active confirmed 829931748 Problem Peripheral edema R60.9 Active confirmed 271 550750 ALLERGIES Allergen (clinical drug ingredient) Drug/Non Drug Allergy do cumented on EMR Reaction Allergy Type Onset Date Status bandaids excoriation Non Drug Allergy Active cetirizine Cetirizine HCl([facility] Code:[address]-43) Hives Drug All ergy Active citalopram Celexa([facility] Code:[address]-13) severe drowsiness Drug Tommy rgy Active clindamycin Clindamycin HCl([facility] Code:[address]-62) Vomiting Drug A llergy Active povidone-iodine Betadine([facility] Code:[address]-36) Rash Drug Tommy rgy Active ENCOUNTERS from 1974 to 2021-05-11 Encounter Location Date Provider Diagnosis [address] [phone] [place] [address] 26 Apr, 2021 Mi Servage Pain in thoracic spine M54.6 ; Other chronic pain G89.29 and Lumbar back pain M54.50 IMMUNIZATIONS Vaccine Route Administration Date Status Influenza [...] College Language: Question Answer Notes Languages spoken: Estonian Scientologist: Question Answer Notes Scientologist 33 None Alcohol Screening: Question Answer Notes Did you have a drink containing alcohol in the past year? No Points 0 Interpretation Negative BMI Care Goal Follow-Up Question Answer Notes Above Normal BMI Follow-Up Giving encouragement to exercise Tobacco Use: Question Answer Notes Are you a: former smoker smoked 2 PPD for 15 years REASON FOR REFERRAL from 1974 to 2021-05-11 Reason please eval and treat for th oracic and lumbar back pain recent xrays were ordered Diagnosis 1 Pain in thoracic spine (M54. 6) Diagnosis 2 Lumbar back pain (M54.50) Referral Organization [facility] [place] Referring Provider First Name Mi Referring Provider Last Name Rinku Referring Provider Specialty Family Medicine Referred Provider [facility],Physical Therapy ([place]) Referred Provider Specialty Physical Therapist Referral Priority Routine Referral Appointment Date 2021-05-17 General Notes Joycelyn Cabrera 05/09/2021 9: 31:40 AM > referral faxedShara Ramsey 05/09/2021 12:24:54 PM > Patient contact attempted, no answer left message on voicemail.Shara Ramsey 05/09/2021 12:29:44 PM > Patient returned call and scheduled as noted. VITAL SIGNS Weight 256 lbs Apr, Weight-kg 116.12 kg Apr, Height 68 in Apr, BMI 38.92 kg/m2 Apr, Heart Rate 84 /min Apr, Respiratory Rate 18 /min Apr, Temperature 97.4 degrees Fahrenheit Apr, Oximetry 100 Apr, Blood pressure systolic 120 mm Hg Apr, Blood pressure diastolic 78 mm Hg Apr, MEDICATIONS Medication SIG (Take, Route, Frequency, Duration) [...] for 30 Days Active Ergocalciferol 1.25 MG (18010 UT) 1 capsule Orally every 7 days [...] in 2H for 30 Days Active Nystatin 489186 UNIT/GM 1 application Externally to groin area [...] Information RESULTS No Results REASON FOR VISIT increased back pain MEDICAL (GENERAL) HISTORY Type Description Date Medical History cervical/thoracic spondylosi s-C3-7 HNP s compression-06/21/14 MRI Medical History lumbar spondylosis-10/19/09 normal LS MRI Medical History hypertension-03/2014 normal T TE, 03/2014 EST low risk-6 minutes, 30 seconds on Roldan-Sanchez Medical History mild left and very mild righ t carpal tunnel syndrome/mild left ulnar neuropathy supfq-SZZ-Yyvnu Medical History chronic MDD/AUDI/OCD/insomnia Medical History obesity, morbid Medical History impaired fasting glucose Medical History history of nicotine addictio n-smoked 1 1 x 14 years, quit 02/2010 Medical History asthma, mild intermittent Medical History YGAZ-bwh-nendyqc gastritis, non-bleeding erosive gastropathy, -GEJ/-H pylori-11[place]27[place] Medical History palpitations-03/2014 Holter-s ymptoms correlated [...] colonic spasm, WNL random colonic bx-colon-Dr. Parks [place], [place]-11/27/18 Medical History 2 tiny T2WHI 1 in each frontal lobe by MRI/ MRA brain Medical History thoracic hdghawuauoy-E2-2 sm all HNP, T10-L1 bulges s compression by 03/29/12 MRI Surgical History colposcopy, 2006-britton 1---2012 no dysplas ia 2013 BR[place]TON 1 on ECC 2004,2006,2011 Surgical History cryo Surgical History bronch. scope x 2 Surgical History hysterosalpingography x [address]Dacos ebcerra 2008, 2009 Surgical History LEEP, [facility]-Eyqtsie-Ybhhio 04/2015, 12/01 13 Surgical History lap otis--pathology cw acal culous chronic znqrnjgngllgv-[facility] 04/29/19 Surgical History Colposcopy 09/21/2019 Hospitalization History No know Hospitalization history Goals Section No Information Health Concerns No Information MEDICAL EQUIPMENT No Information MENTAL STATUS No Information FUNCTIONAL STATUS No Information ASSESSMENTS Encounter Date Diagnosis Assessment Notes Treatment Notes Treatm ent Clinical Notes Apr, Pain in thoracic spine (ICD-10 - M54.6) Thoracic spine CT scan 11/30/2013 located at [facility] website, minimal age-related scattered degenerative changes no evidence of thoracic trauma or injury, paravertebral soft tissues are unremarkable, discussed with patient will need to obtain an x-ray for further evaluation that I cannot just simply order a CT scan today, will refer to physical therapy and then reevaluate when she is seen by Dr. Reynolds for her routine office visit Apr, Other chronic pain (ICD-10 - G89.29) Patient's medications reviewed, discussed with patient she is already on pain medications and muscle relaxers no other medications will be ordered today, suggested to continue to use the the heating pad and lidocaine roll-on discussed with patient referral to pain clinic, she has already been there. States she has not been to orthopedic back doctor yet, discussed this may be a future issue depending upon how she makes out with physical therapy Apr, Lumbar back pain (ICD-10 - M54.50) CT this lumbar spine indicates mild degenerative changes no evidence for acute lumbar sacral spine trauma injury, subtle posterior disc protrusions at the L4- L5 and L5-S1 levels are suggested and likely chronic, spinal canal patent without obvious stenosis Apr, Other Discussed with patient she will need to go to physical therapy, and see how the outcome is, depending upon further radiographic studies. And/or referral to orthopedics PLAN OF TREATMENT Treatment Notes Assessment Notes Clinical Notes Pain in thoracic spine Thoracic spine CT scan 11/30/2013 located at [facility] website, minimal age-related scattered degenerative changes no evidence of thoracic trauma or injury, paravertebral soft tissues are unremarkable, discuss ed with patient will need to obtain an x-ray for further evaluation that I cannot just simply order a CT scan today, will refer to physical therapy and then reevaluate when she is seen by Dr. Reynolds for her routine office visit Other chronic pain Patient's medication s reviewed, discussed with patient she is already on pain medications and muscle relaxers no other medications will be ordered today, suggested to continue to use the the heating pad and lidocaine roll-on discussed with patient referral to pain clinic, she has already been there. States she has not been to orthopedic back doctor yet, discussed this may be a future issue depending upon how she makes out with physical therapy Lumbar back pain CT this lumbar spine indicates mild degenerative changes no evidence for acute lumbar sacral spine trauma injury, subtle posterior disc protrusions at the L4-L5 and L5-S1 levels are suggested and likely chronic, spinal canal patent without obvious stenosis Treatment Notes Test Name Order Date PLZ PORTABLE LUMBAR SPINE AP/LAT 2021-05-09 PLZ PORTABLE THORACIC SPINE AP/LAT 2021-05-09 Referrals Referral Date Details 2021-05-17 2021-05-17, please eval and treat for thoracic and lumbar back pain recent xrays were ordered, Physical Therapy ([place]) [facility] Next Appt Details Dr. Reynolds as scheduled Reason: Provider Name:Magdaleno Reynolds, 2021-06-15 0 3:00:00 PM, [address] [facility], , [place], [address], Insurance Providers Payer Name Payer Address Payer Phone Insured Name Patient Relati onship to Insured Coverage Start Date Coverage End Date BCBS OF [facility] [phone] [facility] [address] UZAIR MARTINO self
--- OUTSIDE RECORDS SUMMARY | 2021-05-23 17:53 | CCD ---
Author Author [facility] Organization [facility] Address Unknown Phone Unavailable Care Team Providers Care Online Banking Specialist Name Role Phone Magdaleno Reynolds Unavailable PROBLEMS Type Condition ICD9-CM Code [id number] Code Onset Dates Condition S tatus W/U Status Risk SNOMED Code Notes Problem Common migraine G43.009 Active confirmed 560 82386 Problem Cervical dysplasia N87.9 Active confirmed 7 5519824 Problem DJD (degenerative joint disease), cervical M50.30 Active confirmed 55786798 Problem Splenic artery aneurysm I72.8 Active confirmed 83392140 Problem Vitamin B12 deficiency E53.8 Active confirmed 361619346 Problem Fe deficiency anemia D50.9 Active confirmed 68678427 Problem Tinnitus of right ear H93.11 Active confirmed 38437349 Problem CHRIS (obstructive sleep apnea) G47.33 Active confirm ed 91363711 Problem Sarcoidosis D86.9 Active confirmed 18713638 Problem Obesity E66.9 Active confirmed 852816330 Problem Insomnia G47.00 Active confirmed 415955690 Problem Generalized anxiety disorder F41.1 Active confirme d 02624077 Problem ADD (attention deficit disorder) F90.0 Active conf irmed 961463482 Problem Allergic rhinitis J30.9 Active confirmed 61 762073 Problem Irritable bowel syndrome with diarrhea K58.0 A ctive confirmed 594726527 Problem Gastroesophageal reflux disease, esophagitis pre sence not specified K21.9 Active confirmed 789480202 Problem Mild persistent asthma without complication J45.30 Active confirmed 279441139 Problem Ovarian cyst N83.209 Active confirmed 793352 01 Problem IFG (impaired fasting glucose) R73.01 Active confir med 500867347 Problem Venous insufficiency of both lower extremities I87 .2 Active confirmed 605823946 Problem Breast cancer screening Z12.39 Active confirmed 889749925 Problem Other chronic pain G89.29 Active confirmed 8 1486597 Problem Vitamin D deficiency E55.9 Active confirmed 75604492 Problem CTS (carpal tunnel syndrome) G56.00 Active confirme d 32088949 Problem Mixed hyperlipidemia E78.2 Active confirmed 731962857 Problem Post-traumatic stress disorder, unspecified F43.10 Active confirmed 03903023 Problem Major depressive disorder, recurrent, moderate F33 .1 Active confirmed 413831018 Problem Peripheral edema R60.9 Active confirmed 271 730081 ALLERGIES Allergen (clinical drug ingredient) Drug/Non Drug Allergy do cumented on EMR Reaction Allergy Type Onset Date Status bandaids excoriation Non Drug Allergy Active cetirizine Cetirizine HCl([facility] Code:[address]-68) Hives Drug All ergy Active citalopram Celexa([facility] Code:[address]-85) severe drowsiness Drug Tommy rgy Active clindamycin Clindamycin HCl([facility] Code:[address]-07) Vomiting Drug A llergy Active povidone-iodine Betadine([facility] Code:[address]-49) Rash Drug Tommy rgy Active ENCOUNTERS from 1974 to 2021-05-19 Encounter Location Date Provider Diagnosis [address] [phone] [place] [address] May, Magdaleno Reynolds IMMUNIZATIONS Vaccine Route Administration Date [...] College Language: Question Answer Notes Languages spoken: Guamanian Uatsdin: Question Answer Notes Uatsdin 33 None Alcohol Screening: Question Answer Notes [...] for 30 Days Active Ergocalciferol 1.25 MG (23680 UT) 1 capsule Orally every 7 days [...] in 2H for 30 Days Active Nystatin 311868 UNIT/GM 1 application Externally to groin area [...] Information RESULTS No Results REASON FOR VISIT X-rays MEDICAL (GENERAL) HISTORY Type Description Date Medical History cervical/thoracic spondylosi s-C3-7 HNP s compression-06/21/14 MRI Medical History lumbar spondylosis-10/19/09 normal LS MRI Medical History hypertension-03/2014 normal T TE, 03/2014 EST low risk-6 minutes, 30 seconds on Roldan-Sanchez Medical History mild left and very mild righ t carpal tunnel syndrome/mild left ulnar neuropathy wvyid-RHL-Qiexf Medical History chronic MDD/AUDI/OCD/insomnia Medical History obesity, morbid Medical History impaired fasting glucose Medical History history of nicotine addictio n-smoked 07/16 x 14 years, quit 02/2010 Medical History asthma, mild intermittent Medical History VXQC-xsn-vudxfmd gastritis, non-bleeding erosive gastropathy, -GEJ/-H pylori-11/27/18 EGD-Dr. Parks, [place], [place] Medical History palpitations-03/2014 Holter-s ymptoms correlated [...] colonic spasm, WNL random colonic b[place] Medical History 2 tiny T2WHI 1 in each frontal lobe by MRI/ MRA brain Medical History thoracic pcipegyzstq-E3-0 sm all HNP, T10-L1 bulges s compression by 03/29/12 MRI Surgical History colposcopy, 2006-miguel angel 1---2011 no dysplas ia 2013 MIGUEL ANGEL 1 on ECC 2004,2006,2011 Surgical History cryo Surgical History bronch. scope x 2 Surgical History hysterosalpingography x [address]Dacos becerra 2008, 2009 Surgical History LEEP, CEKUH-Qcfsrjp-Lbdjwd 04/2015, 12/01 13 Surgical History lap otis--pathology cw acal culous chronic ovcxilpqirjwp-[place]JK[place], [place] 04/29/19 Surgical History Colposcopy 09/21/2019 Hospitalization History No know Hospitalization history Goals Section No Information Health Concerns No Information MEDICAL EQUIPMENT No Information MENTAL STATUS No Information FUNCTIONAL STATUS No Information ASSESSMENTS No Information PLAN OF TREATMENT Next Appt Details Provider Name:Magdaleno Reynolds, 2021-06-15 0 3:00:00 PM, [address] [facility], , [place], [address], Insurance Providers Payer Name Payer Address Payer Phone Insured Name Patient Relati onship to Insured Coverage Start Date Coverage End Date [facility] [phone] [facility] [address] UZAIR MARTINO self
--- OUTSIDE RECORDS SUMMARY | 2021-05-23 17:53 | CCD ---
Author Author [facility] Organization [facility] Address Unknown Phone Unavailable Care Team Providers Care Mining Helper Name Role Phone Magdaleno Reynolds Unavailable PROBLEMS Type Condition ICD9-CM Code OYQ87-DI Code Onset Dates Condition S tatus W/U Status Risk SNOMED Code Notes Problem Common migraine G43.009 Active confirmed 560 59515 Problem Cervical dysplasia N87.9 Active confirmed 7 1445890 Problem DJD (degenerative joint disease), cervical M50.30 Active confirmed 62175109 Problem Splenic artery aneurysm I72.8 Active confirmed 27865680 Problem Vitamin B12 deficiency E53.8 Active confirmed 005836484 Problem Fe deficiency anemia D50.9 Active confirmed 55995793 Problem Tinnitus of right ear H93.11 Active confirmed 48351577 Problem CHRIS (obstructive sleep apnea) G47.33 Active confirm ed 69943740 Problem Sarcoidosis D86.9 Active confirmed 15183227 Problem Obesity E66.9 Active confirmed 691970429 Problem Insomnia G47.00 Active confirmed 858370957 Problem Generalized anxiety disorder F41.1 Active confirme d 58704984 Problem ADD (attention deficit disorder) F90.0 Active conf irmed 635999514 Problem Allergic rhinitis J30.9 Active confirmed 61 198903 Problem Irritable bowel syndrome with diarrhea K58.0 A ctive confirmed 230727134 Problem Gastroesophageal reflux disease, esophagitis pre sence not specified K21.9 Active confirmed 026832206 Problem Mild persistent asthma without complication J45.30 Active confirmed 878202853 Problem Ovarian cyst N83.209 Active confirmed 927569 01 Problem IFG (impaired fasting glucose) R73.01 Active confir med 406041324 Problem Venous insufficiency of both lower extremities I87 .2 Active confirmed 005077581 Problem Breast cancer screening Z12.39 Active confirmed 500027774 Problem Other chronic pain G89.29 Active confirmed 8 4156184 Problem Vitamin D deficiency E55.9 Active confirmed 01203478 Problem CTS (carpal tunnel syndrome) G56.00 Active confirme d 05456613 Problem Mixed hyperlipidemia E78.2 Active confirmed 772059912 Problem Post-traumatic stress disorder, unspecified F43.10 Active confirmed 98680908 Problem Major depressive disorder, recurrent, moderate F33 .1 Active confirmed 385165235 Problem Peripheral edema R60.9 Active confirmed 271 105389 ALLERGIES Allergen (clinical drug ingredient) Drug/Non Drug Allergy do cumented on EMR Reaction Allergy Type Onset Date Status bandaids excoriation Non Drug Allergy Active cetirizine Cetirizine HCl([facility] Code:[address]-42) Hives Drug All ergy Active citalopram Celexa([facility] Code:[address]-17) severe drowsiness Drug Tommy rgy Active clindamycin Clindamycin HCl([facility] Code:[address]-41) Vomiting Drug A llergy Active povidone-iodine Betadine([facility] Code:[address]-79) Rash Drug Tommy rgy Active ENCOUNTERS from 1974 to 2021-05-19 Encounter Location Date Provider Diagnosis [address] [phone] [place] [address] May, Magdaleno Reynolds IMMUNIZATIONS Vaccine Route Administration [...] College Language: Question Answer Notes Languages spoken: Salvadorean Congregation: Question Answer Notes Congregation 33 None Alcohol Screening: Question Answer Notes [...] for 30 Days Active Ergocalciferol 1.25 MG (41279 UT) 1 capsule Orally every 7 days [...] in 2H for 30 Days Active Nystatin 811184 UNIT/GM 1 application Externally to groin area [...] Information RESULTS No Results REASON FOR VISIT No Information MEDICAL (GENERAL) HISTORY Type Description Date Medical History cervical/thoracic spondylosi s-C3-7 HNP s compression-06/21/14 MRI Medical History lumbar spondylosis-10/19/09 normal LS MRI Medical History hypertension-03/2014 normal T TE, 03/2014 EST low risk-6 minutes, 30 seconds on Roldan-Sanchez Medical History mild left and very mild righ t carpal tunnel syndrome/mild left ulnar neuropathy luhsn-FOT-Zhxsf Medical History chronic MDD/UADI/OCD/insomnia Medical History obesity, morbid Medical History impaired fasting glucose Medical History history of nicotine addictio n-smoked 07/16 x 14 years, quit 02/2010 Medical History asthma, mild intermittent Medical History TLON-wzk-ufhazvd gastritis, non-bleeding erosive gastropathy, -GEJ/-H pylori-11/27/18 EGD-Dr. Parks, [place], [place] Medical History palpitations-03/2014 Holter-s ymptoms correlated [...] colonic spasm, WNL random colonic bx-colon-Dr. [place]arly [place]11[place]27[place]18 Medical History 2 tiny T2WHI 1 in each frontal lobe by MRI/ MRA brain Medical History thoracic caleywownov-U1-0 sm all HNP, T10-L1 bulges s compression by 03/29/12 MRI Surgical History colposcopy, 2006-miguel angel 1---2011 no dysplas ia 2013 MIGUEL ANGEL 1 on ECC 2004,2006,2011 Surgical History cryo Surgical History bronch. scope x 2 Surgical History hysterosalpingography x [address]Dacos becerra 2008, 2009 Surgical History LEEP, BXBGT-Gxptjna-Evmbwg 04/2015, 12/01 13 Surgical History lap otis--pathology cw acal culous chronic sfmdjpowqonld-CGQ-[place], [place] 04/29/19 Surgical History Colposcopy 09/21/2019 Hospitalization History No know Hospitalization history Goals Section No Information Health Concerns No Information MEDICAL EQUIPMENT No Information MENTAL STATUS No Information FUNCTIONAL STATUS No Information ASSESSMENTS No Information PLAN OF TREATMENT Next Appt Details Provider Name:Magdaleno Reynolds, 2021-06-15 0 3:00:00 PM, [address] [facility], , [place], [address], Insurance Providers Payer Name Payer Address Payer Phone Insured Name Patient Relati onship to Insured Coverage Start Date Coverage End Date [facility] [phone] [facility] [address] UZAIR MARTINO self
--- OUTSIDE RECORDS SUMMARY | 2021-05-23 17:54 | CCD ---
Author Author [facility] Organization [facility] Address Unknown Phone Unavailable Care Team Providers Care Client Manager Name Role Phone Magdaleno Reynolds Unavailable PROBLEMS Type Condition ICD9-CM Code ULS19-DJ Code Onset Dates Condition S tatus W/U Status Risk SNOMED Code Notes Problem Cervical dysplasia N87.9 Active confirmed 7 0276853 Problem Splenic artery aneurysm I72.8 Active confirmed 47204183 Problem Common migraine G43.009 Active confirmed 560 73701 Problem Fe deficiency anemia D50.9 Active confirmed 37419577 Problem DJD (degenerative joint disease), cervical M50.30 Active confirmed 84755388 Problem CHRIS (obstructive sleep apnea) G47.33 Active confirm ed 65377482 Problem Irritable bowel syndrome with diarrhea K58.0 A ctive confirmed 435496849 Problem Sarcoidosis D86.9 Active confirmed 16500605 Problem CTS (carpal tunnel syndrome) G56.00 Active confirme d 24736400 Problem Allergic rhinitis J30.9 Active confirmed 61 569317 Problem Insomnia G47.00 Active confirmed 002824713 Problem Generalized anxiety disorder F41.1 Active confirme d 79766870 Problem Obesity E66.9 Active confirmed 065215704 Problem Gastroesophageal reflux disease, esophagitis pre sence not specified K21.9 Active confirmed 853100824 Problem ADD (attention deficit disorder) F90.0 Active conf irmed 599090683 Problem Tinnitus of right ear H93.11 Active confirmed 80978741 Problem Mild persistent asthma without complication J45.30 Active confirmed 014426287 Problem Ovarian cyst N83.209 Active confirmed 516818 01 Problem Peripheral edema R60.9 Active confirmed 271 967943 Problem Vitamin D deficiency E55.9 Active confirmed 78942221 Problem Venous insufficiency of both lower extremities I87 .2 Active confirmed 432197788 Problem Vitamin B12 deficiency E53.8 Active confirmed 006314275 Problem Breast cancer screening Z12.39 Active confirmed 571870981 Problem IFG (impaired fasting glucose) R73.01 Active confir med 391443139 Problem Mixed hyperlipidemia E78.2 Active confirmed 549247420 Problem Post-traumatic stress disorder, unspecified F43.10 Active confirmed 10844180 Problem Major depressive disorder, recurrent, moderate F33 .1 Active confirmed 543678664 ALLERGIES Allergen (clinical drug ingredient) Drug/Non Drug Allergy do cumented on EMR Reaction Allergy Type Onset Date Status bandaids excoriation Non Drug Allergy Active cetirizine Cetirizine HCl([facility] Code:[address]-97) Hives Drug All ergy Active citalopram Celexa(ND Code:[address]-71) severe drowsiness Drug Tommy rgy Active clindamycin Clindamycin HCl([facility] Code:[address]-69) Vomiting Drug A llergy Active povidone-iodine Betadine(ND Code:[address]-11) Rash Drug Tommy rgy Active ENCOUNTERS from 1974 to 2021-05-01 Encounter Location Date Provider Diagnosis [address] [phone] [place] [address] Apr, Magdaleno Reynolds IMMUNIZATIONS Vaccine Route Administration [...] College Language: Question Answer Notes Languages spoken: Gabonese Sikh: Question Answer Notes Sikh 33 None Alcohol Screening: Question Answer Notes [...] Notes Start Da te End Date Status Ambien 5 MG 1 tablet at bedtime Orally at bedtime MDD:1 for 30 day(s) Feb, Active Topiramate 50 MG 1.5 tablet orally bid for 90 day(s) Active Ergocalciferol 1.25 MG (01184 UT) 1 capsule Orally every 7 days for 90 day(s) Active Pantoprazole Sodium 40 MG 1 tablet Orally every morning for 90 day(s) Active Hair Skin and Nails Formula - as directed Orally Active Lotronex 0.5 MG 1 tablet Orally Daily for 30 day(s) November Active Lasix 40 mg 1 tablet Orally daily prn BLE swelling for 90 day(s) Active Diclofenac Sodium 75 MG 1 tablet Orally twice a day for 90 day(s) Active Cyanocobalamin 500 MCG 1 tablet Orally Once a day for 90 day(s) Active Tums Ultra 1000 1000 MG 1 tablet Orally at bedtime for 90 day(s) Active Nikki Allergy 180 MG TAKE ONE TABLET BY MOUTH EVERY DAY Active Clobetasol Propionate 0.05 % 1 application to affected area Externally arms Twice a day for 90 day(s) Active Soma 350 MG 1 tablet as needed Orally twice a day MDD: 2 for 30 Days Apr, Active Vitamin C 500 MG as directed Orally Active Carpal Tunnel Wrist Stabilizer _ as directed _ _ for 99 months Active clonazePAM 1 MG 1 tablet Orally bid, CODE A for 30 Days Mar, Active Xopenex HFA 45 MCG/ACT 1 puff as needed Inhalation every 4 hrs for 30 Days Active Ondansetron HCl 4 MG 1 tablet Orally Once a day for 90 day(s) Jun, Active Hibiclens 4 % as directed Externally Daily for 90 day(s) Active QUEtiapine Fumarate 50 MG 1 tab Orally at bedtime for 30 day(s) Active FLUoxetine HCl 40 MG 2 [...] a day for 30 day(s) Active Nystatin 044038 UNIT/GM 1 application Externally to groin area [...] t carpal tunnel syndrome/mild left ulnar neuropathy ifgtl-ANQ-Nnrbq Medical History chronic MDD/AUDI/OCD/insomnia Medical History obesity, morbid Medical History impaired fasting glucose Medical History history of nicotine addictio n-smoked 1 07/16 x 14 years, quit 02/2010 Medical History asthma, mild intermittent Medical History ZTMU-xvf-fqdcdxd gastritis, non-bleeding erosive gastropathy, -GEJ/-H pylori-11/27/18 EGD-Dr. Parks, [place], [place] Medical History palpitations-03/2014 Holter-s ymptoms correlated [...] colonic spasm, WNL random colonic bx-colon[place]. [place]27[place] Medical History 2 tiny T2WHI 1 in each frontal lobe by MRI/ MRA brain Medical History thoracic qzeillydbwr-Y2-9 sm all HNP, T10-L1 bulges s compression by 03/29/12 MRI Surgical History colposcopy, 2006-miguel angel 1---2011 no dysplas ia 2013 MIGUEL ANGEL 1 on ECC 2004,2006,2011 Surgical History cryo Surgical History bronch. scope x 2 Surgical History hysterosalpingography x [address] Dr.Dacos becerra 2008, 2009 Surgical History LEEP, [facility]-Ayfcjwt-Zcugwk 04/2015, 12/01 14 Surgical History lap otis--pathology cw acal culous chronic [place]yuezv[place]gauvy[place], [place] 04/29/19 Surgical History Colposcopy 09/21/2019 Hospitalization [...] tablet as needed Orally twice a day D: 2 for 30 Days Apr, Clobetasol Propionate 0.05 % 1 application to affected area Externally arms Twice a day for 90 day(s) Nystatin 461032 UNIT/GM 1 application Externally to groin area Twice a day for 90 day(s) Dec, Xopenex HFA 45 MCG/ACT 1 puff as needed Inhalation every 4 hrs f or 30 Days Lasix 40 mg 1 tablet Orally daily prn BLE swelling for 90 da y(s) Percocet 7.5-325 MG 1 tablet as needed Orally TID prn, MDD 3 for 30 Days Mar, clonazePAM 1 MG 1 tablet Orally bid, CODE A for 30 Days Mar, Ambien 5 MG 1 tablet at bedtime Orally at bedtime D:1 for 30 day(s) Feb, Ergocalciferol 1.25 MG (06653 UT) 1 capsule Orally every 7 days for 90 day(s) Next Appt Details Provider Name:Magdaleno Reynolds, 2021-06-15 0 3:00:00 PM, [address] [facility], , [place], [address], Insurance Providers Payer Name Payer Address Payer Phone Insured Name Patient Relati onship to Insured Coverage Start Date Coverage End Date [place] OF [place] [facility] [phone] [facility] [place] [address] UZAIR MARTINO self
--- OUTSIDE RECORDS SUMMARY | 2021-05-23 17:54 | CCD ---
Author Author [facility] Organization [facility] Address Unknown Phone Unavailable Care Team Providers Care Bench Assembler Operator Name Role Phone Magdaleno Reynolds Unavailable PROBLEMS Type Condition ICD9-CM Code SRO72-RV Code Onset Dates Condition S tatus W/U Status Risk SNOMED Code Notes Problem Cervical dysplasia N87.9 Active confirmed 7 6589795 Problem Splenic artery aneurysm I72.8 Active confirmed 81570261 Problem Common migraine G43.009 Active confirmed 560 27651 Problem Fe deficiency anemia D50.9 Active confirmed 14180473 Problem DJD (degenerative joint disease), cervical M50.30 Active confirmed 29217161 Problem CHRIS (obstructive sleep apnea) G47.33 Active confirm ed 73164887 Problem Irritable bowel syndrome with diarrhea K58.0 A ctive confirmed 857092539 Problem Sarcoidosis D86.9 Active confirmed 83293023 Problem CTS (carpal tunnel syndrome) G56.00 Active confirme d 13175017 Problem Allergic rhinitis J30.9 Active confirmed 61 090547 Problem Insomnia G47.00 Active confirmed 041021322 Problem Generalized anxiety disorder F41.1 Active confirme d 46760869 Problem Obesity E66.9 Active confirmed 944749087 Problem Gastroesophageal reflux disease, esophagitis pre sence not specified K21.9 Active confirmed 390110422 Problem ADD (attention deficit disorder) F90.0 Active conf irmed 164838351 Problem Tinnitus of right ear H93.11 Active confirmed 06435390 Problem Mild persistent asthma without complication J45.30 Active confirmed 795343779 Problem Ovarian cyst N83.209 Active confirmed 154851 01 Problem Peripheral edema R60.9 Active confirmed 271 986533 Problem Vitamin D deficiency E55.9 Active confirmed 88781428 Problem Venous insufficiency of both lower extremities I87 .2 Active confirmed 424575203 Problem Vitamin B12 deficiency E53.8 Active confirmed 246158477 Problem Breast cancer screening Z12.39 Active confirmed 775005965 Problem IFG (impaired fasting glucose) R73.01 Active confir med 091738873 Problem Mixed hyperlipidemia E78.2 Active confirmed 626131257 Problem Post-traumatic stress disorder, unspecified F43.10 Active confirmed 18014485 Problem Major depressive disorder, recurrent, moderate F33 .1 Active confirmed 192863438 ALLERGIES Allergen (clinical drug ingredient) Drug/Non Drug Allergy do cumented on EMR Reaction Allergy Type Onset Date Status bandaids excoriation Non Drug Allergy Active cetirizine Cetirizine HCl([facility] Code:[address]-45) Hives Drug All ergy Active citalopram Celexa([facility] Code:[address]-57) severe drowsiness Drug Tommy rgy Active clindamycin Clindamycin HCl([facility] Code:[address]-87) Vomiting Drug A llergy Active povidone-iodine Betadine([facility] Code:[address]-35) Rash Drug Tommy rgy Active ENCOUNTERS from 1974 to 2021-05-01 Encounter Location Date Provider Diagnosis [address] [phone] [place] [address] Apr, Magdaleno Reynolds Vitamin D deficiency E55.9 a nd Peripheral edema R60.9 IMMUNIZATIONS Vaccine Route Administration Date Status Influenza [...] College Language: Question Answer Notes Languages spoken: Welsh Yarsani: Question Answer Notes Yarsani 33 None Alcohol Screening: Question Answer Notes [...] for 90 day(s) Active Ergocalciferol 1.25 MG (60446 UT) 1 capsule Orally every 7 days [...] a day for 30 day(s) Active Nystatin 345111 UNIT/GM 1 application Externally to groin area [...] t carpal tunnel syndrome/mild left ulnar neuropathy rptbp-QSA-Altvm Medical History chronic MDD/AUDI/OCD/insomnia Medical History obesity, morbid Medical History impaired fasting glucose Medical History history of nicotine addictio n-smoked 1 07/16 x 14 years, quit 02/2010 Medical History asthma, mild intermittent Medical History RKXW-uzp-esbhbtf gastritis, non-bleeding erosive gastropathy, -GEJ/-H pylori-11/27/18 EGD-Dr. Parks, [place], [place] Medical History palpitations-03/2014 Holter-s ymptoms correlated [...] colonic spasm, WNL random colonic bx-colon-Dr. Charly [place], [place]-11/27/18 Medical History 2 tiny T2WHI 1 in each frontal lobe by MRI/ MRA brain Medical History thoracic smvarpimsmu-A1-9 sm all HNP, T10-L1 bulges s compression by 03/29/12 MRI Surgical History colposcopy, 2006-miguel angel 1---2011 no dysplas ia 2013 MIGUEL ANGEL 1 on ECC 2004,2006,2011 Surgical History cryo Surgical History bronch. scope x 2 Surgical History hysterosalpingography x [address] Dr[address]Dacos becerra 2008, 2009 Surgical History LEEP, XRMGV-Xbekaye-Luyufz 04/2015, 12/01 14 Surgical History lap otis--pathology cw acal culous chronic cekyjclxuujyb-[place], [place] 04/29/19 Surgical History Colposcopy 09/21/2019 Hospitalization History No Hospitalization history informati on Goals Section No Information Health Concerns No Information MEDICAL EQUIPMENT No Information MENTAL STATUS No Information FUNCTIONAL STATUS No Information ASSESSMENTS Encounter Date Diagnosis Assessment Notes Treatment Notes Treatm ent Clinical Notes Apr, Vitamin D deficiency (ICD-10 - E55.9) Apr, Peripheral edema (ICD-10 - R60.9) PLAN OF TREATMENT Medication Medication Name Sig [...] Twice a day for 90 day(s) Nystatin 131965 UNIT/GM 1 application Externally to groin area [...] for 30 day(s) Feb, Ergocalciferol 1.25 MG (26227 UT) 1 capsule Orally every 7 days for 90 day(s) Next Appt Details Provider Name:Magdaleno Reynolds, 2021-06-15 0 3:00:00 PM, [address] [facility], , [place], [address], Insurance Providers Payer Name Payer Address Payer Phone Insured Name Patient Relati onship to Insured Coverage Start Date Coverage End Date [place] OF [place] [facility] [id number] [facility] [id number] UZAIR MARTINO self
--- OUTSIDE RECORDS SUMMARY | 2021-05-23 17:54 | CCD ---
Author Author [facility] Organization [facility] Address Unknown Phone Unavailable Care Team Providers Care Mounter Clarinets Name Role Phone Wan Edwards Unavailable PROBLEMS Type Condition ICD9-CM Code SZQ91-SN Code Onset Dates Condition S tatus W/U Status Risk SNOMED Code Notes Problem Cervical dysplasia N87.9 Active confirmed 7 8253632 Problem Splenic artery aneurysm I72.8 Active confirmed 94790445 Problem Common migraine G43.009 Active confirmed 560 02957 Problem Fe deficiency anemia D50.9 Active confirmed 35853242 Problem DJD (degenerative joint disease), cervical M50.30 Active confirmed 90744914 Problem CHRIS (obstructive sleep apnea) G47.33 Active confirm ed 93192554 Problem Irritable bowel syndrome with diarrhea K58.0 A ctive confirmed 155691410 Problem Sarcoidosis D86.9 Active confirmed 24175654 Problem CTS (carpal tunnel syndrome) G56.00 Active confirme d 47494035 Problem Allergic rhinitis J30.9 Active confirmed 61 907726 Problem Insomnia G47.00 Active confirmed 006253213 Problem Generalized anxiety disorder F41.1 Active confirme d 41042177 Problem Obesity E66.9 Active confirmed 152657064 Problem Gastroesophageal reflux disease, esophagitis pre sence not specified K21.9 Active confirmed 861924095 Problem ADD (attention deficit disorder) F90.0 Active conf irmed 900215422 Problem Tinnitus of right ear H93.11 Active confirmed 86909196 Problem Mild persistent asthma without complication J45.30 Active confirmed 756271742 Problem Ovarian cyst N83.209 Active confirmed 290072 01 Problem Peripheral edema R60.9 Active confirmed 271 830866 Problem Vitamin D deficiency E55.9 Active confirmed 14516176 Problem Venous insufficiency of both lower extremities I87 .2 Active confirmed 781839829 Problem Vitamin B12 deficiency E53.8 Active confirmed 407686844 Problem Breast cancer screening Z12.39 Active confirmed 589400876 Problem IFG (impaired fasting glucose) R73.01 Active confir med 486371784 Problem Mixed hyperlipidemia E78.2 Active confirmed 808781839 Problem Post-traumatic stress disorder, unspecified F43.10 Active confirmed 07342084 Problem Major depressive disorder, recurrent, moderate F33 .1 Active confirmed 580841187 ALLERGIES Allergen (clinical drug ingredient) Drug/Non Drug Allergy do cumented on EMR Reaction Allergy Type Onset Date Status bandaids excoriation Non Drug Allergy Active cetirizine Cetirizine HCl([facility] Code:[address]-81) Hives Drug All ergy Active citalopram Celexa(ND Code:[address]-23) severe drowsiness Drug Tommy rgy Active clindamycin Clindamycin HCl([facility] Code:[address]-28) Vomiting Drug A llergy Active povidone-iodine Betadine([facility] Code:[address]-76) Rash Drug Tommy rgy Active ENCOUNTERS from 1974 to 2021-05-01 Encounter Location Date Provider Diagnosis [facility] [facility] [phone] [place] [address] Mar, Wan Edwards IMMUNIZATIONS Vaccine Route Administration Date Status Influenza [...] College Language: Question Answer Notes Languages spoken: Solomon Islander Worship: Question Answer Notes Worship 33 None Alcohol Screening: Question Answer Notes [...] for 90 day(s) Active Ergocalciferol 1.25 MG (70263 UT) 1 capsule Orally every 7 days [...] a day for 30 day(s) Active Nystatin 608091 UNIT/GM 1 application Externally to groin area [...] Information RESULTS No Results REASON FOR VISIT Appointment today? MEDICAL (GENERAL) HISTORY Type Description Date Medical History cervical/thoracic spondylosi s-C3-7 HNP s compression-06/21/14 MRI Medical History lumbar spondylosis-10/19/09 normal LS MRI Medical History hypertension-03/2014 normal T TE, 03/2014 EST low risk-6 minutes, 30 seconds on Roldan-Sanchez Medical History mild left and very mild righ t carpal tunnel syndrome/mild left ulnar neuropathy pvqyg-QAW-Qltva Medical History chronic MDD/AUDI/OCD/insomnia Medical History obesity, morbid Medical History impaired fasting glucose Medical History history of nicotine addictio n-smoked 07/16 x 14 years, quit 02/2010 Medical History asthma, mild intermittent Medical History DRUW-oll-mwgbfzp gastritis, non-bleeding erosive gastropathy, -GEJ/-H pylori-11/27/18 EGD-Dr. Parks, [place], [place] Medical History palpitations-03/2014 Holter-s ymptoms correlated [...] colonic spasm, WNL random colonic bx[place] Medical History 2 tiny T2WHI 1 in each frontal lobe by MRI/ MRA brain Medical History thoracic bspllizxkkn-V0-8 sm all HNP, T10-L1 bulges s compression by 03/29/12 MRI Surgical History colposcopy, 2006-miguel angel 1---2011 no dysplas ia 2013 MIGUEL ANGEL 1 on ECC 2004,2006,2011 Surgical History cryo Surgical History bronch. scope x 2 Surgical History hysterosalpingography x [address] Dr[address]Dacos becerra 2008, 2009 Surgical History LEEP, [id number]-Itmxdeg-Hnxlxk 04/2015, 12/01 14 Surgical History lap otis--pathology cw acal culous chronic [place], [place] 04/29/19 Surgical History Colposcopy 09/21/2019 Hospitalization [...] Twice a day for 90 day(s) Nystatin 255659 UNIT/GM 1 application Externally to groin area [...] for 30 day(s) Feb, Ergocalciferol 1.25 MG (59778 UT) 1 capsule Orally every 7 days for 90 day(s) Next Appt Details Provider Name:Magdaleno Reynolds, 2021-06-15 0 3:00:00 PM, [address] [facility], , [place], [address], Insurance Providers Payer Name Payer Address Payer Phone Insured Name Patient Relati onship to Insured Coverage Start Date Coverage End Date [employer] OF [place] [facility] [phone] [facility] [id number] UZAIR MARTINO self
--- OUTSIDE RECORDS SUMMARY | 2021-05-23 17:54 | CCD ---
Author Author [facility] Organization [facility] Address Unknown Phone Unavailable Care Team Providers Care Access Nurse Name Role Phone Magdaleno Reynolds Unavailable PROBLEMS Type Condition ICD9-CM Code [id number] Code Onset Dates Condition S tatus W/U Status Risk SNOMED Code Notes Problem Cervical dysplasia N87.9 Active confirmed 7 6139241 Problem Splenic artery aneurysm I72.8 Active confirmed 89148736 Problem Common migraine G43.009 Active confirmed 560 59078 Problem Fe deficiency anemia D50.9 Active confirmed 32982740 Problem DJD (degenerative joint disease), cervical M50.30 Active confirmed 71619363 Problem CHRIS (obstructive sleep apnea) G47.33 Active confirm ed 37172824 Problem Irritable bowel syndrome with diarrhea K58.0 A ctive confirmed 555440249 Problem Sarcoidosis D86.9 Active confirmed 92858846 Problem CTS (carpal tunnel syndrome) G56.00 Active confirme d 85436671 Problem Allergic rhinitis J30.9 Active confirmed 61 435445 Problem Insomnia G47.00 Active confirmed 976432521 Problem Generalized anxiety disorder F41.1 Active confirme d 21427256 Problem Obesity E66.9 Active confirmed 803699746 Problem Gastroesophageal reflux disease, esophagitis pre sence not specified K21.9 Active confirmed 138241401 Problem ADD (attention deficit disorder) F90.0 Active conf irmed 423283554 Problem Tinnitus of right ear H93.11 Active confirmed 75122790 Problem Mild persistent asthma without complication J45.30 Active confirmed 658430659 Problem Ovarian cyst N83.209 Active confirmed 794996 01 Problem Peripheral edema R60.9 Active confirmed 271 387192 Problem Vitamin D deficiency E55.9 Active confirmed 47887486 Problem Venous insufficiency of both lower extremities I87 .2 Active confirmed 441228692 Problem Vitamin B12 deficiency E53.8 Active confirmed 828005035 Problem Breast cancer screening Z12.39 Active confirmed 704055510 Problem IFG (impaired fasting glucose) R73.01 Active confir med 728084872 Problem Mixed hyperlipidemia E78.2 Active confirmed 358594647 Problem Post-traumatic stress disorder, unspecified F43.10 Active confirmed 13814566 Problem Major depressive disorder, recurrent, moderate F33 .1 Active confirmed 432928226 ALLERGIES Allergen (clinical drug ingredient) Drug/Non Drug Allergy do cumented on EMR Reaction Allergy Type Onset Date Status bandaids excoriation Non Drug Allergy Active cetirizine Cetirizine HCl([facility] Code:[address]-42) Hives Drug All ergy Active citalopram Celexa(ND Code:[address]-22) severe drowsiness Drug Tommy rgy Active clindamycin Clindamycin HCl([facility] Code:[address]-26) Vomiting Drug A llergy Active povidone-iodine Betadine(ND Code:[address]-41) Rash Drug Tommy rgy Active ENCOUNTERS from 1974 to 2021-05-06 Encounter Location Date Provider Diagnosis [address] [phone] [place] [address] Apr, Magdaleno Reynolds IMMUNIZATIONS Vaccine Route Administration [...] College Language: Question Answer Notes Languages spoken: [place] Baptism: Question Answer Notes Baptism 33 None Alcohol Screening: Question Answer Notes [...] for 90 day(s) Active Ergocalciferol 1.25 MG (26266 UT) 1 capsule Orally every 7 days [...] a day for 30 day(s) Active Nystatin 313113 UNIT/GM 1 application Externally to groin area [...] Information RESULTS No Results REASON FOR VISIT Flank pain/back pain left side MEDICAL (GENERAL) HISTORY Type Description Date Medical History cervical/thoracic spondylosi s-C3-7 HNP s compression-06/21/14 MRI Medical History lumbar spondylosis-10/19/09 normal LS MRI Medical History hypertension-03/2014 normal T TE, 03/2014 EST low risk-6 minutes, 30 seconds on Roldan-Sanchez Medical History mild left and very mild righ t carpal tunnel syndrome/mild left ulnar neuropathy ckxtm-BFP-Htuso Medical History chronic MDD/AUDI/OCD/insomnia Medical History obesity, morbid Medical History impaired fasting glucose Medical History history of nicotine addictio n-smoked 07/16 x 14 years, quit 02/2010 Medical History asthma, mild intermittent Medical History DXFF-jtb-oqmaumt gastritis, non-bleeding erosive gastropathy, -GEJ/-H pylori-11/27/18 EGD-Dr. Parks, [place], [place] Medical History palpitations-03/2014 Holter-s ymptoms correlated [...] colonic spasm, WNL random colonic [place] Medical History 2 tiny T2WHI 1 in each frontal lobe by MRI/ MRA brain Medical History thoracic hpbpotbnncv-V0-0 sm all HNP, T10-L1 bulges s compression by 03/29/12 MRI Surgical History colposcopy, 2006-britton 1---2011 no dysplas ia 2013 [facility] 1 on ECC 2004,2006,2011 Surgical History cryo Surgical History bronch. scope x 2 Surgical History hysterosalpingography x 2 Dr.Dacos becerra 2008, 2009 Surgical History LEEP, [facility]-Mneabt 04/2015, 12/01 14 Surgical History lap otis--pathology cw acal culous chronic nosknounutfgr-[place], [place] 04/29/19 Surgical History Colposcopy 09/21/2019 Hospitalization [...] Twice a day for 90 day(s) Nystatin 738490 UNIT/GM 1 application Externally to groin area [...] for 30 day(s) Feb, Ergocalciferol 1.25 MG (47482 UT) 1 capsule Orally every 7 days for 90 day(s) Next Appt Details Provider Name:Mi Sullivanibeth, 08:45:00 AM, [address] [place] [address], , [place], [address], Provider Name:Magdaleno Reynolds, 2021-06-15 0 3:00:00 PM, [address] [place] [address], , [place], [address], Insurance Providers Payer Name Payer Address Payer Phone Insured Name Patient Relati onship to Insured Coverage Start Date Coverage End Date BCBS OF [facility] [phone] [facility] [address] UZAIR MARTINO self
--- OUTSIDE RECORDS SUMMARY | 2021-05-23 17:54 | CCD ---
Author Author [facility] Organization [facility] Address Unknown Phone Unavailable Care Team Providers Care Bridal Sales Consultant Name Role Phone Magdaleno Reynolds Unavailable PROBLEMS Type Condition ICD9-CM Code OIQ16-MH Code Onset Dates Condition S tatus W/U Status Risk SNOMED Code Notes Problem Common migraine G43.009 Active confirmed 560 85967 Problem Cervical dysplasia N87.9 Active confirmed 7 8441659 Problem DJD (degenerative joint disease), cervical M50.30 Active confirmed 75564824 Problem Splenic artery aneurysm I72.8 Active confirmed 62765838 Problem Vitamin B12 deficiency E53.8 Active confirmed 033608092 Problem Fe deficiency anemia D50.9 Active confirmed 06625603 Problem Tinnitus of right ear H93.11 Active confirmed 11537170 Problem CHRIS (obstructive sleep apnea) G47.33 Active confirm ed 51122005 Problem Sarcoidosis D86.9 Active confirmed 80125443 Problem Obesity E66.9 Active confirmed 861919010 Problem Insomnia G47.00 Active confirmed 095040824 Problem Generalized anxiety disorder F41.1 Active confirme d 45958557 Problem ADD (attention deficit disorder) F90.0 Active conf irmed 323543729 Problem Allergic rhinitis J30.9 Active confirmed 61 329530 Problem Irritable bowel syndrome with diarrhea K58.0 A ctive confirmed 272353190 Problem Gastroesophageal reflux disease, esophagitis pre sence not specified K21.9 Active confirmed 833523687 Problem Mild persistent asthma without complication J45.30 Active confirmed 743217716 Problem Ovarian cyst N83.209 Active confirmed 369701 01 Problem IFG (impaired fasting glucose) R73.01 Active confir med 906584190 Problem Venous insufficiency of both lower extremities I87 .2 Active confirmed 082441895 Problem Breast cancer screening Z12.39 Active confirmed 110434236 Problem Other chronic pain G89.29 Active confirmed 8 6026005 Problem Vitamin D deficiency E55.9 Active confirmed 43222776 Problem CTS (carpal tunnel syndrome) G56.00 Active confirme d 34848662 Problem Mixed hyperlipidemia E78.2 Active confirmed 198344232 Problem Post-traumatic stress disorder, unspecified F43.10 Active confirmed 86284383 Problem Major depressive disorder, recurrent, moderate F33 .1 Active confirmed 109649871 Problem Peripheral edema R60.9 Active confirmed 271 842267 ALLERGIES Allergen (clinical drug ingredient) Drug/Non Drug Allergy do cumented on EMR Reaction Allergy Type Onset Date Status bandaids excoriation Non Drug Allergy Active cetirizine Cetirizine HCl([facility] Code:[address]-40) Hives Drug All ergy Active citalopram Celexa([facility] Code:[address]-61) severe drowsiness Drug Tommy rgy Active clindamycin Clindamycin HCl([facility] Code:[address]-84) Vomiting Drug A llergy Active povidone-iodine Betadine(ND Code:[address]-46) Rash Drug Tommy rgy Active ENCOUNTERS from 1974 to 2021-05-09 Encounter Location Date Provider Diagnosis [address] [phone] [place] [address] Apr, Magdaleno Reynolds DJD (degenerative joint dise ase), cervical M50.30 IMMUNIZATIONS [...] College Language: Question Answer Notes Languages spoken: Mongolian Adventist: Question Answer Notes Adventist 33 None Alcohol Screening: Question Answer Notes [...] for 30 Days Active Ergocalciferol 1.25 MG (61155 UT) 1 capsule Orally every 7 days [...] in 2H for 30 Days Active Nystatin 315437 UNIT/GM 1 application Externally to groin area [...] t carpal tunnel syndrome/mild left ulnar neuropathy rplnk-FOO-Zvyoa Medical History chronic MDD/AUDI/OCD/insomnia Medical History obesity, morbid Medical History impaired fasting glucose Medical History history of nicotine addictio n-smoked 1 07/16 x 14 years, quit 02/2010 Medical History asthma, mild intermittent Medical History XCWW-nlo-cegczbw gastritis, non-bleeding erosive gastropathy, -GEJ/-H pylori-11/27/18 EGD-Dr. Parks, [place], [place] Medical History palpitations-03/2014 Holter-s ymptoms correlated [...] colonic spasm, WNL random colonic bx[place] Medical History 2 tiny T2WHI 1 in each frontal lobe by MRI/ MRA brain Medical History thoracic vbwditbgiuo-Q6-9 sm all HNP, T10-L1 bulges s compression by 03/29/12 MRI Surgical History colposcopy, 2006-miguel angel 1---2011 no dysplas ia 2013 MIGUEL ANGEL 1 on ECC 2004,2006,2011 Surgical History cryo Surgical History bronch. scope x 2 Surgical History hysterosalpingography x [address] Dr[address]Dacos becerra 2008, 2009 Surgical History LEEP, CWXEL-Ihuwvko-Vjutcu 04/2015, 12/01 13 Surgical History lap otis--pathology cw acal culous chronic qyzqghxwufggy[place], [place] 04/29/19 Surgical History Colposcopy 09/21/2019 Hospitalization History No know Hospitalization history Goals Section No Information Health Concerns No Information MEDICAL EQUIPMENT No Information MENTAL STATUS No Information FUNCTIONAL STATUS No Information ASSESSMENTS Encounter Date Diagnosis Assessment Notes Treatment Notes Treatm ent Clinical Notes Apr, DJD (degenerative joint disease), cervical (ICD- 10 - M50.30) PLAN OF TREATMENT Next Appt Details Provider Name:Magdaleno Reynolds, 2021-06-15 0 3:00:00 PM, [address] [facility], , [place], [address], Insurance Providers Payer Name Payer Address Payer Phone Insured Name Patient Relati onship to Insured Coverage Start Date Coverage End Date [facility] [phone] [employer] [facility] [address] UZAIR MARTINO self
--- OUTSIDE RECORDS SUMMARY | 2021-05-23 17:55 | CCD ---
Author Author [facility] Organization [facility] Address Unknown Phone Unavailable Care Team Providers Care Sales Branch Manager Name Role Phone Myesha Reynolds MD Unavailable Unavailable Myesha Reynolds [...] Unavailable RodolfoMyesha granados MD Unavailable Unavailable RodolfoMyesha MD Unavailable Unavailable RodolfoMyesha MD Unavailable Unavailable RodolfoMyesha MD Unavailable Unavailable RodolfoMyesha MD Unavailable Unavailable RodolfoMyesha MD Unavailable Unavailable RodolfoMyesha MD Unavailable Unavailable RodolfoMyesha MD Unavailable Unavailable RodolfoMyesha MD Unavailable Unavailable RodolfoMyesha MD Unavailable Unavailable Rodolfo, Myesha Dolan MD Unavailable Unavailable Rodolfo, Myesha Dolan MD Unavailable Unavailable Rodolfo, Myesha Dolan MD Unavailable Unavailable RodolfoMyesha MD Unavailable Unavailable RodolfoMyesha MD Unavailable Unavailable RodolfoMyesha MD Unavailable Unavailable RodolfoMyesha MD Unavailable Unavailable RodolfoMyesha MD Unavailable Unavailable Rodolfo, Myesha Dolan MD Unavailable Unavailable Rodolfo, Myesha Dolan MD Unavailable Unavailable Rodolfo, Myesha Dolan MD Unavailable Unavailable Rodolfo, Myesha Dolan MD Unavailable Unavailable RodolfoMyesha MD Unavailable Unavailable RodolfoMyesha MD Unavailable Unavailable RodolfoMyesha MD Unavailable Unavailable Rodolfo, Myesha Dolan MD Unavailable Unavailable Rodolfo, Myesha Dolan MD Unavailable Unavailable Rodolfo, Myesha Dolan MD Unavailable Unavailable RodolfoMyesha MD Unavailable Unavailable RodolfoMyesha MD Unavailable Unavailable RodolfoMyesha MD Unavailable Unavailable RodolfoMyesha granados MD Unavailable Unavailable RodolfoMyesha MD Unavailable Unavailable RodolfoMyesha MD Unavailable Unavailable RodolfoMyesha MD Unavailable Unavailable RodolfoMyesha MD Unavailable Unavailable RodolfoMyesha MD Unavailable Unavailable RodolfoMyesha granados MD Unavailable Unavailable RodolfoMyesha MD Unavailable Unavailable RodolfoMyesha granados MD Unavailable Unavailable RodolfoMyesha MD Unavailable Unavailable LAROCK, J ISAI DRYWALL TAPER HELPER Unavailable Unavailable LAROCK, J ISAI DRYWALL TAPER HELPER Unavailable Unavailable LAROCK, J ISAI DRYWALL TAPER HELPER Unavailable Unavailable LAROCK, J ISAI DRYWALL TAPER HELPER Unavailable Unavailable LAROCK, J ISAI DRYWALL TAPER HELPER Unavailable Unavailable LAROCK, J ISAI DRYWALL TAPER HELPER Unavailable Unavailable LAROCK, J ISAI DRYWALL TAPER HELPER Unavailable Unavailable LAROCK, J ISAI DRYWALL TAPER HELPER Unavailable Unavailable LAROCK, J ISAI DRYWALL TAPER HELPER Unavailable Unavailable LAROCK, J ISAI DRYWALL TAPER HELPER Unavailable Unavailable LAROCK, J ISAI DRYWALL TAPER HELPER Unavailable Unavailable LAROCK, J ISAI DRYWALL TAPER HELPER Unavailable Unavailable LAROCK, J ISAI DRYWALL TAPER HELPER Unavailable Unavailable LAROCK, J ISAI DRYWALL TAPER HELPER Unavailable Unavailable LAROCK, J ISAI DRYWALL TAPER HELPER Unavailable Unavailable LAROCK, J ISAI DRYWALL TAPER HELPER Unavailable Unavailable LAROCK, J ISAI DRYWALL TAPER HELPER Unavailable Unavailable LAROCK, J ISAI DRYWALL TAPER HELPER Unavailable Unavailable LAROCK, J ISAI DRYWALL TAPER HELPER Unavailable Unavailable LAROCK, J ISAI DRYWALL TAPER HELPER Unavailable Unavailable LAROCK, J ISAI DRYWALL TAPER HELPER Unavailable Unavailable LAROCK, J ISAI DRYWALL TAPER HELPER Unavailable Unavailable MORIN, Vamsi RIVERA MD Unavailable Unavailable MORIN, Vamsi RIVERA MD Unavailable Unavailable MORIN, Vamsi RIVERA MD Unavailable Unavailable MORIN, Vamsi RIVERA MD Unavailable Unavailable MORIN, Vamsi RIVERA MD Unavailable Unavailable MORIN, Vamsi RIVERA MD Unavailable Unavailable MORIN, Vamsi RIVERA MD Unavailable Unavailable MORIN, Vamsi RIVERA MD Unavailable Unavailable MORIN, Vamsi RIVERA MD Unavailable Unavailable MORIN, Vamsi RIVERA MD Unavailable Unavailable MORIN, aVmsi IRVERA MD Unavailable Unavailable MORIN, Vamsi RIVERA [...] Unavailable MORIN, Vamsi RIVERA MD Unavailable Unavailable OMRIN, Vamsi RIVERA MD Unavailable Unavailable MORIN, Vamsi [...] MORIN, Vamsi RIVERA MD Unavailable Unavailable MORIN, Vamis RIVERA MD Unavailable Unavailable MORIN, Vamsi RIVERA [...] Unavailable Unavailable Michelle Osborn MD Unavailable Unavailable Osborn, C Key Unavailable Unavailable Osborn, C Key Unavailable Unavailable Osborn, C Key MD Unavailable Unavailable Osborn, C Key MD Unavailable Unavailable Osborn, C Key MD Unavailable Unavailable Osborn, C Key MD Unavailable Unavailable Osborn, C Key MD Unavailable Unavailable Osborn, C Key MD Unavailable Unavailable Osborn, C Key MD Unavailable Unavailable Osborn, C Key MD Unavailable Unavailable Osborn, C Key MD Unavailable Unavailable Osborn, C Key MD Unavailable Unavailable Osborn, C Key MD Unavailable Unavailable Osborn, C Key MD Unavailable Unavailable Re-disclosure Warning The records [...] is protected by Article 27-F of the [facility] Public Health law. If you continue you may have access to information: Regarding HIV / AIDS; Provided by facilities licensed or operated by the [facility] Office of Mental Health; or Provided by the [facility] Office for People With Developmental Disabilities. If such information is present, then the following [facility] mandated warning applies: This information has [...] law may result in a fine or prison sentence or both. A general authorization for the release of medical or other information is NOT sufficient authorization for further disc losure. Family History Family Member Name Family Member Gender Family Member Status Date o f Status Description Data Source(s) Unknown Male Diagnosis 11/12/2016 12:00:00 AM EDT [facility] ([facility]) Encounters Encounter Providers Location Date Indications Data Source(s ) Unknown [address] [facility] [address] 05/18/2021 12:00:00 AM EDT eCW1 ([facility]) [place] [address] [facility] [place] [address] 05/16/2021 12:00:00 AM EDT eCW1 ([facility]) [place] [address] [facility] [place] [address] 05/15/2021 12:00:00 AM EDT [facility]CW1 [facility]) Outpatient Attender: ISAI WOODY NP 04/16 03:43:42 PM EDT - 05/13/2021 03:52:20 PM EDT [facility] ([facility] ) Outpatient [address] [facility] [address] 05/09/2021 12:00:00 AM EDT eCW1 ([facility]) Unknown [address] [facility] [place] [address] 05/09/2021 12:00:00 AM EDT eCW1 ([facility]) [place] [address] [facility] [place] [address] 05/04/2021 12:00:00 AM EDT eCW1 ([facility]) Unknown [address] [facility] [place] [address] 05/01/2021 12:00:00 AM EDT eCW1 ([facility]) [place] [address] [facility] [place] [address] 05/01/2021 12:00:00 AM EDT eCW1 ([facility]) [place] [address] [facility] [place] [address] 04/28/2021 12:00:00 AM EDT eCW1 ([facility]) Unknown [address] [facility] [place] [address] 04/28/2021 12:00:00 AM EDT eCW1 ([facility]) Unknown [address] [facility] [address] 04/10/2021 12:00:00 AM EDT eCW1 ([facility]) Unknown [address] [facility] [address] 03/07/2021 12:00:00 AM EDT eCW1 ([facility]) Unknown [address] [facility] [address] 02/09/2021 12:00:00 AM EDT eCW1 ([facility]) Unknown [address] [facility] [address] 02/09/2021 12:00:00 AM EDT eCW1 ([facility]) Unknown [address] [facility] [address] 01/28/2021 12:00:00 AM EDT eCW1 ([facility]) Unknown [address] [facility] [address] 01/27/2021 12:00:00 AM EDT eCW1 ([facility]) (WC PROC) [facility] Procedure [address] [place] [address] 2021 12:00:00 AM EDT [facility]CW1 ([facility]) Unknown [address] [facility] [address] 01/17/2021 12:00:00 AM EDT eCW1 ([facility]) Unknown [address] [facility] [address] 01/10/2021 12:00:00 AM EDT eCW1 ([facility]) Outpatient Attender: Shara Bustos: Magdaleno Lehman 12/28/2020 10:02:11 AM EDT [facility] Unknown [address] [facility] [address] 12/21/2020 12:00:00 AM EDT eCW1 ([facility]) Recurring Patient Attender: NICOLE ABARCAeferrer: Magdaleno coley MD 12/19/2020 03:30:21 PM EDT [facility] [address] [facility] [address] 12/09/2020 12:00:00 AM EDT [facility]CW1 [facility]) Unknown [address] [facility] [place] [address] 12/02/2020 12:00:00 AM EDT eCW1 ([facility]) Outpatient [address] [facility] [place] [address] 12/02/2020 12:00:00 AM EDT eCW1 ([facility]) Unknown [address] [facility] Y [address] 11/23/2020 12:00:00 AM EDT eCW1 ([facility]) Unknown [address] [facility] [place] [address] 11/22/2020 12:00:00 AM EDT eCW1 ([facility]) Unknown [address] [facility] [place] [address] 11/18/2020 12:00:00 AM EDT eCW1 ([facility]) Outpatient Attender: Kye Osborn MD 0 11/08/2020 04:52:01 PM EDT - 11/08/2020 06:03:55 PM EDT [facility] ([facility]) Unknown [address] [facility] Y [address] 11/03/2020 12:00:00 AM EDT eCW1 ([facility]) Unknown [address] [facility] Y [address] 11/03/2020 12:00:00 AM EDT eCW1 ([facility]) Outpatient [address] [facility] Y [address] 10/27/2020 12:00:00 AM EDT eCW1 ([facility]) Unknown [address] [facility] [address] 10/21/2020 12:00:00 AM EDT eCW1 ([facility]) Unknown [address] [facility] [address] 10/20/2020 12:00:00 AM EDT eCW1 ([facility]) Unknown [address] [facility] [place] [address] 10/20/2020 12:00:00 AM EDT eCW1 ([facility]) Unknown [address] [facility] [address] 10/20/2020 12:00:00 AM EDT [facility]CW1 [facility] Unknown [address] [facility] [address] 09/21/2020 12:00:00 AM EST [facility]CW1 [facility] [place] [address] [facility] [place] [address] 09/16/2020 12:00:00 AM EST eCW1 ([facility]) [facility] [address] [place] [address] 09/16/2020 12:00:00 AM EST eCW1 ([facility]) Unknown [address] [facility] [place] [address] 09/14/2020 12:00:00 AM EST [facility]CW1 [facility] Unknown [address] [facility] [place] [address] 08/23/2020 12:00:00 AM EST [facility]CW1 [facility] Unknown [address] [facility] [place] [address] 08/19/2020 12:00:00 AM EST eCW1 ([facility]) Outpatient Attender: ISAI WOODY NP 10/2020 07:08:14 PM EST - 08/18/2020 07:54:21 PM EST [facility] ([facility] ) Unknown [address] [facility] [address] 08/18/2020 12:00:00 AM EST eCW1 ([facility]) Unknown [address] [facility] [address] 08/18/2020 12:00:00 AM EST eCW1 ([facility]) Unknown [address] [facility] [place] [address] 08/11/2020 12:00:00 AM EST eCW1 ([facility]) Outpatient [address] [facility] [place] [address] 07/27/2020 12:00:00 AM EST eCW1 ([facility]) Unknown [address] [facility] [place] [address] 07/19/2020 12:00:00 AM EST eCW1 ([facility]) Unknown [address] [facility] [address] 07/18/2020 12:00:00 AM EST eCW1 ([facility]) Unknown [address] [facility] [place] [address] 07/18/2020 12:00:00 AM EST eCW1 ([facility]) Unknown [address] [facility] [place] [address] 07/18/2020 12:00:00 AM EST eCW1 ([facility]) Unknown [address] [facility] [place] [address] 07/17/2020 12:00:00 AM EST eCW1 ([facility]) Unknown [address] [facility] [address] 07/12/2020 12:00:00 AM EST eCW1 ([facility]) Outpatient Attender: Shara Bustos: Magdaleno Lehman 07/11/2020 08:58:48 AM EST [facility] Unknown [address] [facility] [address] 07/11/2020 12:00:00 AM EST eCW1 ([facility]) Unknown [address] [facility] [place] [address] 07/11/2020 12:00:00 AM EST eCW1 ([facility]) Unknown [address] [facility] [place] [address] 07/11/2020 12:00:00 AM EST eCW1 ([facility]) Unknown [address] [facility] [place] [address] 07/11/2020 12:00:00 AM EST eCW1 ([facility]) Recurring Patient Attender: NICOLE ABARCAeferrer: Magdaleno coley MD 07/05/2020 03:12:03 PM EST [facility] Unknown [address] [facility] [address] 06/27/2020 12:00:00 AM EST eCW1 ([facility]) Unknown [address] [facility] [address] 06/27/2020 12:00:00 AM EST eCW1 ([facility]) Unknown [address] [facility] [place] [address] 06/19/2020 12:00:00 AM EST eCW1 ([facility]) Recurring Patient Attender: NICOLE Toro: Magdaleno coley MD 06/15/2020 08:42:08 AM EST [facility] Unknown [address] [facility] [address] 06/14/2020 12:00:00 AM EST eCW1 ([facility]) Unknown [address] [facility] [place] [address] 06/14/2020 12:00:00 AM EST eCW1 ([facility]) Unknown [address] [facility] [place] [address] 06/04/2020 12:00:00 AM EST eCW1 ([facility]) Unknown [address] [facility] [place] [address] 05/24/2020 12:00:00 AM EST eCW1 ([facility]) Unknown [address] [facility] [place] [address] 05/11/2020 12:00:00 AM EDT eCW1 ([facility]) Unknown [address] [facility] [place] [address] 05/11/2020 12:00:00 AM EDT eCW1 ([facility]) Unknown [address] [facility] [place] [address] 05/10/2020 12:00:00 AM EDT eCW1 ([facility]) Unknown [address] [facility] [place] [address] 05/06/2020 12:00:00 AM EDT eCW1 ([facility]) Unknown [address] [facility] [place] [address] 05/06/2020 12:00:00 AM EDT eCW1 ([facility]) Unknown [address] [facility] [place] [address] 05/03/2020 12:00:00 AM EDT eCW1 ([facility]) Unknown [address] [facility] [place] [address] 05/02/2020 12:00:00 AM EDT eCW1 ([facility]) Unknown [address] [facility] [place] [address] 05/02/2020 12:00:00 AM EDT eCW1 ([facility]) Unknown [address] [facility] [place] [address] 04/05/2020 12:00:00 AM EDT eCW1 ([facility]) Unknown [address] [facility] [place] [address] 04/05/2020 12:00:00 AM EDT eCW1 ([facility]) Unknown [address] [facility] [place] [address] 04/05/2020 12:00:00 AM EDT eCW1 ([facility]) Unknown [address] [facility] [place] [address] 04/05/2020 12:00:00 AM EDT eCW1 ([facility]) Unknown [address] [facility] [place] [address] 04/05/2020 12:00:00 AM EDT eCW1 ([facility]) Unknown [address] [facility] [place] [address] 04/05/2020 12:00:00 AM EDT eCW1 ([facility]) Immunizations Vaccine Date Status Description Data Source(s) COVID-19 VACCINE Pfizer 08/08/2020 12:00:00 AM EST completed [facility] Vaccine Series Complete: YESThis Data wa s Submitted to [place] [facility] [employer]. COVID-19 VACCINE Pfizer 07/18/2020 12:00:00 AM EST completed [facility] Vaccine Series Complete: NOThis Data was Submitted to [place] [facility] [employer]. IIV3. This is one of two codes replacing CVX 15, which is being retired. 03/24/2020 02:40:00 PM EDT completed eCW1 ([facility]) IIV3. This is one of two codes replacing CVX 15, which is being retired. 03/24/2020 02:40:00 PM EDT completed eCW1 ([facility]) IIV3. This is one of two codes replacing CVX 15, which is being retired. 03/24/2020 02:40:00 PM EDT completed eCW1 ([facility]) IIV3. This is one of two codes replacing CVX 15, which is being retired. 03/24/2020 02:40:00 PM EDT completed eCW1 ([facility]) IIV3. This is one of two codes replacing CVX 15, which is being retired. 03/24/2020 02:40:00 PM EDT completed eCW1 ([facility]) IIV3. This is one of two codes replacing CVX 15, which is being retired. 03/24/2020 02:40:00 PM EDT completed eCW1 ([facility]) IIV3. This is one of two codes replacing CVX 15, which is being retired. 03/24/2020 02:40:00 PM EDT completed eCW1 ([facility]) IIV3. This is one of two codes replacing CVX 15, which is being retired. 03/24/2020 02:40:00 PM EDT completed eCW1 ([facility]) IIV3. This is one of two codes replacing CVX 15, which is being retired. 03/24/2020 02:40:00 PM EDT completed eCW1 ([facility]) IIV3. This is one of two codes replacing CVX 15, which is being retired. 03/24/2020 02:40:00 PM EDT completed eCW1 ([facility]) IIV3. This is one of two codes replacing CVX 15, which is being retired. 03/24/2020 02:40:00 PM EDT completed eCW1 ([facility]) IIV3. This is one of two codes replacing CVX 15, which is being retired. 03/24/2020 02:40:00 PM EDT completed eCW1 ([facility]) IIV3. This is one of two codes replacing CVX 15, which is being retired. 03/24/2020 02:40:00 PM EDT completed eCW1 ([facility]) IIV3. This is one of two codes replacing CVX 15, which is being retired. 03/24/2020 02:40:00 PM EDT completed eCW1 ([facility]) IIV3. This is one of two codes replacing CVX 15, which is being retired. 03/24/2020 02:40:00 PM EDT completed eCW1 ([facility]) IIV3. This is one of two codes replacing CVX 15, which is being retired. 03/24/2020 02:40:00 PM EDT completed eCW1 ([facility]) IIV3. This is one of two codes replacing CVX 15, which is being retired. 03/24/2020 02:40:00 PM EDT completed eCW1 ([facility]) IIV3. This is one of two codes replacing CVX 15, which is being retired. 03/24/2020 02:40:00 PM EDT completed eCW1 ([facility]) IIV3. This is one of two codes replacing CVX 15, which is being retired. 03/24/2020 02:40:00 PM EDT completed eCW1 ([facility]) IIV3. This is one of two codes replacing CVX 15, which is being retired. 03/24/2020 02:40:00 PM EDT completed eCW1 ([facility]) IIV3. This is one of two codes replacing CVX 15, which is being retired. 03/24/2020 02:40:00 PM EDT completed eCW1 ([facility]) IIV3. This is one of two codes replacing CVX 15, which is being retired. 03/24/2020 02:40:00 PM EDT completed eCW1 ([facility]) IIV3. This is one of two codes replacing CVX 15, which is being retired. 03/24/2020 02:40:00 PM EDT completed eCW1 ([facility]) IIV3. This is one of two codes replacing CVX 15, which is being retired. 03/24/2020 02:40:00 PM EDT completed eCW1 ([facility]) IIV3. This is one of two codes replacing CVX 15, which is being retired. 03/24/2020 02:40:00 PM EDT completed eCW1 ([facility]) IIV3. This is one of two codes replacing CVX 15, which is being retired. 03/24/2020 02:40:00 PM EDT completed eCW1 ([facility]) IIV3. This is one of two codes replacing CVX 15, which is being retired. 03/24/2020 02:40:00 PM EDT completed eCW1 ([facility]) IIV3. This is one of two codes replacing CVX 15, which is being retired. 03/24/2020 02:40:00 PM EDT completed eCW1 ([facility]) IIV3. This is one of two codes replacing CVX 15, which is being retired. 03/24/2020 02:40:00 PM EDT completed eCW1 ([facility]) IIV3. This is one of two codes replacing CVX 15, which is being retired. 03/24/2020 02:40:00 PM EDT completed eCW1 ([facility]) IIV3. This is one of two codes replacing CVX 15, which is being retired. 03/24/2020 02:40:00 PM EDT completed eCW1 ([facility]) IIV3. This is one of two codes replacing CVX 15, which is being retired. 03/24/2020 02:40:00 PM EDT completed eCW1 ([facility]) IIV3. This is one of two codes replacing CVX 15, which is being retired. 03/24/2020 02:40:00 PM EDT completed eCW1 ([facility]) IIV3. This is one of two codes replacing CVX 15, which is being retired. 03/24/2020 02:40:00 PM EDT completed eCW1 ([facility]) IIV3. This is one of two codes replacing CVX 15, which is being retired. 03/24/2020 02:40:00 PM EDT completed eCW1 ([facility]) IIV3. This is one of two codes replacing CVX 15, which is being retired. 03/24/2020 02:40:00 PM EDT completed eCW1 ([facility]) IIV3. This is one of two codes replacing CVX 15, which is being retired. 03/24/2020 02:40:00 PM EDT completed eCW1 ([facility]) IIV3. This is one of two codes replacing CVX 15, which is being retired. 03/24/2020 02:40:00 PM EDT completed eCW1 ([facility]) IIV3. This is one of two codes replacing CVX 15, which is being retired. 03/24/2020 02:40:00 PM EDT completed eCW1 ([facility]) IIV3. This is one of two codes replacing CVX 15, which is being retired. 03/24/2020 02:40:00 PM EDT completed eCW1 ([facility]) IIV3. This is one of two codes replacing CVX 15, which is being retired. 03/24/2020 02:40:00 PM EDT completed eCW1 ([facility]) IIV3. This is one of two codes replacing CVX 15, which is being retired. 03/24/2020 02:40:00 PM EDT completed eCW1 ([facility]) IIV3. This is one of two codes replacing CVX 15, which is being retired. 03/24/2020 02:40:00 PM EDT completed eCW1 ([facility]) IIV3. This is one of two codes replacing CVX 15, which is being retired. 03/24/2020 02:40:00 PM EDT completed eCW1 ([facility]) IIV3. This is one of two codes replacing CVX 15, which is being retired. 03/24/2020 02:40:00 PM EDT completed eCW1 ([facility]) IIV3. This is one of two codes replacing CVX 15, which is being retired. 03/24/2020 02:40:00 PM EDT completed eCW1 ([facility]) IIV3. This is one of two codes replacing CVX 15, which is being retired. 03/24/2020 02:40:00 PM EDT completed eCW1 ([facility]) IIV3. This is one of two codes replacing CVX 15, which is being retired. 03/24/2020 02:40:00 PM EDT completed eCW1 ([facility]) IIV3. This is one of two codes replacing CVX 15, which is being retired. 03/24/2020 02:40:00 PM EDT completed eCW1 ([facility]) IIV3. This is one of two codes replacing CVX 15, which is being retired. 03/24/2020 02:40:00 PM EDT completed eCW1 ([facility]) IIV3. This is one of two codes replacing CVX 15, which is being retired. 03/24/2020 02:40:00 PM EDT completed eCW1 ([facility]) IIV3. This is one of two codes replacing CVX 15, which is being retired. 03/24/2020 02:40:00 PM EDT completed eCW1 ([facility]) IIV3. This is one of two codes replacing CVX 15, which is being retired. 03/24/2020 02:40:00 PM EDT completed eCW1 ([facility]) IIV3. This is one of two codes replacing CVX 15, which is being retired. 03/24/2020 02:40:00 PM EDT completed eCW1 ([facility]) IIV3. This is one of two codes replacing CVX 15, which is being retired. 03/24/2020 02:40:00 PM EDT completed eCW1 ([facility]) IIV3. This is one of two codes replacing CVX 15, which is being retired. 03/24/2020 02:40:00 PM EDT completed eCW1 ([facility]) IIV3. This is one of two codes replacing CVX 15, which is being retired. 03/24/2020 02:40:00 PM EDT completed eCW1 ([facility]) IIV3. This is one of two codes replacing CVX 15, which is being retired. 03/24/2020 02:40:00 PM EDT completed eCW1 ([facility]) IIV3. This is one of two codes replacing CVX 15, which is being retired. 03/24/2020 02:40:00 PM EDT completed eCW1 ([facility]) IIV3. This is one of two codes replacing CVX 15, which is being retired. 03/24/2020 02:40:00 PM EDT completed eCW1 ([facility]) IIV3. This is one of two codes replacing CVX 15, which is being retired. 03/24/2020 02:40:00 PM EDT completed eCW1 ([facility]) IIV3. This is one of two codes replacing CVX 15, which is being retired. 03/24/2020 02:40:00 PM EDT completed eCW1 ([facility]) IIV3. This is one of two codes replacing CVX 15, which is being retired. 03/24/2020 02:40:00 PM EDT completed eCW1 ([facility]) IIV3. This is one of two codes replacing CVX 15, which is being retired. 03/24/2020 02:40:00 PM EDT completed eCW1 ([facility]) IIV3. This is one of two codes replacing CVX 15, which is being retired. 03/24/2020 02:40:00 PM EDT completed eCW1 ([facility]) Medications Medication Brand Name Start Date Product Form Dose Route Admi nistrative Instructions Pharmacy Instructions Status Indications Reaction Description Data Source(s) 20 mg 05/13/2021 12:00:00 AM EDT tablet 10 TAKE TWO TABLETS BY MOUTH EVERY DAY FOR 5 DAYS TAKE TWO TABLETS BY MOUTH EVERY DAY FOR 5 DAYS SOLD: [facility] benzonatate 100 MG Oral Capsule BENZONATATE 05/13/2021 12:00:00 AM EDT capsule 30 TAKE ONE CAPSULE BY MOUTH THREE TIMES A DAY NEEDED FOR COUGH TAKE ONE CAPSULE BY MOUTH THREE TIMES A DAY NEEDED FOR COUGH SOLD: 05/13/2021 [facility] 7.5-325 mg 05/09/2021 12:00:00 AM EDT tablet 90 TAKE ONE TABLET BY MOUTH THREE TIMES A DAY NEEDED MAXIMUM DAILY DOSE = 3 TABLETS TAKE ONE TABLET BY MOUTH THREE TIMES A DAY NEEDED MAXIMUM DAILY DOSE = 3 TABLETS SOLD: 05/09/2021 [facility] 1,250 mcg (50,000 unit) 05/02/2021 12:00:00 AM EDT capsule 12 TAKE 1 CAPSULE BY MOUTH EVERY 7 DAYS TAKE 1 CAPSULE BY MOUTH EVERY 7 DAYS SOLD: 05/02/2021 [facility] 40 mg 05/02/2021 12:00:00 AM EDT tablet 90 TAKE ONE TABLET BY MOUTH EVERY DAY NEEDED FOR SWELLING TAKE ONE TABLET BY MOUTH EVERY DAY NE EDED FOR SWELLING SOLD: 05/02/2021 [facility] Amoxicillin 875 MG / Clavulanate 125 MG Oral Tablet 87 5-125 mg AMOXICILLIN/POTASSIUM CLAV 04/30/2021 12:00:00 AM EDT tablet 14 TAKE ONE TABLET BY MOUTH TWICE A DAY WITH FOOD UNTIL GONE TAKE ONE TABLET BY MOUTH TWICE A DAY WITH FOOD UNTIL GONE SOLD: 04/30/2021 [facility] Carisoprodol 350 MG Oral Tablet [Soma] Soma 350 MG Soma 350 MG 04/28/2021 12:00:00 AM EDT 1.0 {tablet_as_needed} active Soma 350 MG eCW1 ([facility]) Carisoprodol 350 MG Oral Tablet [Soma] Soma 350 MG Soma 350 MG 04/28/2021 12:00:00 AM EDT 1.0 {tablet_as_needed} active Soma 350 MG eCW1 ([facility]) Carisoprodol 350 MG Oral Tablet [Soma] Soma 350 MG Soma 350 MG 04/28/2021 12:00:00 AM EDT 1.0 {tablet_as_needed} active Soma 350 MG eCW1 ([facility]) Carisoprodol 350 MG Oral Tablet [Soma] Soma 350 MG Soma 350 MG 04/28/2021 12:00:00 AM EDT 1.0 {tablet_as_needed} active Soma 350 MG eCW1 ([facility]) Carisoprodol 350 MG Oral Tablet [Soma] Soma 350 MG Soma 350 MG 04/28/2021 12:00:00 AM EDT 1.0 {tablet_as_needed} active Soma 350 MG eCW1 ([facility]) Carisoprodol 350 MG Oral Tablet [Soma] Soma 350 MG Soma 350 MG 04/28/2021 12:00:00 AM EDT 1.0 {tablet_as_needed} active Soma 350 MG eCW1 ([facility]) 350 mg 04/28/2021 12:00:00 AM EDT tablet 60 TAKE ONE TABLET BY MOUTH TWICE A DAY IF NEEDED MAX OF 2 PER DAY TAKE ONE TABLET BY MOUTH TWICE A DAY IF NEEDED MAX OF 2 PER DAY SOLD: 04/29/2021 [facility] Carisoprodol 350 MG Oral Tablet [Soma] Soma 350 MG Soma 350 MG 04/28/2021 12:00:00 AM EDT 1.0 {tablet_as_needed} active Soma 350 MG eCW1 ([facility]) Carisoprodol 350 MG Oral Tablet [Soma] Soma 350 MG Soma 350 MG 04/28/2021 12:00:00 AM EDT 1.0 {tablet_as_needed} active Soma 350 MG eCW1 ([facility]) Carisoprodol 350 MG Oral Tablet [Soma] Soma 350 MG Soma 350 MG 04/28/2021 12:00:00 AM EDT 1.0 {tablet_as_needed} active Soma 350 MG eCW1 ([facility]) Carisoprodol 350 MG Oral Tablet [Soma] Soma 350 MG Soma 350 MG 04/28/2021 12:00:00 AM EDT 1.0 {tablet_as_needed} active Soma 350 MG eCW1 ([facility]) Carisoprodol 350 MG Oral Tablet [Soma] Soma 350 MG Soma 350 MG 04/28/2021 12:00:00 AM EDT 1.0 {tablet_as_needed} active Soma 350 MG eCW1 ([facility]) 1 mg 04/14/2021 12:00:00 AM EDT [...] IN 2 HOURS SOLD: 04/14/2021 [facility] Clonazepam 1 MG Oral Tablet clonazePAM 1 MG clonazePAM 1 MG 04/11/2021 12:00:00 AM EDT 1.0 {tablet} active clonazePAM 1 MG eCW1 ([facility]) Acetaminophen 325 MG / Oxycodone Hydroch loride 7.5 MG Oral Tablet [Percocet] Percocet 7.5-325 MG Percocet 7.5-325 MG 04/11/2021 12:00:00 AM EDT 1.0 {tablet_as_needed} active Percocet 7.5- 325 MG eCW1 ([facility]) Acetaminophen 325 MG / Oxycodone Hydroch loride 7.5 MG Oral Tablet [Percocet] Percocet 7.5-325 MG Percocet 7.5-325 MG 04/11/2021 12:00:00 AM EDT 1.0 {tablet_as_needed} active Percocet 7.5- 325 MG eCW1 ([facility]) Acetaminophen 325 MG / Oxycodone Hydroch loride 7.5 MG Oral Tablet [Percocet] Percocet 7.5-325 MG Percocet 7.5-325 MG 04/11/2021 12:00:00 AM EDT 1.0 {tablet_as_needed} active Percocet 7.5- 325 MG eCW1 ([facility]) Acetaminophen 325 MG / Oxycodone Hydroch loride 7.5 MG Oral Tablet [Percocet] Percocet 7.5-325 MG Percocet 7.5-325 MG 04/11/2021 12:00:00 AM EDT 1.0 {tablet_as_needed} active Percocet 7.5- 325 MG eCW1 ([facility]) Clonazepam 1 MG Oral Tablet clonazePAM 1 MG clonazePAM 1 MG 04/11/2021 12:00:00 AM EDT 1.0 {tablet} active clonazePAM 1 MG eCW1 ([facility]) Acetaminophen 325 MG / Oxycodone Hydroch loride 7.5 MG Oral Tablet [Percocet] Percocet 7.5-325 MG Percocet 7.5-325 MG 04/11/2021 12:00:00 AM EDT 1.0 {tablet_as_needed} active Percocet 7.5- 325 MG eCW1 ([facility]) Acetaminophen 325 MG / Oxycodone Hydroch loride 7.5 MG Oral Tablet [Percocet] Percocet 7.5-325 MG Percocet 7.5-325 MG 04/11/2021 12:00:00 AM EDT 1.0 {tablet_as_needed} active Percocet 7.5- 325 MG eCW1 ([facility]) Clonazepam 1 MG Oral Tablet clonazePAM 1 MG clonazePAM 1 MG 04/11/2021 12:00:00 AM EDT 1.0 {tablet} active clonazePAM 1 MG eCW1 ([facility]) Clonazepam 1 MG Oral Tablet clonazePAM 1 MG clonazePAM 1 MG 04/11/2021 12:00:00 AM EDT 1.0 {tablet} active clonazePAM 1 MG eCW1 ([facility]) Clonazepam 1 MG Oral Tablet clonazePAM 1 MG clonazePAM 1 MG 04/11/2021 12:00:00 AM EDT 1.0 {tablet} active clonazePAM 1 MG eCW1 ([facility]) Acetaminophen 325 MG / Oxycodone Hydroch loride 7.5 MG Oral Tablet [Percocet] Percocet 7.5-325 MG Percocet 7.5-325 MG 04/11/2021 12:00:00 AM EDT 1.0 {tablet_as_needed} active Percocet 7.5- 325 MG eCW1 ([facility]) Acetaminophen 325 MG / Oxycodone Hydroch loride 7.5 MG Oral Tablet [Percocet] Percocet 7.5-325 MG Percocet 7.5-325 MG 04/11/2021 12:00:00 AM EDT 1.0 {tablet_as_needed} active Percocet 7.5- 325 MG eCW1 ([facility]) Clonazepam 1 MG Oral Tablet clonazePAM 1 MG clonazePAM 1 MG 04/11/2021 12:00:00 AM EDT 1.0 {tablet} active clonazePAM 1 MG eCW1 ([facility]) Acetaminophen 325 MG / Oxycodone Hydroch loride 7.5 MG Oral Tablet [Percocet] Percocet 7.5-325 MG Percocet 7.5-325 MG 04/11/2021 12:00:00 AM EDT 1.0 {tablet_as_needed} active Percocet 7.5- 325 MG eCW1 ([facility]) Clonazepam 1 MG Oral Tablet clonazePAM 1 MG clonazePAM 1 MG 04/11/2021 12:00:00 AM EDT 1.0 {tablet} active clonazePAM 1 MG eCW1 ([facility]) Acetaminophen 325 MG / Oxycodone Hydroch loride 7.5 MG Oral Tablet [Percocet] Percocet 7.5-325 MG Percocet 7.5-325 MG 04/11/2021 12:00:00 AM EDT 1.0 {tablet_as_needed} active Percocet 7.5- 325 MG eCW1 ([facility]) Acetaminophen 325 MG / Oxycodone Hydroch loride 7.5 MG Oral Tablet [Percocet] Percocet 7.5-325 MG Percocet 7.5-325 MG 04/11/2021 12:00:00 AM EDT 1.0 {tablet_as_needed} active Percocet 7.5- 325 MG eCW1 ([facility]) Clonazepam 1 MG Oral Tablet clonazePAM 1 MG clonazePAM 1 MG 04/11/2021 12:00:00 AM EDT 1.0 {tablet} active clonazePAM 1 MG eCW1 ([facility]) Clonazepam 1 MG Oral Tablet clonazePAM 1 MG clonazePAM 1 MG 04/11/2021 12:00:00 AM EDT 1.0 {tablet} active clonazePAM 1 MG eCW1 ([facility]) Acetaminophen 325 MG / Oxycodone Hydroch loride 7.5 MG Oral Tablet [Percocet] Percocet 7.5-325 MG Percocet 7.5-325 MG 04/11/2021 12:00:00 AM EDT 1.0 {tablet_as_needed} active Percocet 7.5- 325 MG eCW1 ([facility]) Clonazepam 1 MG Oral Tablet clonazePAM 1 MG clonazePAM 1 MG 04/11/2021 12:00:00 AM EDT 1.0 {tablet} active clonazePAM 1 MG eCW1 ([facility]) Clonazepam 1 MG Oral Tablet clonazePAM 1 MG clonazePAM 1 MG 04/11/2021 12:00:00 AM EDT 1.0 {tablet} active clonazePAM 1 MG eCW1 ([facility]) 7.5-325 mg 04/11/2021 12:00:00 AM EDT tablet 90 TAKE ONE TABLET BY MOUTH THREE TIMES A DAY NEEDED FOR PAIN MAXIMUM DAILY DOSE = 3 TABLETS TAKE ONE TABLET BY MOUTH THREE TIMES A DAY NEEDED FOR PAIN MAXIMUM DAILY DOSE = 3 TABLETS SOLD: 04/11/2021 [facility] Clonazepam 1 MG Oral Tablet clonazePAM 1 MG clonazePAM 1 MG 04/11/2021 12:00:00 AM EDT 1.0 {tablet} active clonazePAM 1 MG eCW1 ([facility]) 1 mg 03/13/2021 12:00:00 AM EDT tablet [...] 1.0 {tablet_at_bedtime} active Ambien 5 MG eCW1 ([facility]) Zolpidem tartrate 5 MG Oral Tablet [Ambien] Ambien 5 MG Ambi en 5 MG 03/09/2021 12:00:00 AM EDT 1.0 {tablet_at_bedtime} active Ambien 5 MG eCW1 ([facility]) Zolpidem tartrate 5 MG Oral Tablet [Ambien] Ambien 5 MG Ambi en 5 MG 03/09/2021 12:00:00 AM EDT 1.0 {tablet_at_bedtime} active Ambien 5 MG eCW1 ([facility]) Zolpidem tartrate 5 MG Oral Tablet [Ambien] Ambien 5 MG Ambi en 5 MG 03/09/2021 12:00:00 AM EDT 1.0 {tablet_at_bedtime} active Ambien 5 MG eCW1 ([facility]) Zolpidem tartrate 5 MG Oral Tablet [Ambien] Ambien 5 MG Ambi en 5 MG 03/09/2021 12:00:00 AM EDT 1.0 {tablet_at_bedtime} active Ambien 5 MG eCW1 ([facility]) Zolpidem tartrate 5 MG Oral Tablet [Ambien] Ambien 5 MG Ambi en 5 MG 03/09/2021 12:00:00 AM EDT 1.0 {tablet_at_bedtime} active Ambien 5 MG eCW1 ([facility]) Acetaminophen 325 MG / Oxycodone Hydroch loride 7.5 MG Oral Tablet [Percocet] Percocet 7.5-325 MG Percocet 7.5-325 MG 03/09/2021 12:00:00 AM EDT 1.0 {tablet_as_needed} active Percocet 7.5- 325 MG eCW1 ([facility]) Zolpidem tartrate 5 MG Oral Tablet [Ambien] Ambien 5 MG Ambi en 5 MG 03/09/2021 12:00:00 AM EDT 1.0 {tablet_at_bedtime} active Ambien 5 MG eCW1 ([facility]) Zolpidem tartrate 5 MG Oral Tablet [Ambien] Ambien 5 MG Ambi en 5 MG 03/09/2021 12:00:00 AM EDT 1.0 {tablet_at_bedtime} active Ambien 5 MG eCW1 ([facility]) Clonazepam 1 MG Oral Tablet clonazePAM 1 MG clonazePAM 1 MG 03/09/2021 12:00:00 AM EDT 1.0 {tablet} active clonazePAM 1 MG eCW1 ([facility]) Zolpidem tartrate 5 MG Oral Tablet [Ambien] Ambien 5 MG Ambi en 5 MG 03/09/2021 12:00:00 AM EDT 1.0 {tablet_at_bedtime} active Ambien 5 MG eCW1 ([facility]) Zolpidem tartrate 5 MG Oral Tablet [Ambien] Ambien 5 MG Ambi en 5 MG 03/09/2021 12:00:00 AM EDT 1.0 {tablet_at_bedtime} active Ambien 5 MG eCW1 ([facility]) Zolpidem tartrate 5 MG Oral Tablet [Ambien] Ambien 5 MG Ambi en 5 MG 03/09/2021 12:00:00 AM EDT 1.0 {tablet_at_bedtime} active Ambien 5 MG eCW1 ([facility]) Zolpidem tartrate 5 MG Oral Tablet [Ambien] Ambien 5 MG Ambi en 5 MG 03/09/2021 12:00:00 AM EDT 1.0 {tablet_at_bedtime} active Ambien 5 MG eCW1 ([facility]) Zolpidem tartrate 5 MG Oral Tablet [Ambien] Ambien 5 MG Ambi en 5 MG 03/09/2021 12:00:00 AM EDT 1.0 {tablet_at_bedtime} active Ambien 5 MG eCW1 ([facility]) 100,000 unit/gram 02/21/2021 12:00:00 AM EDT [...] {tablet_as_needed} active Percocet 7.5- 325 MG eCW1 ([facility]) Clobetasol Propionate 0.5 MG/ML Topical Cream [...] 12:00:00 AM EDT 1.0 {tablet_as_needed} active eCW1 ([facility]) 7.5-325 mg 02/09/2021 12:00:00 AM EDT tablet 90 TAKE ONE TABLET BY MOUTH THREE TIMES A DAY NEEDED MAXIMUM DAILY DOSE = 3 TAKE ONE TABLET BY MOUTH THREE TIMES A DAY NEEDED MAXIMUM DAILY DOSE = 3 SOLD: 02/10/2021 [facility] Nystatin 100 UNT/MG Topical Powder 100,000 [...] {tablet_as_needed} active Percocet 7.5- 325 MG eCW1 ([facility]) Acetaminophen 325 MG / Oxycodone Hydroch loride 7.5 MG Oral Tablet [Percocet] Percocet 7.5-325 MG Percocet 7.5-325 MG 01/10/2021 12:00:00 AM EDT 1.0 {tablet_as_needed} active Percocet 7.5- 325 MG eCW1 ([facility]) Acetaminophen 325 MG / Oxycodone Hydroch loride 7.5 MG Oral Tablet [Percocet] Percocet 7.5-325 MG Percocet 7.5-325 MG 01/10/2021 12:00:00 AM EDT 1.0 {tablet_as_needed} active Percocet 7.5- 325 MG eCW1 ([facility]) Acetaminophen 325 MG / Oxycodone Hydroch loride 7.5 MG Oral Tablet [Percocet] Percocet 7.5-325 MG Percocet 7.5-325 MG 01/10/2021 12:00:00 AM EDT 1.0 {tablet_as_needed} active Percocet 7.5- 325 MG eCW1 ([facility]) Acetaminophen 325 MG / Oxycodone Hydroch loride 7.5 MG Oral Tablet [Percocet] Percocet 7.5-325 MG Percocet 7.5-325 MG 01/10/2021 12:00:00 AM EDT 1.0 {tablet_as_needed} active Percocet 7.5- 325 MG eCW1 ([facility]) 7.5-325 mg 01/10/2021 12:00:00 AM EDT tablet 90 TAKE ONE TABLET BY MOUTH THREE TIMES A DAY NEEDED MAXIMUM DAILY DOSE = 3 TAKE ONE TABLET BY MOUTH THREE TIMES A DAY NEEDED MAXIMUM DAILY DOSE = 3 SOLD: 01/10/2021 [facility] Acetaminophen 325 MG / Oxycodone Hydroch loride 7.5 MG Oral Tablet [Percocet] Percocet 7.5-325 MG Percocet 7.5-325 MG 01/10/2021 12:00:00 AM EDT 1.0 {tablet_as_needed} active Percocet 7.5- 325 MG eCW1 ([facility]) 350 mg 12/22/2020 12:00:00 AM EDT [...] {tablet_as_needed} active Percocet 7.5- 325 MG eCW1 ([facility]) 7.5-325 mg 12/13/2020 12:00:00 AM EDT [...] {tablet_as_needed} active Percocet 7.5- 325 MG eCW1 ([facility]) 0.5 mg 12/10/2020 12:00:00 AM EDT [...] 1.0 {tablet} active Lotronex 0.5 MG eCW1 ([facility]) alosetron 0.5 MG Oral Tablet [Lotronex] Lotronex 0.5 MG Lotr onex 0.5 MG 12/05/2020 12:00:00 AM EDT 1.0 {tablet} active Lotronex 0.5 MG eCW1 ([facility]) alosetron 0.5 MG Oral Tablet [Lotronex] Lotronex 0.5 MG Lotr onex 0.5 MG 12/05/2020 12:00:00 AM EDT 1.0 {tablet} active Lotronex 0.5 MG eCW1 ([facility]) alosetron 0.5 MG Oral Tablet [Lotronex] Lotronex 0.5 MG Lotr onex 0.5 MG 12/05/2020 12:00:00 AM EDT 1.0 {tablet} active Lotronex 0.5 MG eCW1 ([facility]) alosetron 0.5 MG Oral Tablet [Lotronex] Lotronex 0.5 MG Lotr onex 0.5 MG 12/05/2020 12:00:00 AM EDT 1.0 {tablet} active Lotronex 0.5 MG eCW1 ([facility]) alosetron 0.5 MG Oral Tablet [Lotronex] Lotronex 0.5 MG Lotr onex 0.5 MG 12/05/2020 12:00:00 AM EDT 1.0 {tablet} active Lotronex 0.5 MG eCW1 ([facility]) alosetron 0.5 MG Oral Tablet [Lotronex] Lotronex 0.5 MG Lotr onex 0.5 MG 12/05/2020 12:00:00 AM EDT 1.0 {tablet} active Lotronex 0.5 MG eCW1 ([facility]) alosetron 0.5 MG Oral Tablet [Lotronex] Lotronex 0.5 MG Lotr onex 0.5 MG 12/05/2020 12:00:00 AM EDT 1.0 {tablet} active Lotronex 0.5 MG eCW1 ([facility]) alosetron 0.5 MG Oral Tablet [Lotronex] Lotronex 0.5 MG Lotr onex 0.5 MG 12/05/2020 12:00:00 AM EDT 1.0 {tablet} active Lotronex 0.5 MG eCW1 ([facility]) alosetron 0.5 MG Oral Tablet [Lotronex] Lotronex 0.5 MG Lotr onex 0.5 MG 12/05/2020 12:00:00 AM EDT 1.0 {tablet} active Lotronex 0.5 MG eCW1 ([facility]) alosetron 0.5 MG Oral Tablet [Lotronex] Lotronex 0.5 MG Lotr onex 0.5 MG 12/05/2020 12:00:00 AM EDT 1.0 {tablet} active Lotronex 0.5 MG eCW1 ([facility]) alosetron 0.5 MG Oral Tablet [Lotronex] Lotronex 0.5 MG Lotr onex 0.5 MG 12/05/2020 12:00:00 AM EDT 1.0 {tablet} active Lotronex 0.5 MG eCW1 ([facility]) alosetron 0.5 MG Oral Tablet [Lotronex] Lotronex 0.5 MG Lotr onex 0.5 MG 12/05/2020 12:00:00 AM EDT 1.0 {tablet} active Lotronex 0.5 MG eCW1 ([facility]) alosetron 0.5 MG Oral Tablet [Lotronex] Lotronex 0.5 MG Lotr onex 0.5 MG 12/05/2020 12:00:00 AM EDT 1.0 {tablet} active Lotronex 0.5 MG eCW1 ([facility]) alosetron 0.5 MG Oral Tablet [Lotronex] Lotronex 0.5 MG Lotr onex 0.5 MG 12/05/2020 12:00:00 AM EDT 1.0 {tablet} active Lotronex 0.5 MG eCW1 ([facility]) alosetron 0.5 MG Oral Tablet [Lotronex] Lotronex 0.5 MG Lotr onex 0.5 MG 12/05/2020 12:00:00 AM EDT 1.0 {tablet} active Lotronex 0.5 MG eCW1 ([facility]) alosetron 0.5 MG Oral Tablet [Lotronex] Lotronex 0.5 MG Lotr onex 0.5 MG 12/05/2020 12:00:00 AM EDT 1.0 {tablet} active Lotronex 0.5 MG eCW1 ([facility]) alosetron 0.5 MG Oral Tablet [Lotronex] Lotronex 0.5 MG Lotr onex 0.5 MG 12/05/2020 12:00:00 AM EDT 1.0 {tablet} active Lotronex 0.5 MG eCW1 ([facility]) alosetron 0.5 MG Oral Tablet [Lotronex] Lotronex 0.5 MG Lotr onex 0.5 MG 12/05/2020 12:00:00 AM EDT 1.0 {tablet} active Lotronex 0.5 MG eCW1 ([facility]) alosetron 0.5 MG Oral Tablet [Lotronex] Lotronex 0.5 MG Lotr onex 0.5 MG 12/05/2020 12:00:00 AM EDT 1.0 {tablet} active eCW1 ([facility]) alosetron 0.5 MG Oral Tablet [Lotronex] Lotronex 0.5 MG Lotr onex 0.5 MG 12/05/2020 12:00:00 AM EDT 1.0 {tablet} active eCW1 ([facility]) alosetron 0.5 MG Oral Tablet [Lotronex] Lotronex 0.5 MG Lotr onex 0.5 MG 12/05/2020 12:00:00 AM EDT 1.0 {tablet} active Lotronex 0.5 MG eCW1 ([facility]) alosetron 0.5 MG Oral Tablet [Lotronex] Lotronex 0.5 MG Lotr onex 0.5 MG 12/05/2020 12:00:00 AM EDT 1.0 {tablet} active Lotronex 0.5 MG eCW1 ([facility]) alosetron 0.5 MG Oral Tablet [Lotronex] Lotronex 0.5 MG Lotr onex 0.5 MG 12/05/2020 12:00:00 AM EDT 1.0 {tablet} active Lotronex 0.5 MG eCW1 ([facility]) alosetron 0.5 MG Oral Tablet [Lotronex] Lotronex 0.5 MG Lotr onex 0.5 MG 12/05/2020 12:00:00 AM EDT 1.0 {tablet} active Lotronex 0.5 MG eCW1 ([facility]) 50 mg 12/03/2020 12:00:00 AM EDT tablet 270 TAKE 1 AND 1/2 TABLET BY MOUTH TWICE A DAY TAKE 1 AND 1/2 TABLET BY MOUTH TWICE A DAY SOLD: 05/02/2021 [facility] 10 mg 12/03/2020 12:00:00 AM EDT tablet [...] 12/06/2020 [facility] COMPRESSION STOCKINGS 20-30 mmHg K 12/02/2020 12:00:00 AM EDT active COMPRESSION STOCKINGS 20-30 mmHg eCW1 ([facility]) COMPRESSION STOCKINGS 20-30 mmHg UNK 12/02/2020 12:00:00 AM EDT active COMPRESSION STOCKINGS 20-30 mmHg eCW1 ([facility]) COMPRESSION STOCKINGS 20-30 mmHg UNK 12/02/2020 12:00:00 AM EDT active COMPRESSION STOCKINGS 20-30 mmHg eCW1 ([facility]) COMPRESSION STOCKINGS 20-30 mmHg UNK 12/02/2020 12:00:00 AM EDT active COMPRESSION STOCKINGS 20-30 mmHg eCW1 ([facility]) COMPRESSION STOCKINGS 20-30 mmHg UNK 12/02/2020 12:00:00 AM EDT active COMPRESSION STOCKINGS 20-30 mmHg eCW1 ([facility]) COMPRESSION STOCKINGS 20-30 mmHg UNK 12/02/2020 12:00:00 AM EDT active COMPRESSION STOCKINGS 20-30 mmHg eCW1 ([facility]) COMPRESSION STOCKINGS 20-30 mmHg UNK 12/02/2020 12:00:00 AM EDT active COMPRESSION STOCKINGS 20-30 mmHg eCW1 ([facility]) COMPRESSION STOCKINGS 20-30 mmHg UNK 12/02/2020 12:00:00 AM EDT active COMPRESSION STOCKINGS 20-30 mmHg eCW1 ([facility]) COMPRESSION STOCKINGS 20-30 mmHg UNK 12/02/2020 12:00:00 AM EDT active COMPRESSION STOCKINGS 20-30 mmHg eCW1 ([facility]) COMPRESSION STOCKINGS 20-30 mmHg UNK 12/02/2020 12:00:00 AM EDT active eCW1 ([facility]) COMPRESSION STOCKINGS 20-30 mmHg UNK 12/02/2020 12:00:00 AM EDT active COMPRESSION STOCKINGS 20-30 mmHg eCW1 ([facility]) COMPRESSION STOCKINGS 20-30 mmHg UNK 12/02/2020 12:00:00 AM EDT active COMPRESSION STOCKINGS 20-30 mmHg eCW1 ([facility]) COMPRESSION STOCKINGS 20-30 mmHg UNK 12/02/2020 12:00:00 AM EDT active COMPRESSION STOCKINGS 20-30 mmHg eCW1 ([facility]) COMPRESSION STOCKINGS 20-30 mmHg UNK 12/02/2020 12:00:00 AM EDT active COMPRESSION STOCKINGS 20-30 mmHg eCW1 ([facility]) COMPRESSION STOCKINGS 20-30 mmHg UNK 12/02/2020 12:00:00 AM EDT active COMPRESSION STOCKINGS 20-30 mmHg eCW1 ([facility]) COMPRESSION STOCKINGS 20-30 mmHg UNK 12/02/2020 12:00:00 AM EDT active COMPRESSION STOCKINGS 20-30 mmHg eCW1 ([facility]) COMPRESSION STOCKINGS 20-30 mmHg UNK 12/02/2020 12:00:00 AM EDT active COMPRESSION STOCKINGS 20-30 mmHg eCW1 ([facility]) COMPRESSION STOCKINGS 20-30 mmHg UNK 12/02/2020 12:00:00 AM EDT active COMPRESSION STOCKINGS 20-30 mmHg eCW1 ([facility]) COMPRESSION STOCKINGS 20-30 mmHg UNK 12/02/2020 12:00:00 AM EDT active eCW1 ([facility]) COMPRESSION STOCKINGS 20-30 mmHg UNK 12/02/2020 12:00:00 AM EDT active COMPRESSION STOCKINGS 20-30 mmHg eCW1 ([facility]) COMPRESSION STOCKINGS 20-30 mmHg UNK 12/02/2020 12:00:00 AM EDT active COMPRESSION STOCKINGS 20-30 mmHg eCW1 ([facility]) COMPRESSION STOCKINGS 20-30 mmHg UNK 12/02/2020 12:00:00 AM EDT active COMPRESSION STOCKINGS 20-30 mmHg eCW1 ([facility]) COMPRESSION STOCKINGS 20-30 mmHg UNK 12/02/2020 12:00:00 AM EDT active COMPRESSION STOCKINGS 20-30 mmHg eCW1 ([facility]) COMPRESSION STOCKINGS 20-30 mmHg UNK 12/02/2020 12:00:00 AM EDT active COMPRESSION STOCKINGS 20-30 mmHg eCW1 ([facility]) COMPRESSION STOCKINGS 20-30 mmHg UNK 12/02/2020 12:00:00 AM EDT active COMPRESSION STOCKINGS 20-30 mmHg eCW1 ([facility]) 1 mg 11/23/2020 12:00:00 AM EDT [...] {tablet_as_needed} active Percocet 7.5- 325 MG eCW1 ([facility]) Acetaminophen 325 MG / Oxycodone Hydroch loride 7.5 MG Oral Tablet [Percocet] Percocet 7.5-325 MG Percocet 7.5-325 MG 11/22/2020 12:00:00 AM EDT 1.0 {tablet_as_needed} active Percocet 7.5- 325 MG eCW1 ([facility]) Acetaminophen 325 MG / Oxycodone Hydroch loride 7.5 MG Oral Tablet [Percocet] Percocet 7.5-325 MG Percocet 7.5-325 MG 11/22/2020 12:00:00 AM EDT 1.0 {tablet_as_needed} active Percocet 7.5- 325 MG eCW1 ([facility]) quetiapine 50 MG Oral Tablet QUETIAPINE FUMARATE 11/05/2020 12:0 0:00 AM EDT tablet 90 TAKE ONE TABLET BY MOUTH AT BEDT ROSITA TAKE ONE TABLET BY MOUTH AT BEDTIME SOLD: 11/06/2020 [facility] quetiapine 50 MG Oral Tablet QUETIAPINE FUMARATE 11/05/2020 12:0 0:00 AM EDT tablet 90 TAKE ONE TABLET BY MOUTH AT BEDT ROSITA TAKE ONE TABLET BY MOUTH AT BEDTIME SOLD: 01/16/2021 [facility] Metronidazole 500 MG Oral Tablet Metronidazole 500 MG 2020 12:00:00 AM EDT 1.0 {tablet} active Metronidazo le 500 MG eCW1 ([facility]) Metronidazole 500 MG Oral Tablet Metronidazole 500 MG 2020 12:00:00 AM EDT 1.0 {tablet} active Metronidazo le 500 MG eCW1 ([facility]) Metronidazole 500 MG Oral Tablet Metronidazole 500 MG 2020 12:00:00 AM EDT 1.0 {tablet} active Metronidazo le 500 MG eCW1 ([facility]) Metronidazole 500 MG Oral Tablet Metronidazole 500 MG 2020 12:00:00 AM EDT 1.0 {tablet} active Metronidazo le 500 MG eCW1 ([facility]) Metronidazole 500 MG Oral Tablet Metronidazole 500 MG 2020 12:00:00 AM EDT 1.0 {tablet} active Metronidazo le 500 MG eCW1 ([facility]) Metronidazole 500 MG Oral Tablet Metronidazole 500 MG 2020 12:00:00 AM EDT 1.0 {tablet} active Metronidazo le 500 MG eCW1 ([facility]) 1 mg 10/21/2020 12:00:00 AM EDT [...] {tablet_as_needed} active Percocet 7.5- 325 MG eCW1 ([facility]) Acetaminophen 325 MG / Oxycodone Hydroch loride 7.5 MG Oral Tablet [Percocet] Percocet 7.5-325 MG Percocet 7.5-325 MG 10/21/2020 12:00:00 AM EDT 1.0 {tablet_as_needed} active Percocet 7.5- 325 MG eCW1 ([facility]) 350 mg 10/21/2020 12:00:00 AM EDT [...] {tablet_as_needed} active Percocet 7.5- 325 MG eCW1 ([facility]) Acetaminophen 325 MG / Oxycodone Hydroch loride 7.5 MG Oral Tablet [Percocet] Percocet 7.5-325 MG Percocet 7.5-325 MG 10/21/2020 12:00:00 AM EDT 1.0 {tablet_as_needed} active Percocet 7.5- 325 MG eCW1 ([facility]) Acetaminophen 325 MG / Oxycodone Hydroch loride 7.5 MG Oral Tablet [Percocet] Percocet 7.5-325 MG Percocet 7.5-325 MG 10/21/2020 12:00:00 AM EDT 1.0 {tablet_as_needed} active Percocet 7.5- 325 MG eCW1 ([facility]) 7.5-325 mg 10/21/2020 12:00:00 AM EDT [...] {tablet_as_needed} active Percocet 7.5- 325 MG eCW1 ([facility]) Acetaminophen 325 MG / Oxycodone Hydroch loride 7.5 MG Oral Tablet [Percocet] Percocet 7.5-325 MG Percocet 7.5-325 MG 10/21/2020 12:00:00 AM EDT 1.0 {tablet_as_needed} active Percocet 7.5- 325 MG eCW1 ([facility]) Acetaminophen 325 MG / Oxycodone Hydroch loride 7.5 MG Oral Tablet [Percocet] Percocet 7.5-325 MG Percocet 7.5-325 MG 09/22/2020 12:00:00 AM EST 1.0 {tablet_as_needed} active Percocet 7.5- 325 MG eCW1 ([facility]) 7.5-325 mg 09/22/2020 12:00:00 AM EST [...] {tablet_as_needed} active Percocet 7.5- 325 MG eCW1 ([facility]) Acetaminophen 325 MG / Oxycodone Hydroch loride 7.5 MG Oral Tablet [Percocet] Percocet 7.5-325 MG Percocet 7.5-325 MG 08/18/2020 12:00:00 AM EST 1.0 {tablet_as_needed} active Percocet 7.5- 325 MG eCW1 ([facility]) Acetaminophen 325 MG / Oxycodone Hydroch loride 7.5 MG Oral Tablet [Percocet] Percocet 7.5-325 MG Percocet 7.5-325 MG 08/18/2020 12:00:00 AM EST 1.0 {tablet_as_needed} active Percocet 7.5- 325 MG eCW1 ([facility]) Acetaminophen 325 MG / Oxycodone Hydroch loride 7.5 MG Oral Tablet [Percocet] Percocet 7.5-325 MG Percocet 7.5-325 MG 08/18/2020 12:00:00 AM EST 1.0 {tablet_as_needed} active Percocet 7.5- 325 MG eCW1 ([facility]) Acetaminophen 325 MG / Oxycodone Hydroch loride 7.5 MG Oral Tablet [Percocet] Percocet 7.5-325 MG Percocet 7.5-325 MG 08/18/2020 12:00:00 AM EST 1.0 {tablet_as_needed} active Percocet 7.5- 325 MG eCW1 ([facility]) 7.5-325 mg 08/18/2020 12:00:00 AM EST tablet 90 TAKE ONE TABLET BY MOUTH THREE TIMES A DAY NEEDED MAXIMUM DAILY DOSE = 3 TABLETS TAKE ONE TABLET BY MOUTH THREE TIMES A DAY NEEDED MAXIMUM DAILY DOSE = 3 TABLETS SOLD: 08/18/2020 [facility] Acetaminophen 325 MG / Oxycodone Hydroch loride 7.5 MG Oral Tablet [Percocet] Percocet 7.5-325 MG Percocet 7.5-325 MG 08/18/2020 12:00:00 AM EST 1.0 {tablet_as_needed} active Percocet 7.5- 325 MG eCW1 ([facility]) Acetaminophen 325 MG / Oxycodone Hydroch loride 7.5 MG Oral Tablet [Percocet] Percocet 7.5-325 MG Percocet 7.5-325 MG 08/18/2020 12:00:00 AM EST 1.0 {tablet_as_needed} active Percocet 7.5- 325 MG eCW1 ([facility]) 4 mg 08/17/2020 12:00:00 AM EST tablet,disintegrating 9 0 DISSOLVE ONE TABLET ON TONGUE EVERY DAY DISSOLVE ONE TABLET ON TONGUE EVERY DAY SOLD: 08/18/2020 [facility] pantoprazole 40 MG Delayed Release Oral Tablet PANTOPRAZOLE SODIUM 08/13/2020 12:00:00 AM EST tablet,delayed release (DR/EC) 30 T CHARMAINE ONE TABLET BY MOUTH EVERY MORNING TAKE ONE TABLET BY MOUTH EVERY MORNING SOLD: 11/22/2020 [facility] 40 mg 08/13/2020 12:00:00 AM EST capsule 180 TAKE TWO CAPSULES BY MOUTH EVERY MORNING TAKE TWO CAPSULES BY MOUTH EVERY MORNING SOLD: 08/14/2020 [facility] pantoprazole 40 MG Delayed Release Oral Tablet PANTOPRAZOLE SODIUM 08/13/2020 12:00:00 AM EST tablet,delayed release (DR/EC) 90 T CHARMAINE ONE TABLET BY MOUTH EVERY MORNING TAKE ONE TABLET BY MOUTH EVERY MORNING SOLD: 08/14/2020 [facility] 40 mg 08/13/2020 12:00:00 AM EST capsule 60 TAKE TWO CAPSULES BY MOUTH EVERY MORNING TAKE TWO CAPSULES BY MOUTH EVERY MORNING SOLD: 11/22/2020 [facility] 10 mg 08/13/2020 12:00:00 AM EST tablet 15 TAKE ONE TABLET BY MOUTH EVERY DAY NEEDED FOR MIGRAINE MAY REPEAT FOR 1 DOSE IN 2 HOURS TAKE ONE TABLET BY MOUTH EVERY DAY NEEDED FOR MIGRAINE MAY REPEAT FOR 1 DOSE IN 2 HOURS SOLD: 08/14/2020 [facility] Diclofenac Sodium 75 MG Delayed Release Oral Tablet DICLOFEN AC SODIUM 08/13/2020 12:00:00 AM EST tablet,delayed release (DR/EC) 180 TAKE ONE TABLET BY MOUTH TWICE A DAY TAKE ONE TABLET BY MOUTH TWICE A DAY SOLD: 08/14/2020 [facility] quetiapine 50 MG Oral Tablet Quetiapine Fumarate 50 MG Quetiapine Fumarate 50 MG 07/27/2020 12:00:00 AM EST active Quetiapine Fumarate 50 MG eCW1 ([facility]) Hyoscyamine Sulfate 0.125 MG Oral Tablet Hyoscyamine Sulfate 0.125 MG 07/27/2020 12:00:00 AM EST active Hyoscya mine Sulfate 0.125 MG eCW1 ([facility]) quetiapine 50 MG Oral Tablet Quetiapine Fumarate 50 MG Quetiapine Fumarate 50 MG 07/27/2020 12:00:00 AM EST active Quetiapine Fumarate 50 MG eCW1 ([facility]) quetiapine 50 MG Oral Tablet Quetiapine Fumarate 50 MG Quetiapine Fumarate 50 MG 07/27/2020 12:00:00 AM EST active Quetiapine Fumarate 50 MG eCW1 ([facility]) Hyoscyamine Sulfate 0.125 MG Oral Tablet Hyoscyamine Sulfate 0.125 MG 07/27/2020 12:00:00 AM EST active Hyoscya mine Sulfate 0.125 MG eCW1 ([facility]) quetiapine 50 MG Oral Tablet Quetiapine Fumarate 50 MG Quetiapine Fumarate 50 MG 07/27/2020 12:00:00 AM EST active Quetiapine Fumarate 50 MG eCW1 ([facility]) 1,250 mcg (50,000 unit) 07/27/2020 12:00:00 AM EST capsule 12 TAKE ONE CAPSULE BY MOUTH EVERY 7 DAYS TAKE ONE CAPSULE BY MOUTH EVERY 7 DAYS SOLD: 07/27/2020 [facility] quetiapine 50 MG Oral Tablet Quetiapine Fumarate 50 MG Quetiapine Fumarate 50 MG 07/27/2020 12:00:00 AM EST active Quetiapine Fumarate 50 MG eCW1 ([facility]) Hyoscyamine Sulfate 0.125 MG Oral Tablet Hyoscyamine Sulfate 0.125 MG 07/27/2020 12:00:00 AM EST active Hyoscya mine Sulfate 0.125 MG eCW1 ([facility]) quetiapine 50 MG Oral Tablet Quetiapine Fumarate 50 MG Quetiapine Fumarate 50 MG 07/27/2020 12:00:00 AM EST active Quetiapine Fumarate 50 MG eCW1 ([facility]) Hyoscyamine Sulfate 0.125 MG Oral Tablet Hyoscyamine Sulfate 0.125 MG 07/27/2020 12:00:00 AM EST active Hyoscya mine Sulfate 0.125 MG eCW1 ([facility]) quetiapine 50 MG Oral Tablet Quetiapine Fumarate 50 MG Quetiapine Fumarate 50 MG 07/27/2020 12:00:00 AM EST active Quetiapine Fumarate 50 MG eCW1 ([facility]) quetiapine 50 MG Oral Tablet QUETIAPINE FUMARATE 07/27/2020 12:0 0:00 AM EST tablet 30 TAKE ONE TABLET BY MOUTH AT BEDT ROSITA TAKE ONE TABLET BY MOUTH AT BEDTIME SOLD: 07/27/2020 [facility] 50 mg 07/27/2020 12:00:00 AM EST tablet 270 TAKE 1 & 1/2 TABLET BY MOUTH TWO TIMES A DAY TAKE 1 & 1/2 TABLET BY MOUTH TWO TIMES A DAY SOLD: 08/18/2020 [facility] Hyoscyamine Sulfate 0.125 MG Oral Tablet Hyoscyamine Sulfate 0.125 MG 07/27/2020 12:00:00 AM EST active Hyoscya mine Sulfate 0.125 MG eCW1 ([facility]) quetiapine 50 MG Oral Tablet Quetiapine Fumarate 50 MG Quetiapine Fumarate 50 MG 07/27/2020 12:00:00 AM EST active Quetiapine Fumarate 50 MG eCW1 ([facility]) quetiapine 50 MG Oral Tablet Quetiapine Fumarate 50 MG Quetiapine Fumarate 50 MG 07/27/2020 12:00:00 AM EST active Quetiapine Fumarate 50 MG eCW1 ([facility]) Hyoscyamine Sulfate 0.125 MG Oral Tablet Hyoscyamine Sulfate 0.125 MG 07/27/2020 12:00:00 AM EST active Hyoscya mine Sulfate 0.125 MG eCW1 ([facility]) Hyoscyamine Sulfate 0.125 MG Oral Tablet Hyoscyamine Sulfate 0.125 MG 07/27/2020 12:00:00 AM EST active Hyoscya mine Sulfate 0.125 MG eCW1 ([facility]) quetiapine 50 MG Oral Tablet Quetiapine Fumarate 50 MG Quetiapine Fumarate 50 MG 07/27/2020 12:00:00 AM EST active Quetiapine Fumarate 50 MG eCW1 ([facility]) quetiapine 50 MG Oral Tablet Quetiapine Fumarate 50 MG Quetiapine Fumarate 50 MG 07/27/2020 12:00:00 AM EST active Quetiapine Fumarate 50 MG eCW1 ([facility]) quetiapine 50 MG Oral Tablet Quetiapine Fumarate 50 MG Quetiapine Fumarate 50 MG 07/27/2020 12:00:00 AM EST active Quetiapine Fumarate 50 MG eCW1 ([facility]) 0.125 mg 07/27/2020 12:00:00 AM EST tablet 290 TAKE 1-2 TABLETS BY MOUTH NEEDED EVERY 4 HOURS NEEDED FOR DIARRHEA MAXIMUM DAILY DOSE = 12 TABLETS TAKE 1-2 TABLETS BY MOUTH NEEDED EVERY 4 HOURS NEEDED FOR DIARRHEA MAXIMUM DAILY DOSE = 12 TABLETS SOLD: 08/14/2020 [facility] quetiapine 50 MG Oral Tablet Quetiapine Fumarate 50 MG Quetiapine Fumarate 50 MG 07/27/2020 12:00:00 AM EST active Quetiapine Fumarate 50 MG eCW1 ([facility]) quetiapine 50 MG Oral Tablet Quetiapine Fumarate 50 MG Quetiapine Fumarate 50 MG 07/27/2020 12:00:00 AM EST active Quetiapine Fumarate 50 MG eCW1 ([facility]) Hyoscyamine Sulfate 0.125 MG Oral Tablet Hyoscyamine Sulfate 0.125 MG 07/27/2020 12:00:00 AM EST active Hyoscya mine Sulfate 0.125 MG eCW1 ([facility]) quetiapine 50 MG Oral Tablet QUETIAPINE FUMARATE 07/27/2020 12:0 0:00 AM EST tablet 30 TAKE ONE TABLET BY MOUTH AT BEDT ROSITA TAKE ONE TABLET BY MOUTH AT BEDTIME SOLD: 08/28/2020 [facility] Hyoscyamine Sulfate 0.125 MG Oral Tablet Hyoscyamine Sulfate 0.125 MG 07/27/2020 12:00:00 AM EST active Hyoscya mine Sulfate 0.125 MG eCW1 ([facility]) Hyoscyamine Sulfate 0.125 MG Oral Tablet Hyoscyamine Sulfate 0.125 MG 07/27/2020 12:00:00 AM EST active Hyoscya mine Sulfate 0.125 MG eCW1 ([facility]) quetiapine 50 MG Oral Tablet Quetiapine Fumarate 50 MG Quetiapine Fumarate 50 MG 07/27/2020 12:00:00 AM EST active Quetiapine Fumarate 50 MG eCW1 ([facility]) Hyoscyamine Sulfate 0.125 MG Oral Tablet Hyoscyamine Sulfate 0.125 MG 07/27/2020 12:00:00 AM EST active Hyoscya mine Sulfate 0.125 MG eCW1 ([facility]) Hyoscyamine Sulfate 0.125 MG Oral Tablet Hyoscyamine Sulfate 0.125 MG 07/27/2020 12:00:00 AM EST active Hyoscya mine Sulfate 0.125 MG eCW1 ([facility]) quetiapine 50 MG Oral Tablet Quetiapine Fumarate 50 MG Quetiapine Fumarate 50 MG 07/27/2020 12:00:00 AM EST active Quetiapine Fumarate 50 MG eCW1 ([facility]) quetiapine 50 MG Oral Tablet Quetiapine Fumarate 50 MG Quetiapine Fumarate 50 MG 07/27/2020 12:00:00 AM EST active Quetiapine Fumarate 50 MG eCW1 ([facility]) Hyoscyamine Sulfate 0.125 MG Oral Tablet Hyoscyamine Sulfate 0.125 MG 07/27/2020 12:00:00 AM EST active Hyoscya mine Sulfate 0.125 MG eCW1 ([facility]) Hyoscyamine Sulfate 0.125 MG Oral Tablet Hyoscyamine Sulfate 0.125 MG 07/27/2020 12:00:00 AM EST active Hyoscya mine Sulfate 0.125 MG eCW1 ([facility]) quetiapine 50 MG Oral Tablet Quetiapine Fumarate 50 MG Quetiapine Fumarate 50 MG 07/27/2020 12:00:00 AM EST active Quetiapine Fumarate 50 MG eCW1 ([facility]) Hyoscyamine Sulfate 0.125 MG Oral Tablet Hyoscyamine Sulfate 0.125 MG 07/27/2020 12:00:00 AM EST active Hyoscya mine Sulfate 0.125 MG eCW1 ([facility]) quetiapine 50 MG Oral Tablet Quetiapine Fumarate 50 MG Quetiapine Fumarate 50 MG 07/27/2020 12:00:00 AM EST active Quetiapine Fumarate 50 MG eCW1 ([facility]) Hyoscyamine Sulfate 0.125 MG Oral Tablet Hyoscyamine Sulfate 0.125 MG 07/27/2020 12:00:00 AM EST active Hyoscya mine Sulfate 0.125 MG eCW1 ([facility]) quetiapine 50 MG Oral Tablet Quetiapine Fumarate 50 MG Quetiapine Fumarate 50 MG 07/27/2020 12:00:00 AM EST active Quetiapine Fumarate 50 MG eCW1 ([facility]) quetiapine 50 MG Oral Tablet Quetiapine Fumarate 50 MG Quetiapine Fumarate 50 MG 07/27/2020 12:00:00 AM EST active Quetiapine Fumarate 50 MG eCW1 ([facility]) Hyoscyamine Sulfate 0.125 MG Oral Tablet Hyoscyamine Sulfate 0.125 MG 07/27/2020 12:00:00 AM EST active Hyoscya mine Sulfate 0.125 MG eCW1 ([facility]) Hyoscyamine Sulfate 0.125 MG Oral Tablet Hyoscyamine Sulfate 0.125 MG 07/27/2020 12:00:00 AM EST active Hyoscya mine Sulfate 0.125 MG eCW1 ([facility]) Hyoscyamine Sulfate 0.125 MG Oral Tablet Hyoscyamine Sulfate 0.125 MG 07/27/2020 12:00:00 AM EST active Hyoscya mine Sulfate 0.125 MG eCW1 ([facility]) Hyoscyamine Sulfate 0.125 MG Oral Tablet Hyoscyamine Sulfate 0.125 MG 07/27/2020 12:00:00 AM EST active Hyoscya mine Sulfate 0.125 MG eCW1 ([facility]) Hyoscyamine Sulfate 0.125 MG Oral Tablet Hyoscyamine Sulfate 0.125 MG 07/27/2020 12:00:00 AM EST active Hyoscya mine Sulfate 0.125 MG eCW1 ([facility]) 40 mg 07/22/2020 12:00:00 AM EST tablet 30 TAKE ONE TABLET BY MOUTH EVERY DAY NEEDED TAKE ONE TABLET BY MOUTH EVERY DAY NEEDED SOLD: 07/22/2020 [facility] 40 mg 07/22/2020 12:00:00 AM EST capsule 60 TAKE TWO CAPSULES BY MOUTH EVERY MORNING TAKE TWO CAPSULES BY MOUTH EVERY MORNING SOLD: 07/22/2020 [facility] Diclofenac Sodium 75 MG Delayed Release Oral Tablet DICLOFEN AC SODIUM 07/22/2020 12:00:00 AM EST tablet,delayed release (DR/EC) 60 TAKE ONE TABLET BY MOUTH TWICE A DAY TAKE ONE TABLET BY MOUTH TWICE A DAY SOLD: 07/22/2020 [facility] pantoprazole 40 MG Delayed Release Oral Tablet PANTOPRAZOLE SODIUM 07/22/2020 12:00:00 AM EST tablet,delayed release (DR/EC) 30 T CHARMAINE ONE TABLET BY MOUTH EVERY MORNING TAKE ONE TABLET BY MOUTH EVERY MORNING SOLD: 07/22/2020 [facility] 10 mg 07/22/2020 12:00:00 AM EST [...] {tablet_as_needed} active Percocet 7.5- 325 MG eCW1 ([facility]) Acetaminophen 325 MG / Oxycodone Hydroch loride 7.5 MG Oral Tablet [Percocet] Percocet 7.5-325 MG Percocet 7.5-325 MG 06/20/2020 12:00:00 AM EST 1.0 {tablet_as_needed} active Percocet 7.5- 325 MG eCW1 ([facility]) Acetaminophen 325 MG / Oxycodone Hydroch loride 7.5 MG Oral Tablet [Percocet] Percocet 7.5-325 MG Percocet 7.5-325 MG 06/20/2020 12:00:00 AM EST 1.0 {tablet_as_needed} active Percocet 7.5- 325 MG eCW1 ([facility]) Acetaminophen 325 MG / Oxycodone Hydroch loride 7.5 MG Oral Tablet [Percocet] Percocet 7.5-325 MG Percocet 7.5-325 MG 06/20/2020 12:00:00 AM EST 1.0 {tablet_as_needed} active Percocet 7.5- 325 MG eCW1 ([facility]) Acetaminophen 325 MG / Oxycodone Hydroch loride 7.5 MG Oral Tablet [Percocet] Percocet 7.5-325 MG Percocet 7.5-325 MG 06/20/2020 12:00:00 AM EST 1.0 {tablet_as_needed} active Percocet 7.5- 325 MG eCW1 ([facility]) Acetaminophen 325 MG / Oxycodone Hydroch loride 7.5 MG Oral Tablet [Percocet] Percocet 7.5-325 MG Percocet 7.5-325 MG 06/20/2020 12:00:00 AM EST 1.0 {tablet_as_needed} active Percocet 7.5- 325 MG eCW1 ([facility]) Acetaminophen 325 MG / Oxycodone Hydroch loride 7.5 MG Oral Tablet [Percocet] Percocet 7.5-325 MG Percocet 7.5-325 MG 06/20/2020 12:00:00 AM EST 1.0 {tablet_as_needed} active Percocet 7.5- 325 MG eCW1 ([facility]) Acetaminophen 325 MG / Oxycodone Hydroch loride 7.5 MG Oral Tablet [Percocet] Percocet 7.5-325 MG Percocet 7.5-325 MG 06/20/2020 12:00:00 AM EST 1.0 {tablet_as_needed} active Percocet 7.5- 325 MG eCW1 ([facility]) Acetaminophen 325 MG / Oxycodone Hydroch loride 7.5 MG Oral Tablet [Percocet] Percocet 7.5-325 MG Percocet 7.5-325 MG 06/20/2020 12:00:00 AM EST 1.0 {tablet_as_needed} active Percocet 7.5- 325 MG eCW1 ([facility]) Acetaminophen 325 MG / Oxycodone Hydroch loride 7.5 MG Oral Tablet [Percocet] Percocet 7.5-325 MG Percocet 7.5-325 MG 06/20/2020 12:00:00 AM EST 1.0 {tablet_as_needed} active Percocet 7.5- 325 MG eCW1 ([facility]) Acetaminophen 325 MG / Oxycodone Hydroch loride 7.5 MG Oral Tablet [Percocet] Percocet 7.5-325 MG Percocet 7.5-325 MG 06/20/2020 12:00:00 AM EST 1.0 {tablet_as_needed} active Percocet 7.5- 325 MG eCW1 ([facility]) 350 mg 06/20/2020 12:00:00 AM EST [...] {tablet_as_needed} active Percocet 7.5- 325 MG eCW1 ([facility]) Acetaminophen 325 MG / Oxycodone Hydroch loride 7.5 MG Oral Tablet [Percocet] Percocet 7.5-325 MG Percocet 7.5-325 MG 06/20/2020 12:00:00 AM EST 1.0 {tablet_as_needed} active Percocet 7.5- 325 MG eCW1 ([facility]) Ondansetron HCl 4 MG UNK 06/17/2020 12:00:00 AM EST 1.0 {tablet } active Ondansetron HCl 4 MG eCW1 ([facility]) Ondansetron HCl 4 MG UNK 06/17/2020 12:00:00 AM EST 1.0 {tablet } active Ondansetron HCl 4 MG eCW1 ([facility]) Ondansetron HCl 4 MG UNK 06/17/2020 12:00:00 AM EST 1.0 {tablet } active Ondansetron HCl 4 MG eCW1 ([facility]) Ondansetron HCl 4 MG UNK 06/17/2020 12:00:00 AM EST 1.0 {tablet } active Ondansetron HCl 4 MG eCW1 ([facility]) Ondansetron HCl 4 MG UNK 06/17/2020 12:00:00 AM EST 1.0 {tablet } active Ondansetron HCl 4 MG eCW1 ([facility]) Ondansetron HCl 4 MG UNK 06/17/2020 12:00:00 AM EST 1.0 {tablet } active Ondansetron HCl 4 MG eCW1 ([facility]) Ondansetron HCl 4 MG UNK 06/17/2020 12:00:00 AM EST 1.0 {tablet } active Ondansetron HCl 4 MG eCW1 ([facility]) Ondansetron HCl 4 MG UNK 06/17/2020 12:00:00 AM EST 1.0 {tablet } active Ondansetron HCl 4 MG eCW1 ([facility]) Ondansetron HCl 4 MG UNK 06/17/2020 12:00:00 AM EST 1.0 {tablet } active Ondansetron HCl 4 MG eCW1 ([facility]) Ondansetron HCl 4 MG UNK 06/17/2020 12:00:00 AM EST 1.0 {tablet } active eCW1 ([facility]) Ondansetron HCl 4 MG UNK 06/17/2020 12:00:00 AM EST 1.0 {tablet } active Ondansetron HCl 4 MG eCW1 ([facility]) Ondansetron HCl 4 MG UNK 06/17/2020 12:00:00 AM EST 1.0 {tablet } active Ondansetron HCl 4 MG eCW1 ([facility]) Ondansetron HCl 4 MG UNK 06/17/2020 12:00:00 AM EST 1.0 {tablet } active Ondansetron HCl 4 MG eCW1 ([facility]) Ondansetron HCl 4 MG UNK 06/17/2020 12:00:00 AM EST 1.0 {tablet } active Ondansetron HCl 4 MG eCW1 ([facility]) Ondansetron HCl 4 MG UNK 06/17/2020 12:00:00 AM EST 1.0 {tablet } active Ondansetron HCl 4 MG eCW1 ([facility]) Ondansetron HCl 4 MG UNK 06/17/2020 12:00:00 AM EST 1.0 {tablet } active Ondansetron HCl 4 MG eCW1 ([facility]) Ondansetron HCl 4 MG UNK 06/17/2020 12:00:00 AM EST 1.0 {tablet } active Ondansetron HCl 4 MG eCW1 ([facility]) Ondansetron HCl 4 MG UNK 06/17/2020 12:00:00 AM EST 1.0 {tablet } active Ondansetron HCl 4 MG eCW1 ([facility]) Ondansetron HCl 4 MG UNK 06/17/2020 12:00:00 AM EST 1.0 {tablet } active Ondansetron HCl 4 MG eCW1 ([facility]) Ondansetron HCl 4 MG UNK 06/17/2020 12:00:00 AM EST 1.0 {tablet } active Ondansetron HCl 4 MG eCW1 ([facility]) Ondansetron HCl 4 MG UNK 06/17/2020 12:00:00 AM EST 1.0 {tablet } active Ondansetron HCl 4 MG eCW1 ([facility]) Ondansetron HCl 4 MG UNK 06/17/2020 12:00:00 AM EST 1.0 {tablet } active Ondansetron HCl 4 MG eCW1 ([facility]) Ondansetron HCl 4 MG UNK 06/17/2020 12:00:00 AM EST 1.0 {tablet } active Ondansetron HCl 4 MG eCW1 ([facility]) 1 mg 06/17/2020 12:00:00 AM EST tablet 60 TAKE ONE TABLET BY MOUTH TWICE A DAY MAXIMUM DAILY DOSE = TWO TABLETS TAKE ONE TABLET BY MOUTH TWICE A DAY MAXIMUM DAILY DOSE = TWO TABLETS SOLD: 06/17/2020 [facility] Ondansetron HCl 4 MG UNK 06/17/2020 12:00:00 AM EST 1.0 {tablet } active Ondansetron HCl 4 MG eCW1 ([facility]) Ondansetron HCl 4 MG UNK 06/17/2020 12:00:00 AM EST 1.0 {tablet } active Ondansetron HCl 4 MG eCW1 ([facility]) Ondansetron HCl 4 MG UNK 06/17/2020 12:00:00 AM EST 1.0 {tablet } active Ondansetron HCl 4 MG eCW1 ([facility]) Ondansetron HCl 4 MG UNK 06/17/2020 12:00:00 AM EST 1.0 {tablet } active Ondansetron HCl 4 MG eCW1 ([facility]) Ondansetron HCl 4 MG UNK 06/17/2020 12:00:00 AM EST 1.0 {tablet } active Ondansetron HCl 4 MG eCW1 ([facility]) Ondansetron HCl 4 MG UNK 06/17/2020 12:00:00 AM EST 1.0 {tablet } active Ondansetron HCl 4 MG eCW1 ([facility]) Ondansetron HCl 4 MG UNK 06/17/2020 12:00:00 AM EST 1.0 {tablet } active Ondansetron HCl 4 MG eCW1 ([facility]) Ondansetron HCl 4 MG UNK 06/17/2020 12:00:00 AM EST 1.0 {tablet } active Ondansetron HCl 4 MG eCW1 ([facility]) Ondansetron HCl 4 MG UNK 06/17/2020 12:00:00 AM EST 1.0 {tablet } active Ondansetron HCl 4 MG eCW1 ([facility]) Ondansetron HCl 4 MG UNK 06/17/2020 12:00:00 AM EST 1.0 {tablet } active Ondansetron HCl 4 MG eCW1 ([facility]) Ondansetron HCl 4 MG UNK 06/17/2020 12:00:00 AM EST 1.0 {tablet } active Ondansetron HCl 4 MG eCW1 ([facility]) Ondansetron HCl 4 MG UNK 06/17/2020 12:00:00 AM EST 1.0 {tablet } active Ondansetron HCl 4 MG eCW1 ([facility]) Ondansetron HCl 4 MG UNK 06/17/2020 12:00:00 AM EST 1.0 {tablet } active Ondansetron HCl 4 MG eCW1 ([facility]) Ondansetron HCl 4 MG UNK 06/17/2020 12:00:00 AM EST 1.0 {tablet } active Ondansetron HCl 4 MG eCW1 ([facility]) Ondansetron HCl 4 MG UNK 06/17/2020 12:00:00 AM EST 1.0 {tablet } active Ondansetron HCl 4 MG eCW1 ([facility]) Ondansetron HCl 4 MG UNK 06/17/2020 12:00:00 AM EST 1.0 {tablet } active Ondansetron HCl 4 MG eCW1 ([facility]) Ondansetron HCl 4 MG UNK 06/17/2020 12:00:00 AM EST 1.0 {tablet } active Ondansetron HCl 4 MG eCW1 ([facility]) Ondansetron HCl 4 MG UNK 06/17/2020 12:00:00 AM EST 1.0 {tablet } active Ondansetron HCl 4 MG eCW1 ([facility]) Ondansetron HCl 4 MG UNK 06/17/2020 12:00:00 AM EST 1.0 {tablet } active Ondansetron HCl 4 MG eCW1 ([facility]) Ondansetron HCl 4 MG UNK 06/17/2020 12:00:00 AM EST 1.0 {tablet } active Ondansetron HCl 4 MG eCW1 ([facility]) Ondansetron HCl 4 MG UNK 06/17/2020 12:00:00 AM EST 1.0 {tablet } active Ondansetron HCl 4 MG eCW1 ([facility]) Ondansetron HCl 4 MG UNK 06/17/2020 12:00:00 AM EST 1.0 {tablet } active Ondansetron HCl 4 MG eCW1 ([facility]) Ondansetron HCl 4 MG UNK 06/17/2020 12:00:00 AM EST 1.0 {tablet } active Ondansetron HCl 4 MG eCW1 ([facility]) Ondansetron HCl 4 MG UNK 06/17/2020 12:00:00 AM EST 1.0 {tablet } active Ondansetron HCl 4 MG eCW1 ([facility]) Ondansetron HCl 4 MG UNK 06/17/2020 12:00:00 AM EST 1.0 {tablet } active Ondansetron HCl 4 MG eCW1 ([facility]) Ondansetron HCl 4 MG UNK 06/17/2020 12:00:00 AM EST 1.0 {tablet } active Ondansetron HCl 4 MG eCW1 ([facility]) Ondansetron HCl 4 MG UNK 06/17/2020 12:00:00 AM EST 1.0 {tablet } active Ondansetron HCl 4 MG eCW1 ([facility]) Ondansetron HCl 4 MG UNK 06/17/2020 12:00:00 AM EST 1.0 {tablet } active eCW1 ([facility]) Ondansetron HCl 4 MG UNK 06/17/2020 12:00:00 AM EST 1.0 {tablet } active Ondansetron HCl 4 MG eCW1 ([facility]) Ondansetron HCl 4 MG UNK 06/17/2020 12:00:00 AM EST 1.0 {tablet } active Ondansetron HCl 4 MG eCW1 ([facility]) Ondansetron HCl 4 MG UNK 06/17/2020 12:00:00 AM EST 1.0 {tablet } active Ondansetron HCl 4 MG eCW1 ([facility]) Ondansetron HCl 4 MG UNK 06/17/2020 12:00:00 AM EST 1.0 {tablet } active Ondansetron HCl 4 MG eCW1 ([facility]) Ondansetron HCl 4 MG UNK 06/17/2020 12:00:00 AM EST 1.0 {tablet } active Ondansetron HCl 4 MG eCW1 ([facility]) Ondansetron HCl 4 MG UNK 06/17/2020 12:00:00 AM EST 1.0 {tablet } active Ondansetron HCl 4 MG eCW1 ([facility]) Ondansetron HCl 4 MG UNK 06/17/2020 12:00:00 AM EST 1.0 {tablet } active Ondansetron HCl 4 MG eCW1 ([facility]) Ondansetron HCl 4 MG UNK 06/17/2020 12:00:00 AM EST 1.0 {tablet } active Ondansetron HCl 4 MG eCW1 ([facility]) Ondansetron HCl 4 MG UNK 06/17/2020 12:00:00 AM EST 1.0 {tablet } active Ondansetron HCl 4 MG eCW1 ([facility]) Ondansetron HCl 4 MG UNK 06/17/2020 12:00:00 AM EST 1.0 {tablet } active Ondansetron HCl 4 MG eCW1 ([facility]) Acetaminophen 325 MG / Oxycodone Hydroch loride 7.5 MG Oral Tablet [Percocet] Percocet 7.5-325 MG Percocet 7.5-325 MG 05/24/2020 12:00:00 AM EST 1.0 {tablet_as_needed} active Percocet 7.5- 325 MG eCW1 ([facility]) Acetaminophen 325 MG / Oxycodone Hydroch loride 7.5 MG Oral Tablet [Percocet] Percocet 7.5-325 MG Percocet 7.5-325 MG 05/24/2020 12:00:00 AM EST 1.0 {tablet_as_needed} active Percocet 7.5- 325 MG eCW1 ([facility]) Acetaminophen 325 MG / Oxycodone Hydroch loride 7.5 MG Oral Tablet [Percocet] Percocet 7.5-325 MG Percocet 7.5-325 MG 05/24/2020 12:00:00 AM EST 1.0 {tablet_as_needed} active Percocet 7.5- 325 MG eCW1 ([facility]) Acetaminophen 325 MG / Oxycodone Hydroch loride 7.5 MG Oral Tablet [Percocet] Percocet 7.5-325 MG Percocet 7.5-325 MG 05/24/2020 12:00:00 AM EST 1.0 {tablet_as_needed} active Percocet 7.5- 325 MG eCW1 ([facility]) 350 mg 05/20/2020 12:00:00 AM EST [...] {tablet_as_needed} active Percocet 7.5- 325 MG eCW1 ([facility]) Acetaminophen 325 MG / Oxycodone Hydroch loride 7.5 MG Oral Tablet [Percocet] Percocet 7.5-325 MG Percocet 7.5-325 MG 05/10/2020 12:00:00 AM EDT 1.0 {tablet_as_needed} active Percocet 7.5- 325 MG eCW1 ([facility]) Acetaminophen 325 MG / Oxycodone Hydroch loride 7.5 MG Oral Tablet [Percocet] Percocet 7.5-325 MG Percocet 7.5-325 MG 05/10/2020 12:00:00 AM EDT 1.0 {tablet_as_needed} active Percocet 7.5- 325 MG eCW1 ([facility]) Acetaminophen 325 MG / Oxycodone Hydroch loride 7.5 MG Oral Tablet [Percocet] Percocet 7.5-325 MG Percocet 7.5-325 MG 05/10/2020 12:00:00 AM EDT 1.0 {tablet_as_needed} active Percocet 7.5- 325 MG eCW1 ([facility]) 100,000 unit/gram 05/06/2020 12:00:00 AM EDT powder 60 APPLY TO AFFECTED AREA(S) IN GROIN AREA TWO TIMES A DAY APPLY TO AFFECTED AREA(S) IN GROIN AREA TWO TIMES A DAY SOLD: 05/09/2020 [facility] 5 mg 04/06/2020 12:00:00 AM [...] DAILY DOSE = 1 TABLET SOLD: 04/06/2020 [facility] 5 mg 04/06/2020 12:00:00 AM [...] = 1 TABLET SOLD: 05/10/2020 [facility] 350 mg 12/31/2019 12:00:00 AM [...] type / Coverage type Policy ID Covered republican ID Covered republican's relationship to [place] Policy [place] Plan Information MVP Commercial [id number] Self [id number] [place] 306/806 [id number] SP [id number] EXCELLUS H [id number] Self [id number] BLUE CROSS O [id number] S [id number] [place] 306/806 [id number] SP [id number] [place] 306/806 [id number] SP [id number] [place] 306/806 [id number] SP [id number] [place] Of [place] Commercial [id number] Self [id number] [place] Of [place] Commercial [id number] Self [id number] [place] Commercial [id number] Self [id number] [place] Of [place] Commercial [id number] Self [id number] [place] Of [place] Commercial [id number] Self [id number] BS Of [place] Commercial [id number] Self [id number] Blue Cross Blue Shield P [id number] SELF [id number] Blue Cross Blue Shield P [id number] SELF [id number] EXCELLUS BCBS [id number] Marci VYS [id number] Blue Cross Blue Shield P [id number] SELF [id number] Blue Cross Blue Shield P [id number] SELF [id number] Medicaid Medicaid [id number] Self [id number] Excellus Blue Cross and Blue Shield - [place] Blue Cross/B lue Shield [id number] Self [id number] BCBS Excell[employer] U/W Commercial [id number] Self [id number] CDPHP [id number] Self [id number] Excellus [id number] Self [id number] Excellus [id number] self [id number] SELF PAY ONLY [id number] SP [id number] BCBS [place] PPO 302/307 [id number] SP [id number] [place] 306/806 [id number] SP [id number] EXCELLUS BCBS B [id number] S [id number] [id number] CD PHP PI PI CD PHP [id number] Marci [id number] EXCELLUS BCBS B [id number] S VYS [id number] BCBS/Excellus Medigap Part B [id number] Self BCBS/[place]cell[place] Commercial [id number] Self [place]BS [place] PPO 302/307 [id number] SP [id number] BS Of [place] Commercial [id number] Self SELF PAY ONLY [id number] SP [id number] BCBS [place] 306/806 [id number] SP [id number] EXCELLUS BCBS B [id number] S VYS [id number] BCBS [place] PPO 302/307 [id number] SP [id number] BCBS [place] 306/806 [id number] SP [id number] EXCELLUS BCBS B [id number] S VYS [id number] BS/W/Id#Prefix/W ALL #'S Medigap Part B [id number] Self BS/W/Id#Prefix/W ALL #'S Commercial [id number] Self [facility] PHY [id number] SP [id number] [facility] P [id number] S [id number] PMA INSURANCE [id number] SP [id number] OTHER WORKERS COMPENSATI P [id number] S [id number] P UNAVAILABLE UNAVAILA BLE OTHER WORKERS COMPENSATION [id number] SP [id number] [facility] PHY [id number] SP [id number] [facility] PHY [id number] SP [id number] BCBS Excellus U/W Commercial [id number] Self [id number] Problems, Conditions, and Diagnoses Code Display Name Description Problem Type Effective Dates Data Source(s) G89.29 [id number] Other chronic pain Problem 05/09/2021 12:00: 00 AM EDT eCW1 ([facility]) I87.2 [id number] Venous insufficiency of both lower extrem ities Problem 12/02/2020 12:00:00 AM EDT eCW1 ([facility]) R60.9 [id number] Peripheral edema Problem 07/27/2020 12:00:00 AM EST eCW1 ([facility]) Surgeries/Procedures Procedure Description Date Indications Data Source(s) COLPOSCOPY CERVIX BX CERVIX&ENDOCRV CURTG 2021 1 2:00:00 AM EDT eCW1 ([facility]) URINE TEST 2021 12:00:00 AM EDT eCW1 ([facility]) Results ID Date Data Source [id number] 05/13/2021 04:45:00 PM EDT [facility] Name Value Range Interpretation Code Description Data Iris rce(s) Supporting Document(s) SARS-CoV-2 RNA Resp Ql DEZ+probe NOT DETECTED [facility] This lab was ordered by ZACHARY billings and reported by ZACHARY Ugalde. ID Date Data Source [id number] 05/12/2021 01:24:00 PM EDT [facility] Name Value Range Interpretation Code Description Data Iris rce(s) Supporting Document(s) SARS coronavirus 2 RNA [Presence] in Res piratory specimen by DEZ with probe detection NEGATIVE [facility] This lab was ordered by [facility] a nd reported by [facility]. ID Date Data Source [id number] 04/30/2021 06:46:00 AM EDT [facility] Name Value Range Interpretation Code Description Data Iris rce(s) Supporting Document(s) SARS coronavirus 2 RNA [Presence] in Res piratory specimen by DEZ with probe detection NEGATIVE [facility] This lab was ordered by [facility] a nd reported by [facility]. ID Date Data Source [id number] 04/26/2021 11:41:00 AM EDT [facility] Name Value Range Interpretation Code Description Data Iris rce(s) Supporting Document(s) SARS coronavirus 2 RNA [Presence] in Res piratory specimen by DEZ with probe detection NEGATIVE [facility] This lab was ordered by [facility] a nd reported by [facility]. ID Date Data Source [id number] 04/18/2021 11:02:00 AM EDT [facility] Name Value Range Interpretation Code Description Data Iris rce(s) Supporting Document(s) SARS coronavirus 2 RNA [Presence] in Res piratory specimen by DEZ with probe detection NEGATIVE [facility] This lab was ordered by [facility] a nd reported by [facility]. ID Date Data Source [id number] 12/28/2020 10:02:11 AM EDT [facility] PCName: Gloria GuerraDOB: 1975Provider: Shara SpicerDOEvert: 12/26/2020 Reason For VisitGloria Guerra is here today for her rose. knees. Gloria had her second Covid vaccine on 08/2020. Gloria Guerra is an established patient here for follow up. (Home Team Therapy). Patient is working at this time at [...] an outside provider. Results/DataXRays previously taken at [facility] were reviewed today. Side: Bilateral Site: [...] is to see somebody up in the [place] area but has not seen anybody recently. Work / School NoteThe percentage of temporary impairment is 0%. The patient is working at this time. This document was dictated and electronically signed using Talicious Speaking software. A reasonable attempt at proof reading has been made to minimize errors. Please call with any questions. Signatures Electronically signed by : Shara Spicer PA-C; Dec 26 2020 8:44AM EST (Author) Electronically signed by : Nicole Morin M.D.; Dec 28 2020 10:02AM EST (Author) Name Value Range Interpretation Code Description Data Iris rce(s) Supporting Document(s) ID Date Data Source [id number] 11/10/2020 12:34:00 PM EDT [place] Name Value Range Interpretation Code Description Data Iris rce(s) Supporting Document(s) COVID-19 RT-PCR NASAL SWAB Not Detected Not Detected [place] FUJIAN HAIYU[facility] A not detected (negative) test result fo [...] developed and its performance characteristics determined by [facility] and verified at [place]. It has not been cleared or approved by the U.S. Food and Drug Administration for diagnostic use. This test has been authorized by FDA under an EUA for use by authorized laboratories. Results should be used in conjunction with clinical findings, and should not form the sole basis for a diagnosis or treatment decision. Methods: SARS-CoV-2 Multiplex RT-PCR Assay ID Date Data Source [id number] 11/08/2020 05:15:00 PM EDT [facility] Name Value Range Interpretation Code Description Data Iris rce(s) Supporting Document(s) SARS-CoV-2 (COVID-19) N gene [Presence] in Respiratory specimen by DEZ with probe detection NEGATIVE [facility] This lab was ordered by Tram Alonzo and reported by [place]. ID Date Data Source CHLAMYDIA & GC DNA AMPLIFICAT 10/27/2020 12:00:00 AM EDT eCW 1 ([facility]) Name Value Range Interpretation Code Description Data Iris rce(s) Supporting Document(s) Chlamydia trachomatis rRNA [Presence] in Unspecified specimen by Probe and target amplification method NEGATIVE NEGATIVE CHLAMYDIA DNA AMPLIFICATION eCW1 ([facility]) ID Date Data Source [id number] 08/18/2020 12:00:00 AM EST [facility] Name Value Range Interpretation Code Description Data Iris rce(s) Supporting Document(s) Carestart Rapid COVID Antigen Test Positive [facility] This lab was reported by Tram bach. ID Date Data Source CT Scan : Angiogram 08/11/2020 12:00:00 AM EST eCW1 ([facility]) Name Value Range Interpretation Code Description Data Iris rce(s) Supporting Document(s) CT Scan : Angiogram eCW1 ([facility]) ID Date Data Source [id number] 08/04/2020 11:45:00 AM EST [facility] Name Value Range Interpretation Code Description Data Iris rce(s) Supporting Document(s) SARS coronavirus 2 RNA Not Detected [facility] This lab was ordered by [facility] and reported by [facility]. ID Date Data Source DRUG EVAL SCREEN BLOOD 7 [id number] 08/01/2020 12:00:00 AM EST eC W1 ([facility]) Name Value Range Interpretation Code Description Data Iris rce(s) Supporting Document(s) Negative Cutoff:50 AMPHETAMINES SCREEN, BLOO D eCW1 ([facility]) Negative Cutoff:0.1 BARBITURATES SCREEN, BLOO D eCW1 ([facility]) Negative Cutoff:20 BENZODIAZEPINES SCREEN, B LOOD eCW1 ([facility]) Negative Cutoff:5 CANNABINOID SCREEN, BLOOD eCW1 ([facility]) Negative Cutoff:25 COCAINE + METAB. SCREEN, BLOOD eCW1 ([facility]) Negative Cutoff:8 PHENCYCLIDINE SCREEN, BLO OD eCW1 ([facility]) Negative Cutoff:5 OPIATES SCREEN, BLOOD eCW 1 ([facility]) ID Date Data Source NT-PRO BNP 08/01/2020 12:00:00 AM EST eCW1 ([facility]) Name Value Range Interpretation Code Description Data Iris rce(s) Supporting Document(s) 102 <125 NT-PRO BNP eCW1 ([facility]) ID Date Data Source Comprehensive Metabolic Profile (CMP) 08/01/2020 12:00:00 AM EST eCW1 ([facility]) Name Value Range Interpretation Code Description Data Iris rce(s) Supporting Document(s) 8 7-18 BLOOD UREA NITROGEN eCW1 ([facility]) 81 70-100 GLUCOSE, FASTING eCW1 ([facility]) 0.60 0.55-1.30 CREATININE FOR GFR eCW1 ([facility]) > 60.0 >58 GLOMERULAR FILTRATION RATE eCW 1 ([facility]) 138 136-145 SODIUM LEVEL eCW1 ([facility]) 3.5 3.5-5.1 POTASSIUM SERUM eCW1 ([facility]) 24 21-32 CARBON DIOXIDE LEVEL eCW1 ([facility]) 107 98-107 CHLORIDE LEVEL eCW1 ([facility]) 8.7 8.5-10.1 CALCIUM LEVEL eCW1 ([facility]) 19 7-37 AST/SGOT eCW1 ([facility]) 39 12-78 ALT/SGPT eCW1 ([facility]) 97 45-117 ALKALINE PHOSPHATASE eCW1 ([facility]) 0.4 0.2-1.0 BILIRUBIN,TOTAL eCW1 ([facility]) 6.8 6.4-8.2 TOTAL PROTEIN eCW1 ([facility]) 3.2 3.2-5.2 ALBUMIN eCW1 ([facility]) 0.9 1.2-2.2 ALBUMIN/GLOBULIN RATIO eCW1 ([facility]) ID Date Data Source [id number] 08/01/2020 12:00:00 AM EST eCW1 ([facility]) Name Value Range Interpretation Code Description Data Iris rce(s) Supporting Document(s) Hemoglobin A1c/Hemoglobin.total in Blood 4.9 HEMOGLOBIN A1c eCW1 ([facility]) ID Date Data Source PTH INTACT 08/01/2020 12:00:00 AM EST eCW1 ([facility]) Name Value Range Interpretation Code Description Data Iris rce(s) Supporting Document(s) 73.0 18.5-88.0 PTH INTACT eCW1 ([facility]) ID Date Data Source VITAMIN D 25-HYDROXY 08/01/2020 12:00:00 AM EST eCW1 ([facility]) Name Value Range Interpretation Code Description Data Iris rce(s) Supporting Document(s) 82.3 30.0-100.0 TOTAL 25(OH) VITAMIN D eC W1 ([facility]) ID Date Data Source INSULIN LEVEL 08/01/2020 12:00:00 AM EST eCW1 ([facility]) Name Value Range Interpretation Code Description Data Iris rce(s) Supporting Document(s) 5.4 2.6-24.9 INSULIN LEVEL eCW1 ([facility]) ID Date Data Source [id number] 07/11/2020 08:58:48 AM EST [facility] PCName: Gloria AshrafchuyDOB: 1975Provider: Omar [...] today in theoffice. Indication: pain/dysfunction.); Status:Complete; Done: [id number] Perform:SOS14 (General); Due:[id number]; Last Updated By:Lisbeth Camacho; 07/05/2020 3:25:18 PM;Ordered; [...] document was dictated and electronically signed using Talicious Speaking software. A reasonable attempt at proof reading has been made to minimize errors. Please call with any questions. Signatures Electronically signed by : Shara Spicer PA-C; Jul 05 2020 3:55PM EST (Author) Electronically signed by : Nicole Moirn M.D.; Jul 11 2020 8:58AM EST (Author) Name Value Range Interpretation Code Description Data Iris rce(s) Supporting Document(s) ID Date Data Source [id number] 06/21/2020 09:00:00 AM EST [facility] Name Value Range Interpretation Code Description Data Iris rce(s) Supporting Document(s) SARS coronavirus 2 RNA [facility] This lab was ordered by [facility] and reported by [facility]. ID Date Data Source [id number] 05/21/2020 12:00:00 AM EST [facility] Name Value Range Interpretation Code Description Data Iris rce(s) Supporting Document(s) SARS-CoV2 Rapid Antigen [facility] This lab was ordered by [facility] and reported by [facility]. ID Date Data Source [id number] 05/06/2020 12:00:00 AM EDT [facility] Name Value Range Interpretation Code Description Data Iris rce(s) Supporting Document(s) SARS coronavirus 2 RNA [Presence] in Res piratory specimen by DEZ with probe detection [facility] This lab was ordered by [facility] kvng Alonzo and reported by [facility]. Procedure Social History Code Duration Value Status Description Data Source(s ) Smoking 05/09/2021 12:00:00 AM EDT Former Smoker completed Former Smoker eCW1 ([facility]) Smoking 05/09/2021 12:00:00 AM EDT Former Smoker completed Former Smoker eCW1 ([facility]) Smoking 05/09/2021 12:00:00 AM EDT Former Smoker completed Former Smoker eCW1 ([facility]) Smoking 05/09/2021 12:00:00 AM EDT Former Smoker completed Former Smoker eCW1 ([facility]) Smoking 05/09/2021 12:00:00 AM EDT Former Smoker completed Former Smoker eCW1 ([facility]) Smoking 12/15/2020 12:00:00 AM EDT Former Smoker completed Former Smoker eCW1 ([facility]) Smoking 12/15/2020 12:00:00 AM EDT Former Smoker completed Former Smoker eCW1 ([facility]) Smoking 12/15/2020 12:00:00 AM EDT Former Smoker completed Former Smoker eCW1 ([facility]) Smoking 12/15/2020 12:00:00 AM EDT Former Smoker completed Former Smoker eCW1 ([facility]) Smoking 12/15/2020 12:00:00 AM EDT Former Smoker completed Former Smoker eCW1 ([facility]) Smoking 12/15/2020 12:00:00 AM EDT Former Smoker completed Former Smoker eCW1 ([facility]) Smoking 12/15/2020 12:00:00 AM EDT Former Smoker completed Former Smoker eCW1 ([facility]) Smoking 12/15/2020 12:00:00 AM EDT Former Smoker completed Former Smoker eCW1 ([facility]) Smoking 12/15/2020 12:00:00 AM EDT Former Smoker completed Former Smoker eCW1 ([facility]) Smoking 12/15/2020 12:00:00 AM EDT Former Smoker completed Former Smoker eCW1 ([facility]) Smoking 12/15/2020 12:00:00 AM EDT Former Smoker completed Former Smoker eCW1 ([facility]) Smoking 12/15/2020 12:00:00 AM EDT Former Smoker completed Former Smoker eCW1 ([facility]) Smoking 12/15/2020 12:00:00 AM EDT Former Smoker completed Former Smoker eCW1 ([facility]) Smoking 12/15/2020 12:00:00 AM EDT Former Smoker completed Former Smoker eCW1 ([facility]) Smoking 12/15/2020 12:00:00 AM EDT Former Smoker completed Former Smoker eCW1 ([facility]) Smoking 12/15/2020 12:00:00 AM EDT Former Smoker completed Former Smoker eCW1 ([facility]) Smoking 12/15/2020 12:00:00 AM EDT Former Smoker completed Former Smoker eCW1 ([facility]) Smoking 12/02/2020 12:00:00 AM EDT Former Smoker completed Former Smoker eCW1 ([facility]) Smoking 12/02/2020 12:00:00 AM EDT Former Smoker completed Former Smoker eCW1 ([facility]) Smoking 12/02/2020 12:00:00 AM EDT Former Smoker completed Former Smoker eCW1 ([facility]) Smoking 10/27/2020 12:00:00 AM EDT Former Smoker completed Former Smoker eCW1 ([facility]) Smoking 10/27/2020 12:00:00 AM EDT Former Smoker completed Former Smoker eCW1 ([facility]) Smoking 10/27/2020 12:00:00 AM EDT Former Smoker completed Former Smoker eCW1 ([facility]) Smoking 10/27/2020 12:00:00 AM EDT Former Smoker completed Former Smoker eCW1 ([facility]) Smoking 10/27/2020 12:00:00 AM EDT Former Smoker completed Former Smoker eCW1 ([facility]) Smoking 10/27/2020 12:00:00 AM EDT Former Smoker completed Former Smoker eCW1 ([facility]) Smoking 10/21/2020 12:00:00 AM EDT Former Smoker completed Former Smoker eCW1 ([facility]) Smoking 10/21/2020 12:00:00 AM EDT Former Smoker completed Former Smoker eCW1 ([facility]) Smoking 10/21/2020 12:00:00 AM EDT Former Smoker completed Former Smoker eCW1 ([facility]) Smoking 10/21/2020 12:00:00 AM EDT Former Smoker completed Former Smoker eCW1 ([facility]) Smoking 09/16/2020 12:00:00 AM EST Former Smoker completed Former Smoker eCW1 ([facility]) Smoking 09/16/2020 12:00:00 AM EST Former Smoker completed Former Smoker eCW1 ([facility]) Smoking 09/16/2020 12:00:00 AM EST Former Smoker completed Former Smoker eCW1 ([facility]) Smoking 07/27/2020 12:00:00 AM EST Former Smoker completed Former Smoker eCW1 ([facility]) Smoking 07/27/2020 12:00:00 AM EST Former Smoker completed Former Smoker eCW1 ([facility]) Smoking 07/27/2020 12:00:00 AM EST Former Smoker completed Former Smoker eCW1 ([facility]) Smoking 07/27/2020 12:00:00 AM EST Former Smoker completed Former Smoker eCW1 ([facility]) Smoking 07/27/2020 12:00:00 AM EST Former Smoker completed Former Smoker eCW1 ([facility]) Smoking 07/27/2020 12:00:00 AM EST Former Smoker completed Former Smoker eCW1 ([facility]) Smoking 07/27/2020 12:00:00 AM EST Former Smoker completed Former Smoker eCW1 ([facility]) Smoking 07/27/2020 12:00:00 AM EST Former Smoker completed Former Smoker eCW1 ([facility]) Vital Signs ID Date Data Source UNK Name Value Range Interpretation Code Description Data Source(s) Body weight 256 [lb_av] 256 [lb_av] eCW1 ([facility]) Body weight 116.12 kg 116.12 kg eCW1 ([facility]) Body height 68 [in_i] 68 [in_i] eCW1 ([facility]) Body mass index (BMI) [Ratio] 38.92 kg/m2 38.92 kg/m2 W1 ([facility]) Heart rate 84 /min 84 /min eCW1 ([facility]) Respiratory rate 18 /min 18 /min eCW1 ([facility]) Body temperature 97.4 [degF] 97.4 [degF] eCW1 ( [facility]) Systolic blood pressure 120 mm[Hg] 120 mm[Hg] e CW1 ([facility]) Diastolic blood pressure 78 mm[Hg] 78 mm[Hg] eCW1 ([facility]) Body weight 268 [lb_av] 268 [lb_av] eCW1 ([facility]) Body weight 121.56 kg 121.56 kg eCW1 ([facility]) Body height 68 [in_i] 68 [in_i] eCW1 ([facility]) Body mass index (BMI) [Ratio] 40.74 kg/m2 40.74 kg/m2 W1 ([facility]) Systolic blood pressure 110 mm[Hg] 110 mm[Hg] e CW1 ([facility]) Diastolic blood pressure 80 mm[Hg] 80 mm[Hg] eCW1 ([facility]) Body weight 269.4 [lb_av] 269.4 [lb_av] eCW1 ([facility] Body temperature 97.6 [degF] 97.6 [degF] eCW1 ( [facility]) Systolic blood pressure 120 mm[Hg] 120 mm[Hg] e CW1 ([facility]) Diastolic blood pressure 78 mm[Hg] 78 mm[Hg] eCW1 ([facility]) Body height 68 [in_i] 68 [in_i] eCW1 ([facility]) Body mass index (BMI) [Ratio] 40.96 kg/m2 40.96 kg/m2 W1 ([facility]) Heart rate 96 /min 96 /min eCW1 ([facility]) Respiratory rate 20 /min 20 /min eCW1 ([facility]) Body weight 266.2 [lb_av] 266.2 [lb_av] eCW1 ([facility]) Body height 68 [in_i] 68 [in_i] eCW1 ([facility]) Body mass index (BMI) [Ratio] 40.47 kg/m2 40.47 kg/m2 eCW1 ([facility]) Systolic blood pressure 118 mm[Hg] 118 mm[Hg] e CW1 ([facility]) Diastolic blood pressure 72 mm[Hg] 72 mm[Hg] eCW1 ([facility]) Body weight 266.2 [lb_av] 266.2 [lb_av] eCW1 ([facility] Body height 68 [in_i] 68 [in_i] eCW1 ([facility]) Body mass index (BMI) [Ratio] 40.47 kg/m2 40.47 kg/m2 eCW1 ([facility]) Heart rate 102 /min 102 /min eCW1 ([facility]) Respiratory rate 18 /min 18 /min eCW1 ([facility]) Body temperature 97 [degF] 97 [degF] eCW1 ([facility]) Systolic blood pressure 116 mm[Hg] 116 mm[Hg] e CW1 ([facility]) Diastolic blood pressure 74 mm[Hg] 74 mm[Hg] eCW1 ([facility]) Body weight 266.2 [lb_av] 266.2 [lb_av] [facility] Body height 68 [in_i] 68 [in_i] eCW1 ([facility]) Body mass index (BMI) [Ratio] 40.47 kg/m2 40.47 kg/m2 eCW1 ([facility]) Heart rate 102 /min 102 /min eCW1 ([facility]) Respiratory rate 18 /min 18 /min eCW1 ([facility]) Body temperature 97 [degF] 97 [degF] eCW1 ([facility]) Systolic blood pressure 116 mm[Hg] 116 mm[Hg] e CW1 ([facility]) Diastolic blood pressure 74 mm[Hg] 74 mm[Hg] eCW1 ([facility]) Body weight 266.2 [lb_av] 266.2 [lb_av] eCW1 ([facility]) Body height 68 [in_i] 68 [in_i] eCW1 ([facility]) Body mass index (BMI) [Ratio] 40.47 kg/m2 40.47 kg/m2 eCW1 ([facility]) Heart rate 102 /min 102 /min eCW1 ([facility]) Respiratory rate 18 /min 18 /min eCW1 ([facility]) Body temperature 97 [degF] 97 [degF] eCW1 ([facility]) Systolic blood pressure 116 mm[Hg] 116 mm[Hg] e CW1 ([facility]) Diastolic blood pressure 74 mm[Hg] 74 mm[Hg] eCW1 ([facility]) Patient Treatment Plan of Care Planned Activity Planned Date Details Description Data Source (s) Carisoprodol 350 MG Oral Tablet [Soma] 04/28/2021 12:00:00 AM EDT eCW1 ([facility]) Carisoprodol 350 MG Oral Tablet [Soma] 04/28/2021 12:00:00 AM EDT eCW1 ([facility]) Carisoprodol 350 MG Oral Tablet [Soma] 04/28/2021 12:00:00 AM EDT eCW1 ([facility]) Carisoprodol 350 MG Oral Tablet [Soma] 04/28/2021 12:00:00 AM EDT eCW1 ([facility]) Carisoprodol 350 MG Oral Tablet [Soma] 04/28/2021 12:00:00 AM EDT eCW1 ([facility]) Carisoprodol 350 MG Oral Tablet [Soma] 04/28/2021 12:00:00 AM EDT eCW1 ([facility]) Acetaminophen 325 MG / Oxycodone Hydrochloride 7.5 MG Oral Tablet [Percocet] 04/11/2021 12:00:00 AM EDT eCW1 ([facility]) Clonazepam 1 MG Oral Tablet 04/11/2021 12:00:00 AM EDT eCW1 ([facility]) Acetaminophen 325 MG / Oxycodone Hydrochloride 7.5 MG Oral Tablet [Percocet] 04/11/2021 12:00:00 AM EDT eCW1 ([facility]) Clonazepam 1 MG Oral Tablet 04/11/2021 12:00:00 AM EDT eCW1 ([facility]) Acetaminophen 325 MG / Oxycodone Hydrochloride 7.5 MG Oral Tablet [Percocet] 04/11/2021 12:00:00 AM EDT eCW1 ([facility]) Acetaminophen 325 MG / Oxycodone Hydrochloride 7.5 MG Oral Tablet [Percocet] 04/11/2021 12:00:00 AM EDT eCW1 ([facility]) Clonazepam 1 MG Oral Tablet 04/11/2021 12:00:00 AM EDT eCW1 ([facility]) Acetaminophen 325 MG / Oxycodone Hydrochloride 7.5 MG Oral Tablet [Percocet] 04/11/2021 12:00:00 AM EDT eCW1 ([facility]) Clonazepam 1 MG Oral Tablet 04/11/2021 12:00:00 AM EDT eCW1 ([facility]) Acetaminophen 325 MG / Oxycodone Hydrochloride 7.5 MG Oral Tablet [Percocet] 04/11/2021 12:00:00 AM EDT eCW1 ([facility]) Clonazepam 1 MG Oral Tablet 04/11/2021 12:00:00 AM EDT eCW1 ([facility]) Clonazepam 1 MG Oral Tablet 04/11/2021 12:00:00 AM EDT eCW1 ([facility]) Acetaminophen 325 MG / Oxycodone Hydrochloride 7.5 MG Oral Tablet [Percocet] 04/11/2021 12:00:00 AM EDT eCW1 ([facility]) Clonazepam 1 MG Oral Tablet 04/11/2021 12:00:00 AM EDT eCW1 ([facility]) Zolpidem tartrate 5 MG Oral Tablet [Ambien] 03/09/2021 12:00:00 AM EDT eCW1 ([facility]) Zolpidem tartrate 5 MG Oral Tablet [Ambien] 03/09/2021 12:00:00 AM EDT eCW1 ([facility]) Zolpidem tartrate 5 MG Oral Tablet [Ambien] 03/09/2021 12:00:00 AM EDT eCW1 ([facility]) Zolpidem tartrate 5 MG Oral Tablet [Ambien] 03/09/2021 12:00:00 AM EDT eCW1 ([facility]) Zolpidem tartrate 5 MG Oral Tablet [Ambien] 03/09/2021 12:00:00 AM EDT eCW1 ([facility]) Zolpidem tartrate 5 MG Oral Tablet [Ambien] 03/09/2021 12:00:00 AM EDT eCW1 ([facility]) Zolpidem tartrate 5 MG Oral Tablet [Ambien] 03/09/2021 12:00:00 AM EDT eCW1 ([facility]) Acetaminophen 325 MG / Oxycodone Hydrochloride 7.5 MG Oral Tablet [Percocet] 03/09/2021 12:00:00 AM EDT eCW1 ([facility]) Clonazepam 1 MG Oral Tablet 03/09/2021 12:00:00 AM EDT eCW1 ([facility]) Zolpidem tartrate 5 MG Oral Tablet [Ambien] 03/09/2021 12:00:00 AM EDT eCW1 ([facility]) Acetaminophen 325 MG / Oxycodone Hydrochloride 7.5 MG Oral Tablet [Percocet] 02/09/2021 12:00:00 AM EDT eCW1 ([facility]) Acetaminophen 325 MG / Oxycodone Hydrochloride 7.5 MG Oral Tablet [Percocet] 02/09/2021 12:00:00 AM EDT eCW1 ([facility]) Acetaminophen 325 MG / Oxycodone Hydrochloride 7.5 MG Oral Tablet [Percocet] 01/10/2021 12:00:00 AM EDT eCW1 ([facility]) Acetaminophen 325 MG / Oxycodone Hydrochloride 7.5 MG Oral Tablet [Percocet] 12/13/2020 12:00:00 AM EDT eCW1 ([facility]) Acetaminophen 325 MG / Oxycodone Hydrochloride 7.5 MG Oral Tablet [Percocet] 12/13/2020 12:00:00 AM EDT eCW1 ([facility]) alosetron 0.5 MG Oral Tablet [Lotronex] 12/05/2020 12:00:00 AM EDT eCW1 ([facility]) alosetron 0.5 MG Oral Tablet [Lotronex] 12/05/2020 12:00:00 AM EDT eCW1 ([facility]) alosetron 0.5 MG Oral Tablet [Lotronex] 12/05/2020 12:00:00 AM EDT eCW1 ([facility]) alosetron 0.5 MG Oral Tablet [Lotronex] 12/05/2020 12:00:00 AM EDT eCW1 ([facility]) alosetron 0.5 MG Oral Tablet [Lotronex] 12/05/2020 12:00:00 AM EDT eCW1 ([facility]) COMPRESSION STOCKINGS 20-30 mmHg 12/02/2020 12:00:00 AM EDT eCW1 ([facility]) COMPRESSION STOCKINGS 20-30 mmHg 12/02/2020 12:00:00 AM EDT eCW1 ([facility]) COMPRESSION STOCKINGS 20-30 mmHg 12/02/2020 12:00:00 AM EDT eCW1 ([facility]) COMPRESSION STOCKINGS 20-30 mmHg 12/02/2020 12:00:00 AM EDT eCW1 ([facility]) COMPRESSION STOCKINGS 20-30 mmHg 12/02/2020 12:00:00 AM EDT eCW1 ([facility]) COMPRESSION STOCKINGS 20-30 mmHg 12/02/2020 12:00:00 AM EDT eCW1 ([facility]) COMPRESSION STOCKINGS 20-30 mmHg 12/02/2020 12:00:00 AM EDT eCW1 ([facility]) COMPRESSION STOCKINGS 20-30 mmHg 12/02/2020 12:00:00 AM EDT eCW1 ([facility]) COMPRESSION STOCKINGS 20-30 mmHg 12/02/2020 12:00:00 AM EDT eCW1 ([facility]) COMPRESSION STOCKINGS 20-30 mmHg 12/02/2020 12:00:00 AM EDT eCW1 ([facility]) COMPRESSION STOCKINGS 20-30 mmHg 12/02/2020 12:00:00 AM EDT eCW1 ([facility]) COMPRESSION STOCKINGS 20-30 mmHg 12/02/2020 12:00:00 AM EDT eCW1 ([facility]) COMPRESSION STOCKINGS 20-30 mmHg 12/02/2020 12:00:00 AM EDT eCW1 ([facility]) COMPRESSION STOCKINGS 20-30 mmHg 12/02/2020 12:00:00 AM EDT eCW1 ([facility]) Acetaminophen 325 MG / Oxycodone Hydrochloride 7.5 MG Oral Tablet [Percocet] 11/22/2020 12:00:00 AM EDT eCW1 ([facility]) Acetaminophen 325 MG / Oxycodone Hydrochloride 7.5 MG Oral Tablet [Percocet] 11/22/2020 12:00:00 AM EDT eCW1 ([facility]) Acetaminophen 325 MG / Oxycodone Hydrochloride 7.5 MG Oral Tablet [Percocet] 11/22/2020 12:00:00 AM EDT eCW1 ([facility]) Metronidazole 500 MG Oral Tablet 10/27/2020 12:00:00 AM EDT eCW1 ([facility]) Metronidazole 500 MG Oral Tablet 10/27/2020 12:00:00 AM EDT eCW1 ([facility]) Metronidazole 500 MG Oral Tablet 10/27/2020 12:00:00 AM EDT eCW1 ([facility]) Acetaminophen 325 MG / Oxycodone Hydrochloride 7.5 MG Oral Tablet [Percocet] 10/21/2020 12:00:00 AM EDT eCW1 ([facility]) Acetaminophen 325 MG / Oxycodone Hydrochloride 7.5 MG Oral Tablet [Percocet] 10/21/2020 12:00:00 AM EDT eCW1 ([facility]) Acetaminophen 325 MG / Oxycodone Hydrochloride 7.5 MG Oral Tablet [Percocet] 10/21/2020 12:00:00 AM EDT eCW1 ([facility]) Acetaminophen 325 MG / Oxycodone Hydrochloride 7.5 MG Oral Tablet [Percocet] 10/21/2020 12:00:00 AM EDT eCW1 ([facility]) Acetaminophen 325 MG / Oxycodone Hydrochloride 7.5 MG Oral Tablet [Percocet] 09/22/2020 12:00:00 AM EST eCW1 ([facility]) Acetaminophen 325 MG / Oxycodone Hydrochloride 7.5 MG Oral Tablet [Percocet] 08/18/2020 12:00:00 AM EST eCW1 ([facility]) Acetaminophen 325 MG / Oxycodone Hydrochloride 7.5 MG Oral Tablet [Percocet] 08/18/2020 12:00:00 AM EST eCW1 ([facility]) Acetaminophen 325 MG / Oxycodone Hydrochloride 7.5 MG Oral Tablet [Percocet] 08/18/2020 12:00:00 AM EST eCW1 ([facility]) Acetaminophen 325 MG / Oxycodone Hydrochloride 7.5 MG Oral Tablet [Percocet] 08/18/2020 12:00:00 AM EST eCW1 ([facility]) Acetaminophen 325 MG / Oxycodone Hydrochloride 7.5 MG Oral Tablet [Percocet] 08/18/2020 12:00:00 AM EST eCW1 ([facility]) Acetaminophen 325 MG / Oxycodone Hydrochloride 7.5 MG Oral Tablet [Percocet] 08/18/2020 12:00:00 AM EST eCW1 ([facility]) quetiapine 50 MG Oral Tablet 07/27/2020 12:00:00 AM EST eCW1 ([facility]) Hyoscyamine Sulfate 0.125 MG Oral Tablet 07/27/2020 12:00:00 AM EST eCW1 ([facility]) quetiapine 50 MG Oral Tablet 07/27/2020 12:00:00 AM EST eCW1 ([facility]) Hyoscyamine Sulfate 0.125 MG Oral Tablet 07/27/2020 12:00:00 AM EST eCW1 ([facility]) quetiapine 50 MG Oral Tablet 07/27/2020 12:00:00 AM EST eCW1 ([facility]) Hyoscyamine Sulfate 0.125 MG Oral Tablet 07/27/2020 12:00:00 AM EST eCW1 ([facility]) quetiapine 50 MG Oral Tablet 07/27/2020 12:00:00 AM EST eCW1 ([facility]) Hyoscyamine Sulfate 0.125 MG Oral Tablet 07/27/2020 12:00:00 AM EST eCW1 ([facility]) quetiapine 50 MG Oral Tablet 07/27/2020 12:00:00 AM EST eCW1 ([facility]) Hyoscyamine Sulfate 0.125 MG Oral Tablet 07/27/2020 12:00:00 AM EST eCW1 ([facility]) quetiapine 50 MG Oral Tablet 07/27/2020 12:00:00 AM EST eCW1 ([facility]) quetiapine 50 MG Oral Tablet 07/27/2020 12:00:00 AM EST eCW1 ([facility]) quetiapine 50 MG Oral Tablet 07/27/2020 12:00:00 AM EST eCW1 ([facility]) Hyoscyamine Sulfate 0.125 MG Oral Tablet 07/27/2020 12:00:00 AM EST eCW1 ([facility]) quetiapine 50 MG Oral Tablet 07/27/2020 12:00:00 AM EST eCW1 ([facility]) Hyoscyamine Sulfate 0.125 MG Oral Tablet 07/27/2020 12:00:00 AM EST eCW1 ([facility]) quetiapine 50 MG Oral Tablet 07/27/2020 12:00:00 AM EST eCW1 ([facility]) Hyoscyamine Sulfate 0.125 MG Oral Tablet 07/27/2020 12:00:00 AM EST eCW1 ([facility]) quetiapine 50 MG Oral Tablet 07/27/2020 12:00:00 AM EST eCW1 ([facility]) Acetaminophen 325 MG / Oxycodone Hydrochloride 7.5 MG Oral Tablet [Percocet] 06/20/2020 12:00:00 AM EST eCW1 ([facility]) Acetaminophen 325 MG / Oxycodone Hydrochloride 7.5 MG Oral Tablet [Percocet] 06/20/2020 12:00:00 AM EST eCW1 ([facility]) Acetaminophen 325 MG / Oxycodone Hydrochloride 7.5 MG Oral Tablet [Percocet] 06/20/2020 12:00:00 AM EST eCW1 ([facility]) Ondansetron HCl 4 MG 06/17/2020 12:00:00 AM EST eCW1 ([facility]) Ondansetron HCl 4 MG 06/17/2020 12:00:00 AM EST eCW1 ([facility]) Ondansetron HCl 4 MG 06/17/2020 12:00:00 AM EST eCW1 ([facility]) Ondansetron HCl 4 MG 06/17/2020 12:00:00 AM EST eCW1 ([facility]) Ondansetron HCl 4 MG 06/17/2020 12:00:00 AM EST eCW1 ([facility]) Ondansetron HCl 4 MG 06/17/2020 12:00:00 AM EST eCW1 ([facility]) Ondansetron HCl 4 MG 06/17/2020 12:00:00 AM EST eCW1 ([facility]) Ondansetron HCl 4 MG 06/17/2020 12:00:00 AM EST eCW1 ([facility]) Ondansetron HCl 4 MG 06/17/2020 12:00:00 AM EST eCW1 ([facility]) Acetaminophen 325 MG / Oxycodone Hydrochloride 7.5 MG Oral Tablet [Percocet] 05/24/2020 12:00:00 AM EST eCW1 ([facility]) Acetaminophen 325 MG / Oxycodone Hydrochloride 7.5 MG Oral Tablet [Percocet] 05/24/2020 12:00:00 AM EST eCW1 ([facility]) Acetaminophen 325 MG / Oxycodone Hydrochloride 7.5 MG Oral Tablet [Percocet] 05/24/2020 12:00:00 AM EST eCW1 ([facility]) Acetaminophen 325 MG / Oxycodone Hydrochloride 7.5 MG Oral Tablet [Percocet] 05/24/2020 12:00:00 AM EST eCW1 ([facility]) Acetaminophen 325 MG / Oxycodone Hydrochloride 7.5 MG Oral Tablet [Percocet] 05/10/2020 12:00:00 AM EDT eCW1 ([facility]) Acetaminophen 325 MG / Oxycodone Hydrochloride 7.5 MG Oral Tablet [Percocet] 05/10/2020 12:00:00 AM EDT eCW1 ([facility]) Acetaminophen 325 MG / Oxycodone Hydrochloride 7.5 MG Oral Tablet [Percocet] 05/10/2020 12:00:00 AM EDT eCW1 ([facility]) Acetaminophen 325 MG / Oxycodone Hydrochloride 7.5 MG Oral Tablet [Percocet] 05/10/2020 12:00:00 AM EDT eCW1 ([facility])
--- NOTE | 2021-05-23 18:24 | REP ---
INDICATION: rib pain, cough. COMPARISON: 05/16/2021 TECHNIQUE: Two views of the chest were obtained. FINDINGS: Both lungs are fully expanded with no parenchymal opacification or effusion noted. The heart and great vessels appear normal. No abnormality of the thoracic cage is noted other than very mild degenerative changes in the dorsal spine. IMPRESSION: Negative chest with no acute or interval change identified. <Electronically signed by Yimi Johnson > 05/23/21 [id number]
[2021-05-23 19:05] LABS: BASO # 0.1 10^3/uL (0.0-0.2); EOS # 0.2 10^3/uL (0.0-0.5); EOS % 2.3 % (0.0-3.0); HEMATOCRIT 37.8 % (36.0-47.0); HEMOGLOBIN 12.2 g/dl (12.0-15.5); LYMPH % 24.5 % (24.0-44.0); MEAN CORPUSCULAR HEMOGLOBIN 29.2 pg (27.0-33.0); MEAN CORPUSCULAR HGB CONC 32.3 g/dl (32.0-36.5); MEAN CORPUSCULAR VOLUME 90.4 fl (80.0-96.0); MONO # 0.5 10^3/uL (0.0-0.8); MONO % 5.8 % (2.0-8.0); NEUTROPHILS # 5.5 10^3/uL (1.5-8.5); PLATELET COUNT, AUTOMATED 330 10^3/uL (150-450); RED BLOOD COUNT 4.18 10^6/uL (4.00-5.40); WHITE BLOOD COUNT 8.3 10^3/uL (4.0-10.0)
[2021-05-23 19:07] LABS: BLOOD UREA NITROGEN 13 MG/DL (7-18); CARBON DIOXIDE LEVEL 29 MEQ/L (21-32); CHLORIDE LEVEL 107 MEQ/L (98-107); CREATININE FOR GFR 0.64 MG/DL (0.55-1.30); GLOMERULAR FILTRATION RATE > 60.0 (>58); GLUCOSE, FASTING 89 MG/DL (70-100); POTASSIUM SERUM 4.3 MEQ/L (3.5-5.1); SODIUM LEVEL 140 MEQ/L (136-145)
[2021-05-23 19:08] LABS: ALT/SGPT 30 U/L (12-78); BILIRUBIN,DIRECT < 0.1 MG/DL (0.0-0.2); BILIRUBIN,TOTAL 0.6 MG/DL (0.2-1.0); TOTAL PROTEIN 6.5 GM/DL (6.4-8.2)
[2021-05-24 01:01] LABS: TROPONIN I < 0.02 NG/ML (< 0.10)
--- OUTSIDE RECORDS SUMMARY | 2021-05-24 01:02 | CCD ---
Author Author [facility] Organization [facility] Address Unknown Phone Unavailable Care Team Providers Care Ore Charger Name Role Phone Myesha Reynolds MD Unavailable [...] RodolfoMyesha MD Unavailable Unavailable LAROCK, J ISAI LEAD ATG DEVELOPER Unavailable Unavailable LAROCK, J ISAI LEAD ATG DEVELOPER Unavailable Unavailable LAROCK, J ISAI LEAD ATG DEVELOPER Unavailable Unavailable LAROCK, J ISAI LEAD ATG DEVELOPER Unavailable Unavailable LAROCK, J ISAI LEAD ATG DEVELOPER Unavailable Unavailable LAROCK, J ISAI LEAD ATG DEVELOPER Unavailable Unavailable LAROCK, J ISAI LEAD ATG DEVELOPER Unavailable Unavailable LAROCK, J ISAI LEAD ATG DEVELOPER Unavailable Unavailable LAROCK, J ISAI LEAD ATG DEVELOPER Unavailable Unavailable LAROCK, J ISAI LEAD ATG DEVELOPER Unavailable Unavailable LAROCK, J ISAI LEAD ATG DEVELOPER Unavailable Unavailable LAROCK, J ISAI LEAD ATG DEVELOPER Unavailable Unavailable LAROCK, J ISAI LEAD ATG DEVELOPER Unavailable Unavailable LAROCK, J ISAI LEAD ATG DEVELOPER Unavailable Unavailable LAROCK, J ISAI LEAD ATG DEVELOPER Unavailable Unavailable LAROCK, J ISAI LEAD ATG DEVELOPER Unavailable Unavailable LAROCK, J ISAI LEAD ATG DEVELOPER Unavailable Unavailable LAROCK, J ISAI LEAD ATG DEVELOPER Unavailable Unavailable LAROCK, J ISAI LEAD ATG DEVELOPER Unavailable Unavailable LAROCK, J ISAI LEAD ATG DEVELOPER Unavailable Unavailable LAROCK, J ISAI LEAD ATG DEVELOPER Unavailable Unavailable LAROCK, J ISAI LEAD ATG DEVELOPER Unavailable Unavailable MORIN, Vamsi RIVERA MD Unavailable [...] MORIN, Vamsi RIVERA MD Unavailable Unavailable MORIN, Vasmi RIVERA MD Unavailable Unavailable MORIN, Vamsi RIVERA [...] Vamsi RIVERA MD Unavailable Unavailable MORIN, aVmsi RIVERA MD Unavailable Unavailable MORIN, Vamsi RIVERA MD Unavailable Unavailable MORIN, Vamsi RIVERA MD Unavailable Unavailable MORIN, Vamsi RIVERA MD Unavailable Unavailable MORIN, Vamsi RIVERA MD Unavailable Unavailable MORIN, Vamsi RIVERA MD Unavailable Unavailable MORIN, Vamsi RIVERA MD Unavailable Unavailable MORIN, Vasmi RIVERA MD Unavailable Unavailable MORIN, Vamsi RIVERA [...] Unavailable Michelle Osborn MD Unavailable Unavailable Michelle Osbonr MD Unavailable Unavailable Michelle Osborn MD Unavailable Unavailable Michelel Osborn MD Unavailable Unavailable Michelle Osborn MD [...] is protected by Article 27-F of the [facility] Public Health law. If you continue you may have access to information: Regarding HIV / AIDS; Provided by facilities licensed or operated by the [facility] Office of Mental Health; or Provided by the [facility] Office for People With Developmental Disabilities. If such information is present, then the following [facility] mandated warning applies: This information has been [...] law may result in a fine or fpc sentence or both. A general authorization for the release of medical or other information is NOT sufficient authorization for further disc losure. Family History Family Member Name Family Member Gender Family Member Status Date o f Status Description Data Source(s) Unknown Male Diagnosis 11/12/2016 12:00:00 AM EDT [facility] ([facility]) Encounters Encounter Providers Location Date Indications Data Source(s ) Unknown [address] [facility] [address] 05/18/2021 12:00:00 AM EDT eCW1 ([facility]) [place] [address] [facility] [place] [address] 05/16/2021 12:00:00 AM EDT [facility]CW1 ([facility]) [place] [address] [facility] [place] [address] 05/15/2021 12:00:00 AM EDT [facility] Outpatient Attender: ISAI WOODY NP 04/16 03:43:42 PM EDT - 05/13/2021 03:52:20 PM EDT [facility] ([facility] ) Outpatient [address] [facility] [address] 05/09/2021 12:00:00 AM EDT eCW1 ([facility]) Unknown [address] [facility] [place] [address] 05/09/2021 12:00:00 AM EDT eCW1 ([facility]) [place] [address] [facility] [place] [address] 05/04/2021 12:00:00 AM EDT eCW1 ([facility]) Unknown [address] [facility] [place] [address] 05/01/2021 12:00:00 AM EDT eCW1 ([facility]) [place] [address] [facility] [place] [address] 05/01/2021 12:00:00 AM EDT eCW1 ([facility]) [place] [address] [facility] [place] [address] 04/28/2021 12:00:00 AM EDT eCW1 ([facility]) Unknown [address] [facility] [place] [address] 04/28/2021 12:00:00 AM EDT eCW1 ([facility]) Unknown [address] [facility] [address] 04/10/2021 12:00:00 AM EDT eCW1 ([facility]) Unknown [address] [facility] [address] 03/07/2021 12:00:00 AM EDT eCW1 ([facility]) Unknown [address] [facility] [address] 02/09/2021 12:00:00 AM EDT eCW1 ([facility]) Unknown [address] [facility] [address] 02/09/2021 12:00:00 AM EDT eCW1 ([facility]) Unknown [address] [facility] [address] 01/28/2021 12:00:00 AM EDT eCW1 ([facility]) Unknown [address] [facility] [address] 01/27/2021 12:00:00 AM EDT eCW1 ([facility]) (WC PROC) [facility] Procedure [address] [place] [address] 2021 12:00:00 AM EDT [facility]) Unknown [address] [facility] [address] 01/17/2021 12:00:00 AM EDT eCW1 ([facility]) Unknown [address] [facility] [address] 01/10/2021 12:00:00 AM EDT eCW1 ([facility]) Outpatient Attender: Shara Bustos: Magdaleno Lehman 12/28/2020 10:02:11 AM EDT [facility] Unknown [address] [facility] [address] 12/21/2020 12:00:00 AM EDT eCW1 [facility]) Recurring Patient Attender: NICOLE ABARCAeferrer: Magdaleno coley MD 12/19/2020 03:30:21 PM EDT [facility] Unknown [address] [facility] [address] 12/09/2020 12:00:00 AM EDT [facility]CW1 [facility] Unknown [address] [facility] Y [address] 12/02/2020 12:00:00 AM EDT eCW1 [facility]) Outpatient [address] [facility] Y [address] 12/02/2020 12:00:00 AM EDT eCW1 [facility]) Unknown [address] [facility] Y [address] 11/23/2020 12:00:00 AM EDT eCW1 [facility]) Unknown [address] [facility] Y [address] 11/22/2020 12:00:00 AM EDT eCW1 [facility]) Unknown [address] [facility] Y [address] 11/18/2020 12:00:00 AM EDT eCW1 [facility]) Outpatient Attender: Key Osborn MD 0 11/08/2020 04:52:01 PM EDT - 11/08/2020 06:03:55 PM EDT [facility] ([facility]) Unknown [address] [facility] Y [address] 11/03/2020 12:00:00 AM EDT eCW1 [facility]) Unknown [address] [facility] Y [address] 11/03/2020 12:00:00 AM EDT eCW1 ([facility]) Outpatient [address] [facility] Y [address] 10/27/2020 12:00:00 AM EDT eCW1 ([facility]) Unknown [address] [facility] [address] 10/21/2020 12:00:00 AM EDT eCW1 ([facility]) Unknown [address] [facility] [address] 10/20/2020 12:00:00 AM EDT eCW1 ([facility]) Unknown [address] [facility] Y [address] 10/20/2020 12:00:00 AM EDT eCW1 ([facility]) Unknown [address] [facility], [place] [address] 10/20/2020 12:00:00 AM EDT [facility] [address] [facility] [place] [address] 09/21/2020 12:00:00 AM EST [facility]CW1 [facility]) Unknown [address] [facility] [place] [address] 09/16/2020 12:00:00 AM EST eCW1 ([facility]) [facility] [address] [place] [address] 09/16/2020 12:00:00 AM EST eCW1 ([facility]) Unknown [address] [facility] Y [address] 09/14/2020 12:00:00 AM EST [facility]CW1 [facility] Unknown [address] [facility] [place] [address] 08/23/2020 12:00:00 AM EST eCW1 [facility]) Unknown [address] [facility] Y [address] 08/19/2020 12:00:00 AM EST eCW1 ([facility]) Outpatient Attender: ISAI WOODY NP 10/2020 07:08:14 PM EST - 08/18/2020 07:54:21 PM EST [facility] ([facility] ) Unknown [address] [facility] [address] 08/18/2020 12:00:00 AM EST eCW1 ([facility]) Unknown [address] [facility] [address] 08/18/2020 12:00:00 AM EST eCW1 ([facility]) Unknown [address] [facility] [address] 08/11/2020 12:00:00 AM EST eCW1 ([facility]) Outpatient [address] [facility] [place] [address] 07/27/2020 12:00:00 AM EST eCW1 ([facility]) Unknown [address] [facility] [place] [address] 07/19/2020 12:00:00 AM EST eCW1 ([facility]) Unknown [address] [facility] [place] [address] 07/18/2020 12:00:00 AM EST eCW1 ([facility]) Unknown [address] [facility] [place] [address] 07/18/2020 12:00:00 AM EST eCW1 ([facility]) Unknown [address] [facility] [place] [address] 07/18/2020 12:00:00 AM EST eCW1 ([facility]) Unknown [address] [facility] [address] 07/17/2020 12:00:00 AM EST eCW1 ([facility]) Unknown [address] [facility] [address] 07/12/2020 12:00:00 AM EST eCW1 ([facility]) Outpatient Attender: Shara Bustos: Magdaleno Lehman 07/11/2020 08:58:48 AM EST [facility] Unknown [address] [facility] [address] 07/11/2020 12:00:00 AM EST eCW1 ([facility]) Unknown [address] [facility] Y [address] 07/11/2020 12:00:00 AM EST eCW1 ([facility]) Unknown [address] [facility] Y [address] 07/11/2020 12:00:00 AM EST eCW1 ([facility]) Unknown [address] [facility] Y [address] 07/11/2020 12:00:00 AM EST eCW1 ([facility]) Recurring Patient Attender: NICOLE ABARCAeferrer: Magdaleno coley MD 07/05/2020 03:12:03 PM EST [facility] Unknown [address] [facility] [address] 06/27/2020 12:00:00 AM EST eCW1 ([facility]) Unknown [address] [facility] [address] 06/27/2020 12:00:00 AM EST eCW1 ([facility]) Unknown [address] [facility] Y [address] 06/19/2020 12:00:00 AM EST eCW1 ([facility]) Recurring Patient Attender: NICOLE Toro: Magdaleno coley MD 06/15/2020 08:42:08 AM EST [facility] Unknown [address] [facility] [address] 06/14/2020 12:00:00 AM EST eCW1 ([facility]) Unknown [address] [facility] Y [address] 06/14/2020 12:00:00 AM EST eCW1 ([facility]) Unknown [address] [facility] Y [address] 06/04/2020 12:00:00 AM EST eCW1 ([facility]) Unknown [address] [facility] Y [address] 05/24/2020 12:00:00 AM EST eCW1 ([facility]) Unknown [address] [facility] Y [address] 05/11/2020 12:00:00 AM EDT eCW1 ([facility]) Unknown [address] [facility] [place] [address] 05/11/2020 12:00:00 AM EDT eCW1 ([facility]) Unknown [address] [facility] [place] [address] 05/10/2020 12:00:00 AM EDT eCW1 ([facility]) Unknown [address] [facility] [place] [address] 05/06/2020 12:00:00 AM EDT eCW1 ([facility]) Unknown [address] [facility] [place] [address] 05/06/2020 12:00:00 AM EDT eCW1 ([facility]) Unknown [address] [facility] [place] [address] 05/03/2020 12:00:00 AM EDT eCW1 ([facility]) Unknown [address] [facility] [place] [address] 05/02/2020 12:00:00 AM EDT eCW1 ([facility]) Unknown [address] [facility] [place] [address] 05/02/2020 12:00:00 AM EDT eCW1 ([facility]) Unknown [address] [facility] [place] [address] 04/05/2020 12:00:00 AM EDT eCW1 ([facility]) Unknown [address] [facility] [place] [address] 04/05/2020 12:00:00 AM EDT eCW1 ([facility]) Unknown [address] [facility] [place] [address] 04/05/2020 12:00:00 AM EDT eCW1 ([facility]) Unknown [address] [facility] [place] [address] 04/05/2020 12:00:00 AM EDT eCW1 ([facility]) Unknown [address] [facility] [place] [address] 04/05/2020 12:00:00 AM EDT eCW1 ([facility]) Unknown [address] [facility] [place] [address] 04/05/2020 12:00:00 AM EDT eCW1 ([facility]) Immunizations Vaccine Date Status Description Data Source(s) COVID-19 VACCINE Pfizer 08/08/2020 12:00:00 AM EST completed [facility] Vaccine Series Complete: YESThis Data wa s Submitted to [facility]. COVID-19 VACCINE Pfizer 07/18/2020 12:00:00 AM EST completed [facility] Vaccine Series Complete: NOThis Data was Submitted to [facility]. IIV3. This is one of two codes replacing CVX 15, which is being retired. 03/24/2020 02:40:00 PM EDT completed eCW1 ([facility]) IIV3. This is one of two codes replacing CVX 15, which is being retired. 03/24/2020 02:40:00 PM EDT completed eCW1 ([facility]) IIV3. This is one of two codes replacing CVX 15, which is being retired. 03/24/2020 02:40:00 PM EDT completed eCW1 ([facility]) IIV3. This is one of two codes replacing CVX 15, which is being retired. 03/24/2020 02:40:00 PM EDT completed eCW1 ([facility]) IIV3. This is one of two codes replacing CVX 15, which is being retired. 03/24/2020 02:40:00 PM EDT completed eCW1 ([facility]) IIV3. This is one of two codes replacing CVX 15, which is being retired. 03/24/2020 02:40:00 PM EDT completed eCW1 ([facility]) IIV3. This is one of two codes replacing CVX 15, which is being retired. 03/24/2020 02:40:00 PM EDT completed eCW1 ([facility]) IIV3. This is one of two codes replacing CVX 15, which is being retired. 03/24/2020 02:40:00 PM EDT completed eCW1 ([facility]) IIV3. This is one of two codes replacing CVX 15, which is being retired. 03/24/2020 02:40:00 PM EDT completed eCW1 ([facility]) IIV3. This is one of two codes replacing CVX 15, which is being retired. 03/24/2020 02:40:00 PM EDT completed eCW1 ([facility]) IIV3. This is one of two codes replacing CVX 15, which is being retired. 03/24/2020 02:40:00 PM EDT completed eCW1 ([facility]) IIV3. This is one of two codes replacing CVX 15, which is being retired. 03/24/2020 02:40:00 PM EDT completed eCW1 ([facility]) IIV3. This is one of two codes replacing CVX 15, which is being retired. 03/24/2020 02:40:00 PM EDT completed eCW1 ([facility]) IIV3. This is one of two codes replacing CVX 15, which is being retired. 03/24/2020 02:40:00 PM EDT completed eCW1 ([facility]) IIV3. This is one of two codes replacing CVX 15, which is being retired. 03/24/2020 02:40:00 PM EDT completed eCW1 ([facility]) IIV3. This is one of two codes replacing CVX 15, which is being retired. 03/24/2020 02:40:00 PM EDT completed eCW1 ([facility]) IIV3. This is one of two codes replacing CVX 15, which is being retired. 03/24/2020 02:40:00 PM EDT completed eCW1 ([facility]) IIV3. This is one of two codes replacing CVX 15, which is being retired. 03/24/2020 02:40:00 PM EDT completed eCW1 ([facility]) IIV3. This is one of two codes replacing CVX 15, which is being retired. 03/24/2020 02:40:00 PM EDT completed eCW1 ([facility]) IIV3. This is one of two codes replacing CVX 15, which is being retired. 03/24/2020 02:40:00 PM EDT completed eCW1 ([facility]) IIV3. This is one of two codes replacing CVX 15, which is being retired. 03/24/2020 02:40:00 PM EDT completed eCW1 ([facility]) IIV3. This is one of two codes replacing CVX 15, which is being retired. 03/24/2020 02:40:00 PM EDT completed eCW1 ([facility]) IIV3. This is one of two codes replacing CVX 15, which is being retired. 03/24/2020 02:40:00 PM EDT completed eCW1 ([facility]) IIV3. This is one of two codes replacing CVX 15, which is being retired. 03/24/2020 02:40:00 PM EDT completed eCW1 ([facility]) IIV3. This is one of two codes replacing CVX 15, which is being retired. 03/24/2020 02:40:00 PM EDT completed eCW1 ([facility]) IIV3. This is one of two codes replacing CVX 15, which is being retired. 03/24/2020 02:40:00 PM EDT completed eCW1 ([facility]) IIV3. This is one of two codes replacing CVX 15, which is being retired. 03/24/2020 02:40:00 PM EDT completed eCW1 ([facility]) IIV3. This is one of two codes replacing CVX 15, which is being retired. 03/24/2020 02:40:00 PM EDT completed eCW1 ([facility]) IIV3. This is one of two codes replacing CVX 15, which is being retired. 03/24/2020 02:40:00 PM EDT completed eCW1 ([facility]) IIV3. This is one of two codes replacing CVX 15, which is being retired. 03/24/2020 02:40:00 PM EDT completed eCW1 ([facility]) IIV3. This is one of two codes replacing CVX 15, which is being retired. 03/24/2020 02:40:00 PM EDT completed eCW1 ([facility]) IIV3. This is one of two codes replacing CVX 15, which is being retired. 03/24/2020 02:40:00 PM EDT completed eCW1 ([facility]) IIV3. This is one of two codes replacing CVX 15, which is being retired. 03/24/2020 02:40:00 PM EDT completed eCW1 ([facility]) IIV3. This is one of two codes replacing CVX 15, which is being retired. 03/24/2020 02:40:00 PM EDT completed eCW1 ([facility]) IIV3. This is one of two codes replacing CVX 15, which is being retired. 03/24/2020 02:40:00 PM EDT completed eCW1 ([facility]) IIV3. This is one of two codes replacing CVX 15, which is being retired. 03/24/2020 02:40:00 PM EDT completed eCW1 ([facility]) IIV3. This is one of two codes replacing CVX 15, which is being retired. 03/24/2020 02:40:00 PM EDT completed eCW1 ([facility]) IIV3. This is one of two codes replacing CVX 15, which is being retired. 03/24/2020 02:40:00 PM EDT completed eCW1 ([facility]) IIV3. This is one of two codes replacing CVX 15, which is being retired. 03/24/2020 02:40:00 PM EDT completed eCW1 ([facility]) IIV3. This is one of two codes replacing CVX 15, which is being retired. 03/24/2020 02:40:00 PM EDT completed eCW1 ([facility]) IIV3. This is one of two codes replacing CVX 15, which is being retired. 03/24/2020 02:40:00 PM EDT completed eCW1 ([facility]) IIV3. This is one of two codes replacing CVX 15, which is being retired. 03/24/2020 02:40:00 PM EDT completed eCW1 ([facility]) IIV3. This is one of two codes replacing CVX 15, which is being retired. 03/24/2020 02:40:00 PM EDT completed eCW1 ([facility]) IIV3. This is one of two codes replacing CVX 15, which is being retired. 03/24/2020 02:40:00 PM EDT completed eCW1 ([facility]) IIV3. This is one of two codes replacing CVX 15, which is being retired. 03/24/2020 02:40:00 PM EDT completed eCW1 ([facility]) IIV3. This is one of two codes replacing CVX 15, which is being retired. 03/24/2020 02:40:00 PM EDT completed eCW1 ([facility]) IIV3. This is one of two codes replacing CVX 15, which is being retired. 03/24/2020 02:40:00 PM EDT completed eCW1 ([facility]) IIV3. This is one of two codes replacing CVX 15, which is being retired. 03/24/2020 02:40:00 PM EDT completed eCW1 ([facility]) IIV3. This is one of two codes replacing CVX 15, which is being retired. 03/24/2020 02:40:00 PM EDT completed eCW1 ([facility]) IIV3. This is one of two codes replacing CVX 15, which is being retired. 03/24/2020 02:40:00 PM EDT completed eCW1 ([facility]) IIV3. This is one of two codes replacing CVX 15, which is being retired. 03/24/2020 02:40:00 PM EDT completed eCW1 ([facility]) IIV3. This is one of two codes replacing CVX 15, which is being retired. 03/24/2020 02:40:00 PM EDT completed eCW1 ([facility]) IIV3. This is one of two codes replacing CVX 15, which is being retired. 03/24/2020 02:40:00 PM EDT completed eCW1 ([facility]) IIV3. This is one of two codes replacing CVX 15, which is being retired. 03/24/2020 02:40:00 PM EDT completed eCW1 ([facility]) IIV3. This is one of two codes replacing CVX 15, which is being retired. 03/24/2020 02:40:00 PM EDT completed eCW1 ([facility]) IIV3. This is one of two codes replacing CVX 15, which is being retired. 03/24/2020 02:40:00 PM EDT completed eCW1 ([facility]) IIV3. This is one of two codes replacing CVX 15, which is being retired. 03/24/2020 02:40:00 PM EDT completed eCW1 ([facility]) IIV3. This is one of two codes replacing CVX 15, which is being retired. 03/24/2020 02:40:00 PM EDT completed eCW1 ([facility]) IIV3. This is one of two codes replacing CVX 15, which is being retired. 03/24/2020 02:40:00 PM EDT completed eCW1 ([facility]) IIV3. This is one of two codes replacing CVX 15, which is being retired. 03/24/2020 02:40:00 PM EDT completed eCW1 ([facility]) IIV3. This is one of two codes replacing CVX 15, which is being retired. 03/24/2020 02:40:00 PM EDT completed eCW1 ([facility]) IIV3. This is one of two codes replacing CVX 15, which is being retired. 03/24/2020 02:40:00 PM EDT completed eCW1 ([facility]) IIV3. This is one of two codes replacing CVX 15, which is being retired. 03/24/2020 02:40:00 PM EDT completed eCW1 ([facility]) IIV3. This is one of two codes replacing CVX 15, which is being retired. 03/24/2020 02:40:00 PM EDT completed eCW1 ([facility]) IIV3. This is one of two codes replacing CVX 15, which is being retired. 03/24/2020 02:40:00 PM EDT completed eCW1 ([facility]) Medications Medication Brand Name Start Date [...] 1.0 {tablet_as_needed} active Soma 350 MG eCW1 ([facility]) Carisoprodol 350 MG Oral Tablet [Soma] Soma 350 MG Soma 350 MG 04/28/2021 12:00:00 AM EDT 1.0 {tablet_as_needed} active Soma 350 MG eCW1 ([facility]) Carisoprodol 350 MG Oral Tablet [Soma] Soma 350 MG Soma 350 MG 04/28/2021 12:00:00 AM EDT 1.0 {tablet_as_needed} active Soma 350 MG eCW1 ([facility]) Carisoprodol 350 MG Oral Tablet [Soma] Soma 350 MG Soma 350 MG 04/28/2021 12:00:00 AM EDT 1.0 {tablet_as_needed} active Soma 350 MG eCW1 ([facility]) Carisoprodol 350 MG Oral Tablet [Soma] Soma 350 MG Soma 350 MG 04/28/2021 12:00:00 AM EDT 1.0 {tablet_as_needed} active Soma 350 MG eCW1 ([facility]) Carisoprodol 350 MG Oral Tablet [Soma] Soma 350 MG Soma 350 MG 04/28/2021 12:00:00 AM EDT 1.0 {tablet_as_needed} active Soma 350 MG eCW1 ([facility]) 350 mg 04/28/2021 12:00:00 AM EDT [...] 1.0 {tablet_as_needed} active Soma 350 MG eCW1 ([facility]) Carisoprodol 350 MG Oral Tablet [Soma] Soma 350 MG Soma 350 MG 04/28/2021 12:00:00 AM EDT 1.0 {tablet_as_needed} active Soma 350 MG eCW1 ([facility]) Carisoprodol 350 MG Oral Tablet [Soma] Soma 350 MG Soma 350 MG 04/28/2021 12:00:00 AM EDT 1.0 {tablet_as_needed} active Soma 350 MG eCW1 ([facility]) Carisoprodol 350 MG Oral Tablet [Soma] Soma 350 MG Soma 350 MG 04/28/2021 12:00:00 AM EDT 1.0 {tablet_as_needed} active Soma 350 MG eCW1 ([facility]) Carisoprodol 350 MG Oral Tablet [Soma] Soma 350 MG Soma 350 MG 04/28/2021 12:00:00 AM EDT 1.0 {tablet_as_needed} active Soma 350 MG eCW1 ([facility]) 1 mg 04/14/2021 12:00:00 AM EDT [...] 1.0 {tablet} active clonazePAM 1 MG eCW1 ([facility]) Acetaminophen 325 MG / Oxycodone Hydroch loride 7.5 MG Oral Tablet [Percocet] Percocet 7.5-325 MG Percocet 7.5-325 MG 04/11/2021 12:00:00 AM EDT 1.0 {tablet_as_needed} active Percocet 7.5- 325 MG eCW1 ([facility]) Acetaminophen 325 MG / Oxycodone Hydroch loride 7.5 MG Oral Tablet [Percocet] Percocet 7.5-325 MG Percocet 7.5-325 MG 04/11/2021 12:00:00 AM EDT 1.0 {tablet_as_needed} active Percocet 7.5- 325 MG eCW1 ([facility]) Acetaminophen 325 MG / Oxycodone Hydroch loride 7.5 MG Oral Tablet [Percocet] Percocet 7.5-325 MG Percocet 7.5-325 MG 04/11/2021 12:00:00 AM EDT 1.0 {tablet_as_needed} active Percocet 7.5- 325 MG eCW1 ([facility]) Acetaminophen 325 MG / Oxycodone Hydroch loride 7.5 MG Oral Tablet [Percocet] Percocet 7.5-325 MG Percocet 7.5-325 MG 04/11/2021 12:00:00 AM EDT 1.0 {tablet_as_needed} active Percocet 7.5- 325 MG eCW1 ([facility]) Clonazepam 1 MG Oral Tablet clonazePAM 1 MG clonazePAM 1 MG 04/11/2021 12:00:00 AM EDT 1.0 {tablet} active clonazePAM 1 MG eCW1 ([facility]) Acetaminophen 325 MG / Oxycodone Hydroch loride 7.5 MG Oral Tablet [Percocet] Percocet 7.5-325 MG Percocet 7.5-325 MG 04/11/2021 12:00:00 AM EDT 1.0 {tablet_as_needed} active Percocet 7.5- 325 MG eCW1 ([facility]) Acetaminophen 325 MG / Oxycodone Hydroch loride 7.5 MG Oral Tablet [Percocet] Percocet 7.5-325 MG Percocet 7.5-325 MG 04/11/2021 12:00:00 AM EDT 1.0 {tablet_as_needed} active Percocet 7.5- 325 MG eCW1 ([facility]) Clonazepam 1 MG Oral Tablet clonazePAM 1 MG clonazePAM 1 MG 04/11/2021 12:00:00 AM EDT 1.0 {tablet} active clonazePAM 1 MG eCW1 ([facility]) Clonazepam 1 MG Oral Tablet clonazePAM 1 MG clonazePAM 1 MG 04/11/2021 12:00:00 AM EDT 1.0 {tablet} active clonazePAM 1 MG eCW1 ([facility]) Clonazepam 1 MG Oral Tablet clonazePAM 1 MG clonazePAM 1 MG 04/11/2021 12:00:00 AM EDT 1.0 {tablet} active clonazePAM 1 MG eCW1 ([facility]) Acetaminophen 325 MG / Oxycodone Hydroch loride 7.5 MG Oral Tablet [Percocet] Percocet 7.5-325 MG Percocet 7.5-325 MG 04/11/2021 12:00:00 AM EDT 1.0 {tablet_as_needed} active Percocet 7.5- 325 MG eCW1 ([facility]) Acetaminophen 325 MG / Oxycodone Hydroch loride 7.5 MG Oral Tablet [Percocet] Percocet 7.5-325 MG Percocet 7.5-325 MG 04/11/2021 12:00:00 AM EDT 1.0 {tablet_as_needed} active Percocet 7.5- 325 MG eCW1 ([facility]) Clonazepam 1 MG Oral Tablet clonazePAM 1 MG clonazePAM 1 MG 04/11/2021 12:00:00 AM EDT 1.0 {tablet} active clonazePAM 1 MG eCW1 ([facility]) Acetaminophen 325 MG / Oxycodone Hydroch loride 7.5 MG Oral Tablet [Percocet] Percocet 7.5-325 MG Percocet 7.5-325 MG 04/11/2021 12:00:00 AM EDT 1.0 {tablet_as_needed} active Percocet 7.5- 325 MG eCW1 ([facility]) Clonazepam 1 MG Oral Tablet clonazePAM 1 MG clonazePAM 1 MG 04/11/2021 12:00:00 AM EDT 1.0 {tablet} active clonazePAM 1 MG eCW1 ([facility]) Acetaminophen 325 MG / Oxycodone Hydroch loride 7.5 MG Oral Tablet [Percocet] Percocet 7.5-325 MG Percocet 7.5-325 MG 04/11/2021 12:00:00 AM EDT 1.0 {tablet_as_needed} active Percocet 7.5- 325 MG eCW1 ([facility]) Acetaminophen 325 MG / Oxycodone Hydroch loride 7.5 MG Oral Tablet [Percocet] Percocet 7.5-325 MG Percocet 7.5-325 MG 04/11/2021 12:00:00 AM EDT 1.0 {tablet_as_needed} active Percocet 7.5- 325 MG eCW1 ([facility]) Clonazepam 1 MG Oral Tablet clonazePAM 1 MG clonazePAM 1 MG 04/11/2021 12:00:00 AM EDT 1.0 {tablet} active clonazePAM 1 MG eCW1 ([facility]) Clonazepam 1 MG Oral Tablet clonazePAM 1 MG clonazePAM 1 MG 04/11/2021 12:00:00 AM EDT 1.0 {tablet} active clonazePAM 1 MG eCW1 ([facility]) Acetaminophen 325 MG / Oxycodone Hydroch loride 7.5 MG Oral Tablet [Percocet] Percocet 7.5-325 MG Percocet 7.5-325 MG 04/11/2021 12:00:00 AM EDT 1.0 {tablet_as_needed} active Percocet 7.5- 325 MG eCW1 ([facility]) Clonazepam 1 MG Oral Tablet clonazePAM 1 MG clonazePAM 1 MG 04/11/2021 12:00:00 AM EDT 1.0 {tablet} active clonazePAM 1 MG eCW1 ([facility]) Clonazepam 1 MG Oral Tablet clonazePAM 1 MG clonazePAM 1 MG 04/11/2021 12:00:00 AM EDT 1.0 {tablet} active clonazePAM 1 MG eCW1 ([facility]) 7.5-325 mg 04/11/2021 12:00:00 AM EDT [...] 1.0 {tablet} active clonazePAM 1 MG eCW1 ([facility]) 1 mg 03/13/2021 12:00:00 AM EDT [...] 1.0 {tablet_at_bedtime} active Ambien 5 MG eCW1 ([facility]) Zolpidem tartrate 5 MG Oral Tablet [Ambien] Ambien 5 MG Ambi en 5 MG 03/09/2021 12:00:00 AM EDT 1.0 {tablet_at_bedtime} active Ambien 5 MG eCW1 ([facility]) Zolpidem tartrate 5 MG Oral Tablet [Ambien] Ambien 5 MG Ambi en 5 MG 03/09/2021 12:00:00 AM EDT 1.0 {tablet_at_bedtime} active Ambien 5 MG eCW1 ([facility]) Zolpidem tartrate 5 MG Oral Tablet [Ambien] Ambien 5 MG Ambi en 5 MG 03/09/2021 12:00:00 AM EDT 1.0 {tablet_at_bedtime} active Ambien 5 MG eCW1 ([facility]) Zolpidem tartrate 5 MG Oral Tablet [Ambien] Ambien 5 MG Ambi en 5 MG 03/09/2021 12:00:00 AM EDT 1.0 {tablet_at_bedtime} active Ambien 5 MG eCW1 ([facility]) Zolpidem tartrate 5 MG Oral Tablet [Ambien] Ambien 5 MG Ambi en 5 MG 03/09/2021 12:00:00 AM EDT 1.0 {tablet_at_bedtime} active Ambien 5 MG eCW1 ([facility]) Acetaminophen 325 MG / Oxycodone Hydroch loride 7.5 MG Oral Tablet [Percocet] Percocet 7.5-325 MG Percocet 7.5-325 MG 03/09/2021 12:00:00 AM EDT 1.0 {tablet_as_needed} active Percocet 7.5- 325 MG eCW1 ([facility]) Zolpidem tartrate 5 MG Oral Tablet [Ambien] Ambien 5 MG Ambi en 5 MG 03/09/2021 12:00:00 AM EDT 1.0 {tablet_at_bedtime} active Ambien 5 MG eCW1 ([facility]) Zolpidem tartrate 5 MG Oral Tablet [Ambien] Ambien 5 MG Ambi en 5 MG 03/09/2021 12:00:00 AM EDT 1.0 {tablet_at_bedtime} active Ambien 5 MG eCW1 ([facility]) Clonazepam 1 MG Oral Tablet clonazePAM 1 MG clonazePAM 1 MG 03/09/2021 12:00:00 AM EDT 1.0 {tablet} active clonazePAM 1 MG eCW1 ([facility]) Zolpidem tartrate 5 MG Oral Tablet [Ambien] Ambien 5 MG Ambi en 5 MG 03/09/2021 12:00:00 AM EDT 1.0 {tablet_at_bedtime} active Ambien 5 MG eCW1 ([facility]) Zolpidem tartrate 5 MG Oral Tablet [Ambien] Ambien 5 MG Ambi en 5 MG 03/09/2021 12:00:00 AM EDT 1.0 {tablet_at_bedtime} active Ambien 5 MG eCW1 ([facility]) Zolpidem tartrate 5 MG Oral Tablet [Ambien] Ambien 5 MG Ambi en 5 MG 03/09/2021 12:00:00 AM EDT 1.0 {tablet_at_bedtime} active Ambien 5 MG eCW1 ([facility]) Zolpidem tartrate 5 MG Oral Tablet [Ambien] Ambien 5 MG Ambi en 5 MG 03/09/2021 12:00:00 AM EDT 1.0 {tablet_at_bedtime} active Ambien 5 MG eCW1 ([facility]) Zolpidem tartrate 5 MG Oral Tablet [Ambien] Ambien 5 MG Ambi en 5 MG 03/09/2021 12:00:00 AM EDT 1.0 {tablet_at_bedtime} active Ambien 5 MG eCW1 ([facility]) 100,000 unit/gram 02/21/2021 12:00:00 AM EDT [...] {tablet_as_needed} active Percocet 7.5- 325 MG eCW1 ([facility]) Clobetasol Propionate 0.5 MG/ML Topical Cream [...] 12:00:00 AM EDT 1.0 {tablet_as_needed} active eCW1 ([facility]) 7.5-325 mg 02/09/2021 12:00:00 AM EDT [...] {tablet_as_needed} active Percocet 7.5- 325 MG eCW1 ([facility]) Acetaminophen 325 MG / Oxycodone Hydroch loride 7.5 MG Oral Tablet [Percocet] Percocet 7.5-325 MG Percocet 7.5-325 MG 01/10/2021 12:00:00 AM EDT 1.0 {tablet_as_needed} active Percocet 7.5- 325 MG eCW1 ([facility]) Acetaminophen 325 MG / Oxycodone Hydroch loride 7.5 MG Oral Tablet [Percocet] Percocet 7.5-325 MG Percocet 7.5-325 MG 01/10/2021 12:00:00 AM EDT 1.0 {tablet_as_needed} active Percocet 7.5- 325 MG eCW1 ([facility]) Acetaminophen 325 MG / Oxycodone Hydroch loride 7.5 MG Oral Tablet [Percocet] Percocet 7.5-325 MG Percocet 7.5-325 MG 01/10/2021 12:00:00 AM EDT 1.0 {tablet_as_needed} active Percocet 7.5- 325 MG eCW1 ([facility]) Acetaminophen 325 MG / Oxycodone Hydroch loride 7.5 MG Oral Tablet [Percocet] Percocet 7.5-325 MG Percocet 7.5-325 MG 01/10/2021 12:00:00 AM EDT 1.0 {tablet_as_needed} active Percocet 7.5- 325 MG eCW1 ([facility]) 7.5-325 mg 01/10/2021 12:00:00 AM EDT [...] {tablet_as_needed} active Percocet 7.5- 325 MG eCW1 ([facility]) 350 mg 12/22/2020 12:00:00 AM EDT [...] {tablet_as_needed} active Percocet 7.5- 325 MG eCW1 ([facility]) 7.5-325 mg 12/13/2020 12:00:00 AM EDT [...] {tablet_as_needed} active Percocet 7.5- 325 MG eCW1 ([facility]) 0.5 mg 12/10/2020 12:00:00 AM EDT [...] 1.0 {tablet} active Lotronex 0.5 MG eCW1 ([facility]) alosetron 0.5 MG Oral Tablet [Lotronex] Lotronex 0.5 MG Lotr onex 0.5 MG 12/05/2020 12:00:00 AM EDT 1.0 {tablet} active Lotronex 0.5 MG eCW1 ([facility]) alosetron 0.5 MG Oral Tablet [Lotronex] Lotronex 0.5 MG Lotr onex 0.5 MG 12/05/2020 12:00:00 AM EDT 1.0 {tablet} active Lotronex 0.5 MG eCW1 ([facility]) alosetron 0.5 MG Oral Tablet [Lotronex] Lotronex 0.5 MG Lotr onex 0.5 MG 12/05/2020 12:00:00 AM EDT 1.0 {tablet} active Lotronex 0.5 MG eCW1 ([facility]) alosetron 0.5 MG Oral Tablet [Lotronex] Lotronex 0.5 MG Lotr onex 0.5 MG 12/05/2020 12:00:00 AM EDT 1.0 {tablet} active Lotronex 0.5 MG eCW1 ([facility]) alosetron 0.5 MG Oral Tablet [Lotronex] Lotronex 0.5 MG Lotr onex 0.5 MG 12/05/2020 12:00:00 AM EDT 1.0 {tablet} active Lotronex 0.5 MG eCW1 ([facility]) alosetron 0.5 MG Oral Tablet [Lotronex] Lotronex 0.5 MG Lotr onex 0.5 MG 12/05/2020 12:00:00 AM EDT 1.0 {tablet} active Lotronex 0.5 MG eCW1 ([facility]) alosetron 0.5 MG Oral Tablet [Lotronex] Lotronex 0.5 MG Lotr onex 0.5 MG 12/05/2020 12:00:00 AM EDT 1.0 {tablet} active Lotronex 0.5 MG eCW1 ([facility]) alosetron 0.5 MG Oral Tablet [Lotronex] Lotronex 0.5 MG Lotr onex 0.5 MG 12/05/2020 12:00:00 AM EDT 1.0 {tablet} active Lotronex 0.5 MG eCW1 ([facility]) alosetron 0.5 MG Oral Tablet [Lotronex] Lotronex 0.5 MG Lotr onex 0.5 MG 12/05/2020 12:00:00 AM EDT 1.0 {tablet} active Lotronex 0.5 MG eCW1 ([facility]) alosetron 0.5 MG Oral Tablet [Lotronex] Lotronex 0.5 MG Lotr onex 0.5 MG 12/05/2020 12:00:00 AM EDT 1.0 {tablet} active Lotronex 0.5 MG eCW1 ([facility]) alosetron 0.5 MG Oral Tablet [Lotronex] Lotronex 0.5 MG Lotr onex 0.5 MG 12/05/2020 12:00:00 AM EDT 1.0 {tablet} active Lotronex 0.5 MG eCW1 ([facility]) alosetron 0.5 MG Oral Tablet [Lotronex] Lotronex 0.5 MG Lotr onex 0.5 MG 12/05/2020 12:00:00 AM EDT 1.0 {tablet} active Lotronex 0.5 MG eCW1 ([facility]) alosetron 0.5 MG Oral Tablet [Lotronex] Lotronex 0.5 MG Lotr onex 0.5 MG 12/05/2020 12:00:00 AM EDT 1.0 {tablet} active Lotronex 0.5 MG eCW1 ([facility]) alosetron 0.5 MG Oral Tablet [Lotronex] Lotronex 0.5 MG Lotr onex 0.5 MG 12/05/2020 12:00:00 AM EDT 1.0 {tablet} active Lotronex 0.5 MG eCW1 ([facility]) alosetron 0.5 MG Oral Tablet [Lotronex] Lotronex 0.5 MG Lotr onex 0.5 MG 12/05/2020 12:00:00 AM EDT 1.0 {tablet} active Lotronex 0.5 MG eCW1 ([facility]) alosetron 0.5 MG Oral Tablet [Lotronex] Lotronex 0.5 MG Lotr onex 0.5 MG 12/05/2020 12:00:00 AM EDT 1.0 {tablet} active Lotronex 0.5 MG eCW1 ([facility]) alosetron 0.5 MG Oral Tablet [Lotronex] Lotronex 0.5 MG Lotr onex 0.5 MG 12/05/2020 12:00:00 AM EDT 1.0 {tablet} active Lotronex 0.5 MG eCW1 ([facility]) alosetron 0.5 MG Oral Tablet [Lotronex] Lotronex 0.5 MG Lotr onex 0.5 MG 12/05/2020 12:00:00 AM EDT 1.0 {tablet} active Lotronex 0.5 MG eCW1 ([facility]) alosetron 0.5 MG Oral Tablet [Lotronex] Lotronex 0.5 MG Lotr onex 0.5 MG 12/05/2020 12:00:00 AM EDT 1.0 {tablet} active eCW1 ([facility]) alosetron 0.5 MG Oral Tablet [Lotronex] Lotronex 0.5 MG Lotr onex 0.5 MG 12/05/2020 12:00:00 AM EDT 1.0 {tablet} active eCW1 ([facility]) alosetron 0.5 MG Oral Tablet [Lotronex] Lotronex 0.5 MG Lotr onex 0.5 MG 12/05/2020 12:00:00 AM EDT 1.0 {tablet} active Lotronex 0.5 MG eCW1 ([facility]) alosetron 0.5 MG Oral Tablet [Lotronex] Lotronex 0.5 MG Lotr onex 0.5 MG 12/05/2020 12:00:00 AM EDT 1.0 {tablet} active Lotronex 0.5 MG eCW1 ([facility]) alosetron 0.5 MG Oral Tablet [Lotronex] Lotronex 0.5 MG Lotr onex 0.5 MG 12/05/2020 12:00:00 AM EDT 1.0 {tablet} active Lotronex 0.5 MG eCW1 ([facility]) alosetron 0.5 MG Oral Tablet [Lotronex] Lotronex 0.5 MG Lotr onex 0.5 MG 12/05/2020 12:00:00 AM EDT 1.0 {tablet} active Lotronex 0.5 MG eCW1 ([facility]) 50 mg 12/03/2020 12:00:00 AM EDT [...] EDT active COMPRESSION STOCKINGS 20-30 mmHg eCW1 ([facility]) COMPRESSION STOCKINGS 20-30 mmHg UNK 12/02/2020 12:00:00 AM EDT active COMPRESSION STOCKINGS 20-30 mmHg eCW1 ([facility]) COMPRESSION STOCKINGS 20-30 mmHg UNK 12/02/2020 12:00:00 AM EDT active COMPRESSION STOCKINGS 20-30 mmHg eCW1 ([facility]) COMPRESSION STOCKINGS 20-30 mmHg UNK 12/02/2020 12:00:00 AM EDT active COMPRESSION STOCKINGS 20-30 mmHg eCW1 ([facility]) COMPRESSION STOCKINGS 20-30 mmHg UNK 12/02/2020 12:00:00 AM EDT active COMPRESSION STOCKINGS 20-30 mmHg eCW1 ([facility]) COMPRESSION STOCKINGS 20-30 mmHg UNK 12/02/2020 12:00:00 AM EDT active COMPRESSION STOCKINGS 20-30 mmHg eCW1 ([facility]) COMPRESSION STOCKINGS 20-30 mmHg UNK 12/02/2020 12:00:00 AM EDT active COMPRESSION STOCKINGS 20-30 mmHg eCW1 ([facility]) COMPRESSION STOCKINGS 20-30 mmHg UNK 12/02/2020 12:00:00 AM EDT active COMPRESSION STOCKINGS 20-30 mmHg eCW1 ([facility]) COMPRESSION STOCKINGS 20-30 mmHg UNK 12/02/2020 12:00:00 AM EDT active COMPRESSION STOCKINGS 20-30 mmHg eCW1 ([facility]) COMPRESSION STOCKINGS 20-30 mmHg UNK 12/02/2020 12:00:00 AM EDT active eCW1 ([facility]) COMPRESSION STOCKINGS 20-30 mmHg UNK 12/02/2020 12:00:00 AM EDT active COMPRESSION STOCKINGS 20-30 mmHg eCW1 ([facility]) COMPRESSION STOCKINGS 20-30 mmHg UNK 12/02/2020 12:00:00 AM EDT active COMPRESSION STOCKINGS 20-30 mmHg eCW1 ([facility]) COMPRESSION STOCKINGS 20-30 mmHg UNK 12/02/2020 12:00:00 AM EDT active COMPRESSION STOCKINGS 20-30 mmHg eCW1 ([facility]) COMPRESSION STOCKINGS 20-30 mmHg UNK 12/02/2020 12:00:00 AM EDT active COMPRESSION STOCKINGS 20-30 mmHg eCW1 ([facility]) COMPRESSION STOCKINGS 20-30 mmHg UNK 12/02/2020 12:00:00 AM EDT active COMPRESSION STOCKINGS 20-30 mmHg eCW1 ([facility]) COMPRESSION STOCKINGS 20-30 mmHg UNK 12/02/2020 12:00:00 AM EDT active COMPRESSION STOCKINGS 20-30 mmHg eCW1 ([facility]) COMPRESSION STOCKINGS 20-30 mmHg UNK 12/02/2020 12:00:00 AM EDT active COMPRESSION STOCKINGS 20-30 mmHg eCW1 ([facility]) COMPRESSION STOCKINGS 20-30 mmHg UNK 12/02/2020 12:00:00 AM EDT active COMPRESSION STOCKINGS 20-30 mmHg eCW1 ([facility]) COMPRESSION STOCKINGS 20-30 mmHg UNK 12/02/2020 12:00:00 AM EDT active eCW1 ([facility]) COMPRESSION STOCKINGS 20-30 mmHg UNK 12/02/2020 12:00:00 AM EDT active COMPRESSION STOCKINGS 20-30 mmHg eCW1 ([facility]) COMPRESSION STOCKINGS 20-30 mmHg UNK 12/02/2020 12:00:00 AM EDT active COMPRESSION STOCKINGS 20-30 mmHg eCW1 ([facility]) COMPRESSION STOCKINGS 20-30 mmHg UNK 12/02/2020 12:00:00 AM EDT active COMPRESSION STOCKINGS 20-30 mmHg eCW1 ([facility]) COMPRESSION STOCKINGS 20-30 mmHg UNK 12/02/2020 12:00:00 AM EDT active COMPRESSION STOCKINGS 20-30 mmHg eCW1 ([facility]) COMPRESSION STOCKINGS 20-30 mmHg UNK 12/02/2020 12:00:00 AM EDT active COMPRESSION STOCKINGS 20-30 mmHg eCW1 ([facility]) COMPRESSION STOCKINGS 20-30 mmHg UNK 12/02/2020 12:00:00 AM EDT active COMPRESSION STOCKINGS 20-30 mmHg eCW1 ([facility]) 1 mg 11/23/2020 12:00:00 AM EDT [...] {tablet_as_needed} active Percocet 7.5- 325 MG eCW1 ([facility]) Acetaminophen 325 MG / Oxycodone Hydroch loride 7.5 MG Oral Tablet [Percocet] Percocet 7.5-325 MG Percocet 7.5-325 MG 11/22/2020 12:00:00 AM EDT 1.0 {tablet_as_needed} active Percocet 7.5- 325 MG eCW1 ([facility]) Acetaminophen 325 MG / Oxycodone Hydroch loride 7.5 MG Oral Tablet [Percocet] Percocet 7.5-325 MG Percocet 7.5-325 MG 11/22/2020 12:00:00 AM EDT 1.0 {tablet_as_needed} active Percocet 7.5- 325 MG eCW1 ([facility]) quetiapine 50 MG Oral Tablet QUETIAPINE [...] {tablet} active Metronidazo le 500 MG eCW1 ([facility]) Metronidazole 500 MG Oral Tablet Metronidazole 500 MG 2020 12:00:00 AM EDT 1.0 {tablet} active Metronidazo le 500 MG eCW1 ([facility]) Metronidazole 500 MG Oral Tablet Metronidazole 500 MG 2020 12:00:00 AM EDT 1.0 {tablet} active Metronidazo le 500 MG eCW1 ([facility]) Metronidazole 500 MG Oral Tablet Metronidazole 500 MG 2020 12:00:00 AM EDT 1.0 {tablet} active Metronidazo le 500 MG eCW1 ([facility]) Metronidazole 500 MG Oral Tablet Metronidazole 500 MG 2020 12:00:00 AM EDT 1.0 {tablet} active Metronidazo le 500 MG eCW1 ([facility]) Metronidazole 500 MG Oral Tablet Metronidazole 500 MG 2020 12:00:00 AM EDT 1.0 {tablet} active Metronidazo le 500 MG eCW1 ([facility]) 1 mg 10/21/2020 12:00:00 AM EDT [...] {tablet_as_needed} active Percocet 7.5- 325 MG eCW1 ([facility]) Acetaminophen 325 MG / Oxycodone Hydroch loride 7.5 MG Oral Tablet [Percocet] Percocet 7.5-325 MG Percocet 7.5-325 MG 10/21/2020 12:00:00 AM EDT 1.0 {tablet_as_needed} active Percocet 7.5- 325 MG eCW1 ([facility]) 350 mg 10/21/2020 12:00:00 AM EDT [...] {tablet_as_needed} active Percocet 7.5- 325 MG eCW1 ([facility]) Acetaminophen 325 MG / Oxycodone Hydroch loride 7.5 MG Oral Tablet [Percocet] Percocet 7.5-325 MG Percocet 7.5-325 MG 10/21/2020 12:00:00 AM EDT 1.0 {tablet_as_needed} active Percocet 7.5- 325 MG eCW1 ([facility]) Acetaminophen 325 MG / Oxycodone Hydroch loride 7.5 MG Oral Tablet [Percocet] Percocet 7.5-325 MG Percocet 7.5-325 MG 10/21/2020 12:00:00 AM EDT 1.0 {tablet_as_needed} active Percocet 7.5- 325 MG eCW1 ([facility]) 7.5-325 mg 10/21/2020 12:00:00 AM EDT [...] {tablet_as_needed} active Percocet 7.5- 325 MG eCW1 ([facility]) Acetaminophen 325 MG / Oxycodone Hydroch loride 7.5 MG Oral Tablet [Percocet] Percocet 7.5-325 MG Percocet 7.5-325 MG 10/21/2020 12:00:00 AM EDT 1.0 {tablet_as_needed} active Percocet 7.5- 325 MG eCW1 ([facility]) Acetaminophen 325 MG / Oxycodone Hydroch loride 7.5 MG Oral Tablet [Percocet] Percocet 7.5-325 MG Percocet 7.5-325 MG 09/22/2020 12:00:00 AM EST 1.0 {tablet_as_needed} active Percocet 7.5- 325 MG eCW1 ([facility]) 7.5-325 mg 09/22/2020 12:00:00 AM EST [...] {tablet_as_needed} active Percocet 7.5- 325 MG eCW1 ([facility]) Acetaminophen 325 MG / Oxycodone Hydroch loride 7.5 MG Oral Tablet [Percocet] Percocet 7.5-325 MG Percocet 7.5-325 MG 08/18/2020 12:00:00 AM EST 1.0 {tablet_as_needed} active Percocet 7.5- 325 MG eCW1 ([facility]) Acetaminophen 325 MG / Oxycodone Hydroch loride 7.5 MG Oral Tablet [Percocet] Percocet 7.5-325 MG Percocet 7.5-325 MG 08/18/2020 12:00:00 AM EST 1.0 {tablet_as_needed} active Percocet 7.5- 325 MG eCW1 ([facility]) Acetaminophen 325 MG / Oxycodone Hydroch loride 7.5 MG Oral Tablet [Percocet] Percocet 7.5-325 MG Percocet 7.5-325 MG 08/18/2020 12:00:00 AM EST 1.0 {tablet_as_needed} active Percocet 7.5- 325 MG eCW1 ([facility]) Acetaminophen 325 MG / Oxycodone Hydroch loride 7.5 MG Oral Tablet [Percocet] Percocet 7.5-325 MG Percocet 7.5-325 MG 08/18/2020 12:00:00 AM EST 1.0 {tablet_as_needed} active Percocet 7.5- 325 MG eCW1 ([facility]) 7.5-325 mg 08/18/2020 12:00:00 AM EST tablet 90 TAKE ONE TABLET BY MOUTH THREE TIMES A DAY NEEDED MAXIMUM DAILY DOSE = 3 TABLETS TAKE ONE TABLET BY MOUTH THREE TIMES A DAY NEEDED MAXIMUM DAILY DOSE = 3 TABLETS SOLD: 08/18/2020 [facility] Acetaminophen 325 MG / Oxycodone Hydroch loride 7.5 MG Oral Tablet [Percocet] Percocet 7.5-325 MG Percocet 7.5-325 MG 08/18/2020 12:00:00 AM EST 1.0 {tablet_as_needed} active Percocet 7.5- 325 MG eCW1 ([facility]) Acetaminophen 325 MG / Oxycodone Hydroch loride 7.5 MG Oral Tablet [Percocet] Percocet 7.5-325 MG Percocet 7.5-325 MG 08/18/2020 12:00:00 AM EST 1.0 {tablet_as_needed} active Percocet 7.5- 325 MG eCW1 ([facility]) 4 mg 08/17/2020 12:00:00 AM EST tablet,disintegrating 9 0 DISSOLVE ONE TABLET ON TONGUE EVERY DAY DISSOLVE ONE TABLET ON TONGUE EVERY DAY SOLD: 08/18/2020 [facility] pantoprazole 40 MG Delayed Release Oral Tablet PANTOPRAZOLE SODIUM 08/13/2020 12:00:00 AM EST tablet,delayed release (DR/EC) 30 T CHARMAINE ONE TABLET BY MOUTH EVERY MORNING TAKE ONE TABLET BY MOUTH EVERY MORNING SOLD: 11/22/2020 [facility] 40 mg 08/13/2020 12:00:00 AM EST capsule 180 TAKE TWO CAPSULES BY MOUTH EVERY MORNING TAKE TWO CAPSULES BY MOUTH EVERY MORNING SOLD: 08/14/2020 [facility] pantoprazole 40 MG Delayed Release Oral Tablet PANTOPRAZOLE SODIUM 08/13/2020 12:00:00 AM EST tablet,delayed release (DR/EC) 90 T CHARMAINE ONE TABLET BY MOUTH EVERY MORNING TAKE ONE TABLET BY MOUTH EVERY MORNING SOLD: 08/14/2020 [facility] 40 mg 08/13/2020 12:00:00 AM EST capsule 60 TAKE TWO CAPSULES BY MOUTH EVERY MORNING TAKE TWO CAPSULES BY MOUTH EVERY MORNING SOLD: 11/22/2020 [facility] 10 mg 08/13/2020 12:00:00 AM EST tablet 15 TAKE ONE TABLET BY MOUTH EVERY DAY NEEDED FOR MIGRAINE MAY REPEAT FOR 1 DOSE IN 2 HOURS TAKE ONE TABLET BY MOUTH EVERY DAY NEEDED FOR MIGRAINE MAY REPEAT FOR 1 DOSE IN 2 HOURS SOLD: 08/14/2020 [facility] Diclofenac Sodium 75 MG Delayed Release Oral Tablet DICLOFEN AC SODIUM 08/13/2020 12:00:00 AM EST tablet,delayed release (DR/EC) 180 TAKE ONE TABLET BY MOUTH TWICE A DAY TAKE ONE TABLET BY MOUTH TWICE A DAY SOLD: 08/14/2020 [facility] quetiapine 50 MG Oral Tablet Quetiapine Fumarate 50 MG Quetiapine Fumarate 50 MG 07/27/2020 12:00:00 AM EST active Quetiapine Fumarate 50 MG eCW1 ([facility]) Hyoscyamine Sulfate 0.125 MG Oral Tablet Hyoscyamine Sulfate 0.125 MG 07/27/2020 12:00:00 AM EST active Hyoscya mine Sulfate 0.125 MG eCW1 ([facility]) quetiapine 50 MG Oral Tablet Quetiapine Fumarate 50 MG Quetiapine Fumarate 50 MG 07/27/2020 12:00:00 AM EST active Quetiapine Fumarate 50 MG eCW1 ([facility]) quetiapine 50 MG Oral Tablet Quetiapine Fumarate 50 MG Quetiapine Fumarate 50 MG 07/27/2020 12:00:00 AM EST active Quetiapine Fumarate 50 MG eCW1 ([facility]) Hyoscyamine Sulfate 0.125 MG Oral Tablet Hyoscyamine Sulfate 0.125 MG 07/27/2020 12:00:00 AM EST active Hyoscya mine Sulfate 0.125 MG eCW1 ([facility]) quetiapine 50 MG Oral Tablet Quetiapine Fumarate 50 MG Quetiapine Fumarate 50 MG 07/27/2020 12:00:00 AM EST active Quetiapine Fumarate 50 MG eCW1 ([facility]) 1,250 mcg (50,000 unit) 07/27/2020 12:00:00 AM EST capsule 12 TAKE ONE CAPSULE BY MOUTH EVERY 7 DAYS TAKE ONE CAPSULE BY MOUTH EVERY 7 DAYS SOLD: 07/27/2020 [facility] quetiapine 50 MG Oral Tablet Quetiapine Fumarate 50 MG Quetiapine Fumarate 50 MG 07/27/2020 12:00:00 AM EST active Quetiapine Fumarate 50 MG eCW1 ([facility]) Hyoscyamine Sulfate 0.125 MG Oral Tablet Hyoscyamine Sulfate 0.125 MG 07/27/2020 12:00:00 AM EST active Hyoscya mine Sulfate 0.125 MG eCW1 ([facility]) quetiapine 50 MG Oral Tablet Quetiapine Fumarate 50 MG Quetiapine Fumarate 50 MG 07/27/2020 12:00:00 AM EST active Quetiapine Fumarate 50 MG eCW1 ([facility]) Hyoscyamine Sulfate 0.125 MG Oral Tablet Hyoscyamine Sulfate 0.125 MG 07/27/2020 12:00:00 AM EST active Hyoscya mine Sulfate 0.125 MG eCW1 ([facility]) quetiapine 50 MG Oral Tablet Quetiapine Fumarate 50 MG Quetiapine Fumarate 50 MG 07/27/2020 12:00:00 AM EST active Quetiapine Fumarate 50 MG eCW1 ([facility]) quetiapine 50 MG Oral Tablet QUETIAPINE [...] active Hyoscya mine Sulfate 0.125 MG eCW1 ([facility]) quetiapine 50 MG Oral Tablet Quetiapine Fumarate 50 MG Quetiapine Fumarate 50 MG 07/27/2020 12:00:00 AM EST active Quetiapine Fumarate 50 MG eCW1 ([facility]) quetiapine 50 MG Oral Tablet Quetiapine Fumarate 50 MG Quetiapine Fumarate 50 MG 07/27/2020 12:00:00 AM EST active Quetiapine Fumarate 50 MG eCW1 ([facility]) Hyoscyamine Sulfate 0.125 MG Oral Tablet Hyoscyamine Sulfate 0.125 MG 07/27/2020 12:00:00 AM EST active Hyoscya mine Sulfate 0.125 MG eCW1 ([facility]) Hyoscyamine Sulfate 0.125 MG Oral Tablet Hyoscyamine Sulfate 0.125 MG 07/27/2020 12:00:00 AM EST active Hyoscya mine Sulfate 0.125 MG eCW1 ([facility]) quetiapine 50 MG Oral Tablet Quetiapine Fumarate 50 MG Quetiapine Fumarate 50 MG 07/27/2020 12:00:00 AM EST active Quetiapine Fumarate 50 MG eCW1 ([facility]) quetiapine 50 MG Oral Tablet Quetiapine Fumarate 50 MG Quetiapine Fumarate 50 MG 07/27/2020 12:00:00 AM EST active Quetiapine Fumarate 50 MG eCW1 ([facility]) quetiapine 50 MG Oral Tablet Quetiapine Fumarate 50 MG Quetiapine Fumarate 50 MG 07/27/2020 12:00:00 AM EST active Quetiapine Fumarate 50 MG eCW1 ([facility]) 0.125 mg 07/27/2020 12:00:00 AM EST [...] EST active Quetiapine Fumarate 50 MG eCW1 ([facility]) quetiapine 50 MG Oral Tablet Quetiapine Fumarate 50 MG Quetiapine Fumarate 50 MG 07/27/2020 12:00:00 AM EST active Quetiapine Fumarate 50 MG eCW1 ([facility]) Hyoscyamine Sulfate 0.125 MG Oral Tablet Hyoscyamine Sulfate 0.125 MG 07/27/2020 12:00:00 AM EST active Hyoscya mine Sulfate 0.125 MG eCW1 ([facility]) quetiapine 50 MG Oral Tablet QUETIAPINE FUMARATE 07/27/2020 12:0 0:00 AM EST tablet 30 TAKE ONE TABLET BY MOUTH AT BEDT ROSITA TAKE ONE TABLET BY MOUTH AT BEDTIME SOLD: 08/28/2020 [facility] Hyoscyamine Sulfate 0.125 MG Oral Tablet Hyoscyamine Sulfate 0.125 MG 07/27/2020 12:00:00 AM EST active Hyoscya mine Sulfate 0.125 MG eCW1 ([facility]) Hyoscyamine Sulfate 0.125 MG Oral Tablet Hyoscyamine Sulfate 0.125 MG 07/27/2020 12:00:00 AM EST active Hyoscya mine Sulfate 0.125 MG eCW1 ([facility]) quetiapine 50 MG Oral Tablet Quetiapine Fumarate 50 MG Quetiapine Fumarate 50 MG 07/27/2020 12:00:00 AM EST active Quetiapine Fumarate 50 MG eCW1 ([facility]) Hyoscyamine Sulfate 0.125 MG Oral Tablet Hyoscyamine Sulfate 0.125 MG 07/27/2020 12:00:00 AM EST active Hyoscya mine Sulfate 0.125 MG eCW1 ([facility]) Hyoscyamine Sulfate 0.125 MG Oral Tablet Hyoscyamine Sulfate 0.125 MG 07/27/2020 12:00:00 AM EST active Hyoscya mine Sulfate 0.125 MG eCW1 ([facility]) quetiapine 50 MG Oral Tablet Quetiapine Fumarate 50 MG Quetiapine Fumarate 50 MG 07/27/2020 12:00:00 AM EST active Quetiapine Fumarate 50 MG eCW1 ([facility]) quetiapine 50 MG Oral Tablet Quetiapine Fumarate 50 MG Quetiapine Fumarate 50 MG 07/27/2020 12:00:00 AM EST active Quetiapine Fumarate 50 MG eCW1 ([facility]) Hyoscyamine Sulfate 0.125 MG Oral Tablet Hyoscyamine Sulfate 0.125 MG 07/27/2020 12:00:00 AM EST active Hyoscya mine Sulfate 0.125 MG eCW1 ([facility]) Hyoscyamine Sulfate 0.125 MG Oral Tablet Hyoscyamine Sulfate 0.125 MG 07/27/2020 12:00:00 AM EST active Hyoscya mine Sulfate 0.125 MG eCW1 ([facility]) quetiapine 50 MG Oral Tablet Quetiapine Fumarate 50 MG Quetiapine Fumarate 50 MG 07/27/2020 12:00:00 AM EST active Quetiapine Fumarate 50 MG eCW1 ([facility]) Hyoscyamine Sulfate 0.125 MG Oral Tablet Hyoscyamine Sulfate 0.125 MG 07/27/2020 12:00:00 AM EST active Hyoscya mine Sulfate 0.125 MG eCW1 ([facility]) quetiapine 50 MG Oral Tablet Quetiapine Fumarate 50 MG Quetiapine Fumarate 50 MG 07/27/2020 12:00:00 AM EST active Quetiapine Fumarate 50 MG eCW1 ([facility]) Hyoscyamine Sulfate 0.125 MG Oral Tablet Hyoscyamine Sulfate 0.125 MG 07/27/2020 12:00:00 AM EST active Hyoscya mine Sulfate 0.125 MG eCW1 ([facility]) quetiapine 50 MG Oral Tablet Quetiapine Fumarate 50 MG Quetiapine Fumarate 50 MG 07/27/2020 12:00:00 AM EST active Quetiapine Fumarate 50 MG eCW1 ([facility]) quetiapine 50 MG Oral Tablet Quetiapine Fumarate 50 MG Quetiapine Fumarate 50 MG 07/27/2020 12:00:00 AM EST active Quetiapine Fumarate 50 MG eCW1 ([facility]) Hyoscyamine Sulfate 0.125 MG Oral Tablet Hyoscyamine Sulfate 0.125 MG 07/27/2020 12:00:00 AM EST active Hyoscya mine Sulfate 0.125 MG eCW1 ([facility]) Hyoscyamine Sulfate 0.125 MG Oral Tablet Hyoscyamine Sulfate 0.125 MG 07/27/2020 12:00:00 AM EST active Hyoscya mine Sulfate 0.125 MG eCW1 ([facility]) Hyoscyamine Sulfate 0.125 MG Oral Tablet Hyoscyamine Sulfate 0.125 MG 07/27/2020 12:00:00 AM EST active Hyoscya mine Sulfate 0.125 MG eCW1 ([facility]) Hyoscyamine Sulfate 0.125 MG Oral Tablet Hyoscyamine Sulfate 0.125 MG 07/27/2020 12:00:00 AM EST active Hyoscya mine Sulfate 0.125 MG eCW1 ([facility]) Hyoscyamine Sulfate 0.125 MG Oral Tablet Hyoscyamine Sulfate 0.125 MG 07/27/2020 12:00:00 AM EST active Hyoscya mine Sulfate 0.125 MG eCW1 ([facility]) 40 mg 07/22/2020 12:00:00 AM EST [...] {tablet_as_needed} active Percocet 7.5- 325 MG eCW1 ([facility]) Acetaminophen 325 MG / Oxycodone Hydroch loride 7.5 MG Oral Tablet [Percocet] Percocet 7.5-325 MG Percocet 7.5-325 MG 06/20/2020 12:00:00 AM EST 1.0 {tablet_as_needed} active Percocet 7.5- 325 MG eCW1 ([facility]) Acetaminophen 325 MG / Oxycodone Hydroch loride 7.5 MG Oral Tablet [Percocet] Percocet 7.5-325 MG Percocet 7.5-325 MG 06/20/2020 12:00:00 AM EST 1.0 {tablet_as_needed} active Percocet 7.5- 325 MG eCW1 ([facility]) Acetaminophen 325 MG / Oxycodone Hydroch loride 7.5 MG Oral Tablet [Percocet] Percocet 7.5-325 MG Percocet 7.5-325 MG 06/20/2020 12:00:00 AM EST 1.0 {tablet_as_needed} active Percocet 7.5- 325 MG eCW1 ([facility]) Acetaminophen 325 MG / Oxycodone Hydroch loride 7.5 MG Oral Tablet [Percocet] Percocet 7.5-325 MG Percocet 7.5-325 MG 06/20/2020 12:00:00 AM EST 1.0 {tablet_as_needed} active Percocet 7.5- 325 MG eCW1 ([facility]) Acetaminophen 325 MG / Oxycodone Hydroch loride 7.5 MG Oral Tablet [Percocet] Percocet 7.5-325 MG Percocet 7.5-325 MG 06/20/2020 12:00:00 AM EST 1.0 {tablet_as_needed} active Percocet 7.5- 325 MG eCW1 ([facility]) Acetaminophen 325 MG / Oxycodone Hydroch loride 7.5 MG Oral Tablet [Percocet] Percocet 7.5-325 MG Percocet 7.5-325 MG 06/20/2020 12:00:00 AM EST 1.0 {tablet_as_needed} active Percocet 7.5- 325 MG eCW1 ([facility]) Acetaminophen 325 MG / Oxycodone Hydroch loride 7.5 MG Oral Tablet [Percocet] Percocet 7.5-325 MG Percocet 7.5-325 MG 06/20/2020 12:00:00 AM EST 1.0 {tablet_as_needed} active Percocet 7.5- 325 MG eCW1 ([facility]) Acetaminophen 325 MG / Oxycodone Hydroch loride 7.5 MG Oral Tablet [Percocet] Percocet 7.5-325 MG Percocet 7.5-325 MG 06/20/2020 12:00:00 AM EST 1.0 {tablet_as_needed} active Percocet 7.5- 325 MG eCW1 ([facility]) Acetaminophen 325 MG / Oxycodone Hydroch loride 7.5 MG Oral Tablet [Percocet] Percocet 7.5-325 MG Percocet 7.5-325 MG 06/20/2020 12:00:00 AM EST 1.0 {tablet_as_needed} active Percocet 7.5- 325 MG eCW1 ([facility]) Acetaminophen 325 MG / Oxycodone Hydroch loride 7.5 MG Oral Tablet [Percocet] Percocet 7.5-325 MG Percocet 7.5-325 MG 06/20/2020 12:00:00 AM EST 1.0 {tablet_as_needed} active Percocet 7.5- 325 MG eCW1 ([facility]) 350 mg 06/20/2020 12:00:00 AM EST [...] {tablet_as_needed} active Percocet 7.5- 325 MG eCW1 ([facility]) Acetaminophen 325 MG / Oxycodone Hydroch loride 7.5 MG Oral Tablet [Percocet] Percocet 7.5-325 MG Percocet 7.5-325 MG 06/20/2020 12:00:00 AM EST 1.0 {tablet_as_needed} active Percocet 7.5- 325 MG eCW1 ([facility]) Ondansetron HCl 4 MG UNK 06/17/2020 [...] AM EST 1.0 {tablet } active eCW1 ([facility]) Ondansetron HCl 4 MG UNK 06/17/2020 12:00:00 [...] AM EST 1.0 {tablet } active eCW1 ([facility]) Ondansetron HCl 4 MG UNK 06/17/2020 12:00:00 [...] {tablet_as_needed} active Percocet 7.5- 325 MG eCW1 ([facility]) Acetaminophen 325 MG / Oxycodone Hydroch loride 7.5 MG Oral Tablet [Percocet] Percocet 7.5-325 MG Percocet 7.5-325 MG 05/24/2020 12:00:00 AM EST 1.0 {tablet_as_needed} active Percocet 7.5- 325 MG eCW1 ([facility]) Acetaminophen 325 MG / Oxycodone Hydroch loride 7.5 MG Oral Tablet [Percocet] Percocet 7.5-325 MG Percocet 7.5-325 MG 05/24/2020 12:00:00 AM EST 1.0 {tablet_as_needed} active Percocet 7.5- 325 MG eCW1 ([facility]) Acetaminophen 325 MG / Oxycodone Hydroch loride 7.5 MG Oral Tablet [Percocet] Percocet 7.5-325 MG Percocet 7.5-325 MG 05/24/2020 12:00:00 AM EST 1.0 {tablet_as_needed} active Percocet 7.5- 325 MG eCW1 ([facility]) 350 mg 05/20/2020 12:00:00 AM EST [...] {tablet_as_needed} active Percocet 7.5- 325 MG eCW1 ([facility]) Acetaminophen 325 MG / Oxycodone Hydroch loride 7.5 MG Oral Tablet [Percocet] Percocet 7.5-325 MG Percocet 7.5-325 MG 05/10/2020 12:00:00 AM EDT 1.0 {tablet_as_needed} active Percocet 7.5- 325 MG eCW1 ([facility]) Acetaminophen 325 MG / Oxycodone Hydroch loride 7.5 MG Oral Tablet [Percocet] Percocet 7.5-325 MG Percocet 7.5-325 MG 05/10/2020 12:00:00 AM EDT 1.0 {tablet_as_needed} active Percocet 7.5- 325 MG eCW1 ([facility]) Acetaminophen 325 MG / Oxycodone Hydroch loride 7.5 MG Oral Tablet [Percocet] Percocet 7.5-325 MG Percocet 7.5-325 MG 05/10/2020 12:00:00 AM EDT 1.0 {tablet_as_needed} active Percocet 7.5- 325 MG eCW1 ([facility]) 100,000 unit/gram 05/06/2020 12:00:00 AM EDT [...] billingsley Policy Bill[place] Plan Information MVP Commercial [id number] Self [id number] [place] 306/806 [id number] SP [id number] EXCELLUS H [id number] Self [id number] BLUE CROSS O [id number] S [id number] [place] 306/806 [id number] SP [id number] [place] 306/806 [id number] SP [id number] [place] 306/806 [id number] SP [id number] [place] Commercial [id number] Self [id number] [place] Commercial [id number] Self [id number] [place] Commercial [id number] Self [id number] [place] Commercial [id number] Self [id number] [place] Commercial [id number] Self [id number] [place] Commercial [id number] Self [id number] Blue Cross Blue Shield P [id number] SELF [id number] Blue Cross Blue Shield P [id number] SELF [id number] EXCELLUS BCBS [id number] [place] V[place] [id number] Blue Cross Blue Shield P [id number] SELF [id number] Blue Cross Blue Shield P [id number] SELF [id number] Medicaid Medicaid [id number] Self [id number] Excellus Blue Cross and Blue Shield - [place] Blue Cross/B lue Shield [id number] Self [id number] BCBS Excell[place] U/W Commercial [id number] Self [id number] Self [id number] Excellus [id number] Self [id number] Excellus [id number] self [id number] SELF PAY ONLY [id number] SP [id number] [place] PPO 302/307 [id number] SP [id number] [place] 306/806 [id number] SP [id number] EXCELLUS BCBS B [id number] S [id number] CD PHP PI PI CD PHP [id number] Mar[place] [id number] EXCELLUS BCBS B [id number] S VYS [id number] BCBS/Excellus Medigap Part B [id number] Self BCBS/Excellus Commercial [id number] Self [place]BS [place] PPO 302/307 [id number] SP [id number] BS Of [place] Commercial [id number] Self SELF PAY ONLY [id number] SP [id number] [place] 306/806 [id number] SP [id number] EXCELLUS BCBS B [id number] S VYS [id number] BCBS [place] PPO 302/307 [id number] SP [id number] [place] 306/806 [id number] SP [id number] EXCELLUS BCBS B [id number] S VYS [id number] BS/W/Id#Prefix/W ALL #'S Medigap Part B [id number] Self BS/W/Id#Prefix/W ALL #'S Commercial [id number] Self [facility] PHY [id number] SP [id number] [facility] P [id number] S [id number] PMA INSURANCE [id number] SP [id number] OTHER WORKERS COMPENSATI P [id number] S [id number] P UNAVAILABLE UNAVAILA BLE OTHER WORKERS COMPENSATION [id number] SP [id number] [facility] PHY [id number] SP [id number] [facility] PHY [id number] SP [id number] BCBS Excell[employer] U/W Commercial [id number] Self [id number] Problems, Conditions, and Diagnoses Code Display Name Description Problem Type Effective Dates Data Source(s) G89.29 14291381 Other chronic pain Problem 05/09/2021 12:00: 00 AM EDT eCW1 ([facility]) I87.2 [id number] Venous insufficiency of both lower extrem ities Problem 12/02/2020 12:00:00 AM EDT eCW1 ([facility]) R60.9 [id number] Peripheral edema Problem 07/27/2020 12:00:00 AM EST eCW1 ([facility]) Surgeries/Procedures Procedure Description Date Indications Data Source(s) COLPOSCOPY CERVIX BX CERVIX&ENDOCRV CURTG 2021 1 2:00:00 AM EDT eCW1 ([facility]) URINE TEST 2021 12:00:00 AM EDT eCW1 ([facility]) Results ID Date Data Source [id number] 05/13/2021 04:45:00 PM EDT [facility] Name Value Range Interpretation Code Description Data Iris rce(s) Supporting Document(s) SARS-CoV-2 RNA Resp Ql DEZ+probe NOT DETECTED [facility] This lab was ordered by ZACHARY billings and reported by ZACHARY Ugalde. ID Date Data Source [id number] 05/12/2021 01:24:00 PM EDT [facility] Name Value Range Interpretation Code Description Data Iris rce(s) Supporting Document(s) SARS coronavirus 2 RNA [Presence] in Res piratory specimen by DEZ with probe detection NEGATIVE [facility] This lab was ordered by [facility] a nd reported by [facility]. ID Date Data Source [id number] 04/30/2021 06:46:00 AM EDT [facility] Name Value Range Interpretation Code Description Data Iris rce(s) Supporting Document(s) SARS coronavirus 2 RNA [Presence] in Res piratory specimen by DEZ with probe detection NEGATIVE [facility] This lab was ordered by [facility] a nd reported by [facility]. ID Date Data Source [id number] 04/26/2021 11:41:00 AM EDT [facility] Name Value Range Interpretation Code Description Data Iris rce(s) Supporting Document(s) SARS coronavirus 2 RNA [Presence] in Res piratory specimen by DEZ with probe detection NEGATIVE [facility] This lab was ordered by [facility] a nd reported by [facility]. ID Date Data Source [id number] 04/18/2021 11:02:00 AM EDT [facility] Name Value Range Interpretation Code Description Data Iris rce(s) Supporting Document(s) SARS coronavirus 2 RNA [Presence] in Res piratory specimen by DEZ with probe detection NEGATIVE [facility] This lab was ordered by [facility] a nd reported by [facility]. ID Date Data Source [id number] 12/28/2020 10:02:11 AM EDT [facility], PCName: Gloria GuerraDOB: 1975Provider: Shara SpicerDOEvert: 12/26/2020 Reason For VisitGloria Guerra is here today for her rose. knees. Gloria had her second Covid vaccine on 08/2020. Gloria Guerra is an established patient here for follow up. (Neocleus). Patient is working at this time at [...] an outside provider. Results/[facility]XRays [facility] were reviewed today. Side: Bilateral [...] is to see somebody up in the [place] area but has not seen anybody recently. Work / School NoteThe percentage of temporary impairment is 0%. The patient is working at this time. This document was dictated and electronically signed using [employer] Speaking software. A reasonable attempt at proof reading has been made to minimize errors. Please call with any questions. Signatures Electronically signed by : Shara Spiecr PA-C; Dec 26 2020 8:44AM EST (Author) Electronically signed by : Nicole Morin M.D.; Dec 28 2020 10:02AM EST (Author) Name Value Range Interpretation Code Description Data Iris rce(s) Supporting Document(s) ID Date Data Source [id number] 11/10/2020 12:34:00 PM EDT [facility] Name Value Range Interpretation Code Description Data Iris rce(s) Supporting Document(s) COVID-19 RT-PCR NASAL SWAB Not Detected Not Detected [facility] A not detected (negative) test result [...] developed and its performance characteristics determined by [employer] and verified at [facility]. It has not been cleared or approved by the U.S. Food and Drug Administration for diagnostic use. This test has been authorized by FDA under an EUA for use by authorized laboratories. Results should be used in conjunction with clinical findings, and should not form the sole basis for a diagnosis or treatment decision. Methods: SARS-CoV-2 Multiplex RT-PCR Assay ID Date Data Source [id number] 11/08/2020 05:15:00 PM EDT [facility] Name Value Range Interpretation Code Description Data Iris rce(s) Supporting Document(s) SARS-CoV-2 (COVID-19) N gene [Presence] in Respiratory specimen by DEZ with probe detection NEGATIVE [facility] This lab was ordered by Tr[facility] Alon[facility] and reported by [facility]. ID Date Data Source CHLAMYDIA & GC DNA AMPLIFICAT 10/27/2020 12:00:00 AM EDT eCW 1 ([facility]) Name Value Range Interpretation Code Description Data Iris rce(s) Supporting Document(s) Chlamydia trachomatis rRNA [Presence] in Unspecified specimen by Probe and target amplification method NEGATIVE NEGATIVE CHLAMYDIA DNA AMPLIFICATION eCW1 ([facility]) ID Date Data Source [id number] 08/18/2020 12:00:00 AM EST [facility] Name Value Range Interpretation Code Description Data Iris rce(s) Supporting Document(s) Carestart Rapid COVID Antigen Test Positive [facility] This lab was reported by Tr[facility] b[facility]. ID Date Data Source CT Scan : Angiogram 08/11/2020 12:00:00 AM EST eCW1 ([facility]) Name Value Range Interpretation Code Description Data Iris rce(s) Supporting Document(s) CT Scan : Angiogram eCW1 ([facility]) ID Date Data Source [id number] 08/04/2020 11:45:00 AM EST [facility] Name Value Range Interpretation Code Description Data Iris rce(s) Supporting Document(s) SARS coronavirus 2 RNA Not Detected [facility] This lab was ordered by [facility] and reported by [facility]. ID Date Data Source DRUG EVAL SCREEN BLOOD 7 [id number] 08/01/2020 12:00:00 AM EST eC W1 ([facility]) Name Value Range Interpretation Code Description Data Iris rce(s) Supporting Document(s) Negative Cutoff:50 AMPHETAMINES SCREEN, BLOO D eCW1 ([facility]) Negative Cutoff:0.1 BARBITURATES SCREEN, BLOO D eCW1 ([facility]) Negative Cutoff:20 BENZODIAZEPINES SCREEN, B LOOD eCW1 ([facility]) Negative Cutoff:5 CANNABINOID SCREEN, BLOOD eCW1 ([facility]) Negative Cutoff:25 COCAINE + METAB. SCREEN, BLOOD eCW1 ([facility]) Negative Cutoff:8 PHENCYCLIDINE SCREEN, BLO OD eCW1 ([facility]) Negative Cutoff:5 OPIATES SCREEN, BLOOD eCW 1 ([facility]) ID Date Data Source NT-PRO BNP 08/01/2020 12:00:00 AM EST eCW1 ([facility]) Name Value Range Interpretation Code Description Data Iris rce(s) Supporting Document(s) 102 <125 NT-PRO BNP eCW1 ([facility]) ID Date Data Source Comprehensive Metabolic Profile (CMP) 08/01/2020 12:00:00 AM EST eCW1 ([facility]) Name Value Range Interpretation Code Description Data Iris rce(s) Supporting Document(s) 8 7-18 BLOOD UREA NITROGEN eCW1 ([facility]) 81 70-100 GLUCOSE, FASTING eCW1 ([facility]) 0.60 0.55-1.30 CREATININE FOR GFR eCW1 ([facility]) > 60.0 >58 GLOMERULAR FILTRATION RATE eCW 1 ([facility]) 138 136-145 SODIUM LEVEL eCW1 ([facility]) 3.5 3.5-5.1 POTASSIUM SERUM eCW1 ([facility]) 24 21-32 CARBON DIOXIDE LEVEL eCW1 ([facility]) 107 98-107 CHLORIDE LEVEL eCW1 ([facility]) 8.7 8.5-10.1 CALCIUM LEVEL eCW1 ([facility]) 19 7-37 AST/SGOT eCW1 ([facility]) 39 12-78 ALT/SGPT eCW1 ([facility]) 97 45-117 ALKALINE PHOSPHATASE eCW1 ([facility]) 0.4 0.2-1.0 BILIRUBIN,TOTAL eCW1 ([facility]) 6.8 6.4-8.2 TOTAL PROTEIN eCW1 ([facility]) 3.2 3.2-5.2 ALBUMIN eCW1 ([facility]) 0.9 1.2-2.2 ALBUMIN/GLOBULIN RATIO eCW1 ([facility]) ID Date Data Source [id number] 08/01/2020 12:00:00 AM EST eCW1 ([facility]) Name Value Range Interpretation Code Description Data Iris rce(s) Supporting Document(s) Hemoglobin A1c/Hemoglobin.total in Blood 4.9 HEMOGLOBIN A1c eCW1 ([facility]) ID Date Data Source PTH INTACT 08/01/2020 12:00:00 AM EST eCW1 ([facility]) Name Value Range Interpretation Code Description Data Iris rce(s) Supporting Document(s) 73.0 18.5-88.0 PTH INTACT eCW1 ([facility]) ID Date Data Source VITAMIN D 25-HYDROXY 08/01/2020 12:00:00 AM EST eCW1 ([facility]) Name Value Range Interpretation Code Description Data Iris rce(s) Supporting Document(s) 82.3 30.0-100.0 TOTAL 25(OH) VITAMIN D eC W1 ([facility] [facility] ID Date Data Source INSULIN LEVEL 08/01/2020 12:00:00 AM EST eCW1 ([facility]) Name Value Range Interpretation Code Description Data Iris rce(s) Supporting Document(s) 5.4 2.6-24.9 INSULIN LEVEL eCW1 ([facility]) ID Date Data Source [id number] 07/11/2020 08:58:48 AM EST [facility], PCName: Gloria AshrafchuyDOB: 1975Provider: Omar [...] today in theoffice. Indication: pain/dysfunction.); Status:Complete; Done: [id number] Perform:SOS14 (General); Due:[id number]; Last Updated By:Lisbeth Camacho; 07/05/2020 3:25:18 PM;Ordered; [...] document was dictated and electronically signed using [employer] Speaking software. A reasonable attempt at proof reading has been made to minimize errors. Please call with any questions. Signatures Electronically signed by : Shara Spicer PA-C; Jul 05 2020 3:55PM EST (Author) Electronically signed by : Nicole Morin M.D.; Jul 11 2020 8:58AM EST (Author) Name Value Range Interpretation Code Description Data Iris rce(s) Supporting Document(s) ID Date Data Source [id number] 06/21/2020 09:00:00 AM EST [facility] Name Value Range Interpretation Code Description Data Iris rce(s) Supporting Document(s) SARS coronavirus 2 RNA [facility] This lab was ordered by [facility] and reported by [facility]. ID Date Data Source [id number] 05/21/2020 12:00:00 AM EST [facility] Name Value Range Interpretation Code Description Data Iris rce(s) Supporting Document(s) SARS-CoV2 Rapid Antigen [facility] This lab was ordered by [facility] and reported by [facility]. ID Date Data Source [id number] 05/06/2020 12:00:00 AM EDT [facility] Name Value Range Interpretation Code Description Data Iris rce(s) Supporting Document(s) SARS coronavirus 2 RNA [Presence] in Res piratory specimen by DEZ with probe detection [facility] This lab was ordered by [facility] and reported by [facility]. Procedure Social History Code Duration Value Status Description Data Source(s ) Smoking 05/09/2021 12:00:00 AM EDT Former Smoker completed Former Smoker eCW1 ([facility]) Smoking 05/09/2021 12:00:00 AM EDT Former Smoker completed Former Smoker eCW1 ([facility]) Smoking 05/09/2021 12:00:00 AM EDT Former Smoker completed Former Smoker eCW1 ([facility]) Smoking 05/09/2021 12:00:00 AM EDT Former Smoker completed Former Smoker eCW1 ([facility]) Smoking 05/09/2021 12:00:00 AM EDT Former Smoker completed Former Smoker eCW1 ([facility]) Smoking 12/15/2020 12:00:00 AM EDT Former Smoker completed Former Smoker eCW1 ([facility]) Smoking 12/15/2020 12:00:00 AM EDT Former Smoker completed Former Smoker eCW1 ([facility]) Smoking 12/15/2020 12:00:00 AM EDT Former Smoker completed Former Smoker eCW1 ([facility]) Smoking 12/15/2020 12:00:00 AM EDT Former Smoker completed Former Smoker eCW1 ([facility]) Smoking 12/15/2020 12:00:00 AM EDT Former Smoker completed Former Smoker eCW1 ([facility]) Smoking 12/15/2020 12:00:00 AM EDT Former Smoker completed Former Smoker eCW1 ([facility]) Smoking 12/15/2020 12:00:00 AM EDT Former Smoker completed Former Smoker eCW1 ([facility]) Smoking 12/15/2020 12:00:00 AM EDT Former Smoker completed Former Smoker eCW1 ([facility]) Smoking 12/15/2020 12:00:00 AM EDT Former Smoker completed Former Smoker eCW1 ([facility]) Smoking 12/15/2020 12:00:00 AM EDT Former Smoker completed Former Smoker eCW1 ([facility]) Smoking 12/15/2020 12:00:00 AM EDT Former Smoker completed Former Smoker eCW1 ([facility]) Smoking 12/15/2020 12:00:00 AM EDT Former Smoker completed Former Smoker eCW1 ([facility]) Smoking 12/15/2020 12:00:00 AM EDT Former Smoker completed Former Smoker eCW1 ([facility]) Smoking 12/15/2020 12:00:00 AM EDT Former Smoker completed Former Smoker eCW1 ([facility]) Smoking 12/15/2020 12:00:00 AM EDT Former Smoker completed Former Smoker eCW1 ([facility]) Smoking 12/15/2020 12:00:00 AM EDT Former Smoker completed Former Smoker eCW1 ([facility]) Smoking 12/15/2020 12:00:00 AM EDT Former Smoker completed Former Smoker eCW1 ([facility]) Smoking 12/02/2020 12:00:00 AM EDT Former Smoker completed Former Smoker eCW1 ([facility]) Smoking 12/02/2020 12:00:00 AM EDT Former Smoker completed Former Smoker eCW1 ([facility]) Smoking 12/02/2020 12:00:00 AM EDT Former Smoker completed Former Smoker eCW1 ([facility]) Smoking 10/27/2020 12:00:00 AM EDT Former Smoker completed Former Smoker eCW1 ([facility]) Smoking 10/27/2020 12:00:00 AM EDT Former Smoker completed Former Smoker eCW1 ([facility]) Smoking 10/27/2020 12:00:00 AM EDT Former Smoker completed Former Smoker eCW1 ([facility]) Smoking 10/27/2020 12:00:00 AM EDT Former Smoker completed Former Smoker eCW1 ([facility]) Smoking 10/27/2020 12:00:00 AM EDT Former Smoker completed Former Smoker eCW1 ([facility]) Smoking 10/27/2020 12:00:00 AM EDT Former Smoker completed Former Smoker eCW1 ([facility]) Smoking 10/21/2020 12:00:00 AM EDT Former Smoker completed Former Smoker eCW1 ([facility]) Smoking 10/21/2020 12:00:00 AM EDT Former Smoker completed Former Smoker eCW1 ([facility]) Smoking 10/21/2020 12:00:00 AM EDT Former Smoker completed Former Smoker eCW1 ([facility]) Smoking 10/21/2020 12:00:00 AM EDT Former Smoker completed Former Smoker eCW1 ([facility]) Smoking 09/16/2020 12:00:00 AM EST Former Smoker completed Former Smoker eCW1 ([facility]) Smoking 09/16/2020 12:00:00 AM EST Former Smoker completed Former Smoker eCW1 ([facility]) Smoking 09/16/2020 12:00:00 AM EST Former Smoker completed Former Smoker eCW1 ([facility]) Smoking 07/27/2020 12:00:00 AM EST Former Smoker completed Former Smoker eCW1 ([facility]) Smoking 07/27/2020 12:00:00 AM EST Former Smoker completed Former Smoker eCW1 ([facility]) Smoking 07/27/2020 12:00:00 AM EST Former Smoker completed Former Smoker eCW1 ([facility]) Smoking 07/27/2020 12:00:00 AM EST Former Smoker completed Former Smoker eCW1 ([facility]) Smoking 07/27/2020 12:00:00 AM EST Former Smoker completed Former Smoker eCW1 ([facility]) Smoking 07/27/2020 12:00:00 AM EST Former Smoker completed Former Smoker eCW1 ([facility]) Smoking 07/27/2020 12:00:00 AM EST Former Smoker completed Former Smoker eCW1 ([facility]) Smoking 07/27/2020 12:00:00 AM EST Former Smoker completed Former Smoker eCW1 ([facility]) Vital Signs ID Date Data Source UNK Name Value Range Interpretation Code Description Data Source(s) Body weight 256 [lb_av] 256 [lb_av] eCW1 ([facility]) Body weight 116.12 kg 116.12 kg eCW1 ([facility]) Body height 68 [in_i] 68 [in_i] eCW1 ([facility]) Body mass index (BMI) [Ratio] 38.92 kg/m2 38.92 kg/m2 W1 ([facility]) Heart rate 84 /min 84 /min eCW1 ([facility]) Respiratory rate 18 /min 18 /min eCW1 ([facility]) Body temperature 97.4 [degF] 97.4 [degF] eCW1 ( [facility]) Systolic blood pressure 120 mm[Hg] 120 mm[Hg] e CW1 ([facility]) Diastolic blood pressure 78 mm[Hg] 78 mm[Hg] eCW1 ([facility]) Body weight 268 [lb_av] 268 [lb_av] eCW1 ([facility]) Body weight 121.56 kg 121.56 kg eCW1 ([facility]) Body height 68 [in_i] 68 [in_i] eCW1 ([facility]) Body mass index (BMI) [Ratio] 40.74 kg/m2 40.74 kg/m2 W1 ([facility]) Systolic blood pressure 110 mm[Hg] 110 mm[Hg] e CW1 ([facility]) Diastolic blood pressure 80 mm[Hg] 80 mm[Hg] eCW1 ([facility]) Body weight 269.4 [lb_av] 269.4 [lb_av] eCW1 ([facility]) Body height 68 [in_i] 68 [in_i] eCW1 ([facility]) Body mass index (BMI) [Ratio] 40.96 kg/m2 40.96 kg/m2 eCW1 ([facility]) Heart rate 96 /min 96 /min eCW1 ([facility]) Respiratory rate 20 /min 20 /min eCW1 ([facility]) Body temperature 97.6 [degF] 97.6 [degF] eCW1 ( [facility]) Systolic blood pressure 120 mm[Hg] 120 mm[Hg] e CW1 ([facility]) Diastolic blood pressure 78 mm[Hg] 78 mm[Hg] eCW1 ([facility]) Body weight 266.2 [lb_av] 266.2 [lb_av] eCW1 ([facility]) Body height 68 [in_i] 68 [in_i] eCW1 ([facility]) Body mass index (BMI) [Ratio] 40.47 kg/m2 40.47 kg/m2 eCW1 ([facility]) Systolic blood pressure 118 mm[Hg] 118 mm[Hg] e CW1 ([facility]) Diastolic blood pressure 72 mm[Hg] 72 mm[Hg] eCW1 ([facility]) Respiratory rate 18 /min 18 /min eCW1 ([facility]) Body weight 266.2 [lb_av] 266.2 [lb_av] eCW1 ([facility]) Body height 68 [in_i] 68 [in_i] eCW1 ([facility]) Body mass index (BMI) [Ratio] 40.47 kg/m2 40.47 kg/m2 eCW1 ([facility]) Heart rate 102 /min 102 /min eCW1 ([facility]) Body temperature 97 [degF] 97 [degF] eCW1 ([facility]) Systolic blood pressure 116 mm[Hg] 116 mm[Hg] e CW1 ([facility]) Diastolic blood pressure 74 mm[Hg] 74 mm[Hg] eCW1 ([facility]) Body weight 266.2 [lb_av] 266.2 [lb_av] eCW1 ([facility]) Body weight 266.2 [lb_av] 266.2 [lb_av] eCW1 ([facility]) Body height 68 [in_i] 68 [in_i] eCW1 ([facility]) Body height 68 [in_i] 68 [in_i] eCW1 ([facility]) Body mass index (BMI) [Ratio] 40.47 kg/m2 40.47 kg/m2 eCW1 ([facility]) Heart rate 102 /min 102 /min eCW1 ([facility]) Respiratory rate 18 /min 18 /min eCW1 ([facility]) Body temperature 97 [degF] 97 [degF] eCW1 ([facility]) Systolic blood pressure 116 mm[Hg] 116 mm[Hg] e CW1 ([facility]) Diastolic blood pressure 74 mm[Hg] 74 mm[Hg] eCW1 ([facility]) Body mass index (BMI) [Ratio] 40.47 kg/m2 40.47 kg/m2 eCW1 ([facility]) Heart rate 102 /min 102 /min eCW1 ([facility]) Respiratory rate 18 /min 18 /min eCW1 ([facility]) Body temperature 97 [degF] 97 [degF] eCW1 ([facility]) Systolic blood pressure 116 mm[Hg] 116 mm[Hg] e CW1 ([facility]) Diastolic blood pressure 74 mm[Hg] 74 mm[Hg] eCW1 ([facility]) Patient Treatment Plan of Care Planned Activity Planned Date Details Description Data Source (s) Carisoprodol 350 MG Oral Tablet [Soma] 04/28/2021 12:00:00 AM EDT eCW1 ([facility]) Carisoprodol 350 MG Oral Tablet [Soma] 04/28/2021 12:00:00 AM EDT eCW1 ([facility]) Carisoprodol 350 MG Oral Tablet [Soma] 04/28/2021 12:00:00 AM EDT eCW1 ([facility]) Carisoprodol 350 MG Oral Tablet [Soma] 04/28/2021 12:00:00 AM EDT eCW1 ([facility]) Carisoprodol 350 MG Oral Tablet [Soma] 04/28/2021 12:00:00 AM EDT eCW1 ([facility]) Carisoprodol 350 MG Oral Tablet [Soma] 04/28/2021 12:00:00 AM EDT eCW1 ([facility]) Acetaminophen 325 MG / Oxycodone Hydrochloride 7.5 MG Oral Tablet [Percocet] 04/11/2021 12:00:00 AM EDT eCW1 ([facility]) Clonazepam 1 MG Oral Tablet 04/11/2021 12:00:00 AM EDT eCW1 ([facility]) Acetaminophen 325 MG / Oxycodone Hydrochloride 7.5 MG Oral Tablet [Percocet] 04/11/2021 12:00:00 AM EDT eCW1 ([facility]) Clonazepam 1 MG Oral Tablet 04/11/2021 12:00:00 AM EDT eCW1 ([facility]) Acetaminophen 325 MG / Oxycodone Hydrochloride 7.5 MG Oral Tablet [Percocet] 04/11/2021 12:00:00 AM EDT eCW1 ([facility]) Acetaminophen 325 MG / Oxycodone Hydrochloride 7.5 MG Oral Tablet [Percocet] 04/11/2021 12:00:00 AM EDT eCW1 ([facility]) Clonazepam 1 MG Oral Tablet 04/11/2021 12:00:00 AM EDT eCW1 ([facility]) Acetaminophen 325 MG / Oxycodone Hydrochloride 7.5 MG Oral Tablet [Percocet] 04/11/2021 12:00:00 AM EDT eCW1 ([facility]) Clonazepam 1 MG Oral Tablet 04/11/2021 12:00:00 AM EDT eCW1 ([facility]) Acetaminophen 325 MG / Oxycodone Hydrochloride 7.5 MG Oral Tablet [Percocet] 04/11/2021 12:00:00 AM EDT eCW1 ([facility]) Clonazepam 1 MG Oral Tablet 04/11/2021 12:00:00 AM EDT eCW1 ([facility]) Clonazepam 1 MG Oral Tablet 04/11/2021 12:00:00 AM EDT eCW1 ([facility]) Acetaminophen 325 MG / Oxycodone Hydrochloride 7.5 MG Oral Tablet [Percocet] 04/11/2021 12:00:00 AM EDT eCW1 ([facility]) Clonazepam 1 MG Oral Tablet 04/11/2021 12:00:00 AM EDT eCW1 ([facility]) Zolpidem tartrate 5 MG Oral Tablet [Ambien] 03/09/2021 12:00:00 AM EDT eCW1 ([facility]) Zolpidem tartrate 5 MG Oral Tablet [Ambien] 03/09/2021 12:00:00 AM EDT eCW1 ([facility]) Zolpidem tartrate 5 MG Oral Tablet [Ambien] 03/09/2021 12:00:00 AM EDT eCW1 ([facility]) Zolpidem tartrate 5 MG Oral Tablet [Ambien] 03/09/2021 12:00:00 AM EDT eCW1 ([facility]) Zolpidem tartrate 5 MG Oral Tablet [Ambien] 03/09/2021 12:00:00 AM EDT eCW1 ([facility]) Zolpidem tartrate 5 MG Oral Tablet [Ambien] 03/09/2021 12:00:00 AM EDT eCW1 ([facility]) Zolpidem tartrate 5 MG Oral Tablet [Ambien] 03/09/2021 12:00:00 AM EDT eCW1 ([facility]) Acetaminophen 325 MG / Oxycodone Hydrochloride 7.5 MG Oral Tablet [Percocet] 03/09/2021 12:00:00 AM EDT eCW1 ([facility]) Clonazepam 1 MG Oral Tablet 03/09/2021 12:00:00 AM EDT eCW1 ([facility]) Zolpidem tartrate 5 MG Oral Tablet [Ambien] 03/09/2021 12:00:00 AM EDT eCW1 ([facility]) Acetaminophen 325 MG / Oxycodone Hydrochloride 7.5 MG Oral Tablet [Percocet] 02/09/2021 12:00:00 AM EDT eCW1 ([facility]) Acetaminophen 325 MG / Oxycodone Hydrochloride 7.5 MG Oral Tablet [Percocet] 02/09/2021 12:00:00 AM EDT eCW1 ([facility]) Acetaminophen 325 MG / Oxycodone Hydrochloride 7.5 MG Oral Tablet [Percocet] 01/10/2021 12:00:00 AM EDT eCW1 ([facility]) Acetaminophen 325 MG / Oxycodone Hydrochloride 7.5 MG Oral Tablet [Percocet] 12/13/2020 12:00:00 AM EDT eCW1 ([facility]) Acetaminophen 325 MG / Oxycodone Hydrochloride 7.5 MG Oral Tablet [Percocet] 12/13/2020 12:00:00 AM EDT eCW1 ([facility]) alosetron 0.5 MG Oral Tablet [Lotronex] 12/05/2020 12:00:00 AM EDT eCW1 ([facility]) alosetron 0.5 MG Oral Tablet [Lotronex] 12/05/2020 12:00:00 AM EDT eCW1 ([facility]) alosetron 0.5 MG Oral Tablet [Lotronex] 12/05/2020 12:00:00 AM EDT eCW1 ([facility]) alosetron 0.5 MG Oral Tablet [Lotronex] 12/05/2020 12:00:00 AM EDT eCW1 ([facility]) alosetron 0.5 MG Oral Tablet [Lotronex] 12/05/2020 12:00:00 AM EDT eCW1 ([facility]) COMPRESSION STOCKINGS 20-30 mmHg 12/02/2020 12:00:00 AM EDT eCW1 ([facility]) COMPRESSION STOCKINGS 20-30 mmHg 12/02/2020 12:00:00 AM EDT eCW1 ([facility]) COMPRESSION STOCKINGS 20-30 mmHg 12/02/2020 12:00:00 AM EDT eCW1 ([facility]) COMPRESSION STOCKINGS 20-30 mmHg 12/02/2020 12:00:00 AM EDT eCW1 ([facility]) COMPRESSION STOCKINGS 20-30 mmHg 12/02/2020 12:00:00 AM EDT eCW1 ([facility]) COMPRESSION STOCKINGS 20-30 mmHg 12/02/2020 12:00:00 AM EDT eCW1 ([facility]) COMPRESSION STOCKINGS 20-30 mmHg 12/02/2020 12:00:00 AM EDT eCW1 ([facility]) COMPRESSION STOCKINGS 20-30 mmHg 12/02/2020 12:00:00 AM EDT eCW1 ([facility]) COMPRESSION STOCKINGS 20-30 mmHg 12/02/2020 12:00:00 AM EDT eCW1 ([facility]) COMPRESSION STOCKINGS 20-30 mmHg 12/02/2020 12:00:00 AM EDT eCW1 ([facility]) COMPRESSION STOCKINGS 20-30 mmHg 12/02/2020 12:00:00 AM EDT eCW1 ([facility]) COMPRESSION STOCKINGS 20-30 mmHg 12/02/2020 12:00:00 AM EDT eCW1 ([facility]) COMPRESSION STOCKINGS 20-30 mmHg 12/02/2020 12:00:00 AM EDT eCW1 ([facility]) COMPRESSION STOCKINGS 20-30 mmHg 12/02/2020 12:00:00 AM EDT eCW1 ([facility]) Acetaminophen 325 MG / Oxycodone Hydrochloride 7.5 MG Oral Tablet [Percocet] 11/22/2020 12:00:00 AM EDT eCW1 ([facility]) Acetaminophen 325 MG / Oxycodone Hydrochloride 7.5 MG Oral Tablet [Percocet] 11/22/2020 12:00:00 AM EDT eCW1 ([facility]) Acetaminophen 325 MG / Oxycodone Hydrochloride 7.5 MG Oral Tablet [Percocet] 11/22/2020 12:00:00 AM EDT eCW1 ([facility]) Metronidazole 500 MG Oral Tablet 10/27/2020 12:00:00 AM EDT eCW1 ([facility]) Metronidazole 500 MG Oral Tablet 10/27/2020 12:00:00 AM EDT eCW1 ([facility]) Metronidazole 500 MG Oral Tablet 10/27/2020 12:00:00 AM EDT eCW1 ([facility]) Acetaminophen 325 MG / Oxycodone Hydrochloride 7.5 MG Oral Tablet [Percocet] 10/21/2020 12:00:00 AM EDT eCW1 ([facility]) Acetaminophen 325 MG / Oxycodone Hydrochloride 7.5 MG Oral Tablet [Percocet] 10/21/2020 12:00:00 AM EDT eCW1 ([facility]) Acetaminophen 325 MG / Oxycodone Hydrochloride 7.5 MG Oral Tablet [Percocet] 10/21/2020 12:00:00 AM EDT eCW1 ([facility]) Acetaminophen 325 MG / Oxycodone Hydrochloride 7.5 MG Oral Tablet [Percocet] 10/21/2020 12:00:00 AM EDT eCW1 ([facility]) Acetaminophen 325 MG / Oxycodone Hydrochloride 7.5 MG Oral Tablet [Percocet] 09/22/2020 12:00:00 AM EST eCW1 ([facility]) Acetaminophen 325 MG / Oxycodone Hydrochloride 7.5 MG Oral Tablet [Percocet] 08/18/2020 12:00:00 AM EST eCW1 ([facility]) Acetaminophen 325 MG / Oxycodone Hydrochloride 7.5 MG Oral Tablet [Percocet] 08/18/2020 12:00:00 AM EST eCW1 ([facility]) Acetaminophen 325 MG / Oxycodone Hydrochloride 7.5 MG Oral Tablet [Percocet] 08/18/2020 12:00:00 AM EST eCW1 ([facility]) Acetaminophen 325 MG / Oxycodone Hydrochloride 7.5 MG Oral Tablet [Percocet] 08/18/2020 12:00:00 AM EST eCW1 ([facility]) Acetaminophen 325 MG / Oxycodone Hydrochloride 7.5 MG Oral Tablet [Percocet] 08/18/2020 12:00:00 AM EST eCW1 ([facility]) Acetaminophen 325 MG / Oxycodone Hydrochloride 7.5 MG Oral Tablet [Percocet] 08/18/2020 12:00:00 AM EST eCW1 ([facility]) quetiapine 50 MG Oral Tablet 07/27/2020 12:00:00 AM EST eCW1 ([facility]) Hyoscyamine Sulfate 0.125 MG Oral Tablet 07/27/2020 12:00:00 AM EST eCW1 ([facility]) quetiapine 50 MG Oral Tablet 07/27/2020 12:00:00 AM EST eCW1 ([facility]) Hyoscyamine Sulfate 0.125 MG Oral Tablet 07/27/2020 12:00:00 AM EST eCW1 ([facility]) quetiapine 50 MG Oral Tablet 07/27/2020 12:00:00 AM EST eCW1 ([facility]) Hyoscyamine Sulfate 0.125 MG Oral Tablet 07/27/2020 12:00:00 AM EST eCW1 ([facility]) quetiapine 50 MG Oral Tablet 07/27/2020 12:00:00 AM EST eCW1 ([facility]) Hyoscyamine Sulfate 0.125 MG Oral Tablet 07/27/2020 12:00:00 AM EST eCW1 ([facility]) quetiapine 50 MG Oral Tablet 07/27/2020 12:00:00 AM EST eCW1 ([facility]) Hyoscyamine Sulfate 0.125 MG Oral Tablet 07/27/2020 12:00:00 AM EST eCW1 ([facility]) quetiapine 50 MG Oral Tablet 07/27/2020 12:00:00 AM EST eCW1 ([facility]) quetiapine 50 MG Oral Tablet 07/27/2020 12:00:00 AM EST eCW1 ([facility]) quetiapine 50 MG Oral Tablet 07/27/2020 12:00:00 AM EST eCW1 ([facility]) Hyoscyamine Sulfate 0.125 MG Oral Tablet 07/27/2020 12:00:00 AM EST eCW1 ([facility]) quetiapine 50 MG Oral Tablet 07/27/2020 12:00:00 AM EST eCW1 ([facility]) Hyoscyamine Sulfate 0.125 MG Oral Tablet 07/27/2020 12:00:00 AM EST eCW1 ([facility]) quetiapine 50 MG Oral Tablet 07/27/2020 12:00:00 AM EST eCW1 ([facility]) Hyoscyamine Sulfate 0.125 MG Oral Tablet 07/27/2020 12:00:00 AM EST eCW1 ([facility]) quetiapine 50 MG Oral Tablet 07/27/2020 12:00:00 AM EST eCW1 ([facility]) Acetaminophen 325 MG / Oxycodone Hydrochloride 7.5 MG Oral Tablet [Percocet] 06/20/2020 12:00:00 AM EST eCW1 ([facility]) Acetaminophen 325 MG / Oxycodone Hydrochloride 7.5 MG Oral Tablet [Percocet] 06/20/2020 12:00:00 AM EST eCW1 ([facility]) Acetaminophen 325 MG / Oxycodone Hydrochloride 7.5 MG Oral Tablet [Percocet] 06/20/2020 12:00:00 AM EST eCW1 ([facility]) Ondansetron HCl 4 MG 06/17/2020 12:00:00 AM EST eCW1 ([facility]) Ondansetron HCl 4 MG 06/17/2020 12:00:00 AM EST eCW1 ([facility]) Ondansetron HCl 4 MG 06/17/2020 12:00:00 AM EST eCW1 ([facility]) Ondansetron HCl 4 MG 06/17/2020 12:00:00 AM EST eCW1 ([facility]) Ondansetron HCl 4 MG 06/17/2020 12:00:00 AM EST eCW1 ([facility]) Ondansetron HCl 4 MG 06/17/2020 12:00:00 AM EST eCW1 ([facility]) Ondansetron HCl 4 MG 06/17/2020 12:00:00 AM EST eCW1 ([facility]) Ondansetron HCl 4 MG 06/17/2020 12:00:00 AM EST eCW1 ([facility]) Ondansetron HCl 4 MG 06/17/2020 12:00:00 AM EST eCW1 ([facility]) Acetaminophen 325 MG / Oxycodone Hydrochloride 7.5 MG Oral Tablet [Percocet] 05/24/2020 12:00:00 AM EST eCW1 ([facility]) Acetaminophen 325 MG / Oxycodone Hydrochloride 7.5 MG Oral Tablet [Percocet] 05/24/2020 12:00:00 AM EST eCW1 ([facility]) Acetaminophen 325 MG / Oxycodone Hydrochloride 7.5 MG Oral Tablet [Percocet] 05/24/2020 12:00:00 AM EST eCW1 ([facility]) Acetaminophen 325 MG / Oxycodone Hydrochloride 7.5 MG Oral Tablet [Percocet] 05/24/2020 12:00:00 AM EST eCW1 ([facility]) Acetaminophen 325 MG / Oxycodone Hydrochloride 7.5 MG Oral Tablet [Percocet] 05/10/2020 12:00:00 AM EDT eCW1 ([facility]) Acetaminophen 325 MG / Oxycodone Hydrochloride 7.5 MG Oral Tablet [Percocet] 05/10/2020 12:00:00 AM EDT eCW1 ([facility]) Acetaminophen 325 MG / Oxycodone Hydrochloride 7.5 MG Oral Tablet [Percocet] 05/10/2020 12:00:00 AM EDT eCW1 ([facility]) Acetaminophen 325 MG / Oxycodone Hydrochloride 7.5 MG Oral Tablet [Percocet] 05/10/2020 12:00:00 AM EDT eCW1 ([facility])
[2021-05-24 01:17] VITALS: BP 141/80
[2021-05-24 01:38] LABS: RSV AMPLIFICATION NEGATIVE (NEGATIVE)
--- NOTE | 2021-05-24 20:30 | ECGEPIP ---
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
== END 2021-05-24 01:20 | disposition home or self-care (01) ==
LOC: M ED 17:41
DX: M79.10 Myalgia, unspecified site (principal); R53.83 Other fatigue; R50.9 Fever, unspecified; R07.89 Other chest pain; J02.9 Acute pharyngitis, unspecified; I50.9 Heart failure, unspecified; R10.12 Left upper quadrant pain; G43.909 Migraine, unspecified, not intractable, without status migrainosus; D86.9 Sarcoidosis, unspecified; K58.8 Other irritable bowel syndrome; F41.9 Anxiety disorder, unspecified; F32.A Depression, unspecified; Z88.1 Allergy status to other antibiotic agents; Z88.8 Allergy status to other drugs, medicaments and biological substances; Z79.899 Other long term (current) drug therapy

== ENCOUNTER → 2021-05-26 | Outpatient (CLI) | payer BC ==
[~2021-05-26] MED LIST changes: +LEVAINH
[2021-05-26 15:24] LABS: FREE T4 0.97 NG/DL (0.76-1.46); THYROID STIMULATING HORMONE 0.534 uIU/ML (0.358-3.740)
[2021-05-26 15:26] LABS: TOTAL 25(OH) VITAMIN D 73.2 NG/ML (30.0-100.0)
[2021-05-27 16:08] LABS: EBV VIRAL CAPSID AG IgG >600.0 U/mL (0.0-17.9); EBV VIRAL CAPSID AG IgM <36.0 U/mL (0.0-35.9); H PYLORI SERUM QUANT IGA <9.0 units (0.0-8.9); Lyme Disease IgG/IgM Antibodie <0.91 ISR (0.00-0.90); Lyme Disease IgM Ab Quantitati <0.80 index (0.00-0.79)
== END ==
LOC: M LAB 14:00
PROVIDERS: ATTEND Physician Assistant
DX: R53.83 Other fatigue (principal); R11.0 Nausea; R42 Dizziness and giddiness

== ENCOUNTER → 2021-06-19 | Outpatient (REF) | payer BC ==
[2021-06-19 13:35] LABS: ALBUMIN 3.3 GM/DL (3.2-5.2); ALT/SGPT 23 U/L (12-78); BILIRUBIN,TOTAL 0.2 MG/DL (0.2-1.0); BLOOD UREA NITROGEN 14 MG/DL (7-18); C REACTIVE PROTEIN QUANTITATIV 2.46 MG/DL (0.00-0.30); CALCIUM LEVEL 9.1 MG/DL (8.5-10.1); CARBON DIOXIDE LEVEL 23 MEQ/L (21-32); CHLORIDE LEVEL 109 MEQ/L (98-107); CREATININE FOR GFR 0.73 MG/DL (0.55-1.30); GLOMERULAR FILTRATION RATE > 60.0 (>58); GLUCOSE, FASTING 107 MG/DL (70-100); PHOSPHORUS LEVEL 4.2 MG/DL (2.5-4.9); POTASSIUM SERUM 4.4 MEQ/L (3.5-5.1); PTH INTACT 104.6 PG/ML (18.5-88.0); SODIUM LEVEL 139 MEQ/L (136-145); TOTAL 25(OH) VITAMIN D 92.9 NG/ML (30.0-100.0)
[2021-06-19 14:38] LABS: HEMOGLOBIN A1c 4.8 %
[2021-06-22 16:09] LABS: ANGIOTENSIN 1 CONVERTING ENZYM 39 U/L (14-82); Chitobioside Carbohydrat (ACCA 80 units (0-90); INSULIN LEVEL 18.6 uIU/mL (2.6-24.9); Laminaribioside Carbohyd (ALCA 6 units (0-60); Mannobioside Carbohydrat (AMCA 21 units (0-100); Saccharomyces cerevisiae IgG A 18 units (0-50)
== END ==
LOC: M LAB REF 11:33
PROVIDERS: ATTEND Family Medicine
DX: K58.0 Irritable bowel syndrome with diarrhea (principal); E55.9 Vitamin D deficiency, unspecified; D86.9 Sarcoidosis, unspecified; R73.01 Impaired fasting glucose; M50.30 Other cervical disc degeneration, unspecified cervical region

== ENCOUNTER → 2021-06-20 | Outpatient (CLI) | payer BC ==
--- NOTE | 2021-06-20 14:22 | REP ---
INDICATION: RIB PAIN ON LEFT SIDE COMPARISON: None. TECHNIQUE: Frontal view of the chest with multiple views of the left hemithorax. Five total views FINDINGS: Frontal view of the chest demonstrates no acute cardiopulmonary process, contusion, effusion, or pneumothorax. Multiple views of the left hemithorax demonstrates no acute rib fracture/injury or pathology. IMPRESSION: Normal rib series. <Electronically signed by Micheal Resendez > 06/20/21 [id number]
== END ==
LOC: M RAD 13:53
PROVIDERS: ATTEND Family Medicine
DX: R07.81 Pleurodynia (principal)

== ENCOUNTER → 2021-07-24 | Outpatient (REF) | LOC: M LABSMTC 11:26 | PROVIDERS: ATTEND Family Medicine | DX: Z20.822 Contact with and (suspected) exposure to COVID-19 (principal) ==

== ENCOUNTER 2021-07-29 17:01 | Emergency (ER) | payer BC ==
[~2021-07-29] VITALS: Ht 177.8 cm; Wt 117.8 kg
[2021-07-29 17:45] LABS: BASO # 0.1 10^3/uL (0.0-0.2); BASO % 0.9 % (0.0-1.0); EOS # 0.1 10^3/uL (0.0-0.5); EOS % 1.1 % (0.0-3.0); HEMATOCRIT 37.5 % (36.0-47.0); HEMOGLOBIN 12.3 g/dl (12.0-15.5); LYMPH # 2.7 10^3/uL (1.5-5.0); MEAN CORPUSCULAR HEMOGLOBIN 29.1 pg (27.0-33.0); MEAN CORPUSCULAR HGB CONC 32.8 g/dl (32.0-36.5); MEAN CORPUSCULAR VOLUME 88.9 fl (80.0-96.0); MONO # 0.5 10^3/uL (0.0-0.8); NEUTROPHILS # 5.9 10^3/uL (1.5-8.5); NEUTROPHILS % 63.7 % (36.0-66.0); PLATELET COUNT, AUTOMATED 369 10^3/uL (150-450); RED BLOOD COUNT 4.22 10^6/uL (4.00-5.40); WHITE BLOOD COUNT 9.3 10^3/uL (4.0-10.0)
[2021-07-29 18:13] LABS: CK-MB VALUE MASS 2.1 NG/ML (<3.6); CPK CREATINE PHOSPHOKINASE 81 U/L (26-192); MB/CK RELATIVE INDEX 2.59 (< OR =4)
[2021-07-29 18:15] LABS: HCG, SERUM QUALITATIVE NEGATIVE (NEGATIVE)
[2021-07-29] MEDS ORDERED: CEPH500C (18:46)
[2021-07-29] MEDS ORDERED: MUPI2OI (18:46)
[2021-07-29] MEDS ORDERED: PENI500T (18:46)
[2021-07-29] MEDS ORDERED: GNP250TA9 PO (18:46)
[2021-07-29] MEDS ORDERED: ARIP1TAB4 (18:46)
[2021-07-29 19:06] LABS: CK-MB VALUE MASS 1.7 NG/ML (<3.6); MB/CK RELATIVE INDEX 2.36 (< OR =4)
[2021-07-29 19:11] LABS: ALBUMIN 3.1 GM/DL (3.2-5.2); ALT/SGPT 32 U/L (12-78); BILIRUBIN,DIRECT < 0.1 MG/DL (0.0-0.2); BILIRUBIN,TOTAL < 0.1 MG/DL (0.2-1.0); BLOOD UREA NITROGEN 14 MG/DL (7-18); CALCIUM LEVEL 8.7 MG/DL (8.5-10.1); CARBON DIOXIDE LEVEL 25 MEQ/L (21-32); CHLORIDE LEVEL 109 MEQ/L (98-107); CREATININE FOR GFR 0.61 MG/DL (0.55-1.30); FREE T4 1.02 NG/DL (0.76-1.46); GLOMERULAR FILTRATION RATE > 60.0 (>58); GLUCOSE, FASTING 91 MG/DL (70-100); LIPASE 106 U/L (73-393); POTASSIUM SERUM 3.3 MEQ/L (3.5-5.1); SODIUM LEVEL 142 MEQ/L (136-145); THYROID STIMULATING HORMONE 0.969 uIU/ML (0.358-3.740); TOTAL PROTEIN 7.1 GM/DL (6.4-8.2)
[2021-07-29 19:45] VITALS: BP 122/71
== END 2021-07-29 20:09 | disposition home or self-care (01) ==
LOC: M ED 17:01
DX: R07.9 Chest pain, unspecified (principal); K58.9 Irritable bowel syndrome, unspecified; Z90.49 Acquired absence of other specified parts of digestive tract; Z88.8 Allergy status to other drugs, medicaments and biological substances; Z91.048 Other nonmedicinal substance allergy status; Z79.899 Other long term (current) drug therapy

== ENCOUNTER 2021-08-28 19:40 | Emergency (ER) | payer BC ==
[~2021-08-28] VITALS: Ht 177.8 cm; Wt 118.5 kg
[~2021-08-28 19:40] MED LIST changes: -BELB150M BUC; -ISOVUE-370 76% 100ML VIAL As Ordered ONE
[2021-08-28 19:41] VITALS: BP 117/65
[2021-08-28] MEDS ORDERED: BELB150M BUC (19:58)
[2021-08-29] MEDS ORDERED: ISOVUE-370 76% 100ML VIAL As Ordered ONE (18:05)
== END 2021-08-28 20:40 | disposition left against medical advice (07) ==
LOC: M ED 19:40
DX: Z53.21 Procedure and treatment not carried out due to patient leaving prior to being seen by health care provider (principal)

== ENCOUNTER → 2021-08-28 | Outpatient (CLI) | payer BC ==
[~2021-08-28] MED LIST changes: +ARIP1TAB4; +BELB150M BUC; +CEPH500C; +GNP250TA9 PO; +ISOVUE-370 76% 100ML VIAL As Ordered ONE; +MUPI2OI; +PENI500T
== END ==
LOC: M RAD 08:01
PROVIDERS: ATTEND Family Medicine
DX: I72.8 Aneurysm of other specified arteries (principal)
CPT/HCPCS: 74175; Q9967

== ENCOUNTER 2021-08-30 13:04 | Emergency (ER) | payer BC ==
[~2021-08-30] VITALS: Ht 177.8 cm; Wt 118.4 kg
[~2021-08-30 13:04] MED LIST changes: +BELB150M BUC
[2021-08-30 13:12] VITALS: BP 132/71
[2021-08-30 14:51] LABS: BASO # 0.1 10^3/uL (0.0-0.2); BASO % 0.8 % (0.0-1.0); EOS # 0.1 10^3/uL (0.0-0.5); EOS % 1.4 % (0.0-3.0); HEMATOCRIT 30.8 % (36.0-47.0); HEMOGLOBIN 9.8 g/dl (12.0-15.5); LYMPH # 1.9 10^3/uL (1.5-5.0); LYMPH % 26.2 % (24.0-44.0); MEAN CORPUSCULAR HEMOGLOBIN 28.7 pg (27.0-33.0); MEAN CORPUSCULAR HGB CONC 31.8 g/dl (32.0-36.5); MEAN CORPUSCULAR VOLUME 90.3 fl (80.0-96.0); MONO # 0.4 10^3/uL (0.0-0.8); MONO % 5.3 % (2.0-8.0); NEUTROPHILS # 4.8 10^3/uL (1.5-8.5); PLATELET COUNT, AUTOMATED 281 10^3/uL (150-450); RED BLOOD COUNT 3.41 10^6/uL (4.00-5.40); WHITE BLOOD COUNT 7.2 10^3/uL (4.0-10.0)
[2021-08-30 15:26] LABS: ALBUMIN 2.8 GM/DL (3.2-5.2); ALT/SGPT 31 U/L (12-78); BILIRUBIN,TOTAL 0.2 MG/DL (0.2-1.0); BLOOD UREA NITROGEN 12 MG/DL (7-18); CALCIUM LEVEL 8.7 MG/DL (8.5-10.1); CARBON DIOXIDE LEVEL 24 MEQ/L (21-32); CHLORIDE LEVEL 108 MEQ/L (98-107); CREATININE FOR GFR 0.66 MG/DL (0.55-1.30); GLOMERULAR FILTRATION RATE > 60.0 (>58); GLUCOSE, FASTING 84 MG/DL (70-100); NT-PRO BNP 296 PG/ML (<125); POTASSIUM SERUM 4.2 MEQ/L (3.5-5.1); SODIUM LEVEL 139 MEQ/L (136-145); TOTAL PROTEIN 5.9 GM/DL (6.4-8.2)
[2021-08-30] MEDS ORDERED: CARA1TAB6 PO (17:43)
[2021-08-30 18:36] LABS: FERRITIN 24 NG/ML (8-252); IRON (FE) 62 UG/DL (50-170); PERCENT SATURATION 16.8 % (13.2-45.0); TOTAL IRON BINDING CAPACITY 368 UG/DL (250-450)
[2021-08-30 18:53] LABS: FOLATE > 24.0 NG/ML (>5.4)
== END 2021-08-30 18:04 | disposition home or self-care (01) ==
LOC: M ED 13:04
DX: R22.43 Localized swelling, mass and lump, lower limb, bilateral (principal); I87.2 Venous insufficiency (chronic) (peripheral); L97.909 Non-pressure chronic ulcer of unspecified part of unspecified lower leg with unspecified severity; D64.9 Anemia, unspecified; F41.8 Other specified anxiety disorders; F32.A Depression, unspecified; Z88.1 Allergy status to other antibiotic agents; Z88.8 Allergy status to other drugs, medicaments and biological substances; Z91.09 Other allergy status, other than to drugs and biological substances; Z87.891 Personal history of nicotine dependence; Z79.899 Other long term (current) drug therapy

== ENCOUNTER → 2021-09-14 | Outpatient (REF) | payer BC ==
[~2021-09-14] MED LIST changes: +CARA1TAB6 PO
[2021-09-14 13:59] LABS: BASO # 0.1 10^3/uL (0.0-0.2); BASO % 0.8 % (0.0-1.0); EOS # 0.1 10^3/uL (0.0-0.5); EOS % 0.7 % (0.0-3.0); HEMATOCRIT 35.2 % (36.0-47.0); HEMOGLOBIN 11.3 g/dl (12.0-15.5); LYMPH # 1.5 10^3/uL (1.5-5.0); MEAN CORPUSCULAR HEMOGLOBIN 28.3 pg (27.0-33.0); MEAN CORPUSCULAR HGB CONC 32.1 g/dl (32.0-36.5); MEAN CORPUSCULAR VOLUME 88.2 fl (80.0-96.0); MONO # 0.5 10^3/uL (0.0-0.8); MONO % 5.4 % (2.0-8.0); NEUTROPHILS # 7.6 10^3/uL (1.5-8.5); NEUTROPHILS % 77.7 % (36.0-66.0); PLATELET COUNT, AUTOMATED 376 10^3/uL (150-450); RED BLOOD COUNT 3.99 10^6/uL (4.00-5.40); WHITE BLOOD COUNT 9.8 10^3/uL (4.0-10.0)
[2021-09-14 14:41] LABS: ALBUMIN 3.3 GM/DL (3.2-5.2); ALT/SGPT 27 U/L (12-78); BILIRUBIN,TOTAL 0.3 MG/DL (0.2-1.0); BLOOD UREA NITROGEN 13 MG/DL (7-18); CALCIUM LEVEL 9.4 MG/DL (8.5-10.1); CARBON DIOXIDE LEVEL 23 MEQ/L (21-32); CHLORIDE LEVEL 110 MEQ/L (98-107); CREATININE FOR GFR 0.64 MG/DL (0.55-1.30); GLOMERULAR FILTRATION RATE > 60.0 (>58); GLUCOSE, FASTING 111 MG/DL (70-100); NT-PRO BNP 430 PG/ML (<125); POTASSIUM SERUM 3.9 MEQ/L (3.5-5.1); SODIUM LEVEL 141 MEQ/L (136-145)
[2021-09-14 14:42] LABS: FERRITIN 17 NG/ML (8-252)
== END ==
LOC: M LAB REF 13:15
PROVIDERS: ATTEND Family Medicine
DX: D50.9 Iron deficiency anemia, unspecified (principal); G89.4 Chronic pain syndrome

== ENCOUNTER → 2021-09-15 | Outpatient (CLI) | payer BC | LOC: M CARPUL 08:23 | PROVIDERS: ATTEND Family Medicine | DX: R01.1 Cardiac murmur, unspecified (principal) ==

== ENCOUNTER → 2021-10-05 | Outpatient (CLI) | payer BC | LOC: M RAD 14:15 | PROVIDERS: ATTEND Physician Assistant | DX: M79.672 Pain in left foot (principal) ==

== ENCOUNTER → 2021-10-09 | Outpatient (CLI) | payer BC | LOC: M RAD 08:15 | PROVIDERS: ATTEND Family Medicine | DX: I87.2 Venous insufficiency (chronic) (peripheral) (principal) ==

== ENCOUNTER → 2021-10-11 | Outpatient (CLI) | payer BC | LOC: M RAD 11:37 | PROVIDERS: ATTEND Family Medicine | DX: R11.0 Nausea (principal) | CPT/HCPCS: 78264; A9541 ==

== ENCOUNTER → 2021-10-13 | Outpatient (REF) | payer BC ==
[2021-10-13 16:14] LABS: BASO # 0.1 10^3/uL (0.0-0.2); BASO % 0.5 % (0.0-1.0); EOS % 0.4 % (0.0-3.0); HEMATOCRIT 36.2 % (36.0-47.0); HEMOGLOBIN 11.7 g/dl (12.0-15.5); LYMPH # 1.4 10^3/uL (1.5-5.0); MEAN CORPUSCULAR HEMOGLOBIN 28.5 pg (27.0-33.0); MEAN CORPUSCULAR HGB CONC 32.3 g/dl (32.0-36.5); MEAN CORPUSCULAR VOLUME 88.3 fl (80.0-96.0); MONO # 0.4 10^3/uL (0.0-0.8); MONO % 3.3 % (2.0-8.0); NEUTROPHILS % 82.4 % (36.0-66.0); PLATELET COUNT, AUTOMATED 327 10^3/uL (150-450); WHITE BLOOD COUNT 10.9 10^3/uL (4.0-10.0)
[2021-10-13 16:44] LABS: ALBUMIN 3.2 GM/DL (3.2-5.2); ALT/SGPT 31 U/L (12-78); BILIRUBIN,TOTAL 0.3 MG/DL (0.2-1.0); BLOOD UREA NITROGEN 14 MG/DL (7-18); C REACTIVE PROTEIN QUANTITATIV 1.42 MG/DL (0.00-0.30); CARBON DIOXIDE LEVEL 25 MEQ/L (21-32); CHLORIDE LEVEL 108 MEQ/L (98-107); FERRITIN 25 NG/ML (8-252); GLOMERULAR FILTRATION RATE > 60.0 (>58); GLUCOSE, FASTING 88 MG/DL (70-100); MAGNESIUM LEVEL 2.1 MG/DL (1.8-2.4); NT-PRO BNP 295 PG/ML (<125); POTASSIUM SERUM 4.1 MEQ/L (3.5-5.1); RHEUMATOID FACTOR QUANT < 10.0 IU/ML (<15.0); SODIUM LEVEL 138 MEQ/L (136-145); TOTAL PROTEIN 6.7 GM/DL (6.4-8.2)
[2021-10-13 16:49] LABS: ERYTHROCYTE SEDIMENTATION RATE 19 mm/hr (0-20)
== END ==
LOC: M LAB REF 14:52
PROVIDERS: ATTEND Family Medicine
DX: I87.2 Venous insufficiency (chronic) (peripheral) (principal); D50.9 Iron deficiency anemia, unspecified; G89.4 Chronic pain syndrome

== ENCOUNTER → 2021-11-21 | Outpatient (CLI) | payer BC | LOC: M RAD 18:41 | PROVIDERS: ATTEND Family Medicine | DX: M16.9 Osteoarthritis of hip, unspecified (principal); Z15.89 Genetic susceptibility to other disease ==

== ENCOUNTER → 2021-12-13 | Outpatient (CLI) | payer BC ==
[~2021-12-13] MED LIST changes: -ARIP1TAB4; +ARIP1TAB4 PO; +CALC-218 PO; +CARI1TAB7 PO; +CLON1TAB8 PO; +COLA100C5 PO; +CYAN100050 PO; +ERGO500029 PO; +FERR325T81 PO; +IBUP-1022 PO; +MECL100C PO; +OXYC1TAB23 PO; +TERB250T91 PO; +THERTAB52 PO; +TRAZ-252 PO
== END ==
LOC: M LABSMTC 09:49
PROVIDERS: ATTEND Anesthesiology
DX: Z20.828 Contact with and (suspected) exposure to other viral communicable diseases (principal); Z11.59 Encounter for screening for other viral diseases

== ENCOUNTER → 2021-12-14 | Outpatient (CLI) | payer BC | LOC: M PLAIMG 06:35 | PROVIDERS: ATTEND Family Medicine | DX: N94.89 Other specified conditions associated with female genital organs and menstrual cycle (principal); Z15.89 Genetic susceptibility to other disease ==

== ENCOUNTER 2021-12-15 07:36 | Day surgery (SDC) | payer BC ==
[~2021-12-15] VITALS: Ht 177.8 cm; Wt 113.9 kg
[~2021-12-15 07:36] MED LIST changes: -IBUP-1022 PO
[2021-12-15] MEDS ORDERED: LR 1,000 ML IV SCH ×3 (07:55→12:20)
[2021-12-15] MEDS ORDERED: SCOPOLAMINE 1MG TRANSDERMAL PATCH TOP ONE (08:10)
[2021-12-15 08:12] LABS: HEMATOCRIT 37.9 % (36.0-47.0); HEMOGLOBIN 12.4 g/dl (12.0-15.5); MEAN CORPUSCULAR HEMOGLOBIN 28.9 pg (27.0-33.0); MEAN CORPUSCULAR HGB CONC 32.7 g/dl (32.0-36.5); MEAN CORPUSCULAR VOLUME 88.3 fl (80.0-96.0); PLATELET COUNT, AUTOMATED 293 10^3/uL (150-450); RED BLOOD COUNT 4.29 10^6/uL (4.00-5.40); WHITE BLOOD COUNT 7.9 10^3/uL (4.0-10.0)
[2021-12-15] MEDS ORDERED: ROCURONIUM BROMIDE 50 MG/5 ML VIAL As Ordered ONE ×2 (08:22→11:02)
[2021-12-15] MEDS ORDERED: propofoL 200 MG/20 ML VIAL As Ordered ONE (08:22)
[2021-12-15] MEDS ORDERED: LIDOCAINE 2% 100MG/5ML SDV (FOR ANES.) As Ordered ONE (08:22)
[2021-12-15] MEDS ORDERED: fentaNYL 250 MCG/5 ML INJECTION As Ordered ONE (08:25)
[2021-12-15] MEDS ORDERED: ceFAZolin SOD 2 GM in IV 1 EA IV ONE (08:25)
[2021-12-15] MEDS ORDERED: MIDAZOLAM INJ 2MG/2ML VIAL (J2250 PER 1MG) As Ordered ONE (08:25)
[2021-12-15] MEDS ORDERED: IBUP-1022 PO (09:32)
[2021-12-15] MEDS ORDERED: OXYC1TAB23 PO (09:34)
[2021-12-15] MEDS ORDERED: BUPIVACAINE HCL 0.25% 10ML VIAL As Ordered ONE (09:37)
[2021-12-15] MEDS ORDERED: HYDROmorphone HCL 2MG/ML 1ML VIAL As Ordered ONE (10:11)
[2021-12-15] MEDS ORDERED: dexameTHASONE 4 MG/ML 1ML VIAL (J1100 PER 1MG) As Ordered ONE (10:11)
[2021-12-15] MEDS ORDERED: ACETAMINOPHEN 1000MG 100ML IV BTL (OFIRMEV) (J0131 PER 10MG) As Ordered ONE (10:14)
[2021-12-15] MEDS ORDERED: ONDANSETRON 4MG/2ML VIAL As Ordered ONE (10:44)
[2021-12-15] MEDS ORDERED: METOCLOPRAMIDE INJ 10MG/2ML VIAL (J2765 PER 1) As Ordered ONE (10:44)
[2021-12-15] MEDS ORDERED: KETOROLAC 60MG 2ML VIAL As Ordered ONE (10:44)
[2021-12-15] MEDS ORDERED: ONDANSETRON 4MG/2ML VIAL IV PRN ×2 (11:50→12:25)
[2021-12-15] MEDS ORDERED: MORPHINE 2 MG/ML 1ML VIAL IV PRN (11:50)
[2021-12-15] MEDS: fentaNYL 100 MCG/2 ML INJECTION IV PRN ×4 (12:14→12:36)
[2021-12-15] MEDS: oxyCODONE 5MG TAB PO PRN ×2 (12:18→12:50)
[2021-12-15] MEDS ORDERED: KETOROLAC 30 MG/ML 1ML VIAL IV PRN (12:25)
[2021-12-15 14:30] VITALS: BP 137/74
[2021-12-15 14:45] VITALS: BP 135/76
[2021-12-15 15:15] VITALS: BP 147/75
[2021-12-15] MEDS: PERCOCET 5MG/325MG TAB PO PRN ×2 (15:32→20:10)
[2021-12-15 15:45] VITALS: BP 118/56
[2021-12-15 16:45] VITALS: BP 113/56
[2021-12-15 17:45] VITALS: BP 111/58
[2021-12-15] MEDS ORDERED: carisoprodoL 350 MG TAB PO SCH (21:00)
[2021-12-15] MEDS ORDERED: traZODone 50 MG TAB PO SCH (21:00)
[2021-12-15] MEDS ORDERED: TOPIRAMATE (TopAMAX) 25 MG TAB PO SCH (21:00)
[2021-12-15] MEDS ORDERED: DOCUSATE SODIUM 100MG CAPSULE PO SCH (21:00)
[2021-12-15] MEDS ORDERED: clonazePAM 1 MG TAB PO SCH (21:00)
[2021-12-16] MEDS ORDERED: PANTOPRAZOLE 40MG TAB (PROTONIX) PO SCH (09:00)
[2021-12-16] MEDS ORDERED: FUROSEMIDE 40 MG TAB PO SCH (09:00)
[2021-12-16] MEDS ORDERED: FLUoxetine 20MG CAP PO SCH (09:00)
== END 2021-12-15 21:45 | disposition home or self-care (01) ==
LOC: M SDC 07:36 → M OBS 14:30 → M SDC 21:45
PROVIDERS: ATTEND Specialist
DX: N92.0 Excessive and frequent menstruation with regular cycle (principal); D25.9 Leiomyoma of uterus, unspecified; N80.0 Endometriosis of uterus; N83.10 Corpus luteum cyst of ovary, unspecified side; K57.92 Diverticulitis of intestine, part unspecified, without perforation or abscess without bleeding; K58.8 Other irritable bowel syndrome; G43.909 Migraine, unspecified, not intractable, without status migrainosus; J45.909 Unspecified asthma, uncomplicated; E66.9 Obesity, unspecified; D86.9 Sarcoidosis, unspecified; Z87.891 Personal history of nicotine dependence; Z79.899 Other long term (current) drug therapy; Z88.8 Allergy status to other drugs, medicaments and biological substances; F41.9 Anxiety disorder, unspecified; F32.A Depression, unspecified
CPT/HCPCS: 36415; 58571; 81025; 85027; 86850; 86900; 86901; 88307; J0131; J0690; J1100; J1170; J1885; J2250; J2405; J2765; J3010; S2900

== ENCOUNTER → 2022-01-10 | Outpatient (REF) ==
[~2022-01-10] MED LIST changes: +IBUP-1022 PO
== END ==
LOC: M EMP 13:16
PROVIDERS: ATTEND Family Medicine
DX: Z20.822 Contact with and (suspected) exposure to COVID-19 (principal); Z11.52 Encounter for screening for COVID-19

== ENCOUNTER → 2022-01-25 | Outpatient (CLI) | payer BC | LOC: M RAD 16:21 | PROVIDERS: ATTEND Physician Assistant | DX: R10.9 Unspecified abdominal pain (principal) ==

== ENCOUNTER → 2022-02-08 | Outpatient (CLI) | payer BC ==
[2022-02-08 18:50] LABS: C REACTIVE PROTEIN QUANTITATIV 0.81 MG/DL (0.00-0.30); COMPLEMENT C3 123 MG/DL (90-180); COMPLEMENT C4 40 MG/DL (10-40)
[2022-02-08 19:31] LABS: HEPATITIS B SURFACE ANTIGEN NEGATIVE (NEGATIVE)
[2022-02-08 19:59] LABS: HEPATITIS C VIRUS ABY INDEX < 0.0 INDEX (<0.8)
== END ==
LOC: M LAB 17:35
PROVIDERS: ATTEND Physician Assistant
DX: M54.6 Pain in thoracic spine (principal); Z15.89 Genetic susceptibility to other disease

== ENCOUNTER → 2022-03-02 | Outpatient (REF) | LOC: M EMP 10:41 | PROVIDERS: ATTEND Family Medicine | DX: Z11.52 Encounter for screening for COVID-19 (principal) ==

== ENCOUNTER → 2022-03-09 | Outpatient (CLI) | payer BC ==
[~2022-03-09] MED LIST changes: +PROHANCE 279.3MG/ML 15ML VIAL As Ordered ONE; +PROHANCE 279.3MG/ML 5ML VIAL As Ordered ONE
== END ==
LOC: M RAD 15:30
PROVIDERS: ATTEND Physician Assistant
DX: M51.36 Other intervertebral disc degeneration, lumbar region (principal); M51.37 Other intervertebral disc degeneration, lumbosacral region; M48.061 Spinal stenosis, lumbar region without neurogenic claudication; M54.6 Pain in thoracic spine; Z15.89 Genetic susceptibility to other disease
CPT/HCPCS: 72148; 72157; A9576

== ENCOUNTER → 2022-04-18 | Outpatient (REF) ==
[~2022-04-18] MED LIST changes: +METH-1164 PO; +PRED5TA; -PROHANCE 279.3MG/ML 15ML VIAL As Ordered ONE; -PROHANCE 279.3MG/ML 5ML VIAL As Ordered ONE
[2022-04-18 15:36] LABS: RSV AMPLIFICATION NEGATIVE (NEGATIVE)
== END ==
LOC: M EMP 14:10
PROVIDERS: ATTEND Family Medicine
DX: Z11.52 Encounter for screening for COVID-19 (principal); Z20.822 Contact with and (suspected) exposure to COVID-19

== ENCOUNTER 2022-04-19 04:56 | Emergency (ER) | payer BC ==
[~2022-04-19] VITALS: Ht 177.8 cm; Wt 113.6 kg
[~2022-04-19 04:56] MED LIST changes: -METH-1164 PO; -PRED5TA
[2022-04-19] MEDS ORDERED: KETOROLAC 30 MG/ML 1ML VIAL IM ONE (07:05)
[2022-04-19] MEDS ORDERED: METH-1164 PO (07:27)
[2022-04-19 07:37] VITALS: BP 115/76
[2022-04-19] MEDS ORDERED: PRED5TA (07:56)
[2022-04-19] MEDS ORDERED: TOPI50TA9 (07:56)
== END 2022-04-19 07:59 | disposition home or self-care (01) ==
LOC: M ED 04:56
DX: M54.9 Dorsalgia, unspecified (principal); G89.29 Other chronic pain; I51.9 Heart disease, unspecified; Z79.52 Long term (current) use of systemic steroids; Z88.1 Allergy status to other antibiotic agents; Z88.8 Allergy status to other drugs, medicaments and biological substances
CPT/HCPCS: 96372; 99283; J1885

== ENCOUNTER → 2022-08-09 | Outpatient (REF) | payer BC ==
[~2022-08-09] MED LIST changes: +METH-1164 PO; +PRED5TA
[2022-08-09 17:33] LABS: APPEARANCE, URINE MANUAL CLEAR (CLEAR); BILIRUBIN, URINE MANUAL NEGATIVE (NEGATIVE); BLOOD URINE MANUAL NEGATIVE (NEGATIVE); COLOR, URINE MANUAL LT YELLOW (YELLOW); GLUCOSE, URINE (UA) MANUAL NEGATIVE (NEGATIVE); KETONE, URINE MANUAL NEGATIVE (NEGATIVE); LEUKOCYTE ESTERASE, URINE MAN NEGATIVE (NEGATIVE); NITRITE, URINE MANUAL NEGATIVE (NEGATIVE); PROTEIN, URINE MANUAL NEGATIVE (NEGATIVE); UROBILINOGEN, URINE MANUAL NORMAL (NORMAL)
[2022-08-09 18:19] LABS: BASO # 0.1 10^3/uL (0.0-0.2); BASO % 0.5 % (0.0-1.0); EOS # 0.1 10^3/uL (0.0-0.5); EOS % 0.4 % (0.0-3.0); HEMATOCRIT 39.8 % (36.0-47.0); HEMOGLOBIN 12.7 g/dl (12.0-15.5); LYMPH # 2.1 10^3/uL (1.5-5.0); LYMPH % 15.1 % (24.0-44.0); MEAN CORPUSCULAR HEMOGLOBIN 28.5 pg (27.0-33.0); MEAN CORPUSCULAR HGB CONC 31.9 g/dl (32.0-36.5); MEAN CORPUSCULAR VOLUME 89.4 fl (80.0-96.0); MONO # 0.7 10^3/uL (0.0-0.8); MONO % 4.9 % (2.0-8.0); NEUTROPHILS # 10.8 10^3/uL (1.5-8.5); NEUTROPHILS % 78.7 % (36.0-66.0); PLATELET COUNT, AUTOMATED 312 10^3/uL (150-450); RED BLOOD COUNT 4.45 10^6/uL (4.00-5.40); WHITE BLOOD COUNT 13.7 10^3/uL (4.0-10.0)
[2022-08-09 18:31] LABS: ERYTHROCYTE SEDIMENTATION RATE 38 mm/hr (0-20)
[2022-08-09 18:38] LABS: HEMOGLOBIN A1c 4.6 % (4.0-6.0)
[2022-08-09 18:53] LABS: ALBUMIN 3.7 G/DL (3.2-5.2); ALKALINE PHOSPHATASE 95 U/L (46-116); ALT/SGPT 28 U/L (7.0-40); AST/SGOT 21 U/L (<34); BILIRUBIN,TOTAL 0.3 MG/DL (0.3-1.2); BLOOD UREA NITROGEN 20 MG/DL (9-23); CALCIUM LEVEL 9.5 MG/DL (8.5-10.1); CARBON DIOXIDE LEVEL 26 MMOL/L (20-31); CHLORIDE LEVEL 103 MMOL/L (98-107); CHOLESTEROL LEVEL 235 MG/DL (<200); CREATININE FOR GFR 0.77 MG/DL (0.55-1.30); GLOMERULAR FILTRATION RATE > 60.0 (>58); GLUCOSE, FASTING 109 MG/DL (60-100); NON-HDL-C 148 MG/DL; POTASSIUM SERUM 3.9 MMOL/L (3.5-5.1); SODIUM LEVEL 141 MMOL/L (136-145); TRIGLYCERIDES LEVEL 75 MG/DL (<150)
[2022-08-09 19:23] LABS: FERRITIN 71.8 NG/ML (7.3-270.7); FREE T4 1.13 NG/DL (0.89-1.76); THYROID STIMULATING HORMONE 0.839 uIU/ML (0.55-4.78); TOTAL 25(OH) VITAMIN D 83.9 NG/ML (20.0-100.0); VITAMIN B12 LEVEL 934 PG/ML (211-911)
[2022-08-13 15:08] LABS: ANA (HEP2) Negative (.); ANGIOTENSIN 1 CONVERTING ENZYM 35 U/L (14-82); INSULIN LEVEL 29.7 uIU/mL (2.6-24.9)
== END ==
LOC: M SFHCPLAZ 16:31 → M LAB REF 16:31
PROVIDERS: ATTEND Family Medicine
DX: E53.8 Deficiency of other specified B group vitamins (principal); Z15.89 Genetic susceptibility to other disease; E55.9 Vitamin D deficiency, unspecified; D86.9 Sarcoidosis, unspecified; R73.01 Impaired fasting glucose; R35.0 Frequency of micturition

== ENCOUNTER → 2022-08-20 | Outpatient (CLI) | payer BC | LOC: M WHC 08:29 | PROVIDERS: ATTEND Family Medicine | DX: Z12.31 Encounter for screening mammogram for malignant neoplasm of breast (principal); Z13.820 Encounter for screening for osteoporosis; Z79.52 Long term (current) use of systemic steroids ==

== ENCOUNTER → 2022-08-30 | Outpatient (CLI) | payer BC ==
[~2022-08-30] MED LIST changes: +ISOVUE-370 76% 100ML VIAL As Ordered ONE
== END ==
LOC: M RAD 08:22
PROVIDERS: ATTEND Family Medicine
DX: I72.8 Aneurysm of other specified arteries (principal)

== ENCOUNTER → 2022-09-01 | Outpatient (CLI) | payer BC ==
[~2022-09-01] MED LIST changes: -ISOVUE-370 76% 100ML VIAL As Ordered ONE
[2022-09-01 12:07] LABS: BASO # 0.1 10^3/uL (0.0-0.2); BASO % 0.7 % (0.0-1.0); EOS # 0.1 10^3/uL (0.0-0.5); HEMATOCRIT 39.6 % (36.0-47.0); HEMOGLOBIN 12.3 g/dl (12.0-15.5); LYMPH # 1.4 10^3/uL (1.5-5.0); LYMPH % 17.3 % (24.0-44.0); MEAN CORPUSCULAR HEMOGLOBIN 28.9 pg (27.0-33.0); MEAN CORPUSCULAR HGB CONC 31.1 g/dl (32.0-36.5); MEAN CORPUSCULAR VOLUME 93.2 fl (80.0-96.0); MONO # 0.4 10^3/uL (0.0-0.8); NEUTROPHILS # 6.1 10^3/uL (1.5-8.5); NEUTROPHILS % 75.6 % (36.0-66.0); PLATELET COUNT, AUTOMATED 273 10^3/uL (150-450); RED BLOOD COUNT 4.25 10^6/uL (4.00-5.40)
[2022-09-01 12:43] LABS: ALBUMIN 3.1 G/DL (3.2-5.2); ALKALINE PHOSPHATASE 82 U/L (46-116); ALT/SGPT 26 U/L (7.0-40); AST/SGOT 26 U/L (<34); BILIRUBIN,TOTAL 0.3 MG/DL (0.3-1.2); BLOOD UREA NITROGEN 11 MG/DL (9-23); CALCIUM LEVEL 9.2 MG/DL (8.5-10.1); CARBON DIOXIDE LEVEL 28 MMOL/L (20-31); CHLORIDE LEVEL 106 MMOL/L (98-107); CREATININE FOR GFR 0.62 MG/DL (0.55-1.30); GLOMERULAR FILTRATION RATE > 60.0 (>58); GLUCOSE, FASTING 98 MG/DL (60-100); POTASSIUM SERUM 3.9 MMOL/L (3.5-5.1); SODIUM LEVEL 142 MMOL/L (136-145); TOTAL PROTEIN 6.5 G/DL (5.7-8.2)
== END ==
LOC: M LAB 11:52
PROVIDERS: ATTEND Family Medicine
DX: Z15.89 Genetic susceptibility to other disease (principal)

== ENCOUNTER 2022-10-31 13:04 | Emergency (ER) | payer BC ==
[~2022-10-31 13:04] MED LIST changes: +TOPI-254; -TOPI50TA9
[2022-10-31] MEDS ORDERED: IBUP-1022 (13:12)
[2022-10-31] MEDS ORDERED: MECL-136 (13:12)
[2022-10-31 14:31] VITALS: BP 144/87
== END 2022-10-31 14:33 | disposition home or self-care (01) ==
LOC: M ED 13:04
DX: M16.0 Bilateral primary osteoarthritis of hip (principal); M48.061 Spinal stenosis, lumbar region without neurogenic claudication; J45.909 Unspecified asthma, uncomplicated; G47.33 Obstructive sleep apnea (adult) (pediatric); Z88.1 Allergy status to other antibiotic agents; Z88.6 Allergy status to analgesic agent; Z88.8 Allergy status to other drugs, medicaments and biological substances; Z79.01 Long term (current) use of anticoagulants; Z79.810 Long term (current) use of selective estrogen receptor modulators (SERMs); Z79.891 Long term (current) use of opiate analgesic; Z79.899 Other long term (current) drug therapy

== ENCOUNTER → 2022-11-02 | Outpatient (REF) | payer BC ==
[~2022-11-02] MED LIST changes: +IBUP-1022; +MECL-136
[2022-11-02 12:28] LABS: BASO # 0.1 10^3/uL (0.0-0.2); BASO % 0.9 % (0.0-1.0); EOS # 0.1 10^3/uL (0.0-0.5); EOS % 1.4 % (0.0-3.0); HEMATOCRIT 37.7 % (36.0-47.0); HEMOGLOBIN 12.4 g/dl (12.0-15.5); LYMPH # 2.5 10^3/uL (1.5-5.0); MEAN CORPUSCULAR HEMOGLOBIN 29.2 pg (27.0-33.0); MEAN CORPUSCULAR HGB CONC 32.9 g/dl (32.0-36.5); MEAN CORPUSCULAR VOLUME 88.7 fl (80.0-96.0); MONO # 0.5 10^3/uL (0.0-0.8); MONO % 5.8 % (2.0-8.0); NEUTROPHILS % 64.5 % (36.0-66.0); PLATELET COUNT, AUTOMATED 325 10^3/uL (150-450); RED BLOOD COUNT 4.25 10^6/uL (4.00-5.40); WHITE BLOOD COUNT 9.3 10^3/uL (4.0-10.0)
[2022-11-02 12:52] LABS: ERYTHROCYTE SEDIMENTATION RATE 21 mm/hr (0-20)
[2022-11-02 12:54] LABS: ALBUMIN 3.5 G/DL (3.2-5.2); ALKALINE PHOSPHATASE 89 U/L (46-116); ALT/SGPT 13 U/L (7.0-40); AST/SGOT 19 U/L (<34); BILIRUBIN,TOTAL 0.2 MG/DL (0.3-1.2); BLOOD UREA NITROGEN 15 MG/DL (9-23); CALCIUM LEVEL 9.2 MG/DL (8.5-10.1); CARBON DIOXIDE LEVEL 28 MMOL/L (20-31); CHLORIDE LEVEL 106 MMOL/L (98-107); CREATININE FOR GFR 0.64 MG/DL (0.55-1.30); GLOMERULAR FILTRATION RATE > 60.0 (>58); GLUCOSE, FASTING 96 MG/DL (60-100); SODIUM LEVEL 142 MMOL/L (136-145); TOTAL PROTEIN 6.4 G/DL (5.7-8.2)
== END ==
LOC: M SFHCPLAZ 10:56
PROVIDERS: ATTEND Physician Assistant
DX: M25.552 Pain in left hip (principal); M70.62 Trochanteric bursitis, left hip

== ENCOUNTER → 2023-04-26 | Outpatient (CLI) | payer BC ==
[~2023-04-26] MED LIST changes: +CYAN-1 PO; -CYAN100050 PO
[2023-04-26 13:15] LABS: BASO # 0.1 10^3/uL (0.0-0.2); EOS # 0.1 10^3/uL (0.0-0.5); EOS % 1.4 % (0.0-3.0); HEMATOCRIT 36.1 % (36.0-47.0); HEMOGLOBIN 11.6 g/dl (12.0-15.5); LYMPH # 1.6 10^3/uL (1.5-5.0); LYMPH % 26.3 % (24.0-44.0); MEAN CORPUSCULAR HEMOGLOBIN 28.6 pg (27.0-33.0); MEAN CORPUSCULAR HGB CONC 32.1 g/dl (32.0-36.5); MEAN CORPUSCULAR VOLUME 88.9 fl (80.0-96.0); MONO # 0.6 10^3/uL (0.0-0.8); MONO % 8.8 % (2.0-8.0); NEUTROPHILS # 3.9 10^3/uL (1.5-8.5); NEUTROPHILS % 62.2 % (36.0-66.0); PLATELET COUNT, AUTOMATED 304 10^3/uL (150-450); RED BLOOD COUNT 4.06 10^6/uL (4.00-5.40); WHITE BLOOD COUNT 6.2 10^3/uL (4.0-10.0)
[2023-04-26 13:27] LABS: HEMOGLOBIN A1c 4.2 % (4.0-6.0)
[2023-04-26 13:42] LABS: ERYTHROCYTE SEDIMENTATION RATE 27 mm/hr (0-20)
[2023-04-26 13:44] LABS: ALBUMIN 3.5 G/DL (3.2-5.2); ALKALINE PHOSPHATASE 99 U/L (46-116); ALT/SGPT 13 U/L (7.0-40); AST/SGOT 17 U/L (<34); BILIRUBIN,TOTAL 0.2 MG/DL (0.3-1.2); BLOOD UREA NITROGEN 16 MG/DL (9-23); CALCIUM LEVEL 9.2 MG/DL (8.5-10.1); CARBON DIOXIDE LEVEL 28 MMOL/L (20-31); CHLORIDE LEVEL 105 MMOL/L (98-107); CHOLESTEROL LEVEL 184 MG/DL (<200); CHOLESTEROL RISK RATIO 2.83 (<5); CREATININE FOR GFR 0.76 MG/DL (0.55-1.30); GLOMERULAR FILTRATION RATE > 60.0 (>58); GLUCOSE, FASTING 86 MG/DL (60-100); HDL CHOLESTEROL 64.9 MG/DL (>40); LDL CHOLESTEROL 98.5 MG/DL (<100); NON-HDL-C 119.1 MG/DL; POTASSIUM SERUM 3.9 MMOL/L (3.5-5.1); SODIUM LEVEL 140 MMOL/L (136-145); TOTAL 25(OH) VITAMIN D 82.1 NG/ML (20.0-100.0); TOTAL PROTEIN 6.4 G/DL (5.7-8.2); TRIGLYCERIDES LEVEL 103 MG/DL (<150)
== END ==
LOC: M PLALAB 11:09
PROVIDERS: ATTEND Family Medicine
DX: I50.32 Chronic diastolic (congestive) heart failure (principal); Z15.89 Genetic susceptibility to other disease; R73.01 Impaired fasting glucose; E55.9 Vitamin D deficiency, unspecified; E53.8 Deficiency of other specified B group vitamins

== ENCOUNTER → 2023-06-03 | Outpatient (CLI) | payer BC ==
[2023-06-03 18:19] LABS: BASO # 0.1 10^3/uL (0.0-0.2); BASO % 0.8 % (0.0-1.0); EOS # 0.1 10^3/uL (0.0-0.5); EOS % 1.7 % (0.0-3.0); HEMATOCRIT 36.7 % (36.0-47.0); HEMOGLOBIN 11.9 g/dl (12.0-15.5); LYMPH # 1.9 10^3/uL (1.5-5.0); MEAN CORPUSCULAR HEMOGLOBIN 28.5 pg (27.0-33.0); MEAN CORPUSCULAR HGB CONC 32.4 g/dl (32.0-36.5); MONO # 0.5 10^3/uL (0.0-0.8); MONO % 6.8 % (2.0-8.0); NEUTROPHILS # 4.9 10^3/uL (1.5-8.5); NEUTROPHILS % 65.6 % (36.0-66.0); PLATELET COUNT, AUTOMATED 339 10^3/uL (150-450); RED BLOOD COUNT 4.17 10^6/uL (4.00-5.40); WHITE BLOOD COUNT 7.5 10^3/uL (4.0-10.0)
[2023-06-03 18:40] LABS: ERYTHROCYTE SEDIMENTATION RATE 21 mm/hr (0-20)
[2023-06-03 18:43] LABS: ALBUMIN 3.5 G/DL (3.2-5.2); ALKALINE PHOSPHATASE 110 U/L (46-116); ALT/SGPT 25 U/L (7.0-40); AST/SGOT 19 U/L (<34); BILIRUBIN,TOTAL 0.2 MG/DL (0.3-1.2); BLOOD UREA NITROGEN 14 MG/DL (9-23); CALCIUM LEVEL 9.3 MG/DL (8.5-10.1); CARBON DIOXIDE LEVEL 28 MMOL/L (20-31); CHLORIDE LEVEL 107 MMOL/L (98-107); CREATININE FOR GFR 0.63 MG/DL (0.55-1.30); GLOMERULAR FILTRATION RATE > 60.0 (>58); GLUCOSE, FASTING 88 MG/DL (60-100); MAGNESIUM LEVEL 2.2 MG/DL (1.8-2.4); POTASSIUM SERUM 4.2 MMOL/L (3.5-5.1); SODIUM LEVEL 142 MMOL/L (136-145); TOTAL PROTEIN 6.6 G/DL (5.7-8.2)
[2023-06-03 18:45] LABS: RHEUMATOID FACTOR QUANT < 3.5 IU/ML (<14)
[2023-06-03 18:47] LABS: FERRITIN 74.5 NG/ML (7.3-270.7); VITAMIN B12 LEVEL 823 PG/ML (211-911)
== END ==
LOC: M PLARAD 16:59
PROVIDERS: ATTEND Family Medicine
DX: M45.2 Ankylosing spondylitis of cervical region (principal); I50.32 Chronic diastolic (congestive) heart failure; D50.9 Iron deficiency anemia, unspecified; M47.896 Other spondylosis, lumbar region

== ENCOUNTER → 2023-09-05 | Outpatient (REF) | payer OTHER ==
[~2023-09-05] MED LIST changes: +TOPI-21; -TOPI-254
== END ==
LOC: M SFHCPLAZ 16:03
PROVIDERS: ATTEND Family Medicine
DX: D50.9 Iron deficiency anemia, unspecified (principal); E55.9 Vitamin D deficiency, unspecified; M45.2 Ankylosing spondylitis of cervical region; R73.01 Impaired fasting glucose; Z53.9 Procedure and treatment not carried out, unspecified reason

== ENCOUNTER → 2023-09-23 | Outpatient (REF) | payer SELFPAY ==
[2023-09-23 19:46] LABS: BASO # 0.1 10^3/uL (0.0-0.2); EOS # 0.2 10^3/uL (0.0-0.5); EOS % 2.5 % (0.0-3.0); HEMATOCRIT 36.3 % (36.0-47.0); HEMOGLOBIN 11.8 g/dl (12.0-15.5); LYMPH # 2.8 10^3/uL (1.5-5.0); LYMPH % 33.5 % (24.0-44.0); MEAN CORPUSCULAR HEMOGLOBIN 28.8 pg (27.0-33.0); MEAN CORPUSCULAR HGB CONC 32.5 g/dl (32.0-36.5); MEAN CORPUSCULAR VOLUME 88.5 fl (80.0-96.0); MONO # 0.6 10^3/uL (0.0-0.8); MONO % 7.3 % (2.0-8.0); NEUTROPHILS # 4.6 10^3/uL (1.5-8.5); NEUTROPHILS % 55.5 % (36.0-66.0); PLATELET COUNT, AUTOMATED 304 10^3/uL (150-450); WHITE BLOOD COUNT 8.2 10^3/uL (4.0-10.0)
[2023-09-23 20:02] LABS: HEMOGLOBIN A1c 4.5 % (4.0-6.0)
[2023-09-23 20:08] LABS: ERYTHROCYTE SEDIMENTATION RATE 21 mm/hr (0-20)
[2023-09-23 20:25] LABS: ALBUMIN 3.6 G/DL (3.2-5.2); ALKALINE PHOSPHATASE 114 U/L (46-116); ALT/SGPT 61 U/L (7.0-40); AST/SGOT 40 U/L (<34); BILIRUBIN,TOTAL 0.2 MG/DL (0.3-1.2); BLOOD UREA NITROGEN 20 MG/DL (9-23); CALCIUM LEVEL 9.2 MG/DL (8.5-10.1); CARBON DIOXIDE LEVEL 25 MMOL/L (20-31); CHLORIDE LEVEL 107 MMOL/L (98-107); CREATININE FOR GFR 0.86 MG/DL (0.55-1.30); GLOMERULAR FILTRATION RATE > 60.0 (>58); GLUCOSE, FASTING 97 MG/DL (60-100); POTASSIUM SERUM 4.2 MMOL/L (3.5-5.1); PTH INTACT 55.5 PG/ML (18.5-88.0); SODIUM LEVEL 138 MMOL/L (136-145); TOTAL PROTEIN 6.5 G/DL (5.7-8.2)
[2023-09-23 20:27] LABS: TOTAL 25(OH) VITAMIN D 77.4 NG/ML (20.0-100.0)
[2023-09-23 20:28] LABS: FERRITIN 50.5 NG/ML (7.3-270.7)
== END ==
LOC: M SFHCPLAZ 16:22
PROVIDERS: ATTEND Family Medicine
DX: E55.9 Vitamin D deficiency, unspecified (principal); D50.9 Iron deficiency anemia, unspecified; R73.01 Impaired fasting glucose; M45.2 Ankylosing spondylitis of cervical region

== ENCOUNTER → 2023-10-08 | Outpatient (REF) | payer SELFPAY | LOC: M SFHCPLAZ 12:54 | PROVIDERS: ATTEND Physician Assistant | DX: M25.50 Pain in unspecified joint (principal) ==

== ENCOUNTER 2023-10-14 18:35 | Emergency (ER) | payer BC, SELFPAY ==
[~2023-10-14] VITALS: Ht 177.8 cm; Wt 127.8 kg
[2023-10-14 21:30] VITALS: BP 174/80; TEMP 98.6; O2SAT 100
[2023-10-15] MEDS: ACETAMINOPHEN 500 MG TAB PO ONE (01:12)
[2023-10-15 01:33] LABS: URINE PREG TEST NEGATIVE (NEGATIVE)
[2023-10-15] MEDS ORDERED: PERCOCET 5MG/325MG TAB PO ONE (02:55)
[2023-10-15] MEDS: OXYCODONE/APAP 5MG/325MG(HOME DOSE PACK) PO ONE (03:09)
== END 2023-10-15 03:24 | disposition home or self-care (01) ==
LOC: M ED 18:35
DX: M54.50 Low back pain, unspecified (principal); K58.9 Irritable bowel syndrome, unspecified; K76.0 Fatty (change of) liver, not elsewhere classified; Z86.79 Personal history of other diseases of the circulatory system; Z88.1 Allergy status to other antibiotic agents; Z88.6 Allergy status to analgesic agent; Z88.8 Allergy status to other drugs, medicaments and biological substances; Z91.09 Other allergy status, other than to drugs and biological substances; Z79.1 Long term (current) use of non-steroidal anti-inflammatories (NSAID); Z79.83 Long term (current) use of bisphosphonates; Z79.899 Other long term (current) drug therapy

== ENCOUNTER → 2023-10-29 | Outpatient (REF) | payer BC ==
[2023-10-29 12:49] LABS: BASO # 0.1 10^3/uL (0.0-0.2); BASO % 0.8 % (0.0-1.0); EOS # 0.1 10^3/uL (0.0-0.5); EOS % 1.1 % (0.0-3.0); HEMOGLOBIN 12.4 g/dl (12.0-15.5); LYMPH # 2.5 10^3/uL (1.5-5.0); MEAN CORPUSCULAR HEMOGLOBIN 27.9 pg (27.0-33.0); MEAN CORPUSCULAR HGB CONC 32.6 g/dl (32.0-36.5); MEAN CORPUSCULAR VOLUME 85.6 fl (80.0-96.0); MONO # 0.6 10^3/uL (0.0-0.8); MONO % 6.3 % (2.0-8.0); NEUTROPHILS # 6.8 10^3/uL (1.5-8.5); NEUTROPHILS % 66.6 % (36.0-66.0); PLATELET COUNT, AUTOMATED 288 10^3/uL (150-450); RED BLOOD COUNT 4.44 10^6/uL (4.00-5.40); WHITE BLOOD COUNT 10.1 10^3/uL (4.0-10.0)
[2023-10-29 13:09] LABS: ERYTHROCYTE SEDIMENTATION RATE 29 mm/hr (0-20)
[2023-10-29 13:28] LABS: ALBUMIN 3.2 G/DL (3.2-5.2); ALKALINE PHOSPHATASE 103 U/L (46-116); ALT/SGPT 14 U/L (7.0-40); AST/SGOT 19 U/L (<34); BILIRUBIN,TOTAL 0.3 MG/DL (0.3-1.2); BLOOD UREA NITROGEN 13 MG/DL (9-23); CALCIUM LEVEL 9.5 MG/DL (8.5-10.1); CARBON DIOXIDE LEVEL 26 MMOL/L (20-31); CHLORIDE LEVEL 107 MMOL/L (98-107); CREATININE FOR GFR 0.69 MG/DL (0.55-1.30); GLOMERULAR FILTRATION RATE > 60.0 (>58); GLUCOSE, FASTING 109 MG/DL (60-100); POTASSIUM SERUM 3.8 MMOL/L (3.5-5.1); SODIUM LEVEL 139 MMOL/L (136-145); TOTAL PROTEIN 6.5 G/DL (5.7-8.2)
== END ==
LOC: M SFHCPLAZ 11:08
PROVIDERS: ATTEND Physician Assistant Medical
DX: R11.0 Nausea (principal)

== ENCOUNTER → 2023-10-29 | Outpatient (CLI) | payer BC | LOC: M RAD 21:20 | PROVIDERS: ATTEND Physician Assistant Medical | DX: R11.0 Nausea (principal); Z90.49 Acquired absence of other specified parts of digestive tract ==

== ENCOUNTER → 2023-11-20 | Outpatient (CLI) | payer BC | LOC: M RAD 15:22 | PROVIDERS: ATTEND Family Medicine | DX: M47.815 Spondylosis without myelopathy or radiculopathy, thoracolumbar region (principal); M45.2 Ankylosing spondylitis of cervical region ==

== ENCOUNTER → 2023-11-26 | Outpatient (REF) | payer BC | LOC: M SFHCPLAZ 17:18 | PROVIDERS: ATTEND Family Medicine | DX: D50.9 Iron deficiency anemia, unspecified (principal); E55.9 Vitamin D deficiency, unspecified; M45.2 Ankylosing spondylitis of cervical region; R73.01 Impaired fasting glucose ==

== ENCOUNTER → 2023-11-27 | Outpatient (REF) | payer BC ==
[2023-11-27 12:27] LABS: BASO # 0.1 10^3/uL (0.0-0.2); BASO % 0.8 % (0.0-1.0); EOS # 0.1 10^3/uL (0.0-0.5); EOS % 1.3 % (0.0-3.0); HEMATOCRIT 37.8 % (36.0-47.0); HEMOGLOBIN 12.2 g/dl (12.0-15.5); LYMPH # 2.1 10^3/uL (1.5-5.0); LYMPH % 33.8 % (24.0-44.0); MEAN CORPUSCULAR HEMOGLOBIN 27.1 pg (27.0-33.0); MEAN CORPUSCULAR HGB CONC 32.3 g/dl (32.0-36.5); MEAN CORPUSCULAR VOLUME 83.8 fl (80.0-96.0); MONO # 0.4 10^3/uL (0.0-0.8); MONO % 6.5 % (2.0-8.0); NEUTROPHILS # 3.5 10^3/uL (1.5-8.5); NEUTROPHILS % 57.4 % (36.0-66.0); PLATELET COUNT, AUTOMATED 315 10^3/uL (150-450); RED BLOOD COUNT 4.51 10^6/uL (4.00-5.40); WHITE BLOOD COUNT 6.1 10^3/uL (4.0-10.0)
[2023-11-27 12:38] LABS: ERYTHROCYTE SEDIMENTATION RATE 27 mm/hr (0-20)
[2023-11-27 12:49] LABS: HEMOGLOBIN A1c 4.8 % (4.0-6.0)
[2023-11-27 13:04] LABS: ALBUMIN 3.6 G/DL (3.2-5.2); ALKALINE PHOSPHATASE 104 U/L (46-116); ALT/SGPT 20 U/L (7.0-40); AST/SGOT 21 U/L (<34); BILIRUBIN,TOTAL 0.3 MG/DL (0.3-1.2); BLOOD UREA NITROGEN 13 MG/DL (9-23); CALCIUM LEVEL 9.6 MG/DL (8.5-10.1); CARBON DIOXIDE LEVEL 24 MMOL/L (20-31); CHLORIDE LEVEL 108 MMOL/L (98-107); CREATININE FOR GFR 0.63 MG/DL (0.55-1.30); FERRITIN 36.4 NG/ML (7.3-270.7); GLOMERULAR FILTRATION RATE > 60.0 (>58); GLUCOSE, FASTING 96 MG/DL (60-100); POTASSIUM SERUM 3.8 MMOL/L (3.5-5.1); PTH INTACT 75.1 PG/ML (18.5-88.0); SODIUM LEVEL 140 MMOL/L (136-145); TOTAL 25(OH) VITAMIN D 83.2 NG/ML (20.0-100.0); TOTAL PROTEIN 6.7 G/DL (5.7-8.2)
[2023-11-27 13:41] LABS: HEPATITIS B SURFACE ANTIGEN NEGATIVE (NEGATIVE)
[2023-11-27 13:54] LABS: HIV 1&2 SCREEN NEGATIVE (NEGATIVE)
[2023-11-27 14:01] LABS: HEPATITIS C VIRUS ABY INDEX < 0.02 INDEX (<0.8)
== END ==
LOC: M LAB REF 10:56
PROVIDERS: ATTEND Family Medicine
DX: M45.2 Ankylosing spondylitis of cervical region (principal); D50.9 Iron deficiency anemia, unspecified; R73.01 Impaired fasting glucose; E55.9 Vitamin D deficiency, unspecified

== ENCOUNTER → 2023-12-02 | Outpatient (REF) | payer BC | LOC: M SFHCPLAZ 09:53 | PROVIDERS: ATTEND Family Medicine | DX: D50.9 Iron deficiency anemia, unspecified (principal); E55.9 Vitamin D deficiency, unspecified; M45.2 Ankylosing spondylitis of cervical region; R73.01 Impaired fasting glucose ==

== ENCOUNTER → 2023-12-11 | Outpatient (CLI) | payer BC | LOC: M RAD 08:09 | PROVIDERS: ATTEND Family Medicine | DX: K76.0 Fatty (change of) liver, not elsewhere classified (principal); R16.0 Hepatomegaly, not elsewhere classified ==

== ENCOUNTER 2024-01-02 18:35 | Emergency (ER) | payer BC ==
[~2024-01-02] VITALS: Ht 177.8 cm; Wt 129.1 kg
[~2024-01-02 18:35] MED LIST changes: +ONDA-282; -ONDA4TAB6
[2024-01-02 20:31] LABS: BASO # 0.1 10^3/uL (0.0-0.2); BASO % 0.6 % (0.0-1.0); EOS # 0.1 10^3/uL (0.0-0.5); EOS % 1.8 % (0.0-3.0); HEMATOCRIT 38.6 % (36.0-47.0); HEMOGLOBIN 12.3 g/dl (12.0-15.5); LYMPH # 2.3 10^3/uL (1.5-5.0); MEAN CORPUSCULAR HEMOGLOBIN 27.3 pg (27.0-33.0); MEAN CORPUSCULAR HGB CONC 31.9 g/dl (32.0-36.5); MEAN CORPUSCULAR VOLUME 85.6 fl (80.0-96.0); MONO # 0.5 10^3/uL (0.0-0.8); MONO % 6.2 % (2.0-8.0); NEUTROPHILS # 4.7 10^3/uL (1.5-8.5); PLATELET COUNT, AUTOMATED 316 10^3/uL (150-450); RED BLOOD COUNT 4.51 10^6/uL (4.00-5.40); WHITE BLOOD COUNT 7.8 10^3/uL (4.0-10.0)
[2024-01-02 20:45] LABS: INR 1.03; PROTHROMBIN TIME 13.2 SECONDS (12.5-14.5)
[2024-01-02 20:51] LABS: CK-MB VALUE MASS 1.8 NG/ML (<3.6); LIPASE 28 U/L (12-53)
[2024-01-02 20:53] LABS: ALBUMIN 3.8 G/DL (3.2-5.2); ALKALINE PHOSPHATASE 108 U/L (46-116); ALT/SGPT 29 U/L (7.0-40); AST/SGOT 21 U/L (<34); BILIRUBIN,DIRECT < 0.1 MG/DL (<0.4); BILIRUBIN,TOTAL 0.2 MG/DL (0.3-1.2); BLOOD UREA NITROGEN 15 MG/DL (9-23); CALCIUM LEVEL 9.8 MG/DL (8.5-10.1); CARBON DIOXIDE LEVEL 28 MMOL/L (20-31); CHLORIDE LEVEL 107 MMOL/L (98-107); CPK CREATINE PHOSPHOKINASE 96 U/L (34-145); CREATININE FOR GFR 0.63 MG/DL (0.55-1.30); GLOMERULAR FILTRATION RATE > 60.0 (>58); GLUCOSE, FASTING 107 MG/DL (60-100); MB/CK RELATIVE INDEX 1.87 (< OR =4); POTASSIUM SERUM 3.5 MMOL/L (3.5-5.1); SODIUM LEVEL 141 MMOL/L (136-145); TOTAL PROTEIN 7.1 G/DL (5.7-8.2)
[2024-01-02 21:10] LABS: ERYTHROCYTE SEDIMENTATION RATE 44 mm/hr (0-20)
[2024-01-02 22:16] LABS: CK-MB VALUE MASS 1.6 NG/ML (<3.6)
[2024-01-02 22:18] LABS: CPK CREATINE PHOSPHOKINASE 90 U/L (34-145); MB/CK RELATIVE INDEX 1.77 (< OR =4)
[2024-01-03] MEDS ORDERED: CEPH500C PO (01:01)
[2024-01-03] MEDS ORDERED: HOLTER MONITOR XX (01:02)
[2024-01-03 01:14] VITALS: BP 138/79; TEMP 97; O2SAT 97
== END 2024-01-03 01:17 | disposition home or self-care (01) ==
LOC: M ED 18:35
DX: L03.115 Cellulitis of right lower limb (principal); R22.43 Localized swelling, mass and lump, lower limb, bilateral; R06.02 Shortness of breath; R00.2 Palpitations; D64.9 Anemia, unspecified; K58.9 Irritable bowel syndrome, unspecified; M54.50 Low back pain, unspecified; Z88.1 Allergy status to other antibiotic agents; Z88.8 Allergy status to other drugs, medicaments and biological substances; Z88.6 Allergy status to analgesic agent; Z91.048 Other nonmedicinal substance allergy status; Z79.1 Long term (current) use of non-steroidal anti-inflammatories (NSAID); Z79.83 Long term (current) use of bisphosphonates; Z79.899 Other long term (current) drug therapy

== ENCOUNTER → 2024-01-09 | Outpatient (CLI) | payer BC ==
[~2024-01-09] MED LIST changes: +CEPH500C PO; +HOLTER MONITOR XX
== END ==
LOC: M EKG 09:21
PROVIDERS: ATTEND Physician Assistant Medical
DX: R00.2 Palpitations (principal)

== ENCOUNTER → 2024-03-10 | Outpatient (REF) | payer BC ==
[2024-03-10 20:59] LABS: BASO # 0.1 10^3/uL (0.0-0.2); BASO % 0.7 % (0.0-1.0); EOS # 0.1 10^3/uL (0.0-0.5); EOS % 1.2 % (0.0-3.0); HEMOGLOBIN 11.7 g/dl (12.0-15.5); LYMPH # 3.1 10^3/uL (1.5-5.0); LYMPH % 36.9 % (24.0-44.0); MEAN CORPUSCULAR HEMOGLOBIN 27.7 pg (27.0-33.0); MEAN CORPUSCULAR HGB CONC 32.5 g/dl (32.0-36.5); MEAN CORPUSCULAR VOLUME 85.3 fl (80.0-96.0); MONO # 0.5 10^3/uL (0.0-0.8); MONO % 6.5 % (2.0-8.0); NEUTROPHILS # 4.5 10^3/uL (1.5-8.5); NEUTROPHILS % 54.5 % (36.0-66.0); PLATELET COUNT, AUTOMATED 305 10^3/uL (150-450); RED BLOOD COUNT 4.22 10^6/uL (4.00-5.40); WHITE BLOOD COUNT 8.3 10^3/uL (4.0-10.0)
[2024-03-10 21:19] LABS: HEMOGLOBIN A1c 4.6 % (4.0-6.0)
[2024-03-10 21:25] LABS: ERYTHROCYTE SEDIMENTATION RATE 20 mm/hr (0-30)
[2024-03-10 21:36] LABS: CPK CREATINE PHOSPHOKINASE 73 U/L (34-145)
[2024-03-10 21:37] LABS: ALBUMIN 3.8 G/DL (3.2-5.2); ALKALINE PHOSPHATASE 105 U/L (46-116); ALT/SGPT 14 U/L (7.0-40); AST/SGOT 16 U/L (<34); BILIRUBIN,TOTAL 0.2 MG/DL (0.3-1.2); BLOOD UREA NITROGEN 16 MG/DL (9-23); CALCIUM LEVEL 9.7 MG/DL (8.5-10.1); CARBON DIOXIDE LEVEL 26 MMOL/L (20-31); CHLORIDE LEVEL 107 MMOL/L (98-107); CREATININE FOR GFR 0.78 MG/DL (0.55-1.30); GLOMERULAR FILTRATION RATE > 60.0 (>51); GLUCOSE, FASTING 106 MG/DL (60-100); SODIUM LEVEL 141 MMOL/L (136-145)
[2024-03-10 21:39] LABS: FERRITIN 44.7 NG/ML (7.3-270.7)
== END ==
LOC: M LAB REF 17:34
PROVIDERS: ATTEND Family Medicine
DX: D50.9 Iron deficiency anemia, unspecified (principal); E55.9 Vitamin D deficiency, unspecified; M45.2 Ankylosing spondylitis of cervical region; R73.01 Impaired fasting glucose

== ENCOUNTER → 2024-04-16 | Outpatient (CLI) | payer BC | LOC: M RAD 06:37 | PROVIDERS: ATTEND Nurse Practitioner Family | DX: M99.33 Osseous stenosis of neural canal of lumbar region (principal); M47.896 Other spondylosis, lumbar region; M47.897 Other spondylosis, lumbosacral region; M51.27 Other intervertebral disc displacement, lumbosacral region ==

== ENCOUNTER → 2024-05-13 | Outpatient (REF) | payer BC | LOC: M SFHCPLAZ 11:53 | PROVIDERS: ATTEND Family Medicine | DX: M45.2 Ankylosing spondylitis of cervical region (principal) ==

== ENCOUNTER → 2024-06-18 | Outpatient (REF) | payer BC ==
[~2024-06-18] MED LIST changes: +LEVA15HF2; -LEVAINH
[2024-06-18 14:05] LABS: BASO # 0.1 10^3/uL (0.0-0.2); BASO % 0.8 % (0.0-1.0); EOS # 0.1 10^3/uL (0.0-0.5); HEMATOCRIT 36.1 % (36.0-47.0); HEMOGLOBIN 11.7 g/dl (12.0-15.5); LYMPH # 2.2 10^3/uL (1.5-5.0); LYMPH % 29.2 % (24.0-44.0); MEAN CORPUSCULAR HEMOGLOBIN 28.5 pg (27.0-33.0); MEAN CORPUSCULAR HGB CONC 32.4 g/dl (32.0-36.5); MEAN CORPUSCULAR VOLUME 87.8 fl (80.0-96.0); MONO # 0.5 10^3/uL (0.0-0.8); NEUTROPHILS # 4.8 10^3/uL (1.5-8.5); NEUTROPHILS % 62.7 % (36.0-66.0); PLATELET COUNT, AUTOMATED 342 10^3/uL (150-450); RED BLOOD COUNT 4.11 10^6/uL (4.00-5.40); WHITE BLOOD COUNT 7.7 10^3/uL (4.0-10.0)
[2024-06-18 14:12] LABS: ERYTHROCYTE SEDIMENTATION RATE 31 mm/hr (0-30)
[2024-06-18 14:31] LABS: ALBUMIN 3.6 G/DL (3.2-5.2); ALKALINE PHOSPHATASE 106 U/L (35-104); ALT/SGPT 24 U/L (7.0-40); AST/SGOT 27 U/L (<34); BILIRUBIN,TOTAL 0.2 MG/DL (0.3-1.2); BLOOD UREA NITROGEN 25 MG/DL (9-23); C REACTIVE PROTEIN QUANTITATIV 1.79 MG/DL (<1.0); CARBON DIOXIDE LEVEL 25 MMOL/L (20-31); CHLORIDE LEVEL 105 MMOL/L (98-107); CREATININE FOR GFR 0.89 MG/DL (0.55-1.30); GLOMERULAR FILTRATION RATE > 60.0 (>51); GLUCOSE, FASTING 95 MG/DL (60-100); POTASSIUM SERUM 4.2 MMOL/L (3.5-5.1); PTH INTACT 50.5 PG/ML (18.5-88.0); SODIUM LEVEL 140 MMOL/L (136-145); TOTAL PROTEIN 7.2 G/DL (5.7-8.2)
[2024-06-18 14:35] LABS: FERRITIN 34.7 NG/ML (7.3-270.7); TOTAL 25(OH) VITAMIN D 63.2 NG/ML (20.0-100.0)
== END ==
LOC: M LAB REF 13:44
PROVIDERS: ATTEND Family Medicine
DX: D50.9 Iron deficiency anemia, unspecified (principal); E55.9 Vitamin D deficiency, unspecified; M45.2 Ankylosing spondylitis of cervical region

== ENCOUNTER → 2024-06-23 | Outpatient (REF) | LOC: M EMP 07:46 | PROVIDERS: ATTEND Family Medicine | DX: Z11.52 Encounter for screening for COVID-19 (principal) ==

== ENCOUNTER → 2024-09-22 | Outpatient (CLI) | payer BC ==
[~2024-09-22] MED LIST changes: +CARI-555 PO; -CARI1TAB7 PO
[2024-09-22 17:32] LABS: BASO % 0.6 % (0.0-1.0); EOS # 0.1 10^3/uL (0.0-0.5); EOS % 1.2 % (0.0-3.0); HEMATOCRIT 34.7 % (36.0-47.0); HEMOGLOBIN 10.9 g/dl (12.0-15.5); LYMPH # 2.5 10^3/uL (1.5-5.0); LYMPH % 37.9 % (24.0-44.0); MEAN CORPUSCULAR HGB CONC 31.4 g/dl (32.0-36.5); MEAN CORPUSCULAR VOLUME 89.2 fl (80.0-96.0); MONO # 0.5 10^3/uL (0.0-0.8); MONO % 7.1 % (2.0-8.0); NEUTROPHILS # 3.5 10^3/uL (1.5-8.5); NEUTROPHILS % 52.7 % (36.0-66.0); PLATELET COUNT, AUTOMATED 357 10^3/uL (150-450); RED BLOOD COUNT 3.89 10^6/uL (4.00-5.40); WHITE BLOOD COUNT 6.6 10^3/uL (4.0-10.0)
[2024-09-22 17:37] LABS: ERYTHROCYTE SEDIMENTATION RATE 22 mm/hr (0-30)
[2024-09-22 18:12] LABS: ALBUMIN 3.5 G/DL (3.2-5.2); ALKALINE PHOSPHATASE 85 U/L (35-104); ALT/SGPT 32 U/L (7.0-40); AST/SGOT 38 U/L (<34); BILIRUBIN,TOTAL 0.2 MG/DL (0.3-1.2); BLOOD UREA NITROGEN 24 MG/DL (9-23); C REACTIVE PROTEIN QUANTITATIV 0.83 MG/DL (<1.0); CALCIUM LEVEL 9.2 MG/DL (8.5-10.1); CARBON DIOXIDE LEVEL 23 MMOL/L (20-31); CHLORIDE LEVEL 105 MMOL/L (98-107); CREATININE FOR GFR 0.66 MG/DL (0.55-1.30); GLOMERULAR FILTRATION RATE > 60.0 (>51); GLUCOSE, FASTING 86 MG/DL (60-100); POTASSIUM SERUM 4.5 MMOL/L (3.5-5.1); PTH INTACT 58.4 PG/ML (18.5-88.0); RHEUMATOID FACTOR QUANT 3.9 IU/ML (<14); SODIUM LEVEL 139 MMOL/L (136-145); TOTAL PROTEIN 6.7 G/DL (5.7-8.2)
[2024-09-22 18:14] LABS: TOTAL 25(OH) VITAMIN D 55.7 NG/ML (20.0-100.0)
[2024-09-25 14:53] LABS: ANA SCREEN, IFA NEGATIVE (NEGATIVE)
== END ==
LOC: M LAB 16:36
PROVIDERS: ATTEND Family Medicine
DX: M45.2 Ankylosing spondylitis of cervical region (principal); D50.9 Iron deficiency anemia, unspecified; E55.9 Vitamin D deficiency, unspecified

== ENCOUNTER → 2024-09-24 | Outpatient (CLI) | payer BC | LOC: M WHC 13:41 | PROVIDERS: ATTEND Family Medicine | DX: Z12.39 Encounter for other screening for malignant neoplasm of breast (principal); M85.89 Other specified disorders of bone density and structure, multiple sites; M85.851 Other specified disorders of bone density and structure, right thigh; M85.852 Other specified disorders of bone density and structure, left thigh ==

== ENCOUNTER 2024-09-28 10:50 | Outpatient (RCR) | payer BC | END 2024-10-12 | LOC: M PT 10:50 | PROVIDERS: ATTEND Nurse Practitioner Adult Health | DX: M54.16 Radiculopathy, lumbar region (principal); Z98.890 Other specified postprocedural states ==

== ENCOUNTER → 2024-10-06 | Outpatient (CLI) | payer BC ==
[~2024-10-06] VITALS: Ht 177.8 cm; Wt 132.7 kg
[~2024-10-06] MED LIST changes: +ALBUTEROL SULFATE 2.5MG/0.5ML INH NEB SOLN INH PRN; +EPINEPHrine INJ 1 MG/ML 1ML AMP IM PRN; +diphenhydrAMINE 50MG/ML VIAL IV PRN; +methylPREDNISolone 125MG 2ML VIAL IV PRN
[2024-10-06 12:45] VITALS: BP 158/72; O2SAT 95
[2024-10-06] MEDS: FERRIC CARBOXYMALTOSE 750 MG (VIAL MATE) IN 100ML NS IV ONE (13:17)
[2024-10-06 13:56] VITALS: BP 120/72; O2SAT 99
== END ==
LOC: M INFU 13:07
PROVIDERS: ATTEND Family Medicine
DX: D50.9 Iron deficiency anemia, unspecified (principal); Z88.8 Allergy status to other drugs, medicaments and biological substances; Z91.048 Other nonmedicinal substance allergy status
CPT/HCPCS: 96365; J1439

== ENCOUNTER 2024-10-14 14:50 | Emergency (ER) | payer BC ==
[~2024-10-14] VITALS: Ht 177.8 cm; Wt 131.5 kg
[~2024-10-14 14:50] MED LIST changes: -ALBUTEROL SULFATE 2.5MG/0.5ML INH NEB SOLN INH PRN; -EPINEPHrine INJ 1 MG/ML 1ML AMP IM PRN; -diphenhydrAMINE 50MG/ML VIAL IV PRN; -methylPREDNISolone 125MG 2ML VIAL IV PRN
[2024-10-14 15:04] VITALS: BP 138/76; TEMP 96.9; O2SAT 98
== END 2024-10-14 17:04 | disposition left against medical advice (07) ==
LOC: M ED 14:50
DX: Z53.21 Procedure and treatment not carried out due to patient leaving prior to being seen by health care provider (principal)

== ENCOUNTER 2024-10-21 18:42 | Emergency (ER) | payer BC ==
[~2024-10-21] VITALS: Ht 177.8 cm; Wt 138.0 kg
[2024-10-21] MEDS: traMADol 50 MG TAB PO ONE (20:05)
[2024-10-21] MEDS: methylPREDNISolone 125MG 2ML VIAL IM ONE (20:05)
[2024-10-21] MEDS ORDERED: TRAM50TA2 PO (21:47)
[2024-10-21] MEDS ORDERED: MEDR4PAK PO (21:47)
[2024-10-21] MEDS: traMADol 50 MG TAB (HOME DOSE PACK) PO ONE (21:57)
[2024-10-21 22:09] VITALS: BP 128/74; TEMP 97.3; O2SAT 98
== END 2024-10-21 22:12 | disposition home or self-care (01) ==
LOC: M ED 18:42
DX: M51.26 Other intervertebral disc displacement, lumbar region (principal); K58.9 Irritable bowel syndrome, unspecified; G43.909 Migraine, unspecified, not intractable, without status migrainosus; F41.9 Anxiety disorder, unspecified; F32.A Depression, unspecified; E55.9 Vitamin D deficiency, unspecified; H81.4 Vertigo of central origin; Z88.1 Allergy status to other antibiotic agents; Z88.8 Allergy status to other drugs, medicaments and biological substances; Z91.048 Other nonmedicinal substance allergy status; Z79.899 Other long term (current) drug therapy; Z79.83 Long term (current) use of bisphosphonates
CPT/HCPCS: 72131; 73502; 96372; 99283; J2919

== ENCOUNTER → 2024-10-22 | Outpatient (CLI) | payer BC ==
[~2024-10-22] MED LIST changes: +MEDR4PAK PO; +PROHANCE 279.3MG/ML 15ML VIAL As Ordered ONE; +PROHANCE 279.3MG/ML 5ML VIAL As Ordered ONE; +TRAM50TA2 PO
== END ==
LOC: M RAD 13:43
PROVIDERS: ATTEND Neurological Surgery
DX: M54.16 Radiculopathy, lumbar region (principal); Z98.890 Other specified postprocedural states; M51.46 Schmorl's nodes, lumbar region; M47.816 Spondylosis without myelopathy or radiculopathy, lumbar region; M47.817 Spondylosis without myelopathy or radiculopathy, lumbosacral region
CPT/HCPCS: 72158; A9576

== ENCOUNTER → 2025-01-13 | Outpatient (REF) | payer BC ==
[~2025-01-13] MED LIST changes: -PROHANCE 279.3MG/ML 15ML VIAL As Ordered ONE; -PROHANCE 279.3MG/ML 5ML VIAL As Ordered ONE
[2025-01-15 12:04] LABS: CANDIDA GLABRATA NAA NOT DETECTED (NOT DETECTED); CHLAMYDIA TRACHOMATIS NAA NOT DETECTED (NOT DETECTED); TRICH VAG BY NAA NOT DETECTED (NOT DETECTED)
[2025-01-15 12:40] LABS: BVAB 2 NEGATIVE (NEGATIVE)
== END ==
LOC: M SFHCWAGY 16:51
PROVIDERS: ATTEND Nurse Practitioner Family
DX: N89.8 Other specified noninflammatory disorders of vagina (principal); N73.9 Female pelvic inflammatory disease, unspecified

== ENCOUNTER → 2025-02-02 | Outpatient (CLI) | payer BC | LOC: M SLEEP HO 10:30 | PROVIDERS: ATTEND Family Medicine | DX: G47.33 Obstructive sleep apnea (adult) (pediatric) (principal) ==

== ENCOUNTER → 2025-03-18 | Outpatient (REF) | payer BC ==
[~2025-03-18] MED LIST changes: -IBUP-1022; -IBUP-1022 PO; +IBUP600T42; +IBUP600T42 PO
[2025-03-18 13:41] LABS: BASO # 0.0 10^3/uL (0.0-0.2); BASO % 0.5 % (0.0-1.0); EOS # 0.1 10^3/uL (0.0-0.5); EOS % 1.1 % (0.0-3.0); LYMPH # 2.1 10^3/uL (1.5-5.0); LYMPH % 24.1 % (24.0-44.0); MONO # 0.5 10^3/uL (0.0-0.8); MONO % 5.9 % (2.0-8.0); NEUTROPHILS # 5.8 10^3/uL (1.5-8.5); NEUTROPHILS % 67.9 % (36.0-66.0); PLATELET COUNT, AUTOMATED 322 10^3/uL (150-450)
[2025-03-18 13:48] LABS: ERYTHROCYTE SEDIMENTATION RATE 16 mm/hr (0-30)
[2025-03-18 14:07] LABS: C REACTIVE PROTEIN QUANTITATIV 1.51 MG/DL (<1.0); RHEUMATOID FACTOR QUANT 7.0 IU/ML (<14)
[2025-03-18 14:08] LABS: ALT/SGPT 22 U/L (7.0-40); AST/SGOT 24 U/L (<34); CALCIUM LEVEL 9.1 MG/DL (8.5-10.1); CARBON DIOXIDE LEVEL 23 MMOL/L (20-31); CHLORIDE LEVEL 107 MMOL/L (98-107); CHOLESTEROL LEVEL 198 MG/DL (<200); CHOLESTEROL RISK RATIO 2.94 (<5); CREATININE FOR GFR 0.69 MG/DL (0.55-1.30); GLOMERULAR FILTRATION RATE > 90.0 (>51); LDL CHOLESTEROL 102.1 MG/DL (<100); NON-HDL-C 130.7 MG/DL; POTASSIUM SERUM 4.4 MMOL/L (3.5-5.1); PTH INTACT 76.0 PG/ML (18.5-88.0); SODIUM LEVEL 139 MMOL/L (136-145); TRIGLYCERIDES LEVEL 143 MG/DL (<150)
[2025-03-18 14:09] LABS: FREE T4 0.97 NG/DL (0.89-1.76)
[2025-03-18 14:10] LABS: TOTAL 25(OH) VITAMIN D 52.6 NG/ML (20.0-100.0)
[2025-03-23 11:06] LABS: ENHANCED LIVER FIBROSIS SCORE 10.00 (<9.80)
== END ==
LOC: M LAB REF 12:57
PROVIDERS: ATTEND Family Medicine
DX: K76.0 Fatty (change of) liver, not elsewhere classified (principal); M45.2 Ankylosing spondylitis of cervical region; E55.9 Vitamin D deficiency, unspecified; E78.2 Mixed hyperlipidemia; D50.9 Iron deficiency anemia, unspecified

== ENCOUNTER → 2025-06-05 | Outpatient (CLI) | payer BC ==
[~2025-06-05] MED LIST changes: -ZOLP5TAB; +ZOLP5TAB9
== END ==
LOC: M SLEEP 20:00
PROVIDERS: ATTEND Physician Assistant
DX: G47.33 Obstructive sleep apnea (adult) (pediatric) (principal)

== ENCOUNTER → 2025-06-21 | Outpatient (REF) | payer BC ==
[2025-06-21 17:10] LABS: BASO # 0.1 10^3/uL (0.0-0.2); BASO % 0.6 % (0.0-1.0); EOS # 0.1 10^3/uL (0.0-0.5); EOS % 0.7 % (0.0-3.0); LYMPH # 2.4 10^3/uL (1.5-5.0); LYMPH % 28.9 % (24.0-44.0); MONO # 0.5 10^3/uL (0.0-0.8); MONO % 5.7 % (2.0-8.0); NEUTROPHILS # 5.4 10^3/uL (1.5-8.5); NEUTROPHILS % 63.6 % (36.0-66.0); PLATELET COUNT, AUTOMATED 406 10^3/uL (150-450)
[2025-06-21 17:32] LABS: TOTAL 25(OH) VITAMIN D 57.6 NG/ML (20.0-100.0)
[2025-06-21 17:33] LABS: C REACTIVE PROTEIN QUANTITATIV 2.33 MG/DL (<1.0)
[2025-06-21 17:57] LABS: ALT/SGPT 36.0 U/L (7.0-40); AST/SGOT 32.0 U/L (<34); CALCIUM LEVEL 9.2 MG/DL (8.5-10.1); CARBON DIOXIDE LEVEL 26.0 MMOL/L (20-31); CHLORIDE LEVEL 105.0 MMOL/L (98-107); CREATININE FOR GFR 0.88 MG/DL (0.55-1.30); GLOMERULAR FILTRATION RATE 79.5 (>51); MAGNESIUM LEVEL 2.2 MG/DL (1.8-2.4); POTASSIUM SERUM 4.0 MMOL/L (3.5-5.1); PTH INTACT 82.1 PG/ML (18.5-88.0); SODIUM LEVEL 140.0 MMOL/L (136-145)
== END ==
LOC: M LAB REF 16:34
PROVIDERS: ATTEND Family Medicine
DX: I50.32 Chronic diastolic (congestive) heart failure (principal); M45.2 Ankylosing spondylitis of cervical region; D50.9 Iron deficiency anemia, unspecified; K75.81 Nonalcoholic steatohepatitis (NASH); E55.9 Vitamin D deficiency, unspecified